=== PATIENT | male | born 1940 | race Caucasian/White ===

== ENCOUNTER 2017-08-10 13:15 | Inpatient (IN) | payer OTHER ==
[~2017-08-10] VITALS: Ht 177.8 cm; Wt 100.0 kg
[~2017-08-10 13:15] MED LIST: ASPI81TA28 PO; ATOR-54 PO; CZR50 PO; GLC/500 PO; MAGN400T6 PO; METO50TA16 PO; MULT-506 PO; OMEGCAP2 PO; OMEP20CA9 PO
[2017-08-10] MEDS ORDERED: SODIUM CHLORIDE 0.9% 1000ML 2,000 ML IV STA (13:40)
[2017-08-10] MEDS ORDERED: CEFTRIAXONE SOD INJ 2,000 MG in DEXTROSE 5% 50ML 50 ML IV STA (13:52)
[2017-08-10] MEDS ORDERED: ACETAMINOPHEN 325 MG TAB PO STA (13:56)
--- NOTE | 2017-08-10 13:56 | EMERGENCY ROOM VISIT NOTE ---
ED Visit Note First contact with patient: 13:29 CHIEF COMPLAINT: Hematuria, urinary incontinence, fevers HISTORY OF PRESENTING ILLNESS: This is a 77-year-old male with past medical history significant for SD and CABG, hypertension, hyperlipidemia, type 2 diabetes, kidney stones and UTI, who presents to the emergency department with complaint of hematuria and fevers for the past 2 days. Patient states that he went to [place] emergency department on Tuesday when he started to have hematuria and issues with incontinence. He states he was diagnosed with a urinary tract infection and placed on ciprofloxacin to treat this. Since that time the patient has continued to feel unwell, and continues to note hematuria, urinary frequency, and urgency incontinence. His family has noted today that he appears pale and frequently becoming sweaty, and the patient states he has been shaking a lot and feeling generally weak and fatigued. He has also had associated nausea. The patient's states that he has had fluctuating fevers as high as 101.6 earlier today, he has not received any Tylenol or other antipyretics for the fevers. Patient complains of some mild pressure in his suprapubic region that is constant and rated as 5/10, he denies any other abdominal pain or back pain. He is followed by Dr. Mayer with urology for his previous UTIs and kidney stones. He denies any headaches, vision changes, neck pain or stiffness, chest pain, shortness of breath, cough, syncope, vomiting, diarrhea, bloody or black stool, or rash. REVIEW OF SYSTEMS: A complete 10 point review of systems was reviewed with the patient with pertinent positives and negatives as per history of present illness. All else were negative. PAST MEDICAL HISTORY: Reviewed in chart SOCIAL HISTORY: Lives at home with family. He denies tobacco use, alcohol or recreational drug use. ALLERGIES: Reviewed in chart. PHYSICAL EXAM: CONSTITUTIONAL: Pleasant and cooperative. No acute distress, nontoxic- appearing. Moderately dehydrated. HEENT: Normocephalic, atraumatic. Pupils equal, round and reactive to light, EOMI. TMs normal. Pharynx normal. Dry mucous membranes. NECK: Supple, full active range of motion without discomfort. No cervical adenopathy. RESPIRATORY: Diminished in bases, otherwise clear to auscultation bilaterally with no wheezing, crackles, rhonchi or stridor. Equal expansion bilaterally. CARDIOVASCULAR: Tachycardic. Regular rhythm with no murmurs, rubs or gallops. Normal peripheral perfusion. No pitting edema. GASTROINTESTINAL: Soft, mildly tender in suprapubic region, the abdomen is otherwise nontender, nondistended. No rebound tenderness or guarding. No palpable masses or HSM. Bowel sounds present in all quadrants. No CVA tenderness bilaterally. MUSCULOSKELETAL: Full range of motion of all joints without discomfort. INTEGUMENTARY: No rash or other significant dermatologic conditions noted. NEUROLOGIC: Alert and oriented X 4 with normal affect. Cranial nerves II-XII grossly intact. No focal neurologic deficits noted. Normal strength and sensation in all 4 extremities. Normal speech. Normal gait observed. ED COURSE AND MEDICAL DECISION MAKING: CC: Patient presenting with complaint of hematuria, urinary incontinence, and fevers DIFFERENTIAL DIAGNOSIS: Includes, but not limited to UTI, pyelonephritis, sepsis/bacteremia, dehydration, electrolyte abnormality, acute kidney injury, pneumonia, pulmonary edema, among others. INTERPRETATION OF LABS: Leukocytosis with left shift, mild anemia, mild hyponatremia/hypochloremia, no other significant electrolyte abnormalities, normal renal function, normal liver enzymes and lipase. Lactic acid within normal limits. UA consistent with UTI. Blood cultures pending. IMAGING: CHEST ONE VIEW PORTABLE CLINICAL HISTORY: 77 years-old Male presenting with Evaluate Fever/Sepsis. TECHNIQUE: AP view of the chest was obtained. COMPARISON: 12/03/2015. FINDINGS: Median sternotomy wires and mediastinal surgical clips again noted. Postsurgical changes of the ascending aorta. Atherosclerosis of the aortic arch. Cardiac silhouette mildly enlarged. No focal opacity. No large effusion or pneumothorax. Osseous structures normal. Upper abdomen normal. IMPRESSION: 1. Cardiomegaly without evidence of acute cardiopulmonary disease. 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 When compared to previous EKG from 12/03/2015, first-degree AV block has resolved, no other significant changes noted. MEDICATION RECONCILIATION: I attest that I have personally reviewed the patient 's current medication list. INITIAL VITAL SIGNS REVIEW: I reviewed the patient's initial vital signs and interpret them as follows: T: Febrile; BP: Hypertensive; HR: Tachycardic; RR : Within normal limits; Pulse Ox: Hypoxic on room air, patient placed on 2 L nasal cannula. Blood pressure screening: The patient was found to have an elevated blood pressure and was referred to the inpatient hospitalist team for further management. SUMMARY: Patient was evaluated at bedside, history and physical exam performed. Patient is alert and oriented, in no acute distress, resting calmly in stretcher. Patient does appear to be moderately dehydrated, is noted to be febrile and tachycardic on my exam. Patient also noted to be hypoxic to 88% on RA, placed on 2L NC with improvement. Patient states he wears BiPAP at night, no oxygen during the day. He does state "my oxygen is usually low when I don't feel well." He denies any chest pain, SOB, or cough. Patient does have mild suprapubic tenderness to exam, the abdomen is otherwise benign and no CVA tenderness. I reviewed patient records from [place] ED visit on 08/08/2017. Review of urine culture noting greater than 100,000 colonies of E. coli, resistant to fluoroquinolones, otherwise susceptible including susceptible to ceftriaxone. Orders were placed at bedside for labs, UA and urine culture, blood cultures 2 , lactic acid level, EKG and chest x-ray, Tylenol to treat fever, IV ceftriaxone to treat for possible sepsis secondary to UTI. 2L NSS IV fluid bolus for hydration/resuscitation based on adjusted ideal body weight of 73.1kg, per sepsis protocol, followed by maintenance IV fluid of 150mL /hr. Patient also being monitored closely for signs of fluid overload, given his cardiac history. His chest x-ray today does not show pulmonary edema. Patient discussed with Dr. Marroquin, who agrees with my assessment and plan. Labs and imaging reviewed as above, UA consistent with UTI. I spoke with Linda Herndon PA-C with hospitalist team, who agrees to evaluate the patient for admission. Patient reassessed multiple times throughout ED stay, he remains stable, tachycardia improving with IV fluids. Patient and family were updated on all results and plan for admission, they verbalized understanding and were agreeable to this plan. Patient stable at time of admission. Problem List Medical Problems: (1) CAD (coronary artery disease) Status: Chronic (2) DM type 2 (diabetes mellitus, type 2) Status: Chronic (3) HTN (hypertension) Status: Chronic (4) VANNESA treated with BiPAP Status: Chronic (5) Paroxysmal A-fib Status: Chronic (6) Renal stones Status: Chronic Current/Historical Medications Scheduled Aspirin (Aspirin Ec), 81 MG PO BID Atorvastatin (Lipitor), 20 MG PO HS Ciprofloxacin (Cipro), 1 TAB PO BID Losartan Potassium (Cozaar), 50 MG PO HS Magnesium Oxide (Mag-Ox), 400 MG PO QPM Metformin Hcl (Glucophage), 500 MG PO AMPM Metoprolol Tartrate (Lopressor) (Lopressor), 50 MG PO BID Multivitamin (Multivitamin), 1 TAB PO QAM [place]-3 Fatty Acids (Fish Oil), 1 TAB PO BID Omeprazole (Prilosec), 20 MG PO QAM Allergies Coded Allergies: NO KNOWN DRUG ALLERGIES (Verified Allergy, Unknown, NONE, 08/10/17) Lactose Intolerance (GI) (Verified Adverse Reaction, Mild, gi symptoms, 08/10/17) Vital Signs Date Time Temp Pulse Resp B/P (MAP) Pulse Ox O2 Delivery O2 Flow Rate FiO2 08/10/17 18:43 37.0 115 20 158/69 (98) 92 Nasal Cannula 2.0 08/10/17 17:30 109 24 141/85 93 Nasal Cannula 2.0 08/10/17 16:29 112 24 114/79 92 Nasal Cannula 2.0 08/10/17 16:06 95 Nasal Cannula 2.0 08/10/17 15:24 37.5 08/10/17 15:15 88 18 130/62 95 Nasal Cannula 2.0 08/10/17 14:16 88 Room Air 08/10/17 14:16 93 Nasal Cannula 2.0 08/10/17 13:58 100 08/10/17 13:45 38.0 08/10/17 13:19 37.3 98 20 139/75 90 Room Air Laboratory Results 08/10/17 14:15 Red Blood Count 4.32, Mean Corpuscular Volume 93.3, Mean Corpuscular Hemoglobin 31.7, Mean Corpuscular Hemoglobin Concent 34.0, Mean Platelet Volume 10.1, Neutrophils (%) (Auto) 80.7, Lymphocytes (%) (Auto) 9.3, Monocytes (%) (Auto) 9.3, Eosinophils (%) (Auto) 0.2, Basophils (%) (Auto) 0.2, Neutrophils # (Auto) 9.40, Lymphocytes # (Auto) 1.09, Monocytes # (Auto) 1.09, Eosinophils # (Auto) 0.02, Basophils # (Auto) 0.02 08/10/17 14:15 Test 08/10/17 14:10 08/10/17 14:15 Urine Color DK YELLOW Urine Appearance CLOUDY (CLEAR) Urine pH 5.5 (4.5-7.5) Urine Specific [place] 1.018 (1.000-1.030) Urine Protein 1+ (NEG) Urine Glucose (UA) NEG (NEG) Urine Ketones NEG (NEG) Urine Occult Blood 3+ (NEG) Urine Nitrite POS (NEG) Urine Bilirubin NEG (NEG) Urine Urobilinogen NEG (NEG) Urine Leukocyte Esterase LARGE (NEG) Urine WBC (Auto) >30 /hpf (0-5) Urine RBC (Auto) >30 /hpf (0-4) Urine Hyaline Casts (Auto) 1-5 /lpf (0-5) Urine Epithelial Cells (Auto) 5-10 /lpf (0-5) Urine Bacteria (Auto) 4+ (NEG) White Blood Count 11.66 K/uL (4.8-10.8) Red Blood Count 4.32 M/uL (4.7-6.1) Hemoglobin 13.7 g/dL (14.0-18.0) Hematocrit 40.3 % (42-52) Mean Corpuscular Volume 93.3 fL (80-100) Mean Corpuscular Hemoglobin 31.7 pg (25-34) Mean Corpuscular Hemoglobin Concent 34.0 g/dl (32-36) Platelet Count 176 K/uL (130-400) Mean Platelet Volume 10.1 fL (7.4-10.4) Neutrophils (%) (Auto) 80.7 % Lymphocytes (%) (Auto) 9.3 % Monocytes (%) (Auto) 9.3 % Eosinophils (%) (Auto) 0.2 % Basophils (%) (Auto) 0.2 % Neutrophils # (Auto) 9.40 K/uL (1.4-6.5) Lymphocytes # (Auto) 1.09 K/uL (1.2-3.4) Monocytes # (Auto) 1.09 K/uL (0.11-0.59) Eosinophils # (Auto) 0.02 K/uL (0-0.5) Basophils # (Auto) 0.02 K/uL (0-0.2) RDW Standard Deviation 43.3 fL (36.4-46.3) RDW Coefficient of Variation 12.7 % (11.5-14.5) Immature Granulocyte % (Auto) 0.3 % Immature Granulocyte # (Auto) 0.04 K/uL (0.00-0.02) Prothrombin Time 11.0 SECONDS (9.0-12.0) Prothromb Time International Ratio 1.0 (0.9-1.1) Anion Gap 8.0 mmol/L (3-11) Est Creatinine Clear Calc Drug Dose 90.1 ml/min Estimated GFR () 98.9 Estimated GFR (Non- 85.3 BUN/Creatinine Ratio 22.0 (10-20) Lactic Acid Level 1.7 mmol/L (0.4-2.0) Calcium Level 8.8 mg/dl (8.5-10.1) Total Bilirubin 0.8 mg/dl (0.2-1) Direct Bilirubin 0.2 mg/dl (0-0.2) Aspartate Amino Transf (AST/SGOT) 15 U/L (15-37) Alanine Aminotransferase (ALT/SGPT) 26 U/L (12-78) Alkaline Phosphatase 51 U/L (45-117) Total Protein 6.9 gm/dl (6.4-8.2) Albumin 3.1 gm/dl (3.4-5.0) Lipase 105 U/L (73-393) Procalcitonin 0.41 ng/ml (0-0.5) Medications Administered Medications (Trade) Dose Ordered Sig/Ac Route Start Time Stop Time Status Last Admin Dose Admin Sodium Chloride 2,000 ml @ 999 mls/hr Q2H1M STAT IV 08/10/17 13:40 08/10/17 15:40 DC 08/10/17 14:17 999 MLS/HR Ceftriaxone Sodium 2000 mg/ Dextrose 70 ml @ 100 mls/hr ONE STAT IV 08/10/17 13:52 08/10/17 14:33 DC 08/10/17 14:17 100 MLS/HR Acetaminophen (Tylenol Tab) 650 mg NOW STAT PO 08/10/17 13:56 08/10/17 13:57 DC 08/10/17 14:25 650 MG Sodium Chloride 1,000 ml @ 150 mls/hr Q6H40M STAT IV 08/10/17 15:38 08/10/17 22:17 08/10/17 18:30 150 MLS/HR Departure Information Referrals Shaka Lechuga (PCP) Patient Instructions Counts Include [facility] At [facility]
[2017-08-10] MEDS ORDERED: LOSA50TA6 PO (14:26)
[2017-08-10 14:55] LABS: BASO % 0.2 %; BASO ABS # 0.02 K/uL (0-0.2); EOS % 0.2 %; EOS ABS # 0.02 K/uL (0-0.5); HEMATOCRIT 40.3 % (42-52); HEMOGLOBIN 13.7 g/dL (14.0-18.0); IG# 0.04 K/uL (0.00-0.02); LYMPH % 9.3 %; LYMPH ABS # 1.09 K/uL (1.2-3.4); MEAN CELL VOLUME 93.3 fL (80-100); MEAN CORPUSCULAR HEMOGLOBIN 31.7 pg (25-34); MEAN PLATELET VOLUME 10.1 fL (7.4-10.4); MONO % 9.3 %; MONO ABS # 1.09 K/uL (0.11-0.59); NEUT % 80.7 %; PLATELET COUNT 176 K/uL (130-400); RED CELL DISTRIBUTION WIDTH CV 12.7 % (11.5-14.5); RED CELL DISTRIBUTION WIDTH SD 43.3 fL (36.4-46.3); WHITE BLOOD COUNT 11.66 K/uL (4.8-10.8)
[2017-08-10 14:56] LABS: ALBUMIN 3.1 gm/dl (3.4-5.0); CALCIUM 8.8 mg/dl (8.5-10.1); CREATININE 0.82 mg/dl (0.60-1.40); POTASSIUM 3.9 mmol/L (3.5-5.1)
[2017-08-10 14:59] LABS: TOTAL PROTEIN 6.9 gm/dl (6.4-8.2)
--- NOTE | 2017-08-10 15:01 | DIAGNOSTIC IMAGING REPORT ---
CHEST ONE VIEW PORTABLE CLINICAL HISTORY: 77 years-old Male presenting with Evaluate Fever/Sepsis. TECHNIQUE: AP view of the chest was obtained. COMPARISON: 12/03/2015. FINDINGS: Median sternotomy wires and mediastinal surgical clips again noted. Postsurgical changes of the ascending aorta. Atherosclerosis of the aortic arch. Cardiac silhouette mildly enlarged. No focal opacity. No large effusion or pneumothorax. Osseous structures normal. Upper abdomen normal. IMPRESSION: 1. Cardiomegaly without evidence of acute cardiopulmonary disease. Electronically signed by: Yovany George M.D. 08/10/2017 2:59 PM Dictated Date/Time: 08/10/2017 2:57 PM
[2017-08-10] MEDS ORDERED: SODIUM CHLORIDE 0.9% 1000ML 1,000 ML IV STA (15:38)
[2017-08-10] MEDS ORDERED: DEXTROSE 50% 50 ML SYR IV PRN (16:00)
[2017-08-10] MEDS ORDERED: GLUCOSE 10 TABS/TUBE PO PRN (16:00)
[2017-08-10] MEDS ORDERED: GLUCOSE 40% GEL 15 GM TUBE PO PRN (16:00)
[2017-08-10] MEDS ORDERED: ACETAMINOPHEN 325 MG TAB PO PRN (16:00)
[2017-08-10] MEDS: INSULIN ASPART 100 UNITS/ML 3 ML PEN SC SCH ×2 (16:00→21:23)
[2017-08-10] MEDS ORDERED: GLUCAGON FOR INJ 1 MG VIAL SQ PRN (16:00)
[2017-08-10] MEDS ORDERED: ONDANSETRON INJ 2 MG/ML 2 ML VIAL IV PRN (16:00)
[2017-08-10 16:06] VITALS: O2SAT 95; Ht 177.8 cm; Wt 100.0 kg
--- NOTE | 2017-08-10 16:07 | History and Physical ---
History & Physical Date & Time of Service: Aug 10, 2017 at 15:55 Chief Complaint: Bleeding In Urine, Nausea, Shaking, Fever Primary Care Physician: Shaka Lechuga History of Present Illness Source: patient, clinic records, hospital records Patient is a 77-year-old male with a PMH of kidney stones, CAD (s/p CABG), DM II , and other medical problems listed below who presents with worsening urinary symptoms 2 days. Patient was seen at [place] the ED 2 days ago for urinary urgency, gross hematuria and incontinence with associated fever, chills and nausea. Was diagnosed with a UTI and discharged on Cipro. Patient has continued to feel poorly over the past 2 days with continued urgency, episodes of incontinence and suprapubic pain. Has had a fever ranging from 99-101.6F as well as chills, nausea, decreased PO intake and diarrhea. states patient has been diaphoretic and generally weak as well. Denies any episodes of vomiting, flank pain or inability to urinate. No confusion. Resulting urine culture grew E coli with resistance to fluoroquinolones but otherwise pansensitive. CT abdomen/pelvis performed at [facility] shows presence of multiple bilateral renal stones but no hydronephrosis. Follows with Dr. Mayer with urology for his previous UTIs and kidney stones. In ED, patient had a temperature of 38, heart rate of 98 and a white count of 11.66. + UA with repeat urine culture pending. Past Medical/Surgical History Medical Problems: (1) CAD (coronary artery disease) Status: Chronic (2) DM type 2 (diabetes mellitus, type 2) Status: Chronic (3) HTN (hypertension) Status: Chronic (4) VANNESA treated with BiPAP Status: Chronic (5) Paroxysmal A-fib Status: Chronic (6) Renal stones Status: Chronic Family History Diabetes mellitus FH: heart disease Social History Smoking Status: Former Smoker Marital Status: Housing status: lives with significant other Occupational Status: retired Immunizations History of Influenza Vaccine: No History of Tetanus Vaccine?: Unknown History of Pneumococcal: Yes Pneumococcal Date: Feb 07, 2008 History of Hepatitis B Vaccine: Unknown Allergies Coded Allergies: NO KNOWN DRUG ALLERGIES (Verified Allergy, Unknown, NONE, 08/10/17) Lactose Intolerance (GI) (Verified Adverse Reaction, Mild, gi symptoms, 08/10/17) Home Medications Scheduled Aspirin (Aspirin Ec), 81 MG PO BID Atorvastatin (Lipitor), 20 MG PO HS Ciprofloxacin (Cipro), 1 TAB PO BID Losartan Potassium (Cozaar), 50 MG PO HS Magnesium Oxide (Mag-Ox), 400 MG PO QPM Metformin Hcl (Glucophage), 500 MG PO AMPM Metoprolol Tartrate (Lopressor) (Lopressor), 50 MG PO BID Multivitamin (Multivitamin), 1 TAB PO QAM [place]-3 Fatty Acids (Fish Oil), 1 TAB PO BID Omeprazole (Prilosec), 20 MG PO QAM Review of Systems Constitutional: + fever, + chills, + sweats, + weakness, + fatigue Eyes: No worsening of vision, No diplopia ENT: No nasal symptoms, No sore throat Respiratory: No cough, No sputum, No wheezing, No shortness of breath Cardiovascular: No chest pain, No edema, No palpitations Abdomen: + nausea, + diarrhea, No pain, No vomiting, No constipation Genitourinary - Male: + dysuria, + urinary urgency, + urinary incontinence, No hematuria, No urinary frequency, No urinary retention Neurologic: No numbness/tingling Psychiatric: No depression symptoms Integumentary: No rash, No itch, No new/changing skin lesions Physical Exam Vital Signs Date Time Temp Pulse Resp B/P (MAP) Pulse Ox O2 Delivery O2 Flow Rate FiO2 08/10/17 15:24 37.5 08/10/17 15:15 88 18 130/62 95 Nasal Cannula 2.0 08/10/17 14:16 88 Room Air 08/10/17 14:16 93 Nasal Cannula 2.0 08/10/17 13:58 100 08/10/17 13:45 38.0 08/10/17 13:19 37.3 98 20 139/75 90 Room Air General Appearance: + mild distress, + pertinent finding (Normal oxygen saturation on 2L NC) Head: normocephalic, atraumatic Eyes: normal inspection, PERRL, sclerae normal ENT: normal ENT inspection, hearing grossly normal, pharynx normal (Dry mucous membranes) Neck: supple, no JVD, trachea midline Respiratory/Chest: chest non-tender, no respiratory distress, no accessory muscle use, + decreased breath sounds Cardiovascular: no murmur, normal peripheral pulses, + tachycardia Abdomen/GI: normal bowel sounds, non tender, soft, no organomegaly Genitourinary - Male: + pertinent finding (Suprapubic tenderness) Back: normal inspection Extremities/Musculoskelatal: normal inspection, no calf tenderness, + pertinent finding (RLE 1+ pitting edema (chronic)) Neurologic/Psych: no motor/sensory deficits, alert, normal mood/affect, oriented x 3 Skin: normal color, warm/dry, no rash Diagnostics Laboratory Results Results Past 24 Hours Test 08/10/17 14:10 08/10/17 14:15 Range/Units Urine Color DK YELLOW Urine Appearance CLOUDY CLEAR Urine pH 5.5 4.5-7.5 Urine Specific [place] 1.018 1.000-1.030 Urine Protein 1+ NEG Urine Glucose (UA) NEG NEG Urine Ketones NEG NEG Urine Occult Blood 3+ NEG Urine Nitrite POS NEG Urine Bilirubin NEG NEG Urine Urobilinogen NEG NEG Urine Leukocyte Esterase LARGE NEG Urine WBC (Auto) >30 0-5 /hpf Urine RBC (Auto) >30 0-4 /hpf Urine Hyaline Casts (Auto) 1-5 0-5 /lpf Urine Epithelial Cells (Auto) 5-10 0-5 /lpf Urine Bacteria (Auto) 4+ NEG White Blood Count 11.66 4.8-10.8 K/uL Red Blood Count 4.32 4.7-6.1 M/uL Hemoglobin 13.7 14.0-18.0 g/dL Hematocrit 40.3 42-52 % Mean Corpuscular Volume 93.3 80-100 fL Mean Corpuscular Hemoglobin 31.7 25-34 pg Mean Corpuscular Hemoglobin Concent 34.0 32-36 g/dl Platelet Count 176 130-400 K/uL Mean Platelet Volume 10.1 7.4-10.4 fL Neutrophils (%) (Auto) 80.7 % Lymphocytes (%) (Auto) 9.3 % Monocytes (%) (Auto) 9.3 % Eosinophils (%) (Auto) 0.2 % Basophils (%) (Auto) 0.2 % Neutrophils # (Auto) 9.40 1.4-6.5 K/uL Lymphocytes # (Auto) 1.09 1.2-3.4 K/uL Monocytes # (Auto) 1.09 0.11-0.59 K/uL Eosinophils # (Auto) 0.02 0-0.5 K/uL Basophils # (Auto) 0.02 0-0.2 K/uL RDW Standard Deviation 43.3 36.4-46.3 fL RDW Coefficient of Variation 12.7 11.5-14.5 % Immature Granulocyte % (Auto) 0.3 % Immature Granulocyte # (Auto) 0.04 0.00-0.02 K/uL Sodium Level 133 136-145 mmol/L Potassium Level 3.9 3.5-5.1 mmol/L Chloride Level 97 98-107 mmol/L Carbon Dioxide Level 27 21-32 mmol/L Anion Gap 8.0 3-11 mmol/L Blood Urea Nitrogen 18 7-18 mg/dl Creatinine 0.82 0.60-1.40 mg/dl Est Creatinine Clear Calc Drug Dose 90.1 ml/min Estimated GFR () 98.9 Estimated GFR (Non- 85.3 BUN/Creatinine Ratio 22.0 10-20 Random Glucose 116 70-99 mg/dl Lactic Acid Level 1.7 0.4-2.0 mmol/L Calcium Level 8.8 8.5-10.1 mg/dl Total Bilirubin 0.8 0.2-1 mg/dl Direct Bilirubin 0.2 0-0.2 mg/dl Aspartate Amino Transf (AST/SGOT) 15 15-37 U/L Alanine Aminotransferase (ALT/SGPT) 26 12-78 U/L Alkaline Phosphatase 51 45-117 U/L Total Protein 6.9 6.4-8.2 gm/dl Albumin 3.1 3.4-5.0 gm/dl Lipase 105 73-393 U/L Microbiology Results 08/10/17 Blood Culture, Received Pending 08/10/17 Blood Culture, Received Pending 08/10/17 Urine Culture, Received Pending Diagnostic Radiology CXR: IMPRESSION: 1. Cardiomegaly without evidence of acute cardiopulmonary disease. Chest/thorax CTA: IMPRESSION: 1. No evidence for central pulmonary embolus. The respiratory motion artifact obscures the distal pulmonary arteries. 2. Cardiomegaly. 3. No focal lung consolidations to suggest pneumonia. 4. A 3 mm indeterminate pulmonary nodule within the left lung apex. EKG Sinus tachycardia at 104 bpm. Right bundle branch block. Left anterior fascicular block. Left ventricular hypertrophy with repolarization abnormality When compared with ECG of 03-DEC-2015 11:14, CA interval has decreased Confirmed Impression Assessment and Plan Patient is a 77-year-old male with a PMH of kidney stones, CAD (s/p CABG), DM II , and other medical problems listed below who presents with worsening urinary symptoms 2 days. Sepsis 2/2 complicated UTI: -Febrile to 38.6 at home (38 here), HR > 90 meet SIRs criteria -Known source of E coli UTI -Leukocytosis of 11.66 -Lactic acid wnl at 1.7 -Treat with rocephin (sensitive per [facility] culture) -Blood, urine cultures pending -Given 2 L NSS bolus in ED. Continue with maintenance fluids Acute hypoxic respiratory failure: -Hypoxic to 88% on room air, improved to mid-90s on 2L NC -Does not require home O2 during day -Uses bipap at night for VANNESA -Lungs clear on exam, no evidence of PNA on CXR -Chest/thorax CTA without evidence for central PE (motion artifact distorted distal pulm arteries) Kidney stones: -CT abdomen/pelvis performed at [facility] shows presence of multiple bilateral renal stones but no hydronephrosis -Recommend out-patient renal ultrasound for follow up -Follows with Dr. Mayer with [facility] [place] CAD: -S/p CABG in 1994 -Denies any intervention since then -Echo from 2013 with moderate hypokinesis in septal, inferior and posterior honeycutt Mildly reduced systolic function. EF of 50% -No chest pain or acute ischemic changes on EKG -Continue home dose aspirin, statin DM II: -Last a1c 6.5 in Jun 2017 -Hold home agents -SSI while in-patient -BSG AC HS HTN: -Normotensive -Cont home losartan, metoprolol VANNESA: -Bipap at night Paroxysmal A Fib: -NSR on EKG -Not on out-patient anticoagulation -Continue metoprolol DVT Ppx: SQ heparin Code status: FULL per discussion with patient PCP: Alexandrea Dispo: Admitted to telemetry. Plan to return home once medically stable. Patient seen in collaboration with Dr. Tabares. Please see addendum. Attending Note: Patient is a 77 yr male with PMH of CAD S/P CABG, VANNESA, DM II and other problems presents with history of worsening urinary urgency, hematuria, Incontinence associated with fever, chills and nausea since 2 days duration. Patient was discharged on Cipro for recently diagnosed UTI which was resistant to E.coli on sensitivities. Patient was also found to be hypoxic while in ED but he denies any SOB. CTA was negative for consolidation, PE. Physical Exam: Vitals signs as noted above General Appearance:Moderately built and nourished, no apparent distress Head: normocephalic, Atraumatic Eyes: normal inspection, EOMI, PERRL Neck: supple, Trachea midline Respiratory/Chest: Normal breath sounds, CTA Cardiovascular: S1, S2, No murmur, +Tachycardia Abdomen/GI:Soft, Suprapubic tender, Bowel sounds present Extremities/Musculoskelatal:normal inspection, 1+ b/l edema Neurologic/Psych:AAOX3, grossly no focal neurological deficits Skin:normal color,warm Assessment and Plan: Sepsis Complicated UTI: Normal lactate IV Fluids Started on Rocephin Hypoxia: CTA: No PE, consolidation H/O VANNESA Oxygen support May need 2 step prior to discharge Continue BiPAP QHS I personally reviewed the record. Patient is interviewed and examined at bedside. Patient's care is coordinated with Linda Herndon PA-C. Please refer to the documentation above for details of patient's presentation and for discussion of other issues. Resuscitation Status VTE Prophylaxis Will order VTE Prophylaxis: Yes
[2017-08-10] MEDS ORDERED: CIPR250T3 PO (16:35)
[2017-08-10] MEDS ORDERED: OPTIRAY 320 IV PRN (17:30)
--- NOTE | 2017-08-10 17:58 | DIAGNOSTIC IMAGING REPORT ---
CHEST CTA for PULMONARY ARTERIES CT DOSE: 549.94 mGy.cm HISTORY: Atypical chest pain. TECHNIQUE: Multiaxial CT images of the chest were performed following the intravenous administration of contrast to evaluate the pulmonary arteries. Maximal intensity projection images were also obtained. A dose lowering technique was utilized adhering to the principles of ALARA. COMPARISON STUDY: None. FINDINGS: The visualized unenhanced liver, spleen, and adrenal glands are unremarkable. No mediastinal or hilar lymphadenopathy. The heart is moderately enlarged. No pleural or pericardial effusions. Poststernotomy changes. No pneumothorax. The central airways are patent. Respiratory motion artifact results in suboptimal evaluation of the lungs. There is a 3 mm nodule within the left lung apex on image 245. No focal lung consolidations to suggest pneumonia. No evidence for aortic dissection. The majority of the segmental and subsegmental pulmonary arteries are nondiagnostic due to the respiratory motion. The main and lobar pulmonary arteries are patent. IMPRESSION: 1. No evidence for central pulmonary embolus. The respiratory motion artifact obscures the distal pulmonary arteries. 2. Cardiomegaly. 3. No focal lung consolidations to suggest pneumonia. 4. A 3 mm indeterminate pulmonary nodule within the left lung apex. Electronically signed by: Nick Perdomo M.D. 08/10/2017 5:57 PM Dictated Date/Time: 08/10/2017 5:47 PM
[2017-08-10 18:43] VITALS: BP 158/69; PULSE 115; TEMP 37; O2SAT 92
[2017-08-10] MEDS ORDERED: SODIUM CHLORIDE 0.9% 1000ML 1,000 ML IV SCH (19:15)
[2017-08-10 20:00] VITALS: O2SAT 92
[2017-08-10] MEDS: METOPROLOL TARTRATE 50 MG TAB PO SCH (20:49)
[2017-08-10] MEDS: ATORVASTATIN 20 MG TAB PO SCH (20:49)
[2017-08-10] MEDS: MAGNESIUM OXIDE 400 MG TAB PO SCH (20:50)
[2017-08-10] MEDS: LOSARTAN POTASSIUM 50 MG TAB PO SCH (20:51)
[2017-08-10] MEDS: ASPIRIN 81 MG ECTAB PO SCH (20:51)
[2017-08-10 20:58] VITALS: BP 133/71; PULSE 126; TEMP 37.2; O2SAT 91
[2017-08-10] MEDS: HEPARIN SOD 5000 UNIT/0.5 ML CARP SQ SCH (20:58)
[2017-08-10 22:05] VITALS: PULSE 102; O2SAT 96
[2017-08-10 23:50] VITALS: BP 101/59; PULSE 99; TEMP 37.1; O2SAT 95
[2017-08-11 03:44] VITALS: BP 110/56; PULSE 89; TEMP 37.3; O2SAT 94
[2017-08-11] MEDS: HEPARIN SOD 5000 UNIT/0.5 ML CARP SQ SCH ×3 (06:00→13:38)
[2017-08-11 06:53] LABS: HEMATOCRIT 40.1 % (42-52); HEMOGLOBIN 13.4 g/dL (14.0-18.0); MEAN CELL VOLUME 94.6 fL (80-100); MEAN CORPUSCULAR HEMOGLOBIN 31.6 pg (25-34); MEAN CORPUSCULAR HGB CONC 33.4 g/dl (32-36); PLATELET COUNT 157 K/uL (130-400); RED CELL DISTRIBUTION WIDTH CV 12.8 % (11.5-14.5); RED CELL DISTRIBUTION WIDTH SD 43.9 fL (36.4-46.3); WHITE BLOOD COUNT 7.12 K/uL (4.8-10.8)
[2017-08-11 07:03] LABS: PTT PATIENT 25.7 SECONDS (21.0-31.0)
[2017-08-11 07:26] LABS: CALCIUM 8.1 mg/dl (8.5-10.1); CREATININE 0.62 mg/dl (0.60-1.40); POTASSIUM 3.5 mmol/L (3.5-5.1)
[2017-08-11 07:38] VITALS: BP 118/68; PULSE 85; TEMP 36.8; O2SAT 95
[2017-08-11] MEDS: ASPIRIN 81 MG ECTAB PO SCH ×2 (08:00→21:29)
[2017-08-11] MEDS: PANTOprazole SOD 40 MG TAB PO SCH (08:00)
[2017-08-11] MEDS: MULTIVITAMIN TAB PO SCH (08:00)
[2017-08-11] MEDS: METOPROLOL TARTRATE 50 MG TAB PO SCH ×2 (08:00→21:29)
[2017-08-11] MEDS: CEFTRIAXONE SOD INJ 1 GM in DEXTROSE 5% ADD-VANTAGE 50ML 50 ML IV SCH (08:04)
[2017-08-11] MEDS: INSULIN ASPART 100 UNITS/ML 3 ML PEN SC SCH ×4 (08:07→20:44)
[2017-08-11 09:53] LABS: HEMOGLOBIN A1C 6.4 % (4.5-5.6)
[2017-08-11 12:03] VITALS: BP 156/69; PULSE 78; TEMP 37.4; O2SAT 95
[2017-08-11 16:23] VITALS: BP 147/70; PULSE 86; TEMP 36.4; O2SAT 94
[2017-08-11 17:35] VITALS: BP 133/56; PULSE 92; TEMP 36.6; O2SAT 92; O2SAT 93
--- NOTE | 2017-08-11 18:21 | Progress Note ---
Medicine Progress Note Date & Time of Visit: Aug 11, 2017 at 15:33. Subjective 77-year-old man with history of kidney stones presents with urinary symptoms 2 days. In the ER he was septic and found to have UTI. He was placed on broad- spectrum antibiotics with Rocephin with blood and urine cultures pending. He reports clinical improvement today stating he feels overall much better and was is without pain. He does report some dysuria that is persistent. He denies flank pain, fevers, or chills. He is tolerating regular food. He is ambulatory. He is mentating at baseline. Objective Last 8 Hrs Date Time Temp Pulse Resp B/P (MAP) Pulse Ox O2 Delivery O2 Flow Rate FiO2 08/11/17 12:03 37.4 78 20 156/69 (98) 95 Room Air 08/11/17 12:00 Nasal Cannula 2.0 08/11/17 08:00 Nasal Cannula 2.0 08/11/17 07:38 36.8 85 16 118/68 (85) 95 Nasal Cannula 1.0 Physical Exam: GEN: WNWD, in no acute distress, alert and appropriate HEENT: NC/AT, normal sclerae, mmm CARDIO: reg rate, S1/2 heard without m/g/r LUNGS: CTA bilaterally, no crackles, rales or wheezes, good diaphragmatic excursion ABD: soft, non-tender, non-distended, no rebound or guarding, no CVA tenderness EXTREMITY: RP and DP palpable 2+ bilat, no LE swelling or edema, extremities are warm and well-perfused NEURO: CN 2-12 grossly intact MUSC: 5/5 strength throughout, no gross focal deficits SKIN: warm and dry Laboratory Results: 08/11/17 06:37 08/11/17 06:37 Test 08/10/17 14:10 08/10/17 14:15 08/11/17 06:37 08/11/17 16:26 Urine Color DK YELLOW Urine Appearance CLOUDY (CLEAR) Urine pH 5.5 (4.5-7.5) Urine Specific [place] 1.018 (1.000-1.030) Urine Protein 1+ (NEG) Urine Glucose (UA) NEG (NEG) Urine Ketones NEG (NEG) Urine Occult Blood 3+ (NEG) Urine Nitrite POS (NEG) Urine Bilirubin NEG (NEG) Urine Urobilinogen NEG (NEG) Urine Leukocyte Esterase LARGE (NEG) Urine WBC (Auto) >30 /hpf (0-5) Urine RBC (Auto) >30 /hpf (0-4) Urine Hyaline Casts (Auto) 1-5 /lpf (0-5) Urine Epithelial Cells (Auto) 5-10 /lpf (0-5) Urine Bacteria (Auto) 4+ (NEG) Immature Granulocyte % (Auto) 0.3 % White Blood Count 11.66 K/uL (4.8-10.8) Red Blood Count 4.32 M/uL (4.7-6.1) 4.24 M/uL (4.7-6.1) Hemoglobin 13.7 g/dL (14.0-18.0) Hematocrit 40.3 % (42-52) Mean Corpuscular Volume 93.3 fL (80-100) 94.6 fL (80-100) Mean Corpuscular Hemoglobin 31.7 pg (25-34) 31.6 pg (25-34) Mean Corpuscular Hemoglobin Concent 34.0 g/dl (32-36) 33.4 g/dl (32-36) Platelet Count 176 K/uL (130-400) Mean Platelet Volume 10.1 fL (7.4-10.4) 10.0 fL (7.4-10.4) Neutrophils (%) (Auto) 80.7 % Lymphocytes (%) (Auto) 9.3 % Monocytes (%) (Auto) 9.3 % Eosinophils (%) (Auto) 0.2 % Basophils (%) (Auto) 0.2 % Neutrophils # (Auto) 9.40 K/uL (1.4-6.5) Lymphocytes # (Auto) 1.09 K/uL (1.2-3.4) Monocytes # (Auto) 1.09 K/uL (0.11-0.59) Eosinophils # (Auto) 0.02 K/uL (0-0.5) Basophils # (Auto) 0.02 K/uL (0-0.2) Immature Granulocyte # (Auto) 0.04 K/uL (0.00-0.02) Prothrombin Time 11.0 SECONDS (9.0-12.0) Prothromb Time International Ratio 1.0 (0.9-1.1) Lactic Acid Level 1.7 mmol/L (0.4-2.0) Total Bilirubin 0.8 mg/dl (0.2-1) Direct Bilirubin 0.2 mg/dl (0-0.2) Aspartate Amino Transf (AST/SGOT) 15 U/L (15-37) Alanine Aminotransferase (ALT/SGPT) 26 U/L (12-78) Alkaline Phosphatase 51 U/L (45-117) Total Protein 6.9 gm/dl (6.4-8.2) Albumin 3.1 gm/dl (3.4-5.0) Lipase 105 U/L (73-393) Procalcitonin 0.41 ng/ml (0-0.5) RDW Standard Deviation 43.9 fL (36.4-46.3) RDW Coefficient of Variation 12.8 % (11.5-14.5) Activated Partial Thromboplast Time 25.7 SECONDS (21.0-31.0) Partial Thromboplastin Ratio 1.0 Anion Gap 6.0 mmol/L (3-11) Est Creatinine Clear Calc Drug Dose 118.3 ml/min Estimated GFR () 110.9 Estimated GFR (Non- 95.7 BUN/Creatinine Ratio 22.9 (10-20) Estimated Average Glucose 137 mg/dl Hemoglobin A1c 6.4 % (4.5-5.6) Calcium Level 8.1 mg/dl (8.5-10.1) Bedside Glucose 119 mg/dl (70-99) Date/Time Source Procedure Growth Status 08/10/17 14:15 Blood Blood Culture Pending Received 08/10/17 14:10 Urine , Clean Catch Urine Culture - Preliminary Escherichia Coli Resulted Last 24 Hours Test 08/10/17 18:41 08/10/17 20:51 08/11/17 06:37 08/11/17 06:56 Bedside Glucose 107 mg/dl 200 mg/dl 101 mg/dl White Blood Count 7.12 K/uL Red Blood Count 4.24 M/uL Hemoglobin 13.4 g/dL Hematocrit 40.1 % Mean Corpuscular Volume 94.6 fL Mean Corpuscular Hemoglobin 31.6 pg Mean Corpuscular Hemoglobin Concent 33.4 g/dl RDW Standard Deviation 43.9 fL RDW Coefficient of Variation 12.8 % Platelet Count 157 K/uL Mean Platelet Volume 10.0 fL Activated Partial Thromboplast Time 25.7 SECONDS Partial Thromboplastin Ratio 1.0 Sodium Level 139 mmol/L Potassium Level 3.5 mmol/L Chloride Level 103 mmol/L Carbon Dioxide Level 30 mmol/L Anion Gap 6.0 mmol/L Blood Urea Nitrogen 14 mg/dl Creatinine 0.62 mg/dl Est Creatinine Clear Calc Drug Dose 118.3 ml/min Estimated GFR () 110.9 Estimated GFR (Non- 95.7 BUN/Creatinine Ratio 22.9 Random Glucose 110 mg/dl Estimated Average Glucose 137 mg/dl Hemoglobin A1c 6.4 % Calcium Level 8.1 mg/dl Test 08/11/17 11:40 Bedside Glucose 102 mg/dl Assessment & Plan 77-year-old man with history of kidney stones presents with urinary symptoms 2 days. In the ER he was septic and found to have UTI. He was placed on broad- spectrum antibiotics with Rocephin with blood and urine cultures pending. He reports clinical improvement today stating he feels overall much better and was is without pain. He does report some dysuria that is persistent. He denies flank pain, fevers, or chills. He is tolerating regular food. He is ambulatory. He is mentating at baseline. 1. Sepsis secondary to complicated UTI secondary to E. coli-uncertain etiology. Of note patient is not sexually active. Continue Rocephin pending urine and blood cultures. Patient is resuscitated. No need for IV fluids at this time. 2. Acute urinary retention-likely secondary to infection. Continue Hart until more antibiotics have been given. Trial of void prior to discharge3 3. Hypoxia-unknown certain etiology, however,this has resolved 4. Nephrolithiasis-CT abdomen/pelvis performed at [facility] reveals presence of multiple bilateral renal stones without hydronephrosis. Recommend outpatient renal ulcers for follow-up and patient follows with Dr. Tree Malik with not in any physician group urology 5. CAD status post CABG in 1994-stable, no chest pain. Telemetry reveals no events overnight. Transferring to [facility]. Continue medical management. 6. Diabetes type 2-A1c controlled, insulin sliding scale while inpatient. 7. Hypertension-continue home losartan and metoprolol, well controlled. 8. VANNESA-continue nightly CPAP 9. Paroxysmal atrial fibrillation-currently in sinus rhythm, not on anticoagulation, continue metoprolol for rate control DVT Ppx: SQ Lovenox Code status: Full code PCP: Alexandrea Dispo: Transfer to [facility]. Likely discharge to home in 1-2 days. Christin Luna DO [facility] hospitalist Current Inpatient Medications: Current Inpatient Medications Medications (Trade) Dose Ordered Sig/Ac Route Start Time Stop Time Status Last Admin Dose Admin Ceftriaxone Sodium 1 gm/ Dextrose 50 ml @ 100 mls/hr Q24H IV 08/11/17 09:00 08/21/17 08:59 08/11/17 08:04 100 MLS/HR Heparin Sodium (Porcine) (Heparin Sq 5000 Unit/0.5ml) 5,000 unit Q8 SQ 08/10/17 22:00 09/09/17 21:59 Acetaminophen (Tylenol Tab) 650 mg Q4H PRN PO 08/10/17 16:00 09/09/17 15:59 Ondansetron HCl (Zofran Inj) 4 mg Q6H PRN IV 08/10/17 16:00 09/09/17 15:59 Insulin Aspart (novoLOG ASPART) SLIDING SCALE If C... ACHS SC 08/10/17 16:00 09/09/17 15:59 08/11/17 11:46 3 UNITS Glucose (Glucose 40% Gel) 15-30 GRAMS 15 GRAMS... UD PRN PO 08/10/17 16:00 09/09/17 15:59 Glucose (Glucose Chew Tab) 4-8 Tablets 4 Tabl... UD PRN PO 08/10/17 16:00 09/09/17 15:59 Dextrose (Dextrose 50% 50ML Syringe) 25-50ML OF 50% DW IV FOR... UD PRN IV 08/10/17 16:00 09/09/17 15:59 Glucagon (Glucagon Inj) 1 mg UD PRN SQ 08/10/17 16:00 09/09/17 15:59 Aspirin (Ecotrin Tab) 81 mg BID PO 08/10/17 21:00 09/09/17 20:59 08/11/17 08:00 81 MG Atorvastatin Calcium (Lipitor Tab) 20 mg HS PO 08/10/17 21:00 09/09/17 20:59 08/10/17 20:49 20 MG Losartan Potassium (coZAAR TAB) 50 mg HS PO 08/10/17 21:00 09/09/17 20:59 08/10/17 20:51 50 MG Magnesium Oxide (Mag-Ox Tab) 400 mg QPM PO 08/10/17 21:00 09/09/17 20:59 08/10/17 20:50 400 MG Metoprolol Tartrate (Lopressor Tab) 50 mg BID PO 08/10/17 21:00 09/09/17 20:59 08/11/17 08:00 50 MG Multivitamins (Multivitamin Tab) 1 tab QAM PO 08/11/17 09:00 09/10/17 08:59 08/11/17 08:00 1 TAB Pantoprazole Sodium (Protonix Tab) 40 mg QAM PO 08/11/17 09:00 09/10/17 08:59 08/11/17 08:00 40 MG Ioversol (Optiray 320) 100 ml UD PRN IV 08/10/17 17:30 08/14/17 17:29 Phenazopyridine HCl (Pyridium Tab) 200 mg TID PO 08/11/17 21:00 08/13/17 20:59 UNV
[2017-08-11] MEDS: PHENAZOPYRIDINE HCL 200 MG TAB PO SCH (20:43)
[2017-08-11] MEDS: ATORVASTATIN 20 MG TAB PO SCH (21:28)
[2017-08-11] MEDS: LOSARTAN POTASSIUM 50 MG TAB PO SCH (21:29)
[2017-08-11] MEDS: MAGNESIUM OXIDE 400 MG TAB PO SCH (21:29)
[2017-08-11 23:27] VITALS: BP 148/71; PULSE 74; TEMP 36.8; O2SAT 95
[2017-08-12 07:50] VITALS: BP 160/76; PULSE 88; TEMP 36.4; O2SAT 92
[2017-08-12] MEDS: ENOXAPARIN 40 MG/0.4 ML SYR SQ SCH ×2 (08:00→08:33)
[2017-08-12] MEDS: PHENAZOPYRIDINE HCL 200 MG TAB PO SCH ×3 (08:30→20:17)
[2017-08-12] MEDS: ASPIRIN 81 MG ECTAB PO SCH ×2 (08:31→20:16)
[2017-08-12] MEDS: PANTOprazole SOD 40 MG TAB PO SCH (08:32)
[2017-08-12] MEDS: MULTIVITAMIN TAB PO SCH (08:32)
[2017-08-12] MEDS: METOPROLOL TARTRATE 50 MG TAB PO SCH ×2 (08:32→20:18)
[2017-08-12] MEDS: CEFTRIAXONE SOD INJ 1 GM in DEXTROSE 5% ADD-VANTAGE 50ML 50 ML IV SCH (08:35)
[2017-08-12] MEDS: INSULIN ASPART 100 UNITS/ML 3 ML PEN SC SCH ×4 (08:43→20:47)
--- NOTE | 2017-08-12 10:34 | Clinical Documentation Query ---
VAN Kay : CLINICAL DOCUMENTATION QUERY Patient is a 64 year old female admitted for evaluation and treatment of atrial flutter with RVR. BMI noted to be 47.8 kg/m*m. In order to capture this clinically relevant information, an associated clinical diagnosis must explicitly be documented by the provider. As appropriate, consider documentation as suggested below. Thank you. In your clinical opinion is this patient: ( ) Morbidly obese, BMI 47.8 kg/m*m ( ) Not Agree ( ) Other explanation of clinical findings (Please Explain) ( ) Unable to determine (Please Define) ( ) Need to Discuss The medical record reflects the following clinical findings, treatment, and risk factors. Clinical Indicators: As above Treatment: DAHA diet Risk Factors: Caloric intake > caloric expenditure Please clarify and document your clinical opinion in the progress notes and discharge summary. Terms such as "probable", "suspected", "likely", "questionable", "possible", or "still to be ruled out" are acceptable. IF IN AGREEMENT, YOU MUST DOCUMENT ABOVE DIAGNOSTIC STATEMENT IN DAILY PROGRESS NOTES AND DISCHARGE SUMMARY. This document is not part of the patient's record. Thank You, Olaf Obnado, RN [phone]
[2017-08-12 11:06] VITALS: O2SAT 92
[2017-08-12 15:42] VITALS: BP 124/66; PULSE 77; TEMP 36.5; O2SAT 90
[2017-08-12] MEDS: SULFAMETHOXAZOLE/TRIMETHOPRIM DS 800/160MG TAB PO SCH (20:17)
[2017-08-12] MEDS: ATORVASTATIN 20 MG TAB PO SCH (20:17)
[2017-08-12] MEDS: MAGNESIUM OXIDE 400 MG TAB PO SCH (20:18)
[2017-08-12] MEDS: LOSARTAN POTASSIUM 50 MG TAB PO SCH (20:18)
[2017-08-12 20:19] VITALS: BP 148/70; PULSE 81
--- NOTE | 2017-08-12 21:54 | Progress Note ---
Medicine Progress Note Date & Time of Visit: Aug 12, 2017 at 16:59. Subjective 77-year-old man with history of kidney stones presents with E. coli UTI and sepsis which was resuscitated in 24 hours. He reports feeling well, tolerating p.o., denies fevers or chills, denies pain. He still has Hart in place and reports some irritation and spasms with overflow. The Hart was adjusted however the irritation persists. Discussed trial of Hart removal with patient and his and he is in agreement. Objective Last 8 Hrs Date Time Temp Pulse Resp B/P (MAP) Pulse Ox O2 Delivery O2 Flow Rate FiO2 08/12/17 16:00 Room Air 08/12/17 15:42 36.5 77 18 124/66 (85) 90 Room Air 08/12/17 11:06 92 Room Air Physical Exam: GEN: WNWD, in no acute distress, alert and appropriate HEENT: NC/AT, normal sclerae, mmm CARDIO: reg rate, S1/2 heard without m/g/r LUNGS: CTA bilaterally, no crackles, rales or wheezes, good diaphragmatic excursion ABD: soft, non-tender, non-distended, no rebound or guarding, no CVA tenderness EXTREMITY: RP and DP palpable 2+ bilat, no LE swelling or edema, extremities are warm and well-perfused NEURO: CN 2-12 grossly intact MUSC: 5/5 strength throughout, no gross focal deficits SKIN: warm and dry Laboratory Results: 08/11/17 06:37 08/11/17 06:37 Test 08/10/17 14:10 08/10/17 14:15 08/11/17 06:37 08/12/17 20:36 Urine Color DK YELLOW Urine Appearance CLOUDY (CLEAR) Urine pH 5.5 (4.5-7.5) Urine Specific [place] 1.018 (1.000-1.030) Urine Protein 1+ (NEG) Urine Glucose (UA) NEG (NEG) Urine Ketones NEG (NEG) Urine Occult Blood 3+ (NEG) Urine Nitrite POS (NEG) Urine Bilirubin NEG (NEG) Urine Urobilinogen NEG (NEG) Urine Leukocyte Esterase LARGE (NEG) Urine WBC (Auto) >30 /hpf (0-5) Urine RBC (Auto) >30 /hpf (0-4) Urine Hyaline Casts (Auto) 1-5 /lpf (0-5) Urine Epithelial Cells (Auto) 5-10 /lpf (0-5) Urine Bacteria (Auto) 4+ (NEG) Immature Granulocyte % (Auto) 0.3 % White Blood Count 11.66 K/uL (4.8-10.8) Red Blood Count 4.32 M/uL (4.7-6.1) 4.24 M/uL (4.7-6.1) Hemoglobin 13.7 g/dL (14.0-18.0) Hematocrit 40.3 % (42-52) Mean Corpuscular Volume 93.3 fL (80-100) 94.6 fL (80-100) Mean Corpuscular Hemoglobin 31.7 pg (25-34) 31.6 pg (25-34) Mean Corpuscular Hemoglobin Concent 34.0 g/dl (32-36) 33.4 g/dl (32-36) Platelet Count 176 K/uL (130-400) Mean Platelet Volume 10.1 fL (7.4-10.4) 10.0 fL (7.4-10.4) Neutrophils (%) (Auto) 80.7 % Lymphocytes (%) (Auto) 9.3 % Monocytes (%) (Auto) 9.3 % Eosinophils (%) (Auto) 0.2 % Basophils (%) (Auto) 0.2 % Neutrophils # (Auto) 9.40 K/uL (1.4-6.5) Lymphocytes # (Auto) 1.09 K/uL (1.2-3.4) Monocytes # (Auto) 1.09 K/uL (0.11-0.59) Eosinophils # (Auto) 0.02 K/uL (0-0.5) Basophils # (Auto) 0.02 K/uL (0-0.2) Immature Granulocyte # (Auto) 0.04 K/uL (0.00-0.02) Prothrombin Time 11.0 SECONDS (9.0-12.0) Prothromb Time International Ratio 1.0 (0.9-1.1) Lactic Acid Level 1.7 mmol/L (0.4-2.0) Total Bilirubin 0.8 mg/dl (0.2-1) Direct Bilirubin 0.2 mg/dl (0-0.2) Aspartate Amino Transf (AST/SGOT) 15 U/L (15-37) Alanine Aminotransferase (ALT/SGPT) 26 U/L (12-78) Alkaline Phosphatase 51 U/L (45-117) Total Protein 6.9 gm/dl (6.4-8.2) Albumin 3.1 gm/dl (3.4-5.0) Lipase 105 U/L (73-393) Procalcitonin 0.41 ng/ml (0-0.5) RDW Standard Deviation 43.9 fL (36.4-46.3) RDW Coefficient of Variation 12.8 % (11.5-14.5) Activated Partial Thromboplast Time 25.7 SECONDS (21.0-31.0) Partial Thromboplastin Ratio 1.0 Anion Gap 6.0 mmol/L (3-11) Est Creatinine Clear Calc Drug Dose 118.3 ml/min Estimated GFR () 110.9 Estimated GFR (Non- 95.7 BUN/Creatinine Ratio 22.9 (10-20) Estimated Average Glucose 137 mg/dl Hemoglobin A1c 6.4 % (4.5-5.6) Calcium Level 8.1 mg/dl (8.5-10.1) Bedside Glucose 130 mg/dl (70-99) Date/Time Source Procedure Growth Status 08/10/17 14:15 Blood Blood Culture - Preliminary NO GROWTH TO DATE. Resulted 08/10/17 14:10 Urine , Clean Catch Urine Culture - Final Escherichia Coli Complete Last 24 Hours Test 08/11/17 20:14 08/12/17 07:42 08/12/17 11:26 08/12/17 16:37 Bedside Glucose 139 mg/dl 122 mg/dl 109 mg/dl 108 mg/dl Assessment & Plan 77-year-old man with history of kidney stones presents with E. coli UTI and sepsis which was resuscitated in 24 hours. He reports feeling well, tolerating p.o., denies fevers or chills, denies pain. He still has Hart in place and reports some irritation and spasms with overflow. The Hart was adjusted however the irritation persists. Discussed trial of Hart removal with patient and his and he is in agreement. 1. Sepsis secondary to complicated UTI secondary to E. coli- Of note patient is not sexually active. Rocephin switch to Bactrim. Trial of void overnight with possible discharge to home in a.m. 2. Acute urinary retention-likely secondary to infection. Trial of void as per #1. 3. Nephrolithiasis-CT abdomen/pelvis performed at [facility] reveals presence of multiple bilateral renal stones without hydronephrosis. 4. CAD status post CABG in 1994-stable, no chest pain. Continue medical management. 5. Diabetes type 2-A1c controlled, insulin sliding scale while inpatient. 6. Hypertension-continue home losartan and metoprolol, well controlled. 7. VANNESA-continue nightly CPAP (home nasal mask) 8. Paroxysmal atrial fibrillation-currently in sinus rhythm, not on anticoagulation, continue metoprolol for rate control DVT Ppx: SQ Lovenox Code status: Full code PCP: Alexandrea Dispo: Likely dc in am. Christin Luna DO [facility] hospitalist Current Inpatient Medications: Current Inpatient Medications Medications (Trade) Dose Ordered Sig/Ac Route Start Time Stop Time Status Last Admin Dose Admin Acetaminophen (Tylenol Tab) 650 mg Q4H PRN PO 08/10/17 16:00 09/09/17 15:59 Ondansetron HCl (Zofran Inj) 4 mg Q6H PRN IV 08/10/17 16:00 09/09/17 15:59 Insulin Aspart (novoLOG ASPART) SLIDING SCALE If C... ACHS SC 08/10/17 16:00 09/09/17 15:59 08/12/17 12:59 4 UNITS Glucose (Glucose 40% Gel) 15-30 GRAMS 15 GRAMS... UD PRN PO 08/10/17 16:00 09/09/17 15:59 Glucose (Glucose Chew Tab) 4-8 Tablets 4 Tabl... UD PRN PO 08/10/17 16:00 09/09/17 15:59 Dextrose (Dextrose 50% 50ML Syringe) 25-50ML OF 50% DW IV FOR... UD PRN IV 08/10/17 16:00 09/09/17 15:59 Glucagon (Glucagon Inj) 1 mg UD PRN SQ 08/10/17 16:00 09/09/17 15:59 Aspirin (Ecotrin Tab) 81 mg BID PO 08/10/17 21:00 09/09/17 20:59 08/12/17 08:31 81 MG Atorvastatin Calcium (Lipitor Tab) 20 mg HS PO 08/10/17 21:00 09/09/17 20:59 08/11/17 21:28 20 MG Losartan Potassium (coZAAR TAB) 50 mg HS PO 08/10/17 21:00 09/09/17 20:59 08/11/17 21:29 50 MG Magnesium Oxide (Mag-Ox Tab) 400 mg QPM PO 08/10/17 21:00 09/09/17 20:59 08/11/17 21:29 400 MG Metoprolol Tartrate (Lopressor Tab) 50 mg BID PO 08/10/17 21:00 09/09/17 20:59 08/12/17 08:32 50 MG Multivitamins (Multivitamin Tab) 1 tab QAM PO 08/11/17 09:00 09/10/17 08:59 08/12/17 08:32 1 TAB Pantoprazole Sodium (Protonix Tab) 40 mg QAM PO 08/11/17 09:00 09/10/17 08:59 08/12/17 08:32 40 MG Ioversol (Optiray 320) 100 ml UD PRN IV 08/10/17 17:30 08/14/17 17:29 Phenazopyridine HCl (Pyridium Tab) 200 mg TID PO 08/11/17 20:00 08/13/17 20:59 08/12/17 14:08 200 MG Enoxaparin Sodium (Lovenox Inj) 40 mg QAM SQ 08/12/17 08:00 09/11/17 07:59 Trimethoprim/ Sulfamethoxazole (Septra Ds 800/ 160MG Tab) 1 tab Q12 PO 08/12/17 21:00 08/22/17 20:59
[2017-08-13 00:01] VITALS: BP 116/66; PULSE 69; TEMP 36.8; O2SAT 95
[2017-08-13 07:22] VITALS: BP 142/76; PULSE 76; TEMP 36.4; O2SAT 93
[2017-08-13] MEDS: ENOXAPARIN 40 MG/0.4 ML SYR SQ SCH (08:00)
[2017-08-13] MEDS: PHENAZOPYRIDINE HCL 200 MG TAB PO SCH ×2 (08:02→12:28)
[2017-08-13] MEDS: METOPROLOL TARTRATE 50 MG TAB PO SCH (08:02)
[2017-08-13] MEDS: MULTIVITAMIN TAB PO SCH (08:03)
[2017-08-13] MEDS: ASPIRIN 81 MG ECTAB PO SCH (08:03)
[2017-08-13] MEDS: PANTOprazole SOD 40 MG TAB PO SCH (08:03)
[2017-08-13] MEDS: SULFAMETHOXAZOLE/TRIMETHOPRIM DS 800/160MG TAB PO SCH (08:03)
[2017-08-13] MEDS: INSULIN ASPART 100 UNITS/ML 3 ML PEN SC SCH ×2 (08:12→12:29)
[2017-08-13] MEDS ORDERED: SULF-302 PO (12:33)
--- NOTE | 2017-08-13 12:39 | Discharge Summary ---
Discharge Summary Date of Service Aug 13, 2017. Discharge Summary Admission Date: Aug 10, 2017 at 15:49 Discharge Date: Aug 13, 2017 Discharge Disposition: Home Principal Diagnosis: Sepsis secondary to E. coli UTI Acute urinary retention secondary to infection-resolved Chronic nephrolithiasis Diabetes mellitus type 2 Procedures: None. Vaccinations: None. Consultations: None. Pending Studies/Follow-Up: See instructions below. Medication Reconciliation New Medications: Sulfamethoxazole-Trimethoprim (Smz-Tmp Ds) 1 Tab Tab 1 TAB PO Q12 for 5 Days, #10 TAB Continued Medications: Aspirin (Aspirin Ec) 81 Mg Tab 81 MG PO BID Atorvastatin (Lipitor) 20 Mg Tab 20 MG PO HS, TAB Losartan Potassium (Cozaar) 50 Mg Tab 50 MG PO HS, TAB Magnesium Oxide (Mag-Ox) 400 Mg Tab 400 MG PO QPM, TAB Metformin Hcl (Glucophage) 500 Mg Tab 500 MG PO AMPM, TAB Metoprolol Tartrate (Lopressor) (Lopressor) 50 Mg Tab 50 MG PO BID Multivitamin (Multivitamin) Tab 1 TAB PO QAM, TAB Windber-3 Fatty Acids (Fish Oil) 1 Cap Cap 1 TAB PO BID Omeprazole (Prilosec) 20 Mg Cap 20 MG PO QAM Discontinued Medications: Ciprofloxacin (Cipro) 250 Mg Tab 1 TAB PO BID for 5 Days, #10 TAB On day 2 Admission Information HPI (per Admitting provider): Patient is a 77-year-old male with a PMH of kidney stones, CAD (s/p CABG), DM II , and other medical problems listed below who presents with worsening urinary symptoms 2 days. Patient was seen at [place] the ED 2 days ago for urinary urgency, gross hematuria and incontinence with associated fever, chills and nausea. Was diagnosed with a UTI and discharged on Cipro. Patient has continued to feel poorly over the past 2 days with continued urgency, episodes of incontinence and suprapubic pain. Has had a fever ranging from 99-101.6F as well as chills, nausea, decreased PO intake and diarrhea. states patient has been diaphoretic and generally weak as well. Denies any episodes of vomiting, flank pain or inability to urinate. No confusion. Resulting urine culture grew E coli with resistance to fluoroquinolones but otherwise pansensitive. CT abdomen/pelvis performed at [facility] shows presence of multiple bilateral renal stones but no hydronephrosis. Follows with Dr. Mayer with urology for his previous UTIs and kidney stones. In ED, patient had a temperature of 38, heart rate of 98 and a white count of 11.66. + UA with repeat urine culture pending. Physical Exam (per Admitting): General Appearance: + mild distress, + pertinent finding (Normal oxygen saturation on 2L NC) Head: normocephalic, atraumatic Eyes: normal inspection, PERRL, sclerae normal ENT: normal ENT inspection, hearing grossly normal, pharynx normal (Dry mucous membranes) Neck: supple, no JVD, trachea midline Respiratory/Chest: chest non-tender, no respiratory distress, no accessory muscle use, + decreased breath sounds Cardiovascular: no murmur, normal peripheral pulses, + tachycardia Abdomen/GI: normal bowel sounds, non tender, soft, no organomegaly Genitourinary - Male: + pertinent finding (Suprapubic tenderness) Back: normal inspection Extremities/Musculoskelatal: normal inspection, no calf tenderness, + pertinent finding (RLE 1+ pitting edema (chronic)) Neurologic/Psych: no motor/sensory deficits, alert, normal mood/affect, oriented x 3 Skin: normal color, warm/dry, no rash Hospital Course 77-year-old man with history of kidney stones presents with E. coli UTI and sepsis which was resuscitated in 24 hours. He reports feeling well, tolerating p.o., denies fevers or chills, denies pain. He still has Hart in place and reports some irritation and spasms with overflow. The Hart was adjusted however the irritation persists. Discussed trial of Hart removal with patient and his and he is in agreement. 1. Sepsis secondary to complicated UTI secondary to E. coli- Of note patient is not sexually active. Rocephin switch to Bactrim. Trial of void overnight with possible discharge to home in a.m. 2. Acute urinary retention-likely secondary to infection. Trial of void as per #1. 3. Nephrolithiasis-CT abdomen/pelvis performed at [facility] reveals presence of multiple bilateral renal stones without hydronephrosis. 4. CAD status post CABG in 1994-stable, no chest pain. Continue medical management. 5. Diabetes type 2-A1c controlled, insulin sliding scale while inpatient. 6. Hypertension-continue home losartan and metoprolol, well controlled. 7. VANNESA-continue nightly CPAP (home nasal mask) 8. Paroxysmal atrial fibrillation-currently in sinus rhythm, not on anticoagulation, continue metoprolol for rate control DVT Ppx: SQ Lovenox Code status: Full code PCP: Alexandrea Dispo: Likely dc in am. DO Glenis Suárez hospitalist Total time spent on discharge = 60 minutes This includes examination of the patient, discharge planning, medication reconciliation, and communication with other providers. Discharge Instructions [address] [address] Discharge Medical Patient Name: Abdirashid Huffman Unit Number: [id number] Date of : 1940 Patient Status: Admitted Inpatient Attending Doctor: Christin Luna DO DI: Medical v5 Discharge Instructions Date of Service Aug 13, 2017. Admission Reason for Admission: Sepsis, Uti Discharge Discharge Diagnosis / Problem: Sepsis 2/2 E coli UTI, acute urinary retention- resolved Discharge Goals Goal(s): Prevent Disease Progression Activity Recommendations Activity Limitations: per Instructions/Follow-up section . Instructions / Follow-Up Instructions / Follow-Up Please take all medications as instructed. It is recommended that you see your primary care doc within 1 week of discharge. Someone from our staff will contact you on Tuesday regarding setting up this appointment. A 3 mm pulmonary nodule was found in the left upper lung. Please follow-up with primary care doctor regarding the need for reimaging of this in the next few months. It was a pleasure taking care of you! Call if you have any questions or problems. You can reach a [facility] hospitalist on duty at [facility] 24 hours a day by calling [phone]. Take care of yourself. DO David Suárez Hospitalist Current Hospital Diet Patient's current hospital diet: AHA Diet (Heart Healthy), Diabetes Type 2 Diet Discharge Diet Recommended Diet: AHA Diet (Heart Healthy), Diabetes Type 2 Diet Procedures Procedures Performed: None Pending Studies Studies pending at discharge: yes List of pending studies: Preliminary blood cultures were negative at time of discharge with final reading still pending. Laboratory Results Hemoglobin A1c Test 08/11/17 06:37 Range/Units Estimated Average Glucose 137 mg/dl Hemoglobin A1c 6.4 H 4.5-5.6 % Medical Emergencies . Who to Call and When: Medical Emergencies: If at any time you feel your situation is an emergency, please call 911 immediately. . Non-Emergent Contact Non-Emergency issues call your: Primary Care Provider . . "Provider Documentation" section prepared by Christin Luan. . Additional Copies To Dc Ferrer MD; Shaka Lechuga
[2017-08-13 12:46] VITALS: BP 142/76; PULSE 76; TEMP 36.4; O2SAT 93
== END 2017-08-13 13:39 | disposition home or self-care (01) | DRG 871 ==
LOC: C.EDB 13:16 → C.2T 15:49 → ENRESERV 16:43 → C.4E 08-11 17:33
PROVIDERS: ADMIT Internal Medicine; ATTEND Hospitalist
DX: A41.9 Sepsis, unspecified organism (principal); J96.01 Acute respiratory failure with hypoxia; N39.0 Urinary tract infection, site not specified; R33.8 Other retention of urine; I48.0 Paroxysmal atrial fibrillation; I10 Essential (primary) hypertension; N20.0 Calculus of kidney; I25.10 Atherosclerotic heart disease of native coronary artery without angina pectoris; E11.9 Type 2 diabetes mellitus without complications; G47.33 Obstructive sleep apnea (adult) (pediatric); Z79.82 Long term (current) use of aspirin; Z79.84 Long term (current) use of oral hypoglycemic drugs; Z79.899 Other long term (current) drug therapy; Z91.011 Allergy to milk products; Z95.1 Presence of aortocoronary bypass graft; Z87.891 Personal history of nicotine dependence

== ENCOUNTER → 2017-12-13 | Day surgery (SDC) | payer OTHER ==
[2017-11-28 15:15] VITALS: Ht 177.8 cm; Wt 101.8 kg
[~2017-12-13] VITALS: Ht 177.8 cm; Wt 101.8 kg
[~2017-12-13] MED LIST changes: +ATROPINE SULFATE 0.1 MG/ML 5ML SYR IV PRN; +BUPIVACAINE 0.5 % 5 MG/1 ML PF 10ML VIAL ONE; +CEFAZOLIN 2000MG IV PUSH 15 ML IV SCH; -CZR50 PO; +EpHEDrine SULFATE INJ 50 MG/ML AMP IV PRN; +FENTANYL CITRATE INJ 50 MCG/1 ML 2 ML VIAL IV PRN; +FENTANYL CITRATE INJ 50 MCG/1 ML 2 ML VIAL ONE; +FLUMAZENIL 0.1 MG/1 ML 10 ML VIAL IV PRN; +HYDROmorphone INJ 0.5 MG/0.5 ML SYR IV PRN; +LABETALOL HCL IV 5 MG/ML 20ML IV PRN; +LACTATED RINGER'S 1000ML 1,000 ML IV SCH; +LIDOCAINE HCL 1% 20 ML VIAL ONE; +LIDOCAINE HCL 2% 2 ML VIAL (20MG/ML) ONE; +LOSA50TA6 PO; +MEPERIDINE HCL 25 MG/ML CARP IV PRN; +NALOXONE HCL 0.4 MG/1 ML VIAL/CARP IV PRN; +ONDANSETRON INJ 2 MG/ML 2 ML VIAL IV PRN; +OXYCODONE/ACETAMINOPHEN 5-325 TAB PO PRN; +PHENYLEPHRINE 100MCG/ML 5ML SYR IV PRN; +PROPOFOL IV EMULSION 10 MG/ML 20 ML VIAL ONE; +SODIUM CHLORIDE 0.9% 1000ML 1,000 ML IV SCH; +TRAM-10 PO
--- NOTE | 2017-12-13 08:18 | History & Physical Bridge - SC ---
H&P Re-Evaluation Bridge Note: I have examined the patient, reviewed the History & Physical and in the interval since the performance of the History & Physical I have noted the following changes of clinical significance: No changes noted
--- NOTE | 2017-12-13 09:55 | [facility] Post Operative Brief Note ---
Immediate Operative Summary Operative Date Dec 13, 2017. Pre-Operative Diagnosis RIGHT CARPAL TUNNEL SYNDROME Post-Operative Diagnosis SAME PREOP Procedure(s) Performed Right Carpal Tunnel Release Surgeon DR. Tere CERNA Photograph Retoucher Surgeon(s) JOSELUIS RIOS PA-C Estimated Blood Loss 0 ML Findings Consistent with Post-Op Diagnosis Specimens NONE Drains None Anesthesia Type MAC Complication(s) none Disposition Accompanied Pt To Recover: no Disposition:
[2017-12-13 10:00] VITALS: TEMP 36.4
--- NOTE | 2017-12-13 10:01 | Discharge Instructions-SurgCtr ---
Discharge Instructions Date of Service Dec 13, 2017. Visit Reason for Visit: Right Carpal Tunnel Syndrome Discharge Discharge Diagnosis / Problem: SAME ABOVE Discharge Goals Goal(s): Decrease discomfort, Improve function Activity Recommendations Activity Limitations: as noted below Lifting Limitations: gradually increase as tolerated Exercise/Sports Limitations: until after follow-up appointment Shower/Bathe: keep incision dry Anesthesia . Post Anesthesia Instructions: If you have had General Anesthesia or IV Sedation: * Do not drive today. * Resume driving when surgeon permits. * Do not make important decisions or sign legal documents today. * Call surgeon for: 1. Temperature elevations greater than 101 degrees F. 2. Uncontrollable pain. 3. Excessive bleeding. 4. Persistent nausea and vomiting. 5. Medication intolerance (nausea, vomiting or rash). * For nausea and vomiting use only clear liquids such as: tea, soda, bouillon until nausea subsides, then gradually increase diet as tolerated. * If you have any concerns or questions, call your surgeon's office. If physician is unavailable and it is an emergency, call 911 or go to the nearest emergency room. . Instructions / Follow-Up Instructions / Follow-Up MEDICATIONS: * Resume previous medications unless instructed otherwise by your surgeon. * Always take pain medication on a full stomach or with food to avoid upset stomach. * Do not drink alcohol or drive while taking narcotics. * Ibuprofen or Tylenol may be taken if narcotic not needed. SPECIAL CARE INSTRUCTIONS: __ None _X_ Keep extremity elevated and iced x 48 hours; apply ice 20-30 minutes 8-10 times/day. May remove at night. __ Sling __24 hrs/day __ Remove at night __ Shoulder Immobilizer __ 24 hrs/day __ Remove at night _X_ Dressing _X_ Maintain until seen in office, may shower with plastic over site __ Remove dressings in 24-48 hours and then may shower __ Cover incisions with band-aids after showering __ Do not remove steri-strips Call physician if chills or temperature rises above 102 degrees or pain unrelieved by prescribed pain medications at . . Diet Recommendations Home Diet: resume previous diet Procedures Procedures Performed: Right Carpal Tunnel Release Pending Studies Studies pending at discharge: no Medical Emergencies . Who to Call and When: Medical Emergencies: If at any time you feel your situation is an emergency, please call 911 immediately. . Non-Emergent Contact Non-Emergency issues call your: Primary Care Provider . . "Provider Documentation" section prepared by Olaf Garrido. .
--- NOTE | 2017-12-13 10:11 | OPERATIVE REPORT ---
DATE OF OPERATION: 12/13/2017 PREOPERATIVE DIAGNOSIS: Right carpal tunnel syndrome. POSTOPERATIVE DIAGNOSIS: Right carpal tunnel syndrome. PROCEDURE: Decompression median nerve release transverse carpal ligament, right wrist. SURGEON: Yovany Ferrera MD BOTTOM SAW OPERATOR: Olaf Garrido PA-C. ANESTHESIOLOGIST: Dr. Gustafson. ANESTHESIA: Local with IV sedation. DRAINS: None. COMPLICATIONS: None. CONDITION: The patient tolerated the procedure well and returned to recovery room in apparent satisfactory condition. INDICATIONS FOR SURGERY: Abdirashid is a 77-year-old male who has had increasing pain, numbness and tingling consistent with carpal tunnel syndrome of the right wrist. Went over treatment options and elected to go ahead and proceed with surgery. The procedure, expected outcome, side effects, and risks were all explained in detail. DESCRIPTION OF PROCEDURE: The patient was taken to the OR at which time he was placed supine on the operating table. The right hand was prepped and draped in the usual sterile fashion for this surgery. The anticipated incision site was infiltrated with 1% Xylocaine. A forearm tourniquet was placed on the arm and tourniquet was placed up to 250 mmHg. Incision was made vertically over the transverse carpal tunnel ligament. Dissection was done down until the palmar fascia was identified and divided with a 15-blade. The transverse carpal ligament was identified and also divided with the 15-blade and upbiting scissors. A small portion of the forearm fascia was divided also. Electrocautery was used to control any areas of bleeding. The nerve was freed up from any scar tissue and adequately decompressed. The wound then was copiously irrigated. It was closed then with interrupted 4-0 nylon sutures. Marcaine without Epinephrine was placed in the skin edges. It was closed in a layered fashion. We placed a sterile dressing of Xeroform, 4 x 4, volar splint, and an Robin bandage. DISPOSITION: The patient was returned back to the recovery room in apparent satisfactory condition. I attest to the content of the Intraoperative Record and any orders documented therein. Any exception s are noted below.
--- NOTE | 2017-12-13 10:12 | Anesthesia Progress Nt - [facility] ---
Anesthesia Post Op Note Date & Time Dec 13, 2017 at 10:11 Vital Signs Pain Intensity: 0 Vital Signs Past 12 Hours Date Time Temp Pulse Resp B/P (MAP) Pulse Ox O2 Delivery O2 Flow Rate FiO2 12/13/17 10:00 36.4 80 16 149/76 (100) 94 Room Air 12/13/17 08:10 36.9 71 18 164/79 (107) 96 Room Air Notes Mental Status: alert / awake / arousable, participated in evaluation Pt Amnestic to Procedure: Yes Nausea / Vomiting: adequately controlled Pain: adequately controlled Airway Patency, RR, SpO2: stable & adequate BP & HR: stable & adequate Hydration State: stable & adequate Anesthetic Complications: no major complications apparent
[2017-12-13 10:25] VITALS: BP 144/76; PULSE 71; O2SAT 94
== END | disposition home or self-care (01) ==
LOC: X.SURG 07:37
PROVIDERS: ATTEND Orthopaedic Surgery
DX: G56.01 Carpal tunnel syndrome, right upper limb (principal); Z95.1 Presence of aortocoronary bypass graft; I48.91 Unspecified atrial fibrillation; E11.9 Type 2 diabetes mellitus without complications; Z79.82 Long term (current) use of aspirin; Z79.899 Other long term (current) drug therapy; Z79.84 Long term (current) use of oral hypoglycemic drugs; G47.33 Obstructive sleep apnea (adult) (pediatric); Z87.891 Personal history of nicotine dependence; I25.2 Old myocardial infarction; I25.10 Atherosclerotic heart disease of native coronary artery without angina pectoris; I10 Essential (primary) hypertension; K21.9 Gastro-esophageal reflux disease without esophagitis; E66.9 Obesity, unspecified; Z68.32 Body mass index [BMI] 32.0-32.9, adult

== ENCOUNTER 2018-05-03 12:19 | Inpatient (IN) ==
--- NOTE | 2018-05-03 13:32 | CT Scan Report ---
CT head/brain wo con CLINICAL HISTORY: Stroke evaluation double vision COMPARISON STUDY: No previous studies for comparison. TECHNIQUE: Axial CT of the brain is performed from the vertex to the skull base. IV contrast was not administered for this examination. A dose lowering technique was utilized adhering to the principles of ALARA. CT DOSE: 614.27 mGy.cm FINDINGS: No intra or extra-axial mass lesions are visualized. There is no CT evidence of acute cortical infarc tion. There is no evidence of midline shift. There is no acute hemorrhage. No calvarial fractures ar e visualized. There are patchy white matter hypodensities likely on a small vessel basis. There is no evidence of pathologic ventricular dilatation. There is a left maxillary sinus retention cyst. IMPRESSION: No acute intracranial findings Electronically signed by: Raffi Mckeon M.D. 05/03/2018 1:30 PM
[2018-05-03 13:33] LABS: Basophils # (auto) 0.02 K/uL (0-0.2); Basophils % (auto) 0.3 %; Eosinophils # (auto) 0.15 K/uL (0-0.5); Eosinophils % (auto) 2.5 %; Hematocrit (blood only) 39.2 % (42-52); Immature Granulocytes # (auto) 0.01 K/uL (0.00-0.02); Immature Granulocytes % (auto) 0.2 %; Lymphocytes # (auto) 1.51 K/uL (1.2-3.4); Lymphocytes % (auto) 24.8 %; Mean Corpuscular Hgb Conc 33.2 g/dL (32-36); Mean Corpuscular Volume 94.5 fL (80-100); Mean Platelet Volume 9.7 fL (7.4-10.4); Monocytes # (auto) 0.58 K/uL (0.11-0.59); Monocytes % (auto) 9.5 %; Neutrophils # (auto) 3.81 K/uL (1.4-6.5); Neutrophils % (auto) 62.7 %; Platelet Count 258 K/uL (130-400); RDW Coefficient of Variation 14.3 % (11.5-14.5); RDW Standard Deviation 48.9 fL (36.4-46.3); Red Blood Count 4.15 M/uL (4.7-6.1); White Blood Count 6.08 K/uL (4.8-10.8)
[2018-05-03 13:42] LABS: INR 1.1 (0.9-1.1); Partial Thromboplastin Ratio 0.9; Partial Thromboplastin Time 24.4 Seconds (21.0-31.0)
[2018-05-03 13:50] LABS: Appearance Urine Clear (Clear); Bacteria Urine Automated Negative (Negative); Bilirubin Urine Negative (Negative); Cast Urine Automated 0 /lpf (0-5); Color Urine Yellow; Glucose Urine UA Negative (Negative); Ketones Urine Negative (Negative); Leukocyte Esterase Urine 1+ (Negative); Nitrite Urine Negative (Negative); Protein Urine Negative (Negative); Specific Gravity Urine 1.017 (1.000-1.030); Urobilinogen Urine Negative (Negative)
[2018-05-03 13:54] LABS: Alanine Aminotransferase 25 U/L (12-78); Albumin Level 3.4 gm/dl (3.4-5.0); Aspartate Aminotransferase 11 U/L (15-37); BUN Creatinine Ratio 22.7 (10-20); Bilirubin Direct 0.1 mg/dl (0-0.2); Blood Urea Nitrogen 15 mg/dl (7-18); Calcium 8.9 mg/dl (8.5-10.1); Carbon Dioxide 27 mmol/L (21-32); Chloride 100 mmol/L (98-107); Creatinine Clr Calc Pharmacy 103.1 ml/min; Est GFR (African American) 107.3; Est GFR (Non-African American) 92.6; Glucose 109 mg/dl (70-99); Magnesium 2.4 mg/dl (1.8-2.4); Potassium 4.3 mmol/L (3.5-5.1); Sodium 136 mmol/L (136-145)
[2018-05-03 13:59] LABS: Alkaline Phosphatase 72 U/L (45-117); Bilirubin,Total 0.3 mg/dl (0.1-1); Total Protein 6.8 gm/dl (6.4-8.2); Troponin I < 0.015 ng/ml (0-0.045)
--- NOTE | 2018-05-03 14:22 | XRay Report ---
XR chest 1V portable HISTORY: 78 years-old Male weak eval for pna acute weakness COMPARISON: Chest radiographs 04/11/2018 TECHNIQUE: Portable AP view of the chest FINDINGS: Cardiac silhouette is mildly enlarged, unchanged. Calcification of the thoracic aortic arch. Prior me angel luis sternotomy. Surgical clips project over the left lower chest. There is no pneumothorax, pleural effusion, focal airspace consolidation or overt pulmonary edema. Degenerative changes are noted about the shoulders and spine. IMPRESSION: No acute process. The above report was generated using voice recognition software. It may contain grammatical, syntax o r spelling errors. Electronically signed by: Ray Richards M.D. 05/03/2018 2:21 PM
[2018-05-03] MEDS ORDERED: IOVERSOL 100ml IV PRN (14:49)
--- NOTE | 2018-05-03 15:11 | CT Scan Report ---
CT angio neck with con, CT angio head w con CLINICAL HISTORY: 78 years-old Male with diplopia/dizzy eval for stenosis. Acute dizziness COMPARISON STUDY: None available TECHNIQUE: Following the IV administration of 94 of Optiray 320, CT angiogram of the head and neck wa s performed from the aortic arch to the skull apex. Images are reviewed in the axial, sagittal, and c oronal planes. 3-D MIPS images are created and assessed. IV contrast was administered without complic ation. All measurements were calculated based on NASCET criteria. A dose lowering technique was util ized adhering to the principles of ALARA. CT DOSE: 504.28 mGy.cm FINDINGS: Prior median sternotomy. Moderate to extensive mixed plaque formation of the thoracic aortic arch and proximal great vessels. Patency of the imaged bilateral subclavian arteries. The left common carotid artery is mildly tortuous and demonstrates moderate mixed plaque formation. M oderate to extensive mixed plaque formation of the left carotid bulb and proximal left ICA results in less than 50% luminal narrowing of the left ICA. There is tortuosity about the distal cervical segme nt left ICA with mild fusiform dilation measuring up to 8 mm transversely on image 284 series 2. Calc ified plaque formation about the cavernous, clinoid and supraclinoid portions of the left ICA without high-grade stenosis. Mild mixed plaque formation of the right common carotid artery which is widely patent. Moderate to ex tensive mostly calcified plaque formation about the right carotid bulb and proximal right ICA results in less than 50% luminal narrowing. Calcified plaque formation of the right cavernous, clinoid and s upraclinoid segments without high-grade stenosis. The bilateral middle and anterior cerebral arteries are patent. Diminutive morphology of the right A1 segment, likely developmental. Anterior communicating artery is within normal limits. Calcified plaque formation at the origin of the left vertebral artery causes less than 50% luminal na rrowing. The remainder of the right vertebral artery is unremarkable. Mild calcified plaque formation about the V4 segment. Calcified plaque formation at the origin of the left vertebral artery causes l ess than 50% luminal narrowing. The rest of the left vertebral artery is unremarkable. Calcified plaq ue formation about the V4 segment without high-grade stenosis. Calcified plaque of the basilar artery which is patent. Basilar arteries are patent and within normal limits. origin of the right pos terior cerebral artery. Cerebral venous sinuses appear patent. Emphysematous changes about the lung apices. 4 mm solid nodule of the apical segment right upper lobe , image 25 series 2. Soft tissues are unremarkable. No adenopathy. Degenerative changes of the spine. Mastoid air cells are generally clear. Polypoid mucosal thickening of the maxillary sinuses measures up to 2.0 cm on the left. Postoperative changes of the nasal septum and right nasal turbinates. IMPRESSION: 1. No dissection, high-grade stenosis or proximal branch occlusion. 2. Multifocal atherosclerotic plaque formation of the vertebral and carotid arteries as detailed abov e without high-grade stenosis. 3. Tortuosity with fusiform dilation of the distal cervical segment left ICA as above. 4. Emphysema. 5. Additional findings as above. The above report was generated using voice recognition software. It may contain grammatical, syntax o r spelling errors. Electronically signed by: Ray Richards M.D. 05/03/2018 3:09 PM
[2018-05-03] MEDS ORDERED: ASPIRIN 81 MG CHEW PO STA (16:20)
[2018-05-03] MEDS ORDERED: ASPIRIN 81 MG ECTAB PO STA (16:22)
[2018-05-03] MEDS ORDERED: ASPIRIN 81 MG ECTAB PO ONE (16:33)
--- NOTE | 2018-05-03 17:24 | Ultrasound Report ---
US venous doppler LE CLINICAL HISTORY: 78 years-old Male presenting with recent back surgery, rule out DVT. TECHNIQUE: Real-time grayscale and color and spectral Doppler ultrasound imaging of the veins of the bilateral lower extremities was performed. Compression and augmentation were also utilized. COMPARISON: None. FINDINGS: RIGHT: Common femoral vein: Patent. Greater saphenous vein (superficial): Patent. Deep femoral vein: Patent. Femoral vein: Patent. Popliteal vein: Patent. Calf veins: Limited visualization. LEFT: Common femoral vein: Patent. Greater saphenous vein (superficial): Patent. Deep femoral vein: Patent. Femoral vein: Patent. Popliteal vein: Patent. Calf veins: Limited visualization. Other: None. IMPRESSION: No evidence of deep venous thrombosis. Electronically signed by: Yovany George M.D. 05/03/2018 5:22 PM
[2018-05-03] MEDS ORDERED: GLUCOSE 10 TABS/TUBE PO PRN (18:22)
[2018-05-03] MEDS ORDERED: DEXTROSE 50% 50 ML SYRINGE IV PRN (18:22)
[2018-05-03] MEDS ORDERED: GLUCAGON FOR INJ 1 MG VIAL SQ PRN (18:22)
[2018-05-03] MEDS ORDERED: CARBOHYDRATES FOR HYPOGLYCEMIA PO PRN (18:22)
[2018-05-03] MEDS ORDERED: GLUCOSE 40% GEL 15 GM TUBE PO PRN (18:22)
[2018-05-03 18:54] LABS: Basophils # (auto) 0.03 K/uL (0-0.2); Basophils % (auto) 0.6 %; Eosinophils # (auto) 0.17 K/uL (0-0.5); Eosinophils % (auto) 3.2 %; Hematocrit (blood only) 40.4 % (42-52); Hemoglobin 13.2 g/dL (14.0-18.0); Lymphocytes # (auto) 1.49 K/uL (1.2-3.4); Lymphocytes % (auto) 28.3 %; Mean Corpuscular Hgb Conc 32.7 g/dL (32-36); Mean Corpuscular Volume 94.2 fL (80-100); Mean Platelet Volume 9.9 fL (7.4-10.4); Monocytes % (auto) 11.4 %; Neutrophils # (auto) 2.97 K/uL (1.4-6.5); Neutrophils % (auto) 56.5 %; Platelet Count 261 K/uL (130-400); RDW Coefficient of Variation 14.4 % (11.5-14.5); RDW Standard Deviation 49.3 fL (36.4-46.3); Red Blood Count 4.29 M/uL (4.7-6.1); White Blood Count 5.26 K/uL (4.8-10.8)
[2018-05-03 19:17] LABS: BUN Creatinine Ratio 20.9 (10-20); Calcium 9.2 mg/dl (8.5-10.1); Creatinine Clr Calc Pharmacy 109.7 ml/min; Est GFR (African American) 110.1; Potassium 4.2 mmol/L (3.5-5.1)
[2018-05-03] MEDS: INSULIN ASPART 100 UNITS/ML 3 ML PEN SC SCH ×2 (19:24→21:12)
--- NOTE | 2018-05-03 20:21 | History & Physical Report ---
Date of Service May 03, 2018 Assessment & Plan (1) Diplopia: -This is a patient who has intermittent headaches since back surgery and woke up on 05/03/18 around 4 AM with dipoplia. Patient reports that the dipoplia if with gazing to the left with both eyes opened and sees double vision. When he is gazing to the left with either the right eye closed or with the left eye closed there is no double vision. The visual abnormality does not occur when gazing with both eyes opened in other directions. -at home usualy takes aspirin 81 mg BID -recently off of statins -took aspirin 81 mg today, given 162 mg of aspirin in the ED -CT imaging of the Multifocal atherosclerotic plaque formation of the vertebral and carotid arteries without high-grade stenosis. Tortuosity with fusiform dilation of the distal cervical segment left ICA as above. -patient reported history of atrial fibrillation after back surgery but returned to sinus rhythm; currently sinus rhythm on telemetry -had recent echocardiogram in 04/10/18 but will repeat to see if any other changes -will request neurology consult evaluation History of back surgery -Operation Date: 04/05/18: L3-S1 Decompression and Fusion, interbody cage at L5- S1 because of neurogenic claudication -get PT/OT -no DVT on lower extremity ultrasound History of atrial fibrillation -echocardiogram in 04/10/18 without evidence for ASD and EF 50 to 55% -will repeat echocardiogram to see if any other changes which could be related to neurological/occular issue -current sinus rhythm, monitor on telemetry -continue home dose BID metoprolol for heart rate control Hypertension -continue home dose losartan Type 2 diabetes mellitus without fpc current insulin use -hold off metformin -sliding scale insulin based on fingerstick glucose DVT ppx: [facility] [phone]; [phone] Full Code History of Present Illness Primary Care Provider: Shaka Lechuga MD This is a patient who has intermittent headaches since back surgery and woke up on 05/03/18 around 4 AM with dipoplia. Patient reports that the dipoplia if with gazing to the left with both eyes opened and sees double vision. When he is gazing to the left with either the right eye closed or with the left eye closed there is no double vision. The visual abnormality does not occur when gazing with both eyes opened in other directions. Patient at bedside denies current headaches. denies vomitting. denies fevers. denies neck pain. No other focal deficits however since back surgery he does have problems with his ambulation with walker compared to previous baseline denies dysphagia denies problems with urination or with bowel movements denies shortness of breath or chest pain or palpitations reports family history of "heart problems" like in his father Allergies Allergy/AdvReac Type Severity Reaction Status Date / Time No Known Drug Allergies Allergy Unknown NONE Verified 05/03/18 14:13 lactose AdvReac Mild gi symptoms Verified 05/03/18 14:13 Home Medications Home Medications Medication Instructions Recorded Confirmed Type aspirin [Aspir-81] 81 mg PO BID 03/23/18 05/03/18 History losartan 50 mg PO DAILY 03/23/18 05/03/18 History magnesium oxide 400 mg PO QPM 03/23/18 05/03/18 History metformin 500 mg PO BIDM 03/23/18 05/03/18 History multivitamin 1 tab PO QAM 03/23/18 05/03/18 History omega 3,6,9 combination no.7 1,200 mg PO QAM 03/23/18 05/03/18 History omeprazole 20 mg PO QAM 03/23/18 05/03/18 History metoprolol tartrate [Lopressor] 25 mg PO BID 04/05/18 05/03/18 History albuterol sulfate [ProAir HFA] 2 puff INHALATION Q4 PRN 05/03/18 05/03/18 History Past Med/Surg History Social History marital status: Current Living Situation: Spouse Other Information That Helps Us Care for You: No Feels Safe at Home: Yes Safety Concerns: Feels Safe At This Time Smoking Status: Former smoker Second Hand Exposure: No Hx Alcohol Use: No Hx Substance Use: No Beliefs That Will Affect Care: None Preferred Language: Macedonian Communication Ability: Effective Media Developer Required: No Review of Systems All systems reviewed & are unremarkable except as noted in HPI & below Physical Exam 2 Vital Signs (Past 24 Hours): Last Vital Signs Temp 36.6 C 05/03/18 19:58 Pulse 90 05/03/18 19:58 Resp 20 05/03/18 19:58 BP 134/71 05/03/18 19:58 Pulse Ox 90 05/03/18 19:58 Constitutional: WD/WN, vitals as above Eyes: PERRL, conjunctivae normal, anicteric sclerae EOM intact bilaterally (dipoplia with lateral gaze to the left) ENMT: external ear and nose normal, oropharynx normal Neck: trachea midline, no thyromegaly Respiratory: normal respiratory effort, lungs clear to auscultation Cardiovascular: RRR, no murmur, no edema Gastrointestinal (Abdomen): normal bowel sounds, soft, nontender, no hepatosplenomegaly Musculoskeletal: Head/Neck/Chest: normocephalic and head atraumatic Neurologic: CN's II-XI intact bilaterally Psychiatric: A+Ox3, euthymic affect
[2018-05-03] MEDS ORDERED: Nursing to Pharmacy Communication ONE (21:09)
[2018-05-03] MEDS: METOPROLOL TARTRATE 50 MG TAB PO SCH (21:12)
--- NOTE | 2018-05-03 21:37 | Emergency Department Note ---
Entered by Ga Kumar acting as a scribe for History of Present Illness General Chief complaint: Headache Stated complaint: DOUBLE VISION - NAUSEA - HEADACHE - WEAK Source: patient and family History of Present Illness Provider complaint: headache Onset (ago): day(s) (a couple days ago) Location: head Pain Consistency: + other (worsening) Maximum Pain Intensity: 7 Quality: + other (headache) Associated symptoms: + denies other symptoms (denies any blackor tarry stools, abdominal pain, ), + chest pain (tightness), + nausea/vomiting (+nausea, - vomiting), + weakness (in both hands) and + other (double vision, dry mouth); no shortness of breath The patient is a 78 year old male who presents to the Emergency Room with complaints of a headache that started a few days ago. The patient also states that he has a dry mouth, double vision, weakness, and chest tightness. The patient states he had back surgery in January and he typically walks at least 10 minutes every hour, but today he was very weak. He noticed his dry mouth when he first woke up and is still experiencing it now. The patient states that the double images he is seeing are side by side that go away when one eye is closed. The patient states that he has also lost 30 pounds since the surgery. He states he he is forcing himself to eat, but he is very nauseous. The patient reports that he woke up around 0400 today and and noticed the double vision. The patient states that both of his hands now feel very weak since the surgery and he has developed a tremor in his right hand that he noticed while trying to eat. The patient also states that he has experienced on and off chest tightness for the past few days that is not exacerbated by anything. The patient states that he experiences chronic incontinence. The patient denies any current back pain, trouble with speech, fever. shortness of breath, black or tarry stools, abdominal pain, vomiting, or any new numbness in his body. Per the patients family, the patient had a leak in a sac in his spine that was sutured during his surgery. 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 The patient is scheduled for an appointment to get an MRI in October. Home Medications Home Medications Medication Instructions Recorded Confirmed Type aspirin [Aspir-81] 81 mg PO BID 03/23/18 05/03/18 History losartan 50 mg PO DAILY 03/23/18 05/03/18 History magnesium oxide 400 mg PO QPM 03/23/18 05/03/18 History metformin 500 mg PO BIDM 03/23/18 05/03/18 History multivitamin 1 tab PO QAM 03/23/18 05/03/18 History omega 3,6,9 combination no.7 1,200 mg PO QAM 03/23/18 05/03/18 History omeprazole 20 mg PO QAM 03/23/18 05/03/18 History metoprolol tartrate [Lopressor] 25 mg PO BID 04/05/18 05/03/18 History albuterol sulfate [ProAir HFA] 2 puff INHALATION Q4 PRN 05/03/18 05/03/18 History Allergies Allergy/AdvReac Type Severity Reaction Status Date / Time No Known Drug Allergies Allergy Unknown NONE Verified 05/03/18 14:13 lactose AdvReac Mild gi symptoms Verified 05/03/18 14:13 Past Med/Surg History Medical History Neurogenic claudication due to lumbar spinal stenosis (Chronic) CAD (coronary artery disease) (Chronic) Paroxysmal A-fib (Chronic) ON ASA/BETA ANUSHA Atrial septal hypertrophy ISOLATED BASAL SEPTAL HYPERTROPHY WITH MAXIMAL THICKNESS 1.7CM PER 2013 STRESS ECHO (REVIEWED BY CARDIO; FELT "STRESS TEST OKAY" AND FOR PATIENT TO CONTINUE CURRENT REGIMEN Bifascicular block CHRONIC DATING BACK TO AT LEAST 2014 EKG NOTED IN [facility] Diabetes mellitus, type 2 Diverticular disease GERD (gastroesophageal reflux disease) CONTROLLED Myocardial Infarction 1992= TREATED MEDICALLY Obesity Pulmonary hypertension "MILD" RVSP 40MMHG PER 2013 ECHO Skin cancer BCC Sleep apnea BIPAP Surgical History History of cardiac cath 1992= NO STENTS History of coronary artery bypass graft CABG X 7 (1994) History of craniotomy PITUITARY TUMOR EXCISION ([facility]) History of cystoscopy History of nephrolithotomy with removal of calculi OPEN Family History Other Diabetes Heart disease Social History marital status: Current Living Situation: Spouse Other Information That Helps Us Care for You: No Feels Safe at Home: Yes Safety Concerns: Feels Safe At This Time Smoking Status: Former smoker Second Hand Exposure: No Hx Alcohol Use: No Hx Substance Use: No Beliefs That Will Affect Care: None Preferred Language: Armenian Communication Ability: Effective Digital Color Press Operator Required: No Review of Systems See HPI for pertinent positives & negatives. and A total of 10 systems reviewed and were otherwise negative Physical Exam Vital Signs Vital Signs - 24 hr 05/03/18 12:35 05/03/18 13:30 05/03/18 14:00 Temperature 36.6 C Temperature Source Oral Sepsis Recent Fever Within 48 Hours No Sepsis Action Taken by Nursing No Action Required Pulse Rate 82 86 Pulse Rate [Left] 82 83 Pulse Rhythm [Left] Pulse Strength [Left] Respiratory Rate 20 18 21 Respiratory Effort / Characteristics Non-Labored Respiratory Depth Normal Respiratory Pattern Blood Pressure 147/67 H Blood Pressure [Right Arm] 120/67 130/70 Blood Pressure Mean 93 Blood Pressure Mean [Right Arm] 84 90 Blood Pressure Position [Right Arm] Pulse Oximetry 95 96 Oxygen Delivery Method Room Air Room Air Room Air Oxygen Flow Rate 05/03/18 14:10 05/03/18 15:00 05/03/18 15:01 Temperature Temperature Source Sepsis Recent Fever Within 48 Hours Sepsis Action Taken by Nursing Pulse Rate 91 H 92 H Pulse Rate [Left] Pulse Rhythm [Left] Pulse Strength [Left] Respiratory Rate 16 19 Respiratory Effort / Characteristics Respiratory Depth Respiratory Pattern Blood Pressure 140/67 Blood Pressure [Right Arm] Blood Pressure Mean 91 Blood Pressure Mean [Right Arm] Blood Pressure Position [Right Arm] Pulse Oximetry 92 96 95 Oxygen Delivery Method Room Air Oxygen Flow Rate 0 05/03/18 15:02 05/03/18 15:30 05/03/18 16:00 Temperature Temperature Source Sepsis Recent Fever Within 48 Hours Sepsis Action Taken by Nursing Pulse Rate 89 87 90 Pulse Rate [Left] Pulse Rhythm [Left] Pulse Strength [Left] Respiratory Rate 36 H 31 H 19 Respiratory Effort / Characteristics Respiratory Depth Respiratory Pattern Blood Pressure 118/68 142/66 H 149/77 H Blood Pressure [Right Arm] Blood Pressure Mean 84 91 101 Blood Pressure Mean [Right Arm] Blood Pressure Position [Right Arm] Pulse Oximetry 96 94 96 Oxygen Delivery Method Oxygen Flow Rate 05/03/18 16:30 05/03/18 16:31 05/03/18 17:57 Temperature Temperature Source Sepsis Recent Fever Within 48 Hours Sepsis Action Taken by Nursing Pulse Rate 88 87 83 Pulse Rate [Left] Pulse Rhythm [Left] Pulse Strength [Left] Respiratory Rate 32 H 26 H 18 Respiratory Effort / Characteristics Respiratory Depth Respiratory Pattern Blood Pressure 135/65 140/78 Blood Pressure [Right Arm] Blood Pressure Mean 88 Blood Pressure Mean [Right Arm] Blood Pressure Position [Right Arm] Pulse Oximetry 91 91 98 Oxygen Delivery Method Oxygen Flow Rate 05/03/18 18:23 05/03/18 19:58 Temperature 37 C 36.6 C Temperature Source Oral Oral Sepsis Recent Fever Within 48 Hours Sepsis Action Taken by Nursing Pulse Rate Pulse Rate [Left] 103 H 90 Pulse Rhythm [Left] Regular Pulse Strength [Left] Normal Respiratory Rate 20 20 Respiratory Effort / Characteristics Non-Labored Respiratory Depth Normal Respiratory Pattern Regular Blood Pressure Blood Pressure [Right Arm] 163/78 H 134/71 Blood Pressure Mean Blood Pressure Mean [Right Arm] 106 92 Blood Pressure Position [Right Arm] Sitting Pulse Oximetry 91 90 Oxygen Delivery Method Room Air Oxygen Flow Rate Constitutional: Vital signs reviewed. Eyes: Pupils are equal round reactive to light. Conjunctiva are noninjected. ENT: Pharynx is clear without erythema or exudate. Mucous membranes are moist. Neck supple without meningeal signs. Respiratory: Clear to auscultation bilaterally. Breath sounds are equal bilaterally. Cardiovascular: Regular rate and rhythm. No rubs or gallops. GI: Soft, nondistended and nontender. Bowel sounds are present. Musculoskeletal: No peripheral edema. No lower extremity tenderness. Integumentary: No cyanosis. Neurological: The patient is awake and alert. Cranial nerves II-XII are intact. Motor is 5 out of 5 all extremities. Sensation is intact to light touch all extremities. Normal speech. No pronator drift. No limb ataxia. Psychiatric: Normal affect. Course 1258: Past medical records reviewed. The patient was evaluated in room C7, and a complete history and physical examination were performed. 1311: I reviewed the patient's case with [facility]. They agree with the workup and that there is no indication for IV tPA. 1415: I reevaluated the patient and he now states that he developed double vision again that occurs when looking at far objects and no matter what direction he looks. On exam, he has no evidence of Palsy. 1515: I checked in on the patient and discussed his test results. The patient also stated that his double vision was now gone. 1528: I reviewed the patient's case with Eula Ca PA-C. She and her attending will evaluate the patient for further management. Administered Medications Enoxaparin Sodium (Lovenox) 40 mg SQ Q24H SMITH Stop: 06/02/18 21:59 Last Admin: 05/03/18 21:15 Dose: 40 mg Insulin Aspart (Novolog Flexpen) 0 units SC ACHS SMITH Stop: 06/02/18 19:14 Last Admin: 05/03/18 21:12 Dose: Not Given Admin: 05/03/18 19:24 Dose: Not Given Metoprolol Tartrate (Lopressor) 50 mg PO BID SMITH Stop: 06/02/18 20:59 Last Admin: 05/03/18 21:12 Dose: 50 mg Discontinued Medications Aspirin (Aspirin) 324 mg PO NOW STA Stop: 05/03/18 16:21 Last Admin: 05/03/18 19:35 Dose: Not Given Aspirin (Ecotrin) Confirm Administered Dose 81 mg PO .STK-MED ONE Stop: 05/03/18 16:34 Last Admin: 05/03/18 19:24 Dose: Not Given Ioversol (Optiray 320 100ml) 94 ml IV ONCE PRN PRN Reason: Interaction Checking Stop: 05/07/18 14:48 Last Admin: 05/03/18 14:50 Dose: 94 ml Losartan Potassium (Cozaar) 50 mg PO DAILY [facility] Stop: 06/03/18 08:59 Last Admin: 05/03/18 21:12 Dose: 50 mg Medical Decision Making Differential Diagnosis Nerve palsy, CVA, TIA, Intracranial mass, ICH. Medical Records Attestation: I reviewed the patient's medical records. Home Medications Current Medication List: was personally reviewed by me Laboratory Data Attestation: I reviewed the patient's lab results. Result diagrams: 05/03/18 18:43 05/03/18 18:43 Lab Results 05/03/18 05/03/18 05/03/18 Range/Units 13:21 13:21 13:21 WBC 6.08 (4.8-10.8) K/uL RBC 4.15 L (4.7-6.1) M/uL Hgb 13.0 L (14.0-18.0) g/dL Hct 39.2 L (42-52) % MCV 94.5 (80-100) fL MCH 31.3 (25-34) pg MCHC 33.2 (32-36) g/dL RDW Std Deviation 48.9 H (36.4-46.3) fL RDW Coeff of Julieth 14.3 (11.5-14.5) % Plt Count 258 (130-400) K/uL MPV 9.7 (7.4-10.4) fL Immature Gran % (Auto) 0.2 % Neut % (Auto) 62.7 % Lymph % (Auto) 24.8 % [place] % (Auto) 9.5 % Eos % (Auto) 2.5 % Baso % (Auto) 0.3 % Immature Gran # (Auto) 0.01 (0.00-0.02) K/uL Neut # (Auto) 3.81 (1.4-6.5) K/uL Lymph # (Auto) 1.51 (1.2-3.4) K/uL [place] # (Auto) 0.58 (0.11-0.59) K/uL Eos # (Auto) 0.15 (0-0.5) K/uL Baso # (Auto) 0.02 (0-0.2) K/uL PT 11.0 (9.0-12.0) Seconds POC INR (0.9-1.1) INR 1.1 (0.9-1.1) APTT 24.4 (21.0-31.0) Seconds PTT Ratio 0.9 Sodium 136 (136-145) mmol/L Potassium 4.3 (3.5-5.1) mmol/L Chloride 100 (98-107) mmol/L Carbon Dioxide 27 (21-32) mmol/L Anion Gap 9.0 (3-11) BUN 15 (7-18) mg/dl Creatinine 0.66 (0.6-1.4) mg/dl Est Cr Clr Drug Dosing 103.1 ml/min Est GFR ( Amer) 107.3 Est GFR (Non-Af Amer) 92.6 BUN/Creatinine Ratio 22.7 H (10-20) Glucose 109 H (70-99) mg/dl POC Glucose (70-99) Calcium 8.9 (8.5-10.1) mg/dl Magnesium 2.4 (1.8-2.4) mg/dl Total Bilirubin 0.3 (0.1-1) mg/dl Direct Bilirubin 0.1 (0-0.2) mg/dl AST 11 L (15-37) U/L ALT 25 (12-78) U/L Alkaline Phosphatase 72 (45-117) U/L Troponin I < 0.015 (0-0.045) ng/ml Total Protein 6.8 (6.4-8.2) gm/dl Albumin 3.4 (3.4-5.0) gm/dl Urine Color Urine Appearance (Clear) Urine pH (4.5-7.5) Ur Specific [place] (1.000-1.030) Urine Protein (Negative) Urine Glucose (UA) (Negative) Urine Ketones (Negative) Urine Blood (Negative) Urine Nitrite (Negative) Urine Bilirubin (Negative) Urine Urobilinogen (Negative) Ur Leukocyte Esterase (Negative) Urine WBC (Auto) (0-5) /hpf Urine RBC (Auto) (0-4) /hpf U Hyaline Cast (Auto) (0-5) /lpf U Epithel Cells (Auto) (0-5) /lpf Urine Bacteria (Auto) (Negative) Blood Type Antibody Screen 05/03/18 05/03/18 05/03/18 Range/Units 13:21 13:26 13:26 WBC (4.8-10.8) K/uL RBC (4.7-6.1) M/uL Hgb (14.0-18.0) g/dL Hct (42-52) % MCV (80-100) fL MCH (25-34) pg MCHC (32-36) g/dL RDW Std Deviation (36.4-46.3) fL RDW Coeff of Julieth (11.5-14.5) % Plt Count (130-400) K/uL MPV (7.4-10.4) fL Immature Gran % (Auto) % Neut % (Auto) % Lymph % (Auto) % [place] % (Auto) % Eos % (Auto) % Baso % (Auto) % Immature Gran # (Auto) (0.00-0.02) K/uL Neut # (Auto) (1.4-6.5) K/uL Lymph # (Auto) (1.2-3.4) K/uL [place] # (Auto) (0.11-0.59) K/uL Eos # (Auto) (0-0.5) K/uL Baso # (Auto) (0-0.2) K/uL PT (9.0-12.0) Seconds POC INR 1.0 (0.9-1.1) INR (0.9-1.1) APTT (21.0-31.0) Seconds PTT Ratio Sodium (136-145) mmol/L Potassium (3.5-5.1) mmol/L Chloride (98-107) mmol/L Carbon Dioxide (21-32) mmol/L Anion Gap (3-11) BUN (7-18) mg/dl Creatinine (0.6-1.4) mg/dl Est Cr Clr Drug Dosing ml/min Est GFR ( Amer) Est GFR (Non-Af Amer) BUN/Creatinine Ratio (10-20) Glucose (70-99) mg/dl POC Glucose 128 H (70-99) Calcium (8.5-10.1) mg/dl Magnesium (1.8-2.4) mg/dl Total Bilirubin (0.1-1) mg/dl Direct Bilirubin (0-0.2) mg/dl AST (15-37) U/L ALT (12-78) U/L Alkaline Phosphatase (45-117) U/L Troponin I (0-0.045) ng/ml Total Protein (6.4-8.2) gm/dl Albumin (3.4-5.0) gm/dl Urine Color Urine Appearance (Clear) Urine pH (4.5-7.5) Ur Specific [place] (1.000-1.030) Urine Protein (Negative) Urine Glucose (UA) (Negative) Urine Ketones (Negative) Urine Blood (Negative) Urine Nitrite (Negative) Urine Bilirubin (Negative) Urine Urobilinogen (Negative) Ur Leukocyte Esterase (Negative) Urine WBC (Auto) (0-5) /hpf Urine RBC (Auto) (0-4) /hpf U Hyaline Cast (Auto) (0-5) /lpf U Epithel Cells (Auto) (0-5) /lpf Urine Bacteria (Auto) (Negative) Blood Type A Positive Antibody Screen NEGATIVE 05/03/18 05/03/18 05/03/18 Range/Units 13:30 18:43 18:43 WBC 5.26 (4.8-10.8) K/uL RBC 4.29 L (4.7-6.1) M/uL Hgb 13.2 L (14.0-18.0) g/dL Hct 40.4 L (42-52) % MCV 94.2 (80-100) fL MCH 30.8 (25-34) pg MCHC 32.7 (32-36) g/dL RDW Std Deviation 49.3 H (36.4-46.3) fL RDW Coeff of Julieth 14.4 (11.5-14.5) % Plt Count 261 (130-400) K/uL MPV 9.9 (7.4-10.4) fL Immature Gran % (Auto) 0.0 % Neut % (Auto) 56.5 % Lymph % (Auto) 28.3 % [place] % (Auto) 11.4 % Eos % (Auto) 3.2 % Baso % (Auto) 0.6 % Immature Gran # (Auto) 0.00 (0.00-0.02) K/uL Neut # (Auto) 2.97 (1.4-6.5) K/uL Lymph # (Auto) 1.49 (1.2-3.4) K/uL [place] # (Auto) 0.60 H (0.11-0.59) K/uL Eos # (Auto) 0.17 (0-0.5) K/uL Baso # (Auto) 0.03 (0-0.2) K/uL PT (9.0-12.0) Seconds POC INR (0.9-1.1) INR (0.9-1.1) APTT (21.0-31.0) Seconds PTT Ratio Sodium 135 L (136-145) mmol/L Potassium 4.2 (3.5-5.1) mmol/L Chloride 99 (98-107) mmol/L Carbon Dioxide 26 (21-32) mmol/L Anion Gap 10.0 (3-11) BUN 13 (7-18) mg/dl Creatinine 0.62 (0.6-1.4) mg/dl Est Cr Clr Drug Dosing 109.7 ml/min Est GFR ( Amer) 110.1 Est GFR (Non-Af Amer) 95.0 BUN/Creatinine Ratio 20.9 H (10-20) Glucose 108 H (70-99) mg/dl POC Glucose (70-99) Calcium 9.2 (8.5-10.1) mg/dl Magnesium (1.8-2.4) mg/dl Total Bilirubin (0.1-1) mg/dl Direct Bilirubin (0-0.2) mg/dl AST (15-37) U/L ALT (12-78) U/L Alkaline Phosphatase (45-117) U/L Troponin I (0-0.045) ng/ml Total Protein (6.4-8.2) gm/dl Albumin (3.4-5.0) gm/dl Urine Color Yellow Urine Appearance Clear (Clear) Urine pH 7.0 (4.5-7.5) Ur Specific [place] 1.017 (1.000-1.030) Urine Protein Negative (Negative) Urine Glucose (UA) Negative (Negative) Urine Ketones Negative (Negative) Urine Blood Negative (Negative) Urine Nitrite Negative (Negative) Urine Bilirubin Negative (Negative) Urine Urobilinogen Negative (Negative) Ur Leukocyte Esterase 1+ H (Negative) Urine WBC (Auto) 1-5 (0-5) /hpf Urine RBC (Auto) 0-4 (0-4) /hpf U Hyaline Cast (Auto) 0 (0-5) /lpf U Epithel Cells (Auto) 10-20 H (0-5) /lpf Urine Bacteria (Auto) Negative (Negative) Blood Type Antibody Screen 05/03/18 05/03/18 Range/Units 19:15 20:56 WBC (4.8-10.8) K/uL RBC (4.7-6.1) M/uL Hgb (14.0-18.0) g/dL Hct (42-52) % MCV (80-100) fL MCH (25-34) pg MCHC (32-36) g/dL RDW Std Deviation (36.4-46.3) fL RDW Coeff of Julieth (11.5-14.5) % Plt Count (130-400) K/uL MPV (7.4-10.4) fL Immature Gran % (Auto) % Neut % (Auto) % Lymph % (Auto) % [place] % (Auto) % Eos % (Auto) % Baso % (Auto) % Immature Gran # (Auto) (0.00-0.02) K/uL Neut # (Auto) (1.4-6.5) K/uL Lymph # (Auto) (1.2-3.4) K/uL [place] # (Auto) (0.11-0.59) K/uL Eos # (Auto) (0-0.5) K/uL Baso # (Auto) (0-0.2) K/uL PT (9.0-12.0) Seconds POC INR (0.9-1.1) INR (0.9-1.1) APTT (21.0-31.0) Seconds PTT Ratio Sodium (136-145) mmol/L Potassium (3.5-5.1) mmol/L Chloride (98-107) mmol/L Carbon Dioxide (21-32) mmol/L Anion Gap (3-11) BUN (7-18) mg/dl Creatinine (0.6-1.4) mg/dl Est Cr Clr Drug Dosing ml/min Est GFR ( Amer) Est GFR (Non-Af Amer) BUN/Creatinine Ratio (10-20) Glucose (70-99) mg/dl POC Glucose 99 93 (70-99) Calcium (8.5-10.1) mg/dl Magnesium (1.8-2.4) mg/dl Total Bilirubin (0.1-1) mg/dl Direct Bilirubin (0-0.2) mg/dl AST (15-37) U/L ALT (12-78) U/L Alkaline Phosphatase (45-117) U/L Troponin I (0-0.045) ng/ml Total Protein (6.4-8.2) gm/dl Albumin (3.4-5.0) gm/dl Urine Color Urine Appearance (Clear) Urine pH (4.5-7.5) Ur Specific [place] (1.000-1.030) Urine Protein (Negative) Urine Glucose (UA) (Negative) Urine Ketones (Negative) Urine Blood (Negative) Urine Nitrite (Negative) Urine Bilirubin (Negative) Urine Urobilinogen (Negative) Ur Leukocyte Esterase (Negative) Urine WBC (Auto) (0-5) /hpf Urine RBC (Auto) (0-4) /hpf U Hyaline Cast (Auto) (0-5) /lpf U Epithel Cells (Auto) (0-5) /lpf Urine Bacteria (Auto) (Negative) Blood Type Antibody Screen Imaging Data Radiologist's Impression: Radiology results as stated below per my review and the radiologist's interpretation: CT head/brain wo con CLINICAL HISTORY: Stroke evaluation double vision COMPARISON STUDY: No previous studies for comparison. TECHNIQUE: Axial CT of the brain is performed from the vertex to the skull base. IV contrast was not administered for this examination. A dose lowering technique was utilized adhering to the principles of ALARA. CT DOSE: 614.27 mGy.cm FINDINGS: No intra or extra-axial mass lesions are visualized. There is no CT evidence of acute cortical infarction. There is no evidence of midline shift. There is no acute hemorrhage. No calvarial fractures are visualized. There are patchy white matter hypodensities likely on a small vessel basis. There is no evidence of pathologic ventricular dilatation. There is a left maxillary sinus retention cyst. IMPRESSION: No acute intracranial findings Electronically signed by: Raffi Mckeon M.D. 05/03/2018 1:30 PM XR chest 1V portable HISTORY: 78 years-old Male weak eval for pna acute weakness COMPARISON: Chest radiographs 04/11/2018 TECHNIQUE: Portable AP view of the chest FINDINGS: Cardiac silhouette is mildly enlarged, unchanged. Calcification of the thoracic aortic arch. Prior median sternotomy. Surgical clips project over the left lower chest. There is no pneumothorax, pleural effusion, focal airspace consolidation or overt pulmonary edema. Degenerative changes are noted about the shoulders and spine. IMPRESSION: No acute process. The above report was generated using voice recognition software. It may contain grammatical, syntax or spelling errors. Electronically signed by: Ray Richards M.D. 05/03/2018 2:21 PM ECG Data Attestation: I personally reviewed and interpreted this ECG as follows: Indication: other (headache) Rate (beats per minute): 83 Rhythm: sinus rhythm Findings: + other (Bifascicular block, PVCs) and + 1st degree AV block Comparison ECG Date: from (April 13, 2018) Change: no significant change Blood Pressure Blood Pressure Findings: Elevated blood pressure Blood Pressure Disposition: Referred to patients primary care provider MDM Narrative I did perform a limited focused review of portions of the patient's old chart on the electronic medical record. The patient had a lumbar decompression and fusion on April 05, 2018. I did evaluate the patient as noted above. The patient is presenting with intermittent diplopia with some dizziness. After my initial assessment I did call a stroke alert. I did speak to the [place] neurologist who agreed with my plan for assessment in the ED and hospitalization for further care. He agreed that the patient is not a TPA candidate. IV access was established. The patient was placed on a continuous rn traveling. I did order and personally review the patient's 12-lead EKG and chest x-ray as described above. Twelve- lead EKG shows a bifascicular block and a first-degree AV block without any significant change from his previous EKG from April 13. He is not currently having any chest discomfort. His chest x-ray is unremarkable. I did order and review the patient's blood work as noted in the electronic medical record. Troponin is negative. He has mild anemia. I did order a CT of the head and CT angios the head and neck. I did review the images myself as well as the radiology report as described above. He has no evidence of infarct or mass. He does have some plaques in the arteries on CT Angio but no significant stenosis. I did discuss the test results with the patient. I did reassess him several times. He states that he will intermittently get diplopia but then it will go away. I did recommend hospitalization for further treatment and MRI. I did discuss case with hospitalist and mattress spring encaser. Impression & Plan Binocular vision disorder with diplopia, Chest pain, precordial Discharge Plan Visit Data *Final* Discharge Date/Time: 05/03/18 17:57 Chief Complaint: Headache Stated Complaint: DOUBLE VISION - NAUSEA - HEADACHE - WEAK ED Provider: Jonathan Hebert Discharge Problem: Binocular vision disorder with diplopia, Chest pain, precordial Patient Disposition: Admitted As Inpatient Discharge Instructions Interventions: ED Discharge Assessment Last Done: 05/03/18 17:57 Queries: Stroke Queries Contraindication Not Initiating IV-Tpa: Treatment not indicated Symptom Onset Unknown: Yes The scribe's documentation has been prepared under my direction and personally reviewed by me in its entirety. I confirm that the note above accurately reflects all work, treatment, procedures, and medical decision making performed by me.
[2018-05-03] MEDS ORDERED: ENOXAPARIN INJ 40 MG/0.4 ML SYR SQ SCH (22:00)
[2018-05-04 07:01] LABS: Basophils # (auto) 0.04 K/uL (0-0.2); Basophils % (auto) 0.7 %; Eosinophils % (auto) 3.6 %; Hematocrit (blood only) 40.2 % (42-52); Hemoglobin 13.1 g/dL (14.0-18.0); Immature Granulocytes # (auto) 0.01 K/uL (0.00-0.02); Immature Granulocytes % (auto) 0.2 %; Lymphocytes # (auto) 1.61 K/uL (1.2-3.4); Mean Corpuscular Hgb Conc 32.6 g/dL (32-36); Mean Corpuscular Volume 94.4 fL (80-100); Mean Platelet Volume 9.8 fL (7.4-10.4); Monocytes % (auto) 10.8 %; Neutrophils % (auto) 55.7 %; Platelet Count 232 K/uL (130-400); RDW Coefficient of Variation 14.3 % (11.5-14.5); RDW Standard Deviation 48.8 fL (36.4-46.3); Red Blood Count 4.26 M/uL (4.7-6.1); White Blood Count 5.56 K/uL (4.8-10.8)
[2018-05-04 07:30] LABS: BUN Creatinine Ratio 25.1 (10-20); Calcium 8.8 mg/dl (8.5-10.1); Creatinine Clr Calc Pharmacy 110.3 ml/min; Est GFR (Non-African American) 98.4; Potassium 3.8 mmol/L (3.5-5.1)
[2018-05-04] MEDS: INSULIN ASPART 100 UNITS/ML 3 ML PEN SC SCH ×4 (08:38→20:48)
[2018-05-04] MEDS: ASPIRIN 81 MG ECTAB PO SCH ×2 (08:39→20:39)
[2018-05-04] MEDS: PANTOprazole 40 MG TAB PO SCH (08:40)
[2018-05-04] MEDS: METOPROLOL TARTRATE 50 MG TAB PO SCH ×2 (08:40→20:40)
[2018-05-04] MEDS ORDERED: LOSARTAN POTASSIUM 50 MG TAB PO SCH (09:00)
[2018-05-04] MEDS ORDERED: LORazepam 2 MG/4 ML VIAL IV STA (11:57)
--- NOTE | 2018-05-04 13:11 | Neurology Consultation ---
Date of Consultation May 04, 2018 Assessment & Plan (1) Diplopia: 1. MRI with and without brain and sellar- r/o stroke and pituitary issues 2. CSF leak- blood patch may help or may need LD to take pressure off if still leaking- unfortunately this is a CSF leak will likely end up with surgery. 3. ophthalmology for any evidence of lens, corneal issues - as out patient 4. DM - for the most part well controlled at home with oral meds 5. TTE pending read 6. continue to monitor for a fib, may need ZIO as outpatient will advise when images are completed 7. medical management per primary team. 8. sed rate and CRP for weakness 9. 30 pound weight loss concerning primary service for any further workup Supervising Physician Co-Signing Physician Notes I have seen and discussed above patient with Dr Leandro Dan. Patient was seen and examined. Agree with Jillian Alegria PA-C as noted above. Patient with progressive headaches with acute onset binoccular horizontal diplopia yesterday. He does report similar headaches prior to surgery. Had recent lumbar spine surgery complicated with CSF leak. He does have multiple stroke risk factors including Afib not on Anticoagulation, DM, and significant atherosclerotic disease. He is on ASA. Phenoptype of headache NOT strongly suggestive of classic orthostatic headache. On examine his EOMI however, he does appear to have a subtle left CN palsy. Diplopia with far left gaze relieved with closing one eye. Face is symmetric. No nystagmus. Eye closure is strong. Strength testing in the upper extremities is 5/5 bilateral. He does have bilateral intention tremor. No ataxia with finger to nose. Speech is clear. Comprehension intact. The diagnosis on this patient is NOT yet certain, and will require further evaluation. Differential diagnosis certainly includes Stroke Vs idiopathic intracranial hypotension Vs aseptic meningitis Vs Vs peripheral / microvascualr CN palsy. I would recommend obtaining MRI brain with and without contrast. Pending results of MRI would recommend consider Lumbar puncture with opening pressure and CSF studies (crypto, cell count, protein, glucose, gram stain / culture). History of Present Illness Reason for Consultation: diplopia Requesting Physician: Bruce Holcomb MD Attending Physician: Bruce Holcomb MD History of Present Illness Abdirashid is a 78 year old male with PMH AF with RVE, DM2, HTN, renal stones, CAD , recent back surgery with csf leak, remote history of pituitary macroadenoma resection in [place]. He has had intermittent headaches since back surgery and woke up on 05/03/18 around 4 AM with dipoplia. He states the headaches are somewhat better with lying down. He has dipoplia with gazing to the left with both eyes opened and sees double vision. When he is gazing to the left with either the right eye closed or with the left eye closed there is no double vision. The visual abnormality does not occur when gazing with both eyes opened in other directions. He has also had a 30 pound weight loss since the surgery. He is trying to force himself to eat meals. He states his back feels pretty good. denies CP, SOB, abdominal pain, one sided weakness, numbness tingling, N, V. only med change was metoprolol was changed to Cardizem during hospitalization for back surgery due to recurrent a fib but as outpatient his PCP/cards changed this back to Cardizem. Allergies Allergy/AdvReac Type Severity Reaction Status Date / Time No Known Drug Allergies Allergy Unknown NONE Verified 05/03/18 14:13 lactose AdvReac Mild gi symptoms Verified 05/03/18 14:13 Home Medications Home Medications Medication Instructions Recorded Confirmed Type aspirin [Aspir-81] 81 mg PO BID 03/23/18 05/03/18 History losartan 50 mg PO DAILY 03/23/18 05/03/18 History magnesium oxide 400 mg PO QPM 03/23/18 05/03/18 History metformin 500 mg PO BIDM 03/23/18 05/03/18 History multivitamin 1 tab PO QAM 03/23/18 05/03/18 History omega 3,6,9 combination no.7 1,200 mg PO QAM 03/23/18 05/03/18 History omeprazole 20 mg PO QAM 03/23/18 05/03/18 History metoprolol tartrate [Lopressor] 25 mg PO BID 04/05/18 05/03/18 History albuterol sulfate [ProAir HFA] 2 puff INHALATION Q4 PRN 05/03/18 05/03/18 History Patient History Medical History Neurogenic claudication due to lumbar spinal stenosis (Chronic) CAD (coronary artery disease) (Chronic) Paroxysmal A-fib (Chronic) ON ASA/BETA ANUSHA Atrial septal hypertrophy ISOLATED BASAL SEPTAL HYPERTROPHY WITH MAXIMAL THICKNESS 1.7CM PER 2013 STRESS ECHO (REVIEWED BY CARDIO; FELT "STRESS TEST OKAY" AND FOR PATIENT TO CONTINUE CURRENT REGIMEN Bifascicular block CHRONIC DATING BACK TO AT LEAST 2014 EKG NOTED IN [facility] Diabetes mellitus, type 2 Diverticular disease GERD (gastroesophageal reflux disease) CONTROLLED Myocardial Infarction 1992= TREATED MEDICALLY Obesity Pulmonary hypertension "MILD" RVSP 40MMHG PER 2012 ECHO Skin cancer BCC Sleep apnea BIPAP Surgical History History of cardiac cath 1992= NO STENTS History of coronary artery bypass graft CABG X 7 (1994) History of craniotomy PITUITARY TUMOR EXCISION ([facility]) History of cystoscopy History of nephrolithotomy with removal of calculi OPEN Family History Other Diabetes Heart disease Social History marital status: Current Living Situation: Spouse Other Information That Helps Us Care for You: No Feels Safe at Home: Yes Safety Concerns: Feels Safe At This Time Smoking Status: Former smoker Second Hand Exposure: No Hx Alcohol Use: No Hx Substance Use: No Beliefs That Will Affect Care: None Communication Ability: Effective Physical Exam 2 Vital Signs (Past 24 Hours): Last Vital Signs Temp 36.4 C L 05/04/18 12:03 Pulse 75 05/04/18 12:03 Resp 18 05/04/18 12:03 BP 143/72 H 05/04/18 12:03 Pulse Ox 92 05/04/18 12:03 Physical Exam: Constitutional: appearance nourished, healthy and normal Ears, Nose, Mouth and Throat: mucous membranes moist, no injection and skin normal, eyes normal Cardiovascular: normal S-1 and S-2 and regular rate and rhythm Respiratory: course breath sounds Musculoskeletal: right LE peripheral edema, left +pulses no edema Skin: no stigmata of neurocutaneous disease noted and normal and intact Eyes: extraocular muscles does no gaze fully to left, left pupil equal, round and reactive to light (PERRL), right non reactive NEUROLOGIC EXAMINATION: Mental status: Alert and interactive Oriented to full date and location Oriented to person Speech fluent with no evidence of aphasia Cranial Nerves smile eye brow raise equal Reflexes: Deep tendon reflexes were symmetrical and graded 2/5. Sensory: decreased sensation to cool touch right LE from mid wilson down Coordination: finger to nose no bi pass, fine reaching tremor right > left Gait/Stance: Posture normal. sitting up in bed Motor: Negative for pronator drift of out stretched arms with eyes closed. Strength: bicep tricpes hand staff developer 5/5 bilaterally, hip flex patellar flex ext 5/5 Results & Data Laboratory Results Abnormal Labs 05/03/18 05/03/18 05/03/18 13:21 13:21 13:26 RBC 4.15 L Hgb 13.0 L Hct 39.2 L RDW Std Deviation 48.9 H [place] # (Auto) Sodium Creatinine BUN/Creatinine Ratio 22.7 H Glucose 109 H POC Glucose 128 H AST 11 L Ur Leukocyte Esterase U Epithel Cells (Auto) 05/03/18 05/03/18 05/03/18 13:30 18:43 18:43 RBC 4.29 L Hgb 13.2 L Hct 40.4 L RDW Std Deviation 49.3 H [place] # (Auto) 0.60 H Sodium 135 L Creatinine BUN/Creatinine Ratio 20.9 H Glucose 108 H POC Glucose AST Ur Leukocyte Esterase 1+ H U Epithel Cells (Auto) 10-20 H 05/04/18 05/04/18 05/04/18 06:47 06:47 11:40 RBC 4.26 L Hgb 13.1 L Hct 40.2 L RDW Std Deviation 48.8 H [place] # (Auto) 0.60 H Sodium Creatinine 0.57 L BUN/Creatinine Ratio 25.1 H Glucose POC Glucose 106 H AST Ur Leukocyte Esterase U Epithel Cells (Auto) Diagnostic Findings CT head- No acute intra cranial findings CTA head,neck- No dissection, high-grade stenosis or proximal branch occlusion. Multifocal atherosclerotic plaque ormation of the vertebral and carotid arteries as detailed above without high-grade stenosis. Tortuosity with fusiform dilation of the distal cervical segment left ICA as above. Emphysema. carotid doppler- No evidence of deep venous thrombosis.
--- NOTE | 2018-05-04 13:26 | Orthopedic Consultation ---
Date of Consultation May 04, 2018 Assessment & Plan (1) Neurogenic claudication due to lumbar spinal stenosis: At this time I would like to obtain MRI lumbar spine to rule out persistent CSF leak. He did undergo a multilevel complex lumbar decompression and fusion had an incidental durotomy. Postoperatively he had recovered without incident however his intermittent headache and presentation make me concerned for possible persistent CSF leak. Will make further conditions after scans obtained. I will make him n.p.o. after midnight in the event that we pursue surgery. Present on Admission?: Yes History of Present Illness Reason for Consultation: Status post multilevel lumbar decompression and fusion. Attending Physician: Bruce Holcomb MD History of Present Illness This is a 78-year-old male well-known to me that status post multilevel lumbar decompression fusion. He is been struggling with intermittent headaches since discharge home postoperatively. Most recently he has had an episode of double vision and has been undergoing a significant workup to rule out stroke. Upon questioning he does note intermittent headaches usually towards the end of the day. It does not appear to be posturally related. He notes consistent nausea and has had a significant weight loss over the past 4 weeks. He denies any leg pain denies any numbness and tingling in the lower extremities. Denies any significant back pain denies any fevers or chills. He does use a walker at all times to ambulate. Allergies Allergy/AdvReac Type Severity Reaction Status Date / Time No Known Drug Allergies Allergy Unknown NONE Verified 05/03/18 14:13 lactose AdvReac Mild gi symptoms Verified 05/03/18 14:13 Home Medications Home Medications Medication Instructions Recorded Confirmed Type aspirin [Aspir-81] 81 mg PO BID 03/23/18 05/03/18 History losartan 50 mg PO DAILY 03/23/18 05/03/18 History magnesium oxide 400 mg PO QPM 03/23/18 05/03/18 History metformin 500 mg PO BIDM 03/23/18 05/03/18 History multivitamin 1 tab PO QAM 03/23/18 05/03/18 History omega 3,6,9 combination no.7 1,200 mg PO QAM 03/23/18 05/03/18 History omeprazole 20 mg PO QAM 03/23/18 05/03/18 History metoprolol tartrate [Lopressor] 25 mg PO BID 04/05/18 05/03/18 History albuterol sulfate [ProAir HFA] 2 puff INHALATION Q4 PRN 05/03/18 05/03/18 History Patient History Medical History Neurogenic claudication due to lumbar spinal stenosis (Chronic) CAD (coronary artery disease) (Chronic) Paroxysmal A-fib (Chronic) ON ASA/BETA ANUSHA Atrial septal hypertrophy ISOLATED BASAL SEPTAL HYPERTROPHY WITH MAXIMAL THICKNESS 1.7CM PER 2013 STRESS ECHO (REVIEWED BY CARDIO; FELT "STRESS TEST OKAY" AND FOR PATIENT TO CONTINUE CURRENT REGIMEN Bifascicular block CHRONIC DATING BACK TO AT LEAST 2014 EKG NOTED IN [facility] Diabetes mellitus, type 2 Diverticular disease GERD (gastroesophageal reflux disease) CONTROLLED Myocardial Infarction 1992= TREATED MEDICALLY Obesity Pulmonary hypertension "MILD" RVSP 40MMHG PER 2012 ECHO Skin cancer BCC Sleep apnea BIPAP Surgical History History of cardiac cath 1992= NO STENTS History of coronary artery bypass graft CABG X 7 (1994) History of craniotomy PITUITARY TUMOR EXCISION ([facility]) History of cystoscopy History of nephrolithotomy with removal of calculi OPEN Family History Other Diabetes Heart disease Social History marital status: Current Living Situation: Spouse Other Information That Helps Us Care for You: No Feels Safe at Home: Yes Safety Concerns: Feels Safe At This Time Smoking Status: Former smoker Second Hand Exposure: No Hx Alcohol Use: No Hx Substance Use: No Beliefs That Will Affect Care: None Communication Ability: Effective Physical Exam 2 Vital Signs (Past 24 Hours): Last Vital Signs Temp 36.4 C L 05/04/18 12:03 Pulse 75 05/04/18 12:03 Resp 18 05/04/18 12:03 BP 143/72 H 05/04/18 12:03 Pulse Ox 92 05/04/18 12:03 Physical Exam: On physical exam incision is healing well. There is no erythema no drainage no swelling. He has excellent strength detailed testing bilateral extremities no tension signs. Sensory symmetric and intact. He is sitting upright in the bed and appears very comfortable throughout our conversation.
--- NOTE | 2018-05-04 19:01 | Hospitalist Progress Note ---
Date of Service May 04, 2018 Assessment & Plan (1) Diplopia: -This is a patient who has intermittent headaches since back surgery and woke up on 05/03/18 around 4 AM with dipoplia. Patient reports that the dipoplia if with gazing to the left with both eyes opened and sees double vision. When he is gazing to the left with either the right eye closed or with the left eye closed there is no double vision. The visual abnormality does not occur when gazing with both eyes opened in other directions. -at home usually takes aspirin 81 mg BID -recently off of statins -took aspirin 81 mg today, given 162 mg of aspirin in the ED; continuing aspirin 81 mg BID for now -CT imaging of the Multifocal atherosclerotic plaque formation of the vertebral and carotid arteries without high-grade stenosis. Tortuosity with fusiform dilation of the distal cervical segment left ICA as above. -patient reported history of atrial fibrillation after back surgery but returned to sinus rhythm; currently sinus rhythm on telemetry -had recent echocardiogram in 04/10/18; repeat echocardiogram without interarterial shunt on 05/04/18 -neurology consult ordered MRI with and without brain and sellar; pending test History of back surgery -Operation Date: 04/05/18: L3-S1 Decompression and Fusion, interbody cage at L5- S1 because of neurogenic claudication -orthopedics consult ordered MRI lumbar spine to rule out persistent CSF leak; pending test -no DVT on lower extremity ultrasound -PT/OT History of atrial fibrillation -echocardiogram in 04/10/18 without evidence for ASD and EF 50 to 55% -repeat echocardiogram without interarterial shunt on 05/04/18 -current sinus rhythm, monitor on telemetry -continue home dose BID metoprolol for heart rate control Hypertension -continue home dose losartan Type 2 diabetes mellitus without oysterman current insulin use -hold off metformin -sliding scale insulin based on fingerstick glucose DVT ppx: Loevnox 40 mg given today, give SCDs for now while awaiting MRI results Family [phone]; [phone] Full Code Subjective In the morning patient denied any further problems with vision. then when re- assessed he said again he is seeing double vision when gazing to the left with both eyes opened Reports mild headache No acute distress Patient denies chest pain or shortness of breath. denies palpitations. on telemetry monitoring the heart rate is in sinus rhythm Physical Exam 2 Vital Signs (Past 24 Hours): Last Vital Signs Temp 36.6 C 05/04/18 15:13 Pulse 87 05/04/18 15:13 Resp 18 05/04/18 15:13 BP 143/69 H 05/04/18 15:13 Pulse Ox 93 05/04/18 15:13 Constitutional: WD/WN, vitals as above Eyes: PERRL, conjunctivae normal, anicteric sclerae EOM intact bilaterally (dipoplia with lateral gaze to the left) ENMT: external ear and nose normal, oropharynx normal Neck: trachea midline, no thyromegaly Respiratory: normal respiratory effort, lungs clear to auscultation Cardiovascular: RRR, no murmur, no edema Gastrointestinal (Abdomen): normal bowel sounds, soft, nontender, no hepatosplenomegaly Musculoskeletal: Head/Neck/Chest: normocephalic and head atraumatic Neurologic: CN's II-XI intact bilaterally Psychiatric: A+Ox3, euthymic affect
[2018-05-04] MEDS ORDERED: LORazepam 2 MG/4 ML VIAL ONE (20:38)
[2018-05-04] MEDS: LOSARTAN POTASSIUM 50 MG TAB PO SCH (20:39)
--- NOTE | 2018-05-04 21:57 | Magnetic Resonance Report ---
LUMBAR SPINE MRI HISTORY: Low back pain. postop TECHNIQUE: Multiplanar multisequence MRI of the lumbar spine was performed without the use of contras t. COMPARISON: None. FINDINGS: For the purpose of the report the L5-S1 disc space will be located on axial image 27 of 31. Alignment and curvature intact. No fractures within the lumbar spine. Vertebral body hemangiomas at L 1 and L2. Mild disc space narrowing at L1-L2 and L2-L3. Posterior decompression and fusion with pedic le screws and rods from L3 through S1. The conus terminates at the L1 level. Edema both within and ortiz rrounding the erector spinae muscles at the lumbar spine. There is subcutaneous edema at the site of incision. Multiple T2 hyperintense, T1 hypointense lesions within the kidneys. Dominant lesion within the right kidney is partially visualized and measures 2.2 cm. These favor cysts. There is a disc spa cer at L5-S1. Large fluid collection surrounding the pedicle screw heads and rods from the L3-S1 leve l. This measures 9.4 x 8.4 x 3.8 cm. This results in mass effect along the posterior thecal sac. L1-L2: No significant central canal or neural foraminal narrowing. L2-L3: Broad-based posterior disc bulge with mild ligamentum and facet hypertrophy resulting in mild- to-moderate central canal and mild bilateral neural foraminal narrowing. L3-L4: Mass effect along the posterior thecal sac from the laminectomy fluid collection resulting in moderate central canal narrowing. There is mild bilateral neural foraminal narrowing. L4-L5: Broad-based posterior disc bulge asymmetric to the right. In conjunction with the mass effect along the posterior thecal sac from the laminectomy fluid collection, left greater than right, this r esults in moderate to severe central canal narrowing. The central canal measures between 4 and 5 mm i n diameter. There is also mild bilateral neural foraminal narrowing. L5-S1: Mild mass effect along the posterior thecal sac and along the left side of the thecal sac due to the laminectomy fluid collection. This results in mild central canal narrowing at the L5 level. Th ere is severe left-sided neural foraminal narrowing due to the extension of the fluid collection rebeca g the left side of the thecal sac best seen on image 24. Moderate right-sided neural foraminal narrow ing. IMPRESSION: 1. Large fluid collection at the laminectomy site from the L3-S1 levels which surrounds the pedicle s crew heads and rods. This measures 9.4 x 8.4 x 3.8 cm. This results in mass effect along the posterio r thecal sac with central canal narrowing as described above. This is most severe at the L4-L5 level. 2. The laminectomy fluid collection also extends along the left side of the thecal sac at the L5 leve l and results in severe left-sided neural foraminal narrowing at L5-S1. 3. The laminectomy fluid collection nonspecific but favors a postoperative seroma. A pseudomeningocel e or less likely an abscess could also have a similar appearance. 4. Mild to moderate central canal narrowing at L2-L3 due to the disc bulge and ligamentum and facet h ypertrophy. Electronically signed by: Nick Perdomo M.D. 05/04/2018 9:54 PM
--- NOTE | 2018-05-04 22:40 | Magnetic Resonance Report ---
Brain and pituitary MRI WITHOUT CONTRAST HISTORY: Dizziness. Double vision. evaluation of sella along with brain r/o stroke TECHNIQUE: Multiplanar multisequence MRI of the brain and pituitary fossa was performed without the u se of contrast. The patient was unable to complete the contrast portion of the scan. COMPARISON STUDY: Head CT 05/03/2018. FINDINGS: There is no mass, acute hematoma, midline shift, or acute infarct. The mastoid air cells ar e clear. The ventricles and sulci demonstrate mild age-related involutional changes. Scattered foci o f T2 hyperintensity seen within the periventricular and subcortical white matter are nonspecific but suggestive of mild microvascular ischemic changes. The major vascular flow voids at the skull base ar e well-maintained. Trace left parafalcine subdural fluid collection. 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 This measures a maximal thickness of 2 mm. There is a 2.6 cm retention cyst wi thin the left maxillary sinus. The pituitary gland is suboptimally evaluated due to motion artifact a nd a partially empty sella. However, no definite pituitary lesions identified. The pituitary stalk is midline and normal in caliber. There is an old lacunar infarct seen within the right caudate head. IMPRESSION: 1. No acute intracranial abnormality. 2. Trace left parafalcine subdural fluid collection. This likely represents a chronic subdural hemato ma. No acute hemorrhage identified. 3. The pituitary gland is suboptimally evaluated due to motion artifact and a partially empty sella. However, no definite pituitary lesions identified. Electronically signed by: Nick Perdomo M.D. 05/04/2018 10:38 PM
[2018-05-05] MEDS ORDERED: Nursing to Pharmacy Communication ONE (00:38)
[2018-05-05] MEDS: INSULIN ASPART 100 UNITS/ML 3 ML PEN SC SCH ×3 (06:05→19:16)
[2018-05-05] MEDS: METOPROLOL TARTRATE 50 MG TAB PO SCH ×2 (08:35→21:50)
[2018-05-05] MEDS: PANTOprazole 40 MG TAB PO SCH (08:35)
[2018-05-05] MEDS ORDERED: fentaNYL citrate 100 MCG/2 ML VIAL ONE ×5 (10:23→13:19)
[2018-05-05] MEDS ORDERED: LABETALOL HCL IV 5 MG/ML 20ML IV PRN (10:53)
[2018-05-05] MEDS ORDERED: ePHEDrine sulfate 50 MG/ML AMP IV PRN (10:53)
[2018-05-05] MEDS ORDERED: PHENYLEPHRINE 100MCG/ML 5ML SYR IV PRN (10:53)
[2018-05-05] MEDS ORDERED: MEPERIDINE HCL 25 MG/ML CARP IV PRN (10:53)
[2018-05-05] MEDS ORDERED: fentaNYL citrate 100 MCG/2 ML VIAL IV PRN (10:53)
[2018-05-05] MEDS ORDERED: HYDROmorphone INJ 1 MG/ML SYRINGE IV PRN (10:53)
[2018-05-05] MEDS ORDERED: ONDANSETRON INJ 2 MG/ML 2 ML VIAL IV PRN (10:53)
[2018-05-05] MEDS ORDERED: ATROPINE SULFATE 0.1 MG/ML 5ML SYR IV PRN (10:53)
--- NOTE | 2018-05-05 11:05 | Anesthesiology Consultation ---
Date of Service May 05, 2018 Assessment & Plan (1) Encounter for pre-operative examination: Chart Review Chart Review: Acceptable Risk for Surgery and Patient NOT seen in Pre Admission Testing Consults Requested none ASA ASA3 Proposed Anesthesia Anesthesia Type: General Risk / Benefits Reviewed With: PT / POA / Parent / Guardian, Accepts Plan and Informed Consent Obtained NPO Date Last Intake of Fluids: 05/04/18 Time Last Intake of Fluids: 22:30 Date Last Intake of Solids: 05/04/18 Time Last Intake of Solids: 18:00 History Surgery Operation Date: 05/05/18 10:55 Proposed Procedures p Incision and Drainage Lumbar Spine - Ankur Douglas DO Height/Weight Height: 5 ft 10 in Weight: 85.3 kg Allergies Allergy/AdvReac Type Severity Reaction Status Date / Time No Known Drug Allergies Allergy Unknown NONE Verified 05/03/18 14:13 lactose AdvReac Mild gi symptoms Verified 05/03/18 14:13 Medications Home Medications Medication Instructions Recorded Confirmed Last Taken aspirin [Aspir-81] 81 mg PO BID 03/23/18 05/03/18 Unknown losartan 50 mg PO DAILY 03/23/18 05/03/18 04/04/18 21:30 magnesium oxide 400 mg PO QPM 03/23/18 05/03/18 04/04/18 19:00 metformin 500 mg PO BIDM 03/23/18 05/03/18 04/04/18 19:00 multivitamin 1 tab PO QAM 03/23/18 05/03/18 04/04/18 08:00 omega 3,6,9 combination no.7 1,200 mg PO QAM 03/23/18 05/03/18 Unknown omeprazole 20 mg PO QAM 03/23/18 05/03/18 04/04/18 06:00 metoprolol tartrate [Lopressor] 25 mg PO BID 04/05/18 05/03/18 Unknown albuterol sulfate [ProAir HFA] 2 puff INHALATION Q4 PRN 05/03/18 05/03/18 Unknown Active Medications Generic Name Dose Route Start Last Admin Trade Name Freq PRN Reason Stop Dose Admin Aspirin 81 mg 05/04/18 09:00 05/04/18 20:39 Ecotrin PO 06/03/18 08:59 81 mg BID SMITH Administration Insulin Aspart 0 units 05/05/18 06:00 05/05/18 06:05 Novolog Flexpen SC 06/04/18 05:59 Not Given Q6 SMITH Losartan Potassium 50 mg 05/04/18 21:00 05/04/18 20:39 Cozaar PO 06/03/18 20:59 50 mg HS SMITH Administration Metoprolol Tartrate 50 mg 05/03/18 21:00 05/05/18 08:35 Lopressor PO 06/02/18 20:59 Not Given BID SMITH Pantoprazole Sodium 40 mg 05/04/18 09:00 05/05/18 08:35 Protonix PO 06/03/18 08:59 Not Given QAM SMITH Beta Macario Beta Macario Taken Within 24 Hours: Yes Past Medical History Medical History Neurogenic claudication due to lumbar spinal stenosis (Chronic) CAD (coronary artery disease) (Chronic) Paroxysmal A-fib (Chronic) ON ASA/BETA MACARIO Atrial septal hypertrophy ISOLATED BASAL SEPTAL HYPERTROPHY WITH MAXIMAL THICKNESS 1.7CM PER 2013 STRESS ECHO (REVIEWED BY CARDIO; FELT "STRESS TEST OKAY" AND FOR PATIENT TO CONTINUE CURRENT REGIMEN Bifascicular block CHRONIC DATING BACK TO AT LEAST 2014 EKG NOTED IN [facility] Diabetes mellitus, type 2 Diverticular disease GERD (gastroesophageal reflux disease) CONTROLLED Myocardial Infarction 1992= TREATED MEDICALLY Obesity Pulmonary hypertension "MILD" RVSP 40MMHG PER 2013 ECHO Skin cancer BCC Sleep apnea BIPAP Past Family History Family History Other Diabetes Heart disease Past Surgical History Surgical History History of cardiac cath 1992= NO STENTS History of coronary artery bypass graft CABG X 7 (1994) History of craniotomy PITUITARY TUMOR EXCISION ([facility]) History of cystoscopy History of nephrolithotomy with removal of calculi OPEN Past Anesthesia History No Hx of Anesthesia Complications and No Family Hx of Anesthesia Complications History of PONV No Motion Sickness Screening History of Motion Sickness: No Social History Smoking Status: Former smoker Hx Alcohol Use: No Hx Substance Use: No Exercise / Class Metabolic Activity III < 4 Walking/Shop/Light housework Review of Systems no chest pain or sob Physical Exam Vital Signs Last Vital Signs Temp 36.8 C 05/05/18 10:23 Pulse 100 H 05/05/18 10:23 Resp 18 05/05/18 10:23 BP 133/83 05/05/18 10:23 Pulse Ox 95 05/05/18 10:23 ENMT Mouth: + dentures and + poor dentition Thyromental Distance: > or= 3.5 Finger Breadths Mallampati Class: II Neck normal visual inspection Respiratory normal respiratory effort Cardiovascular Rate/Rhythm: regular rate and regular rhythm Heart Sounds: + murmur muffled heart sounds Musculoskeletal Spine: no pain with cervical ROM Neurologic moves all extremities Psychiatric Orientation: alert and oriented x 3 Testing Electrocardiogram Date: 05/03/18 Findings: + NSR @ (83), + LBBB (L ant fasicle block), + RBBB and + T wave inversion PVCs Chest X-Ray Date: 05/03/18 Findings: + NAD Echocardiogram Date: 04/10/18 EF: 50 RWMA: + hypokinetic (basal) Other Findings: + diastolic dysfunction (Grade 2) Valvular Disease: + AI (mild) Laboratory Results 05/04/18 06:47 05/04/18 06:47 Blood Type A Positive 05/03/18 13:21 Antibody Screen NEGATIVE 05/03/18 13:21 PT 11.0 Seconds (9.0-12.0) 05/03/18 13:21 INR 1.1 (0.9-1.1) 05/03/18 13:21 APTT 24.4 Seconds (21.0-31.0) 05/03/18 13:21 Urine Color Yellow 05/03/18 13:30 Urine Appearance Clear (Clear) 05/03/18 13:30 Urine pH 7.0 (4.5-7.5) 05/03/18 13:30 Ur Specific Clark 1.017 (1.000-1.030) 05/03/18 13:30 Urine Protein Negative (Negative) 05/03/18 13:30 Urine Glucose (UA) Negative (Negative) 05/03/18 13:30 Urine Ketones Negative (Negative) 05/03/18 13:30 Urine Nitrite Negative (Negative) 05/03/18 13:30 Ur Leukocyte Esterase 1+ (Negative) H 05/03/18 13:30 Urine WBC (Auto) 1-5 /hpf (0-5) 05/03/18 13:30 Urine RBC (Auto) 0-4 /hpf (0-4) 05/03/18 13:30 U Hyaline Cast (Auto) 0 /lpf (0-5) 05/03/18 13:30 U Epithel Cells (Auto) 10-20 /lpf (0-5) H 05/03/18 13:30 Urine Bacteria (Auto) Negative (Negative) 05/03/18 13:30 05/05/18 05/05/18 10:24 06:04 POC Glucose 117 H 103 H
--- NOTE | 2018-05-05 11:27 | History & Physical Bridge Note ---
Date of Service May 05, 2018 History & Physical Bridge Note I have examined the patient, reviewed the History & Physical and in the interval since the performance of the History & Physical I have noted the following changes of clinical significance: We elected to proceed with surgery for I&D lumbar spine
[2018-05-05] MEDS ORDERED: HYDROmorphone INJ 2 MG/ML SYR/VIAL ONE (11:29)
[2018-05-05] MEDS ORDERED: BACITRACIN INJ 50,000 UNIT VIAL ONE (11:39)
[2018-05-05] MEDS ORDERED: BUPIVACAINE/EPINEPHRINE 0.5% MPF 1:200,000 30 ML VIAL ONE (11:40)
[2018-05-05] MEDS ORDERED: CEFAZOLIN 2,000 MG/15 ML IV PUSH IV ONE (12:02)
[2018-05-05] MEDS ORDERED: MIDAZOLAM HCL 1 MG/ML 2ML VIAL ONE (12:04)
[2018-05-05] MEDS ORDERED: PHENYLEPHRINE 100MCG/ML 5ML SYR ONE (12:14)
[2018-05-05] MEDS ORDERED: ONDANSETRON INJ 2 MG/ML 2 ML VIAL ONE (12:42)
[2018-05-05] MEDS ORDERED: PROPOFOL IV EMULSION 10 MG/ML 20 ML VIAL IV ONE (12:42)
[2018-05-05] MEDS ORDERED: ROCURONIUM BROMIDE 10 MG/ML 5 ML VIAL ONE (12:42)
[2018-05-05] MEDS ORDERED: KETOROLAC 30 MG/ML VIAL ONE (12:42)
[2018-05-05] MEDS ORDERED: LIDOCAINE HCL 2% 2 ML VIAL/AMP(20MG/ML) INFIL ONE (12:42)
[2018-05-05] MEDS ORDERED: DEXAMETHASONE SOD INJ 4 MG/ML VIAL ONE (12:42)
[2018-05-05] MEDS ORDERED: GLYCOPYRROLATE 0.2 MG/ML VIAL ONE (12:42)
[2018-05-05] MEDS ORDERED: NEOSTIGMINE METHYLSULFATE 1 MG/ML 10ML VIAL ONE (12:42)
[2018-05-05] MEDS ORDERED: CEFAZOLIN 2000MG 2,000 MG/15 ML SYR IV SCH (13:10)
--- NOTE | 2018-05-05 13:14 | Operative Report ---
Post Operative Report Date of Surgery May 05, 2018 Pre & Post Diagnosis Operation Date: 05/05/18 10:55 Epidural fluid collection Procedure Operation Date: 05/05/18 10:55 I&D lumbar spine with repair of durotomy Surgeon Ankur Douglas DO Proof Press Operator Terell Donnelly Estimated Blood Loss 250 Findings Consistent with Post-Op Diagnosis Specimens Cultures obtained Description of Procedure Patient was met with preoperatively case discussed all questions addressed. After informed consent obtained patient was taken to the operative suite underwent intubation and placed in a prone position the Jorge table top Jas frame. All bony prominences well-padded eyes inspected to ensure no external pressure placed upon. This point the lumbar spine is prepped and draped in a normal sterile fashion. Sharp dissection with the assistance of Bovie cautery was performed down to and exposing the fascia layer of the operative site. Then released the fascia and a large fluid collection was identified. Cultures were obtained. All fluid was evacuated. Explore the dura and found a small durotomy on the left axillary region of the L5 root. Due to the nature of the durotomy was unable to repair this with a suture. Subsequently DuraGen was placed over the durotomy site. The enterotomy appeared to be sealed at this time. Antibiotic solution was then placed throughout the incision. 15 round LISETTE drain inserted. I did re-compress the pedicle screws across the 5 1 level. Incision was then closed with 1 Vicryl fascia 2-0 Vicryl subcutaneous and 4 Monocryl for Fransen closure Steri-Strip sterile dressings placed. Patient will continue to PACU stable condition. Please note Terell Donnelly was present on the entire procedure involved the patient positioning complex portions of the surgery and fashion closure. I attest to the content of the Intraoperative Record and any orders documented therein. Any exceptions are noted below.
[2018-05-05] MEDS ORDERED: METOPROLOL TARTRATE 1 MG/ML VIAL IV ONE (13:30)
--- NOTE | 2018-05-05 13:48 | Fluoroscopy Report ---
FL lumbar spine 2-3V CLINICAL HISTORY: Incision and drainage, LOOSE SCREW COMPARISON STUDY: Lumbar spine MRI 05/04/2018. FLUOROSCOPY TIME: 2 seconds. FINDINGS: 2 fluoroscopic spot images of the lumbar spine demonstrate posterior decompression and fusi on from L3 through S1 with pedicle screws and rods. There is a disc spacer at L5-S1. There is a screw head overlying the L5-S1 disc space on the AP view. This is not identified on the lateral view. IMPRESSION: Fluoroscopy provided for incision and drainage of the lumbar spine fluid collection. Electronically signed by: Nick Perdomo M.D. 05/05/2018 1:47 PM
--- NOTE | 2018-05-05 14:19 | Anesthesiology Progress Note ---
Date of Service May 05, 2018 Anesthesia Post Procedure Vital Signs Vital Signs: Temp Pulse Pulse Pulse Resp BP Pulse Ox 05/05/18 13:44 36.6 C 94 H 14 155/67 H 100 05/05/18 10:23 36.8 C 100 H 18 133/83 95 05/05/18 07:16 91 H 05/05/18 07:13 36.9 C 94 H 20 149/73 H 90 05/05/18 04:00 36.6 C 84 18 147/63 H 91 05/04/18 23:32 102 H 05/04/18 22:00 36.6 C 88 18 127/69 92 05/04/18 19:00 36.8 C 86 18 150/74 H 93 05/04/18 15:13 36.6 C 87 18 143/69 H 93 05/04/18 14:29 95 Pain Intensity Head: Pain Intensity: 2 Back: Pain Intensity: 0 Notes Mental Status: alert / awake / arousable Patient Amnestic to Procedure: Yes Nausea / Vomiting: adequately controlled Pain: adequately controlled Airway Patency, RR, SpO2: stable & adequate BP & HR: stable & adequate Hydration State: stable & adequate Anesthetic Complications: no major complications apparent and Pt Satisfied with anesthetic care
[2018-05-05] MEDS ORDERED: FAMOTIDINE 20 MG TAB PO PRN (14:49)
[2018-05-05] MEDS ORDERED: PROMETHAZINE HCL 12.5 MG in SODIUM CHLORIDE 0.9% 50 ML IV PRN (14:49)
[2018-05-05] MEDS ORDERED: LORazepam 0.5 MG/1 ML VIAL IV PRN (14:49)
[2018-05-05] MEDS ORDERED: METOCLOPRAMIDE HCL INJ 5 MG/ML 2 ML VIAL IV PRN (14:49)
[2018-05-05] MEDS ORDERED: DO NOT ADMINISTER PNEUMOCOCCAL VACCINE PRN (14:49)
[2018-05-05] MEDS ORDERED: ACETAMINOPHEN 1,000 MG/100 ML VIAL IV PRN (14:49)
[2018-05-05] MEDS ORDERED: ALUMINUM/MAGNESIUM SUSP 30 ML UDC PO PRN (14:49)
[2018-05-05] MEDS ORDERED: ONDANSETRON 4 MG TAB PO PRN (14:49)
[2018-05-05] MEDS ORDERED: BISACODYL 10 MG SUPP PR PRN (14:49)
[2018-05-05] MEDS ORDERED: MAGNESIUM HYDROXIDE SUSP 30 ML UDC PO PRN (14:49)
[2018-05-05] MEDS ORDERED: DO NOT ADMINISTER FLU VACCINE PRN (14:49)
[2018-05-05] MEDS ORDERED: SOD PHOSPHATE/SOD BIPHOSPHATE ENEMA 132 ML BTL PR PRN (14:49)
[2018-05-05] MEDS: OXYCODONE HCL IR 5 MG TAB (IMMEDIATE RELEASE) PO PRN (15:49)
[2018-05-05] MEDS: SODIUM CHLORIDE 0.9% 1000ML 1,000 ML IV SCH ×2 (17:38→23:28)
[2018-05-05] MEDS: HYDROmorphone INJ 0.5 MG/0.5 ML SYR IV PRN ×2 (17:41→21:45)
--- NOTE | 2018-05-05 18:39 | Hospitalist Progress Note ---
Date of Service May 05, 2018 Assessment & Plan (1) Diplopia: -This is a patient who has intermittent headaches since back surgery and woke up on 05/03/18 around 4 AM with dipoplia. Patient reports that the dipoplia if with gazing to the left with both eyes opened and sees double vision. When he is gazing to the left with either the right eye closed or with the left eye closed there is no double vision. The visual abnormality does not occur when gazing with both eyes opened in other directions. -at home usually takes aspirin 81 mg BID -recently off of statins at home -took aspirin 81 mg today, given 162 mg of aspirin in the ED; continuing aspirin 81 mg BID for now -CT imaging of the Multifocal atherosclerotic plaque formation of the vertebral and carotid arteries without high-grade stenosis. Tortuosity with fusiform dilation of the distal cervical segment left ICA as above. -patient reported history of atrial fibrillation after back surgery but returned to sinus rhythm; currently sinus rhythm on telemetry -had recent echocardiogram in 04/10/18; repeat echocardiogram without interarterial shunt on 05/04/18 -neurology consult had MRI of head done and no obvious ischmic findings -appreciate further neurology recommendations History of back surgery -Operation Date: 04/05/18: L3-S1 Decompression and Fusion, interbody cage at L5- S1 because of neurogenic claudication -MRI of the back on this admission found epidural fluid collection and on ; orthopedics performed Incission and Drainage of lumbar spine with repair of durotomy -pain control as needed, bowel regimen History of atrial fibrillation -echocardiogram in 04/10/18 without evidence for ASD and EF 50 to 55% -repeat echocardiogram without interarterial shunt on 05/04/18 -no arrhythmia was found on telemetry -continue home dose BID metoprolol for heart rate control Hypertension -continue home dose losartan Type 2 diabetes mellitus without custodial current insulin use -hold off metformin -sliding scale insulin based on fingerstick glucose DVT ppx: give SCDs Family [phone]; [phone] Full Code Subjective Patient seen after incission and drainage. He is on medical rose. As per patient he is instructed to lay flat on his back post-procedure. Patient has LISETTE drain leading to incission site. Patient reports some anterior right lower quadrant pain which may be from positioning during orthopedic procedure Patient denies chest pain or shortness of breath or lightheadedness or headache Continue to see double vision when both eyes staring to the left Physical Exam 2 Vital Signs (Past 24 Hours): Last Vital Signs Temp 36.8 C 05/05/18 18:10 Pulse 104 H 05/05/18 18:10 Resp 20 05/05/18 18:10 BP 124/64 05/05/18 18:10 Pulse Ox 90 05/05/18 18:10 Constitutional: WD/WN, vitals as above Eyes: PERRL, conjunctivae normal, anicteric sclerae EOM intact bilaterally (dipoplia with lateral gaze to the left) ENMT: external ear and nose normal, oropharynx normal Neck: trachea midline, no thyromegaly Respiratory: normal respiratory effort, lungs clear to auscultation Cardiovascular: RRR, no murmur, no edema Gastrointestinal (Abdomen): normal bowel sounds, soft, nontender, no hepatosplenomegaly Musculoskeletal: Head/Neck/Chest: normocephalic and head atraumatic Neurologic: CN's II-XI intact bilaterally Psychiatric: A+Ox3, euthymic affect
[2018-05-05] MEDS: CEFAZOLIN 2000MG 2,000 MG/15 ML SYR IV SCH (21:39)
[2018-05-05] MEDS: LOSARTAN POTASSIUM 50 MG TAB PO SCH (21:48)
[2018-05-05] MEDS: ASPIRIN 81 MG ECTAB PO SCH (21:50)
[2018-05-05] MEDS: DOCUSATE SODIUM/SENNA 50/8.6MG TAB PO SCH (21:51)
--- NOTE | 2018-05-06 01:02 | Progress Note ---
DATE: 05/05/2018 HISTORY OF PRESENT ILLNESS: I am seeing the patient in followup of a new diplopia with images side by side on left gaze. He had a noncontrast MRI of the brain, which I have reviewed from last evening. There is an empty sella. 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 Although the sella is not particularly imaged with fine cuts I believe that I see no masses in the sella and that the cavernous sinuses looked unremarkable. There is no evidence of an acute ischemia. There may be a tiny chronic subdural. As the study was done noncontrast, I cannot comment as to whether there would be meningeal enhancement which might be a clue as to whether or not there was intracranial hypotension. His MRI of the lumbar spine was reviewed as well. Today, he underwent a debridement of the epidural fluid collection and repair of a durotomy. I reviewed the history in detail with his , which indicates a history of escalated headaches prior to lumbar surgery about a month ago, headaches have persisted since the surgery, but not daily and they are not clinically postural i.e., worse with standing and better with lying down. In fact, they sound like they may be worse with bending over. They are not persistent, he has not been febrile, accompanying his double vision which was essentially painless, there were no other new neurologic symptoms. PHYSICAL EXAMINATION: GENERAL: He is postop, but reasonably alert. NEUROLOGIC: His pupils are myotic, presumably related to narcotics. His ann were full, motility was grossly normal at near. No fatigability of eye closure. No nasality of speech. No facial anesthesia. Normal cerebellar function. 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 No evidence of brainstem stroke,. This patient has had a complicated recent medical history with a soft tissue lumbar region. seroma. It is unclear to me whether it was thought that he had a dural tear and leak. His headaches are not typical for intracranial hypotension and his course has not been really consistent necessarily with intracranial hypertension. PLAN: I will discuss with the patient tomorrow whether or not he feels he can tolerate a dedicated study to the pituitary and the course of the sixth nerve on the left. This certainly could be a vasculopathic sixth, although often they are painful. I doubt they represent increased intracranial pressure clinically. There is no evidence of parenchymal stroke which would cause the aforementioned findings. Plan, continued monitoring. We will check some additional labs including an acetylcholine receptor antibody titer, Ophthalmology consultation may be reasonable. We will follow with you and recommend checking orthostasis and potentially pituitary function labs to make sure the patient is not panhypopituitary. MTDD
[2018-05-06] MEDS: CEFAZOLIN 2000MG 2,000 MG/15 ML SYR IV SCH (04:09)
[2018-05-06] MEDS: POLYETHYLENE (MIRALAX) 17 GM PACK PO SCH ×3 (05:32→16:55)
[2018-05-06] MEDS ORDERED: Nursing to Pharmacy Communication ONE (05:34)
[2018-05-06] MEDS: SODIUM CHLORIDE 0.9% 1000ML 1,000 ML IV SCH (06:34)
[2018-05-06] MEDS: METOPROLOL TARTRATE 50 MG TAB PO SCH ×2 (07:18→20:52)
[2018-05-06] MEDS: ASPIRIN 81 MG ECTAB PO SCH ×2 (07:19→20:52)
[2018-05-06] MEDS: PANTOprazole 40 MG TAB PO SCH (07:19)
[2018-05-06 07:45] LABS: Basophils # (auto) 0.02 K/uL (0-0.2); Basophils % (auto) 0.2 %; Eosinophils # (auto) 0.15 K/uL (0-0.5); Eosinophils % (auto) 1.8 %; Hematocrit (blood only) 34.3 % (42-52); Hemoglobin 11.1 g/dL (14.0-18.0); Immature Granulocytes # (auto) 0.01 K/uL (0.00-0.02); Immature Granulocytes % (auto) 0.1 %; Lymphocytes # (auto) 1.74 K/uL (1.2-3.4); Mean Corpuscular Hgb Conc 32.4 g/dL (32-36); Mean Corpuscular Volume 94.2 fL (80-100); Mean Platelet Volume 9.5 fL (7.4-10.4); Monocytes # (auto) 0.82 K/uL (0.11-0.59); Monocytes % (auto) 9.9 %; Neutrophils # (auto) 5.56 K/uL (1.4-6.5); Platelet Count 196 K/uL (130-400); RDW Coefficient of Variation 13.9 % (11.5-14.5); RDW Standard Deviation 47.9 fL (36.4-46.3); Red Blood Count 3.64 M/uL (4.7-6.1)
[2018-05-06 08:16] LABS: BUN Creatinine Ratio 19.9 (10-20); Calcium 8.5 mg/dl (8.5-10.1); Creatinine Clr Calc Pharmacy 98.2 ml/min; Est GFR (African American) 108.7; Est GFR (Non-African American) 93.8; Potassium 3.9 mmol/L (3.5-5.1)
[2018-05-06] MEDS: INSULIN ASPART 100 UNITS/ML 3 ML PEN SC SCH ×4 (09:13→20:52)
--- NOTE | 2018-05-06 10:23 | Orthopedic Progress Note ---
Date of Service May 06, 2018 Assessment & Plan (1) Neurogenic claudication due to lumbar spinal stenosis: At this time we will maintain head of bed flat but may elevate up to 20 degrees. We will maintain the Hart catheter today. We will plan to discontinue his drain changes dressing this afternoon. We will assess his progress tomorrow and consider possible transfers from bed to chair. Present on Admission?: Yes Subjective Patient states that his headaches are resolved. He describes improvement of his nausea. Still struggling with double vision. He has no significant back pain leg pain absent. Physical Exam 2 Vital Signs (Past 24 Hours): Last Vital Signs Temp 36.9 C 05/06/18 07:13 Pulse 84 05/06/18 07:13 Resp 16 05/06/18 07:13 BP 123/62 05/06/18 07:13 Pulse Ox 97 05/06/18 07:13 Physical Exam: On exam is good strength testing appears comfortable.
--- NOTE | 2018-05-06 11:49 | Progress Note ---
DATE: 05/06/2018 I am seeing the patient in the setting of new diplopia on left gaze without obvious extraocular muscle palsy. He had an evacuation of perilumbar fluid accumulation and repair of dural leak. The patient indicates his headache is better. There is mild stiffness of his neck. He believes the double vision is worse and indicates in all ann of gaze. No other new neurologic symptoms have been noted. Headache has resolved. PHYSICAL EXAMINATION: VITAL SIGNS: 123/62, pulse 84, respirations 16, temp 36.9, 97%. He is awake and alert. His speech and language are normal. There is normal extraocular motility. He has diplopia on left lateral gaze only; other ann of gaze are normal. No fatigability of eye closure. No nasality of speech. IMPRESSION: This patient has had a complicated course of a lumbar surgery complicated by a dural cerebrospinal fluid leak, which has been repaired. He has had waxing and waning headaches, which have not been typical necessarily for intracranial hypotension. He has the onset of diplopia, which has been relatively painless without any evidence of brainstem infarction. The patient has multiple risks for vasculopathic sixth nerve palsy. No clinical evidence of a meningeal process, increased or decreased cerebrospinal fluid pressures. PLAN: Check acetylcholine receptor antibody titer. Monitor the patient closely. He is clinically stable. On Tuesday when he is more mobile and allowed to be more upright, repeat MRI of the brain, attention to pituitary as the images were degraded by motion and limited. Grossly I did not see anything in the sella with attention to the cavernous sinus. This study should be done with and without contrast. I did explain to the patient that many of the likely etiologies of his double vision would likely improve over time. He seemed reassured about that. Will follow with you. MIKI
[2018-05-06] MEDS: OXYCODONE HCL IR 5 MG TAB (IMMEDIATE RELEASE) PO PRN ×3 (11:55→22:50)
[2018-05-06] MEDS: ACETAMINOPHEN 500 MG TAB PO PRN (15:41)
--- NOTE | 2018-05-06 16:44 | Hospitalist Progress Note ---
Date of Service May 06, 2018 Assessment & Plan (1) Diplopia: -This is a patient who has intermittent headaches since back surgery and woke up on 05/03/18 around 4 AM with dipoplia. Patient reports that the dipoplia if with gazing to the left with both eyes opened and sees double vision. When he is gazing to the left with either the right eye closed or with the left eye closed there is no double vision. The visual abnormality does not occur when gazing with both eyes opened in other directions. -at home usually takes aspirin 81 mg BID -recently off of statins at home -took aspirin 81 mg today, given 162 mg of aspirin in the ED; continuing aspirin 81 mg BID for now -CT imaging of the Multifocal atherosclerotic plaque formation of the vertebral and carotid arteries without high-grade stenosis. Tortuosity with fusiform dilation of the distal cervical segment left ICA as above. -patient reported history of atrial fibrillation after back surgery but returned to sinus rhythm; currently sinus rhythm on telemetry -had recent echocardiogram in 04/10/18; repeat echocardiogram without interarterial shunt on 05/04/18 -neurology consult had MRI of head done without contrast and no obvious ischemic findings -neurology recommendations: Check acetylcholine receptor antibody titer. On Tuesday05/08/18 when he is more mobile and allowed to be more upright, repeat MRI of the brain with and without contrast, attention to pituitary as the images were degraded by motion and limited and with attention to the cavernous sinus. History of back surgery and subsequent epidural fluid collection was found -Operation Date: 04/05/18: L3-S1 Decompression and Fusion, interbody cage at L5- S1 because of neurogenic claudication -MRI of the back on this admission found epidural fluid collection and on ; orthopedics performed Incission and Drainage of lumbar spine with repair of durotomy - orthopedics asking patient to remain laying on bed flat on back but may elevate up to 20 degrees. -pain control as needed, bowel regimen History of atrial fibrillation -echocardiogram in 04/10/18 without evidence for ASD and EF 50 to 55% -repeat echocardiogram without interarterial shunt on 05/04/18 -no arrhythmia was found on telemetry -continue home dose BID metoprolol for heart rate control Hypertension -continue home dose losartan Type 2 diabetes mellitus without long term care pharmacist current insulin use -hold off metformin -sliding scale insulin based on fingerstick glucose DVT ppx: give SCDs Family [phone]; [phone] Full Code Subjective Patient remains laying flat on bed as per instructions from orthopedics. Denies acute pain to back or to abdomen. Denies lightheadedness. Denies acute headache. No chest pain or shortness of breath. Continue to see double vision when both eyes staring to the left Physical Exam 2 Vital Signs (Past 24 Hours): Last Vital Signs Temp 37.1 C 05/06/18 15:15 Pulse 79 05/06/18 15:15 Resp 20 05/06/18 15:15 BP 127/62 05/06/18 15:15 Pulse Ox 91 05/06/18 15:15 Constitutional: WD/WN, vitals as above Eyes: PERRL, conjunctivae normal, anicteric sclerae EOM intact bilaterally (dipoplia with lateral gaze to the left) ENMT: external ear and nose normal, oropharynx normal Neck: trachea midline, no thyromegaly Respiratory: normal respiratory effort, lungs clear to auscultation Cardiovascular: RRR, no murmur, no edema Gastrointestinal (Abdomen): normal bowel sounds, soft, nontender, no hepatosplenomegaly Musculoskeletal: Head/Neck/Chest: normocephalic and head atraumatic Neurologic: CN's II-XI intact bilaterally Psychiatric: A+Ox3, euthymic affect
[2018-05-06] MEDS: DOCUSATE SODIUM/SENNA 50/8.6MG TAB PO SCH (20:52)
[2018-05-06] MEDS: LOSARTAN POTASSIUM 50 MG TAB PO SCH (20:52)
[2018-05-07] MEDS: POLYETHYLENE (MIRALAX) 17 GM PACK PO SCH ×5 (00:06→23:26)
[2018-05-07] MEDS: OXYCODONE HCL IR 5 MG TAB (IMMEDIATE RELEASE) PO PRN ×2 (08:30→22:39)
[2018-05-07] MEDS: METOPROLOL TARTRATE 50 MG TAB PO SCH ×2 (08:31→21:08)
[2018-05-07] MEDS: PANTOprazole 40 MG TAB PO SCH (08:31)
[2018-05-07] MEDS: ASPIRIN 81 MG ECTAB PO SCH ×2 (08:31→21:08)
[2018-05-07] MEDS: INSULIN ASPART 100 UNITS/ML 3 ML PEN SC SCH ×4 (08:36→20:59)
--- NOTE | 2018-05-07 10:45 | Orthopedic Progress Note ---
Date of Service May 07, 2018 Assessment & Plan (1) Neurogenic claudication due to lumbar spinal stenosis: At this time will initiate bed to chair only today. He has bathroom privileges. We will assess his progress and most likely initiate formalized physical therapy Tuesday. Present on Admission?: Yes Subjective Patient's back pain is controlled. Has no leg pain. Denies headaches at this time. Physical Exam 2 Vital Signs (Past 24 Hours): Last Vital Signs Temp 36.9 C 05/07/18 07:40 Pulse 93 H 05/07/18 07:40 Resp 16 05/07/18 07:40 BP 121/66 05/07/18 07:40 Pulse Ox 95 05/07/18 07:40 Physical Exam: Patient is able to sit up in bed without discomfort. He has good strength testing lower extremities.
--- NOTE | 2018-05-07 12:01 | Progress Note ---
DATE: 05/07/2018 SUBJECTIVE: I am seeing the patient in followup of new diplopia on left lateral gaze, suggestive of a left sixth nerve palsy. The patient indicates that his double vision has improved and is not continuous. He has not had any new neurologic symptoms. He had a nonpostural headache yesterday, which was relieved by Tylenol. He indicated to me later in the evening he took OxyContin for back pain, but the headache had already resolved. OBJECTIVE: On exam, he is awake and alert, spontaneous speech, language is nondysphasic and he is in no distress. His neck is supple. Pupils are equal, round and reactive to light. There is normal motility, normal facial sensation, corneal response, masseter strength, facial symmetry. [id number] is unremarkable. IMPRESSION: Query left sixth nerve palsy. Radiographically, imaging of the brain is unremarkable with a noncontrast study; therefore, difficult to know if anything supportive of intracranial hypotension. 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 I would like to get a better image of the pituitary and cavernous sinus as the sixth nerve courses through the cavernous sinus and that study to be done with and without contrast. We will see how he is feeling tomorrow and if he is tolerating the upright position. At present, he indicates to me that he thinks his back pain would limit his ability to cooperate. The differential of the sixth nerve palsy is broad and could include vasculopathic, intracranial hypotension. There is no evidence of a small vessel brainstem stroke. There is no clinical evidence of a meningeal process. I have taken the liberty to order an acetylcholine receptor antibody titer, although believes that myasthenia gravis is not likely to be present. We will follow with you.
[2018-05-07] MEDS: ACETAMINOPHEN 500 MG TAB PO PRN ×2 (13:17→21:08)
--- NOTE | 2018-05-07 13:40 | Hospitalist Progress Note ---
Date of Service May 07, 2018 Assessment & Plan (1) Diplopia: -This is a patient who has intermittent headaches since back surgery and woke up on 05/03/18 around 4 AM with dipoplia. Patient reports that the dipoplia if with gazing to the left with both eyes opened and sees double vision. When he is gazing to the left with either the right eye closed or with the left eye closed there is no double vision. The visual abnormality does not occur when gazing with both eyes opened in other directions. -at home usually takes aspirin 81 mg BID -recently off of statins at home -took aspirin 81 mg today, given 162 mg of aspirin in the ED; continuing aspirin 81 mg BID for now -CT imaging of the Multifocal atherosclerotic plaque formation of the vertebral and carotid arteries without high-grade stenosis. Tortuosity with fusiform dilation of the distal cervical segment left ICA as above. -patient reported history of atrial fibrillation after back surgery but returned to sinus rhythm; currently sinus rhythm on telemetry -had recent echocardiogram in 04/10/18; repeat echocardiogram without interarterial shunt on 05/04/18 -neurology consult had MRI of head done without contrast and no obvious ischemic findings -acetylcholine receptor antibody titers pending results. -currently back on bed rest after the 05/05/18 incission and drainage of epidural fluid collection -On Tuesday05/08/18 if he is more mobile and if he can be more upright without symptoms, then can consider repeat MRI of the brain with and without contrast, attention to pituitary as the images were degraded by motion and limited and with attention to the cavernous sinus and the sixth cranial nerve; however patient has reported concerns to neurology and hospitalist that he may not be able to tolerate another MRI imaging due to back discomforts History of back surgery and subsequent epidural fluid collection was found -Operation Date: 04/05/18: L3-S1 Decompression and Fusion, interbody cage at L5- S1 because of neurogenic claudication -MRI of the back on this admission found epidural fluid collection and on ; orthopedics performed Incission and Drainage of lumbar spine with repair of durotomy - bed rest, patient to remain laying on bed flat on back but may elevate up to 20 degrees. -pain control as needed, bowel regimen History of atrial fibrillation -echocardiogram in 04/10/18 without evidence for ASD and EF 50 to 55% -repeat echocardiogram without interarterial shunt on 05/04/18 -no arrhythmia was found [place] patient was on telemetry -continue home dose BID metoprolol for heart rate control Hypertension -continue home dose losartan Type 2 diabetes mellitus without fci current insulin use -hold off metformin -sliding scale insulin based on fingerstick glucose DVT ppx: give SCDs Family [phone]; [phone] Full Code Subjective Patient was allowed earlier today to sit upright by orthopedic service Dr. Douglas. However when seen and examined by hospitalist, patient in chair and finished a meal and reported that since he was allowed to sit up he has been feeling more pressure of the right eye and also with some right neck discomfort. He also reported that he would not be comfortable at this time to do any Brain MRI because he would not be able to tolerate going back to the MRI machine soon. Neurological exam is normal Extraoccular movements intact. Patient does not report more blurry vision with gaze than before. Nurse have notified orthopedics service and advising continued bed rest. Hospitalist have discussed patient's symptoms with neurology Dr. Marin and she also recommends bedrest for now and conservative management at this time Denies acute pain to back or to abdomen while he was upright. Denies lightheadedness. No chest pain or shortness of breath. Physical Exam 2 Vital Signs (Past 24 Hours): Last Vital Signs Temp 36.9 C 05/07/18 07:40 Pulse 93 H 05/07/18 07:40 Resp 16 05/07/18 07:40 BP 121/66 05/07/18 07:40 Pulse Ox 95 05/07/18 07:40 Constitutional: WD/WN, vitals as above Eyes: PERRL, conjunctivae normal, anicteric sclerae EOM intact bilaterally (dipoplia with lateral gaze to the left) ENMT: external ear and nose normal, oropharynx normal Neck: trachea midline, no thyromegaly Respiratory: normal respiratory effort, lungs clear to auscultation Cardiovascular: RRR, no murmur, no edema Gastrointestinal (Abdomen): normal bowel sounds, soft, nontender, no hepatosplenomegaly Musculoskeletal: Head/Neck/Chest: normocephalic and head atraumatic Neurologic: CN's II-XI intact bilaterally Psychiatric: A+Ox3, euthymic affect
[2018-05-07] MEDS: DOCUSATE SODIUM/SENNA 50/8.6MG TAB PO SCH (21:08)
[2018-05-07] MEDS: LOSARTAN POTASSIUM 50 MG TAB PO SCH (21:08)
[2018-05-07] MEDS: LORazepam 0.5 MG TAB PO PRN (22:40)
[2018-05-08] MEDS: POLYETHYLENE (MIRALAX) 17 GM PACK PO SCH ×3 (05:47→17:10)
[2018-05-08] MEDS: OXYCODONE HCL IR 5 MG TAB (IMMEDIATE RELEASE) PO PRN ×2 (06:58→15:18)
[2018-05-08] MEDS: HYDROmorphone INJ 0.5 MG/0.5 ML SYR IV PRN ×2 (07:42→20:48)
[2018-05-08] MEDS: ASPIRIN 81 MG ECTAB PO SCH ×2 (07:44→20:49)
[2018-05-08] MEDS: METOPROLOL TARTRATE 50 MG TAB PO SCH ×2 (07:45→20:49)
[2018-05-08] MEDS: PANTOprazole 40 MG TAB PO SCH (07:45)
[2018-05-08] MEDS: INSULIN ASPART 100 UNITS/ML 3 ML PEN SC SCH ×4 (08:45→20:52)
--- NOTE | 2018-05-08 09:42 | Anesthesiology Progress Note ---
Date of Service May 08, 2018 Anesthesia Post Procedure Vital Signs Vital Signs: Temp Pulse Pulse Pulse Resp BP Pulse Ox 05/08/18 09:10 85 24 96 05/08/18 07:46 36.8 C 106 H 106 H 18 130/67 93 05/07/18 23:13 36.9 C 78 14 151/83 H 95 05/07/18 16:00 36.8 C 89 16 112/55 L 94 Pain Intensity Head: Pain Intensity: 5 Back: Pain Intensity: 10 Notes Mental Status: alert / awake / arousable and participated in evaluation Patient Amnestic to Procedure: Yes Nausea / Vomiting: adequately controlled Pain: adequately controlled Airway Patency, RR, SpO2: stable & adequate BP & HR: stable & adequate Hydration State: stable & adequate Anesthetic Complications: no major complications apparent and Pt Satisfied with anesthetic care
--- NOTE | 2018-05-08 10:03 | Orthopedic Progress Note ---
Date of Service May 08, 2018 Assessment & Plan (1) Neurogenic claudication due to lumbar spinal stenosis: This time we will maintained bedrest today had a bed to tolerance. He may use the bedside commode. Pending his progress he may introduce physical therapy in the next day or so. Present on Admission?: Yes Subjective Patient states that his headaches have resolved. He is back pain was somewhat comfortable this morning but now improved. He has no leg pain. He has no double vision at our discussion at this time. No nausea vomiting. Physical Exam 2 Vital Signs (Past 24 Hours): Last Vital Signs Temp 36.8 C 05/08/18 07:46 Pulse 85 05/08/18 09:10 Resp 24 05/08/18 09:10 BP 130/67 05/08/18 07:46 Pulse Ox 96 05/08/18 09:10 Physical Exam: On exam I had him sit up to 45 degrees in the bed. We had a lengthy conversation with him in this position. He had no headaches. He is quite comfortable. Neurologically intact to testing.
--- NOTE | 2018-05-08 14:53 | Neurology Progress Note ---
Date of Service May 08, 2018 Assessment & Plan (1) Diplopia: 1. MRI with and without brain and sellar- r/o stroke and pituitary issues 2. durotomy - 05/08/2018 surgical intervention 3. ophthalmology for any evidence of lens, corneal issues - as out patient 4. DM - for the most part well controlled at home with oral meds 5. TTE no ASD 6. Acetyl cnc supervisor - pending 7. medical management per primary team. 8. 30 pound weight loss concerning primary service for any further workup follow up with neurology in 4-6 weeks after discharge from rehab Jillian Alegria PAC schedule Pt seen. LAWRENCE yesterday, none today. No further diplopia. Still with post-op back pain. Imp diplopia improved, query from intracranial hypotension? monitor, if persistent MRI brain attn pituitary/cavernous sinus as outpt. HAI Dai MD Supervising Physician Co-Signing Physician Notes I have seen and discussed above patient with Dr Jillian Dai, neurology Subjective Abdirashid is a 78 year old male with PMH AF with RVE, DM2, HTN, renal stones, CAD , recent back surgery with csf leak, remote history of pituitary macroadenoma resection in [place]. He has had intermittent headaches since back surgery and woke up on 05/03/18 around 4 AM with dipoplia. He states the headaches are somewhat better with lying down. He has dipoplia with gazing to the left with both eyes opened and sees double vision. When he is gazing to the left with either the right eye closed or with the left eye closed there is no double vision. The visual abnormality does not occur when gazing with both eyes opened in other directions. He has also had a 30 pound weight loss since the surgery. He is trying to force himself to eat meals. He states his back feels pretty good. denies CP, SOB, abdominal pain, one sided weakness, numbness tingling, N, V. only med change was metoprolol was changed to Cardizem during hospitalization for back surgery due to recurrent a fib but as outpatient his PCP/cards changed this back to Cardizem. He states he is in a great deal of pain especially in his hip. He states he currently has no complaint of diplopia or headache. He has been sitting up most of the day. He has been sleeping lot due to the pain medications he is receiving. denies CP, SOB, abdominal pain, vision changes, N, V. Physical Exam 2 Vital Signs (Past 24 Hours): Last Vital Signs Temp 36.8 C 05/08/18 07:46 Pulse 85 05/08/18 09:10 Resp 24 05/08/18 09:10 BP 130/67 05/08/18 07:46 Pulse Ox 96 05/08/18 09:10 Gen: alert NAD lungs CTA CV RRR pupil equal reactive, gross visual ann intact UE 5/5 bilaterally biceps triceps LE not assess due to pain.
--- NOTE | 2018-05-08 18:55 | Hospitalist Progress Note ---
Date of Service May 08, 2018 Assessment & Plan (1) Vertigo: Intermittent vertigo that comes and goes with no precipitating factors. Patient underwent drainage of a postop seroma likely consistent with CSF collection 3 days ago. This has not made the issue worse or better. Continue with physical restriction and gradually increase activity as tolerated per orthopedic recommendations. Appreciate neurology recommendations. Of note patient does have BPPV in the past. Orthostatics cannot be obtained secondary to patient's inability to stand without symptoms. (2) Hip pain, acute: Uncertain cause, patient reports this began just yesterday. No history of chronic osteoarthritis or chronic pain in this area. Patient denies any trauma. He does report Dilaudid IV helped him for the remainder of the day. Will monitor this tomorrow clinically. (3) H/O Spinal surgery: Recent lumbar spinal surgery last month with complication of durotomy postop course was complicated by CHF and A. fib with RVR. He returns with double vision with lateral gaze. Stroke workup has been negative. Neurology is following. MRI of the lumbar spine revealed postop seroma collection that was rather large. This has been drained 3 days ago with questionable improvement in patient's symptoms. Will continue plan as above. (4) DM type 2 (diabetes mellitus, type 2): Controlled, continue NovoLog per sliding scale with carb coverage. Holding metformin. (5) HTN (hypertension): Mostly controlled. Continue Cozaar 50 mg p.o. nightly. Continue good pain control. (6) CAD (coronary artery disease): History of CABG in the past. Currently asymptomatic. Continue medical management with Lopressor, aspirin, Cozaar. (7) DVT prophylaxis: Aspirin twice daily per orthopedic recommendations Full code Disposition-continue restricted activity with slow progression over the next few days. Christin Luna DO [facility] hospitalist Subjective 78-year-old man who underwent lumbar surgery approximately 1 month ago presents for worsening diplopia on lateral gaze. He was found to have epidural fluid collection which was drained 3 days ago. He still reports some vertigo type symptoms that do not appear to be aggravated by changes in position. He denies any headache at this time. He denies any nausea and is tolerating p.o. Patient is a poor historian. Reports a history of BPPV in the past. Physical Exam 2 Vital Signs (Past 24 Hours): Last Vital Signs Temp 37 C 05/08/18 15:09 Pulse 100 H 05/08/18 15:09 Resp 18 05/08/18 15:09 BP 151/73 H 05/08/18 15:09 Pulse Ox 90 05/08/18 15:09 CONSTITUTIONAL: WNWD, vitals as above, generally well-appearing EYES: EOMI bilaterally, PERRL, normal conjuctivae, no scleral icterus ENT: MMM RESPIRATORY: clear to auscultation bilaterally, no crackles, rales or wheezes, normal respiratory effort CARDIOVASCULAR: regular rate and rhythm, S1 and 2 heard without murmurs, gallops or rubs, no JVD, no peripheral edema GASTROINTESTINAL: normal bowel sounds, soft, nontender, nondistended MUSCULOSKELETAL: strength 5/5 throughout, head is normocephalic and atraumatic SKIN: warm and dry NEUROLOGIC: patellar DTR 2+ bilat. PERRL, EOMI, no facial palsy, no dysarthria. CN 2-12 grossly intact, no sensory deficit, normal cognition, normal speech PSYCHIATRIC: alert cooperative and oriented to person, place and time. Euthymic mood, makes good eye contact, language grossly intact, recent and remote memory grossly intact. Results & Data Laboratory Results Short CBC 05/03/18 05/03/18 05/03/18 Range/Units 13:21 13:21 13:21 RBC 4.15 L (4.7-6.1) M/uL MCV 94.5 (80-100) fL MCH 31.3 (25-34) pg MCHC 33.2 (32-36) g/dL RDW Std Deviation 48.9 H (36.4-46.3) fL RDW Coeff of Julieth 14.3 (11.5-14.5) % MPV 9.7 (7.4-10.4) fL Immature Gran % (Auto) 0.2 % Neut % (Auto) 62.7 % Lymph % (Auto) 24.8 % [place] % (Auto) 9.5 % Eos % (Auto) 2.5 % Baso % (Auto) 0.3 % Immature Gran # (Auto) 0.01 (0.00-0.02) K/uL Neut # (Auto) 3.81 (1.4-6.5) K/uL Lymph # (Auto) 1.51 (1.2-3.4) K/uL [place] # (Auto) 0.58 (0.11-0.59) K/uL Eos # (Auto) 0.15 (0-0.5) K/uL Baso # (Auto) 0.02 (0-0.2) K/uL ESR (0-14) mm/hr PT 11.0 (9.0-12.0) Seconds POC INR (0.9-1.1) INR 1.1 (0.9-1.1) APTT 24.4 (21.0-31.0) Seconds PTT Ratio 0.9 Sodium 136 (136-145) mmol/L Potassium 4.3 (3.5-5.1) mmol/L Chloride 100 (98-107) mmol/L Carbon Dioxide 27 (21-32) mmol/L Anion Gap 9.0 (3-11) BUN 15 (7-18) mg/dl Creatinine 0.66 (0.6-1.4) mg/dl Est Cr Clr Drug Dosing 103.1 ml/min Est GFR ( Amer) 107.3 Est GFR (Non-Af Amer) 92.6 BUN/Creatinine Ratio 22.7 H (10-20) Glucose 109 H (70-99) mg/dl POC Glucose (70-99) Calcium 8.9 (8.5-10.1) mg/dl Magnesium 2.4 (1.8-2.4) mg/dl Total Bilirubin 0.3 (0.1-1) mg/dl Direct Bilirubin 0.1 (0-0.2) mg/dl AST 11 L (15-37) U/L ALT 25 (12-78) U/L Alkaline Phosphatase 72 (45-117) U/L Troponin I < 0.015 (0-0.045) ng/ml C-Reactive Protein (0-0.29) mg/dl Total Protein 6.8 (6.4-8.2) gm/dl Albumin 3.4 (3.4-5.0) gm/dl Triglycerides (0-150) mg/dl Cholesterol (0-200) mg/dl LDL Cholesterol, Calc mg/dl VLDL Cholesterol, Calc mg/dl HDL Cholesterol mg/dl Cholesterol/HDL Ratio TSH (0.300-4.500) uIu/ml Cortisol AM Sample (4.3-22.4) mcg/dl Urine Color Urine Appearance (Clear) Urine pH (4.5-7.5) Ur Specific [place] (1.000-1.030) Urine Protein (Negative) Urine Glucose (UA) (Negative) Urine Ketones (Negative) Urine Blood (Negative) Urine Nitrite (Negative) Urine Bilirubin (Negative) Urine Urobilinogen (Negative) Ur Leukocyte Esterase (Negative) Urine WBC (Auto) (0-5) /hpf Urine RBC (Auto) (0-4) /hpf U Hyaline Cast (Auto) (0-5) /lpf U Epithel Cells (Auto) (0-5) /lpf Urine Bacteria (Auto) (Negative) Blood Type Antibody Screen 05/03/18 05/03/18 05/03/18 Range/Units 13:21 13:26 13:26 RBC (4.7-6.1) M/uL MCV (80-100) fL MCH (25-34) pg MCHC (32-36) g/dL RDW Std Deviation (36.4-46.3) fL RDW Coeff of Julieth (11.5-14.5) % MPV (7.4-10.4) fL Immature Gran % (Auto) % Neut % (Auto) % Lymph % (Auto) % [place] % (Auto) % Eos % (Auto) % Baso % (Auto) % Immature Gran # (Auto) (0.00-0.02) K/uL Neut # (Auto) (1.4-6.5) K/uL Lymph # (Auto) (1.2-3.4) K/uL [place] # (Auto) (0.11-0.59) K/uL Eos # (Auto) (0-0.5) K/uL Baso # (Auto) (0-0.2) K/uL ESR (0-14) mm/hr PT (9.0-12.0) Seconds POC INR 1.0 (0.9-1.1) INR (0.9-1.1) APTT (21.0-31.0) Seconds PTT Ratio Sodium (136-145) mmol/L Potassium (3.5-5.1) mmol/L Chloride (98-107) mmol/L Carbon Dioxide (21-32) mmol/L Anion Gap (3-11) BUN (7-18) mg/dl Creatinine (0.6-1.4) mg/dl Est Cr Clr Drug Dosing ml/min Est GFR ( Amer) Est GFR (Non-Af Amer) BUN/Creatinine Ratio (10-20) Glucose (70-99) mg/dl POC Glucose 128 H (70-99) Calcium (8.5-10.1) mg/dl Magnesium (1.8-2.4) mg/dl Total Bilirubin (0.1-1) mg/dl Direct Bilirubin (0-0.2) mg/dl AST (15-37) U/L ALT (12-78) U/L Alkaline Phosphatase (45-117) U/L Troponin I (0-0.045) ng/ml C-Reactive Protein (0-0.29) mg/dl Total Protein (6.4-8.2) gm/dl Albumin (3.4-5.0) gm/dl Triglycerides (0-150) mg/dl Cholesterol (0-200) mg/dl LDL Cholesterol, Calc mg/dl VLDL Cholesterol, Calc mg/dl HDL Cholesterol mg/dl Cholesterol/HDL Ratio TSH (0.300-4.500) uIu/ml Cortisol AM Sample (4.3-22.4) mcg/dl Urine Color Urine Appearance (Clear) Urine pH (4.5-7.5) Ur Specific [place] (1.000-1.030) Urine Protein (Negative) Urine Glucose (UA) (Negative) Urine Ketones (Negative) Urine Blood (Negative) Urine Nitrite (Negative) Urine Bilirubin (Negative) Urine Urobilinogen (Negative) Ur Leukocyte Esterase (Negative) Urine WBC (Auto) (0-5) /hpf Urine RBC (Auto) (0-4) /hpf U Hyaline Cast (Auto) (0-5) /lpf U Epithel Cells (Auto) (0-5) /lpf Urine Bacteria (Auto) (Negative) Blood Type A Positive Antibody Screen NEGATIVE 05/03/18 05/03/18 05/03/18 Range/Units 13:30 18:43 18:43 RBC 4.29 L (4.7-6.1) M/uL MCV 94.2 (80-100) fL MCH 30.8 (25-34) pg MCHC 32.7 (32-36) g/dL RDW Std Deviation 49.3 H (36.4-46.3) fL RDW Coeff of Julieth 14.4 (11.5-14.5) % MPV 9.9 (7.4-10.4) fL Immature Gran % (Auto) 0.0 % Neut % (Auto) 56.5 % Lymph % (Auto) 28.3 % [place] % (Auto) 11.4 % Eos % (Auto) 3.2 % Baso % (Auto) 0.6 % Immature Gran # (Auto) 0.00 (0.00-0.02) K/uL Neut # (Auto) 2.97 (1.4-6.5) K/uL Lymph # (Auto) 1.49 (1.2-3.4) K/uL [place] # (Auto) 0.60 H (0.11-0.59) K/uL Eos # (Auto) 0.17 (0-0.5) K/uL Baso # (Auto) 0.03 (0-0.2) K/uL ESR (0-14) mm/hr PT (9.0-12.0) Seconds POC INR (0.9-1.1) INR (0.9-1.1) APTT (21.0-31.0) Seconds PTT Ratio Sodium 135 L (136-145) mmol/L Potassium 4.2 (3.5-5.1) mmol/L Chloride 99 (98-107) mmol/L Carbon Dioxide 26 (21-32) mmol/L Anion Gap 10.0 (3-11) BUN 13 (7-18) mg/dl Creatinine 0.62 (0.6-1.4) mg/dl Est Cr Clr Drug Dosing 109.7 ml/min Est GFR ( Amer) 110.1 Est GFR (Non-Af Amer) 95.0 BUN/Creatinine Ratio 20.9 H (10-20) Glucose 108 H (70-99) mg/dl POC Glucose (70-99) Calcium 9.2 (8.5-10.1) mg/dl Magnesium (1.8-2.4) mg/dl Total Bilirubin (0.1-1) mg/dl Direct Bilirubin (0-0.2) mg/dl AST (15-37) U/L ALT (12-78) U/L Alkaline Phosphatase (45-117) U/L Troponin I (0-0.045) ng/ml C-Reactive Protein (0-0.29) mg/dl Total Protein (6.4-8.2) gm/dl Albumin (3.4-5.0) gm/dl Triglycerides (0-150) mg/dl Cholesterol (0-200) mg/dl LDL Cholesterol, Calc mg/dl VLDL Cholesterol, Calc mg/dl HDL Cholesterol mg/dl Cholesterol/HDL Ratio TSH (0.300-4.500) uIu/ml Cortisol AM Sample (4.3-22.4) mcg/dl Urine Color Yellow Urine Appearance Clear (Clear) Urine pH 7.0 (4.5-7.5) Ur Specific [place] 1.017 (1.000-1.030) Urine Protein Negative (Negative) Urine Glucose (UA) Negative (Negative) Urine Ketones Negative (Negative) Urine Blood Negative (Negative) Urine Nitrite Negative (Negative) Urine Bilirubin Negative (Negative) Urine Urobilinogen Negative (Negative) Ur Leukocyte Esterase 1+ H (Negative) Urine WBC (Auto) 1-5 (0-5) /hpf Urine RBC (Auto) 0-4 (0-4) /hpf U Hyaline Cast (Auto) 0 (0-5) /lpf U Epithel Cells (Auto) 10-20 H (0-5) /lpf Urine Bacteria (Auto) Negative (Negative) Blood Type Antibody Screen 05/03/18 05/03/18 05/04/18 Range/Units 19:15 20:56 06:47 RBC 4.26 L (4.7-6.1) M/uL MCV 94.4 (80-100) fL MCH 30.8 (25-34) pg MCHC 32.6 (32-36) g/dL RDW Std Deviation 48.8 H (36.4-46.3) fL RDW Coeff of Julieth 14.3 (11.5-14.5) % MPV 9.8 (7.4-10.4) fL Immature Gran % (Auto) 0.2 % Neut % (Auto) 55.7 % Lymph % (Auto) 29.0 % [place] % (Auto) 10.8 % Eos % (Auto) 3.6 % Baso % (Auto) 0.7 % Immature Gran # (Auto) 0.01 (0.00-0.02) K/uL Neut # (Auto) 3.10 (1.4-6.5) K/uL Lymph # (Auto) 1.61 (1.2-3.4) K/uL [place] # (Auto) 0.60 H (0.11-0.59) K/uL Eos # (Auto) 0.20 (0-0.5) K/uL Baso # (Auto) 0.04 (0-0.2) K/uL ESR (0-14) mm/hr PT (9.0-12.0) Seconds POC INR (0.9-1.1) INR (0.9-1.1) APTT (21.0-31.0) Seconds PTT Ratio Sodium (136-145) mmol/L Potassium (3.5-5.1) mmol/L Chloride (98-107) mmol/L Carbon Dioxide (21-32) mmol/L Anion Gap (3-11) BUN (7-18) mg/dl Creatinine (0.6-1.4) mg/dl Est Cr Clr Drug Dosing ml/min Est GFR ( Amer) Est GFR (Non-Af Amer) BUN/Creatinine Ratio (10-20) Glucose (70-99) mg/dl POC Glucose 99 93 (70-99) Calcium (8.5-10.1) mg/dl Magnesium (1.8-2.4) mg/dl Total Bilirubin (0.1-1) mg/dl Direct Bilirubin (0-0.2) mg/dl AST (15-37) U/L ALT (12-78) U/L Alkaline Phosphatase (45-117) U/L Troponin I (0-0.045) ng/ml C-Reactive Protein (0-0.29) mg/dl Total Protein (6.4-8.2) gm/dl Albumin (3.4-5.0) gm/dl Triglycerides (0-150) mg/dl Cholesterol (0-200) mg/dl LDL Cholesterol, Calc mg/dl VLDL Cholesterol, Calc mg/dl HDL Cholesterol mg/dl Cholesterol/HDL Ratio TSH (0.300-4.500) uIu/ml Cortisol AM Sample (4.3-22.4) mcg/dl Urine Color Urine Appearance (Clear) Urine pH (4.5-7.5) Ur Specific [place] (1.000-1.030) Urine Protein (Negative) Urine Glucose (UA) (Negative) Urine Ketones (Negative) Urine Blood (Negative) Urine Nitrite (Negative) Urine Bilirubin (Negative) Urine Urobilinogen (Negative) Ur Leukocyte Esterase (Negative) Urine WBC (Auto) (0-5) /hpf Urine RBC (Auto) (0-4) /hpf U Hyaline Cast (Auto) (0-5) /lpf U Epithel Cells (Auto) (0-5) /lpf Urine Bacteria (Auto) (Negative) Blood Type Antibody Screen 05/04/18 05/04/18 05/04/18 Range/Units 06:47 07:39 11:40 RBC (4.7-6.1) M/uL MCV (80-100) fL MCH (25-34) pg MCHC (32-36) g/dL RDW Std Deviation (36.4-46.3) fL RDW Coeff of Julieth (11.5-14.5) % MPV (7.4-10.4) fL Immature Gran % (Auto) % Neut % (Auto) % Lymph % (Auto) % [place] % (Auto) % Eos % (Auto) % Baso % (Auto) % Immature Gran # (Auto) (0.00-0.02) K/uL Neut # (Auto) (1.4-6.5) K/uL Lymph # (Auto) (1.2-3.4) K/uL [place] # (Auto) (0.11-0.59) K/uL Eos # (Auto) (0-0.5) K/uL Baso # (Auto) (0-0.2) K/uL ESR (0-14) mm/hr PT (9.0-12.0) Seconds POC INR (0.9-1.1) INR (0.9-1.1) APTT (21.0-31.0) Seconds PTT Ratio Sodium 136 (136-145) mmol/L Potassium 3.8 (3.5-5.1) mmol/L Chloride 101 (98-107) mmol/L Carbon Dioxide 27 (21-32) mmol/L Anion Gap 8.0 (3-11) BUN 14 (7-18) mg/dl Creatinine 0.57 L (0.6-1.4) mg/dl Est Cr Clr Drug Dosing 110.3 ml/min Est GFR ( Amer) 114.0 Est GFR (Non-Af Amer) 98.4 BUN/Creatinine Ratio 25.1 H (10-20) Glucose 96 (70-99) mg/dl POC Glucose 93 106 H (70-99) Calcium 8.8 (8.5-10.1) mg/dl Magnesium (1.8-2.4) mg/dl Total Bilirubin (0.1-1) mg/dl Direct Bilirubin (0-0.2) mg/dl AST (15-37) U/L ALT (12-78) U/L Alkaline Phosphatase (45-117) U/L Troponin I (0-0.045) ng/ml C-Reactive Protein (0-0.29) mg/dl Total Protein (6.4-8.2) gm/dl Albumin (3.4-5.0) gm/dl Triglycerides 128 (0-150) mg/dl Cholesterol 130 (0-200) mg/dl LDL Cholesterol, Calc 71 mg/dl VLDL Cholesterol, Calc 26 mg/dl HDL Cholesterol 33 mg/dl Cholesterol/HDL Ratio 4 TSH (0.300-4.500) uIu/ml Cortisol AM Sample (4.3-22.4) mcg/dl Urine Color Urine Appearance (Clear) Urine pH (4.5-7.5) Ur Specific [place] (1.000-1.030) Urine Protein (Negative) Urine Glucose (UA) (Negative) Urine Ketones (Negative) Urine Blood (Negative) Urine Nitrite (Negative) Urine Bilirubin (Negative) Urine Urobilinogen (Negative) Ur Leukocyte Esterase (Negative) Urine WBC (Auto) (0-5) /hpf Urine RBC (Auto) (0-4) /hpf U Hyaline Cast (Auto) (0-5) /lpf U Epithel Cells (Auto) (0-5) /lpf Urine Bacteria (Auto) (Negative) Blood Type Antibody Screen 05/04/18 05/04/18 05/05/18 Range/Units 16:47 20:48 06:04 RBC (4.7-6.1) M/uL MCV (80-100) fL MCH (25-34) pg MCHC (32-36) g/dL RDW Std Deviation (36.4-46.3) fL RDW Coeff of Julieth (11.5-14.5) % MPV (7.4-10.4) fL Immature Gran % (Auto) % Neut % (Auto) % Lymph % (Auto) % [place] % (Auto) % Eos % (Auto) % Baso % (Auto) % Immature Gran # (Auto) (0.00-0.02) K/uL Neut # (Auto) (1.4-6.5) K/uL Lymph # (Auto) (1.2-3.4) K/uL [place] # (Auto) (0.11-0.59) K/uL Eos # (Auto) (0-0.5) K/uL Baso # (Auto) (0-0.2) K/uL ESR (0-14) mm/hr PT (9.0-12.0) Seconds POC INR (0.9-1.1) INR (0.9-1.1) APTT (21.0-31.0) Seconds PTT Ratio Sodium (136-145) mmol/L Potassium (3.5-5.1) mmol/L Chloride (98-107) mmol/L Carbon Dioxide (21-32) mmol/L Anion Gap (3-11) BUN (7-18) mg/dl Creatinine (0.6-1.4) mg/dl Est Cr Clr Drug Dosing ml/min Est GFR ( Amer) Est GFR (Non-Af Amer) BUN/Creatinine Ratio (10-20) Glucose (70-99) mg/dl POC Glucose 109 H 117 H 103 H (70-99) Calcium (8.5-10.1) mg/dl Magnesium (1.8-2.4) mg/dl Total Bilirubin (0.1-1) mg/dl Direct Bilirubin (0-0.2) mg/dl AST (15-37) U/L ALT (12-78) U/L Alkaline Phosphatase (45-117) U/L Troponin I (0-0.045) ng/ml C-Reactive Protein (0-0.29) mg/dl Total Protein (6.4-8.2) gm/dl Albumin (3.4-5.0) gm/dl Triglycerides (0-150) mg/dl Cholesterol (0-200) mg/dl LDL Cholesterol, Calc mg/dl VLDL Cholesterol, Calc mg/dl HDL Cholesterol mg/dl Cholesterol/HDL Ratio TSH (0.300-4.500) uIu/ml Cortisol AM Sample (4.3-22.4) mcg/dl Urine Color Urine Appearance (Clear) Urine pH (4.5-7.5) Ur Specific [place] (1.000-1.030) Urine Protein (Negative) Urine Glucose (UA) (Negative) Urine Ketones (Negative) Urine Blood (Negative) Urine Nitrite (Negative) Urine Bilirubin (Negative) Urine Urobilinogen (Negative) Ur Leukocyte Esterase (Negative) Urine WBC (Auto) (0-5) /hpf Urine RBC (Auto) (0-4) /hpf U Hyaline Cast (Auto) (0-5) /lpf U Epithel Cells (Auto) (0-5) /lpf Urine Bacteria (Auto) (Negative) Blood Type Antibody Screen 05/05/18 05/05/18 05/05/18 Range/Units 06:21 06:21 10:24 RBC (4.7-6.1) M/uL MCV (80-100) fL MCH (25-34) pg MCHC (32-36) g/dL RDW Std Deviation (36.4-46.3) fL RDW Coeff of Julieth (11.5-14.5) % MPV (7.4-10.4) fL Immature Gran % (Auto) % Neut % (Auto) % Lymph % (Auto) % [place] % (Auto) % Eos % (Auto) % Baso % (Auto) % Immature Gran # (Auto) (0.00-0.02) K/uL Neut # (Auto) (1.4-6.5) K/uL Lymph # (Auto) (1.2-3.4) K/uL [place] # (Auto) (0.11-0.59) K/uL Eos # (Auto) (0-0.5) K/uL Baso # (Auto) (0-0.2) K/uL ESR 3 (0-14) mm/hr PT (9.0-12.0) Seconds POC INR (0.9-1.1) INR (0.9-1.1) APTT (21.0-31.0) Seconds PTT Ratio Sodium (136-145) mmol/L Potassium (3.5-5.1) mmol/L Chloride (98-107) mmol/L Carbon Dioxide (21-32) mmol/L Anion Gap (3-11) BUN (7-18) mg/dl Creatinine (0.6-1.4) mg/dl Est Cr Clr Drug Dosing ml/min Est GFR ( Amer) Est GFR (Non-Af Amer) BUN/Creatinine Ratio (10-20) Glucose (70-99) mg/dl POC Glucose 117 H (70-99) Calcium (8.5-10.1) mg/dl Magnesium (1.8-2.4) mg/dl Total Bilirubin (0.1-1) mg/dl Direct Bilirubin (0-0.2) mg/dl AST (15-37) U/L ALT (12-78) U/L Alkaline Phosphatase (45-117) U/L Troponin I (0-0.045) ng/ml C-Reactive Protein < 0.29 (0-0.29) mg/dl Total Protein (6.4-8.2) gm/dl Albumin (3.4-5.0) gm/dl Triglycerides (0-150) mg/dl Cholesterol (0-200) mg/dl LDL Cholesterol, Calc mg/dl VLDL Cholesterol, Calc mg/dl HDL Cholesterol mg/dl Cholesterol/HDL Ratio TSH (0.300-4.500) uIu/ml Cortisol AM Sample (4.3-22.4) mcg/dl Urine Color Urine Appearance (Clear) Urine pH (4.5-7.5) Ur Specific [place] (1.000-1.030) Urine Protein (Negative) Urine Glucose (UA) (Negative) Urine Ketones (Negative) Urine Blood (Negative) Urine Nitrite (Negative) Urine Bilirubin (Negative) Urine Urobilinogen (Negative) Ur Leukocyte Esterase (Negative) Urine WBC (Auto) (0-5) /hpf Urine RBC (Auto) (0-4) /hpf U Hyaline Cast (Auto) (0-5) /lpf U Epithel Cells (Auto) (0-5) /lpf Urine Bacteria (Auto) (Negative) Blood Type Antibody Screen 05/05/18 05/05/18 05/05/18 Range/Units 14:09 18:08 18:27 RBC (4.7-6.1) M/uL MCV (80-100) fL MCH (25-34) pg MCHC (32-36) g/dL RDW Std Deviation (36.4-46.3) fL RDW Coeff of Julieth (11.5-14.5) % MPV (7.4-10.4) fL Immature Gran % (Auto) % Neut % (Auto) % Lymph % (Auto) % [place] % (Auto) % Eos % (Auto) % Baso % (Auto) % Immature Gran # (Auto) (0.00-0.02) K/uL Neut # (Auto) (1.4-6.5) K/uL Lymph # (Auto) (1.2-3.4) K/uL [place] # (Auto) (0.11-0.59) K/uL Eos # (Auto) (0-0.5) K/uL Baso # (Auto) (0-0.2) K/uL ESR (0-14) mm/hr PT (9.0-12.0) Seconds POC INR (0.9-1.1) INR (0.9-1.1) APTT (21.0-31.0) Seconds PTT Ratio Sodium (136-145) mmol/L Potassium (3.5-5.1) mmol/L Chloride (98-107) mmol/L Carbon Dioxide (21-32) mmol/L Anion Gap (3-11) BUN (7-18) mg/dl Creatinine (0.6-1.4) mg/dl Est Cr Clr Drug Dosing ml/min Est GFR ( Amer) Est GFR (Non-Af Amer) BUN/Creatinine Ratio (10-20) Glucose (70-99) mg/dl POC Glucose 120 H 135 H (70-99) Calcium (8.5-10.1) mg/dl Magnesium (1.8-2.4) mg/dl Total Bilirubin (0.1-1) mg/dl Direct Bilirubin (0-0.2) mg/dl AST (15-37) U/L ALT (12-78) U/L Alkaline Phosphatase (45-117) U/L Troponin I (0-0.045) ng/ml C-Reactive Protein (0-0.29) mg/dl Total Protein (6.4-8.2) gm/dl Albumin (3.4-5.0) gm/dl Triglycerides (0-150) mg/dl Cholesterol (0-200) mg/dl LDL Cholesterol, Calc mg/dl VLDL Cholesterol, Calc mg/dl HDL Cholesterol mg/dl Cholesterol/HDL Ratio TSH 0.620 (0.300-4.500) uIu/ml Cortisol AM Sample (4.3-22.4) mcg/dl Urine Color Urine Appearance (Clear) Urine pH (4.5-7.5) Ur Specific [place] (1.000-1.030) Urine Protein (Negative) Urine Glucose (UA) (Negative) Urine Ketones (Negative) Urine Blood (Negative) Urine Nitrite (Negative) Urine Bilirubin (Negative) Urine Urobilinogen (Negative) Ur Leukocyte Esterase (Negative) Urine WBC (Auto) (0-5) /hpf Urine RBC (Auto) (0-4) /hpf U Hyaline Cast (Auto) (0-5) /lpf U Epithel Cells (Auto) (0-5) /lpf Urine Bacteria (Auto) (Negative) Blood Type Antibody Screen 05/05/18 05/06/18 05/06/18 Range/Units 20:39 07:25 07:25 RBC 3.64 L (4.7-6.1) M/uL MCV 94.2 (80-100) fL MCH 30.5 (25-34) pg MCHC 32.4 (32-36) g/dL RDW Std Deviation 47.9 H (36.4-46.3) fL RDW Coeff of Julieth 13.9 (11.5-14.5) % MPV 9.5 (7.4-10.4) fL Immature Gran % (Auto) 0.1 % Neut % (Auto) 67.0 % Lymph % (Auto) 21.0 % [place] % (Auto) 9.9 % Eos % (Auto) 1.8 % Baso % (Auto) 0.2 % Immature Gran # (Auto) 0.01 (0.00-0.02) K/uL Neut # (Auto) 5.56 (1.4-6.5) K/uL Lymph # (Auto) 1.74 (1.2-3.4) K/uL [place] # (Auto) 0.82 H (0.11-0.59) K/uL Eos # (Auto) 0.15 (0-0.5) K/uL Baso # (Auto) 0.02 (0-0.2) K/uL ESR (0-14) mm/hr PT (9.0-12.0) Seconds POC INR (0.9-1.1) INR (0.9-1.1) APTT (21.0-31.0) Seconds PTT Ratio Sodium (136-145) mmol/L Potassium (3.5-5.1) mmol/L Chloride (98-107) mmol/L Carbon Dioxide (21-32) mmol/L Anion Gap (3-11) BUN (7-18) mg/dl Creatinine (0.6-1.4) mg/dl Est Cr Clr Drug Dosing ml/min Est GFR ( Amer) Est GFR (Non-Af Amer) BUN/Creatinine Ratio (10-20) Glucose (70-99) mg/dl POC Glucose 115 H (70-99) Calcium (8.5-10.1) mg/dl Magnesium (1.8-2.4) mg/dl Total Bilirubin (0.1-1) mg/dl Direct Bilirubin (0-0.2) mg/dl AST (15-37) U/L ALT (12-78) U/L Alkaline Phosphatase (45-117) U/L Troponin I (0-0.045) ng/ml C-Reactive Protein (0-0.29) mg/dl Total Protein (6.4-8.2) gm/dl Albumin (3.4-5.0) gm/dl Triglycerides (0-150) mg/dl Cholesterol (0-200) mg/dl LDL Cholesterol, Calc mg/dl VLDL Cholesterol, Calc mg/dl HDL Cholesterol mg/dl Cholesterol/HDL Ratio TSH (0.300-4.500) uIu/ml Cortisol AM Sample 19.18 (4.3-22.4) mcg/dl Urine Color Urine Appearance (Clear) Urine pH (4.5-7.5) Ur Specific [place] (1.000-1.030) Urine Protein (Negative) Urine Glucose (UA) (Negative) Urine Ketones (Negative) Urine Blood (Negative) Urine Nitrite (Negative) Urine Bilirubin (Negative) Urine Urobilinogen (Negative) Ur Leukocyte Esterase (Negative) Urine WBC (Auto) (0-5) /hpf Urine RBC (Auto) (0-4) /hpf U Hyaline Cast (Auto) (0-5) /lpf U Epithel Cells (Auto) (0-5) /lpf Urine Bacteria (Auto) (Negative) Blood Type Antibody Screen 05/06/18 05/06/18 05/06/18 Range/Units 07:25 08:03 11:53 RBC (4.7-6.1) M/uL MCV (80-100) fL MCH (25-34) pg MCHC (32-36) g/dL RDW Std Deviation (36.4-46.3) fL RDW Coeff of Julieth (11.5-14.5) % MPV (7.4-10.4) fL Immature Gran % (Auto) % Neut % (Auto) % Lymph % (Auto) % [place] % (Auto) % Eos % (Auto) % Baso % (Auto) % Immature Gran # (Auto) (0.00-0.02) K/uL Neut # (Auto) (1.4-6.5) K/uL Lymph # (Auto) (1.2-3.4) K/uL [place] # (Auto) (0.11-0.59) K/uL Eos # (Auto) (0-0.5) K/uL Baso # (Auto) (0-0.2) K/uL ESR (0-14) mm/hr PT (9.0-12.0) Seconds POC INR (0.9-1.1) INR (0.9-1.1) APTT (21.0-31.0) Seconds PTT Ratio Sodium 136 (136-145) mmol/L Potassium 3.9 (3.5-5.1) mmol/L Chloride 101 (98-107) mmol/L Carbon Dioxide 27 (21-32) mmol/L Anion Gap 8.0 (3-11) BUN 13 (7-18) mg/dl Creatinine 0.64 (0.6-1.4) mg/dl Est Cr Clr Drug Dosing 98.2 ml/min Est GFR ( Amer) 108.7 Est GFR (Non-Af Amer) 93.8 BUN/Creatinine Ratio 19.9 (10-20) Glucose 84 (70-99) mg/dl POC Glucose 80 126 H (70-99) Calcium 8.5 (8.5-10.1) mg/dl Magnesium (1.8-2.4) mg/dl Total Bilirubin (0.1-1) mg/dl Direct Bilirubin (0-0.2) mg/dl AST (15-37) U/L ALT (12-78) U/L Alkaline Phosphatase (45-117) U/L Troponin I (0-0.045) ng/ml C-Reactive Protein (0-0.29) mg/dl Total Protein (6.4-8.2) gm/dl Albumin (3.4-5.0) gm/dl Triglycerides (0-150) mg/dl Cholesterol (0-200) mg/dl LDL Cholesterol, Calc mg/dl VLDL Cholesterol, Calc mg/dl HDL Cholesterol mg/dl Cholesterol/HDL Ratio TSH (0.300-4.500) uIu/ml Cortisol AM Sample (4.3-22.4) mcg/dl Urine Color Urine Appearance (Clear) Urine pH (4.5-7.5) Ur Specific [place] (1.000-1.030) Urine Protein (Negative) Urine Glucose (UA) (Negative) Urine Ketones (Negative) Urine Blood (Negative) Urine Nitrite (Negative) Urine Bilirubin (Negative) Urine Urobilinogen (Negative) Ur Leukocyte Esterase (Negative) Urine WBC (Auto) (0-5) /hpf Urine RBC (Auto) (0-4) /hpf U Hyaline Cast (Auto) (0-5) /lpf U Epithel Cells (Auto) (0-5) /lpf Urine Bacteria (Auto) (Negative) Blood Type Antibody Screen 05/06/18 05/06/18 05/07/18 Range/Units 17:01 20:49 08:06 RBC (4.7-6.1) M/uL MCV (80-100) fL MCH (25-34) pg MCHC (32-36) g/dL RDW Std Deviation (36.4-46.3) fL RDW Coeff of Julieth (11.5-14.5) % MPV (7.4-10.4) fL Immature Gran % (Auto) % Neut % (Auto) % Lymph % (Auto) % [place] % (Auto) % Eos % (Auto) % Baso % (Auto) % Immature Gran # (Auto) (0.00-0.02) K/uL Neut # (Auto) (1.4-6.5) K/uL Lymph # (Auto) (1.2-3.4) K/uL [place] # (Auto) (0.11-0.59) K/uL Eos # (Auto) (0-0.5) K/uL Baso # (Auto) (0-0.2) K/uL ESR (0-14) mm/hr PT (9.0-12.0) Seconds POC INR (0.9-1.1) INR (0.9-1.1) APTT (21.0-31.0) Seconds PTT Ratio Sodium (136-145) mmol/L Potassium (3.5-5.1) mmol/L Chloride (98-107) mmol/L Carbon Dioxide (21-32) mmol/L Anion Gap (3-11) BUN (7-18) mg/dl Creatinine (0.6-1.4) mg/dl Est Cr Clr Drug Dosing ml/min Est GFR ( Amer) Est GFR (Non-Af Amer) BUN/Creatinine Ratio (10-20) Glucose (70-99) mg/dl POC Glucose 103 H 140 H 100 H (70-99) Calcium (8.5-10.1) mg/dl Magnesium (1.8-2.4) mg/dl Total Bilirubin (0.1-1) mg/dl Direct Bilirubin (0-0.2) mg/dl AST (15-37) U/L ALT (12-78) U/L Alkaline Phosphatase (45-117) U/L Troponin I (0-0.045) ng/ml C-Reactive Protein (0-0.29) mg/dl Total Protein (6.4-8.2) gm/dl Albumin (3.4-5.0) gm/dl Triglycerides (0-150) mg/dl Cholesterol (0-200) mg/dl LDL Cholesterol, Calc mg/dl VLDL Cholesterol, Calc mg/dl HDL Cholesterol mg/dl Cholesterol/HDL Ratio TSH (0.300-4.500) uIu/ml Cortisol AM Sample (4.3-22.4) mcg/dl Urine Color Urine Appearance (Clear) Urine pH (4.5-7.5) Ur Specific [place] (1.000-1.030) Urine Protein (Negative) Urine Glucose (UA) (Negative) Urine Ketones (Negative) Urine Blood (Negative) Urine Nitrite (Negative) Urine Bilirubin (Negative) Urine Urobilinogen (Negative) Ur Leukocyte Esterase (Negative) Urine WBC (Auto) (0-5) /hpf Urine RBC (Auto) (0-4) /hpf U Hyaline Cast (Auto) (0-5) /lpf U Epithel Cells (Auto) (0-5) /lpf Urine Bacteria (Auto) (Negative) Blood Type Antibody Screen 05/07/18 05/07/18 05/07/18 Range/Units 12:09 17:05 20:36 RBC (4.7-6.1) M/uL MCV (80-100) fL MCH (25-34) pg MCHC (32-36) g/dL RDW Std Deviation (36.4-46.3) fL RDW Coeff of Julieth (11.5-14.5) % MPV (7.4-10.4) fL Immature Gran % (Auto) % Neut % (Auto) % Lymph % (Auto) % [place] % (Auto) % Eos % (Auto) % Baso % (Auto) % Immature Gran # (Auto) (0.00-0.02) K/uL Neut # (Auto) (1.4-6.5) K/uL Lymph # (Auto) (1.2-3.4) K/uL [place] # (Auto) (0.11-0.59) K/uL Eos # (Auto) (0-0.5) K/uL Baso # (Auto) (0-0.2) K/uL ESR (0-14) mm/hr PT (9.0-12.0) Seconds POC INR (0.9-1.1) INR (0.9-1.1) APTT (21.0-31.0) Seconds PTT Ratio Sodium (136-145) mmol/L Potassium (3.5-5.1) mmol/L Chloride (98-107) mmol/L Carbon Dioxide (21-32) mmol/L Anion Gap (3-11) BUN (7-18) mg/dl Creatinine (0.6-1.4) mg/dl Est Cr Clr Drug Dosing ml/min Est GFR ( Amer) Est GFR (Non-Af Amer) BUN/Creatinine Ratio (10-20) Glucose (70-99) mg/dl POC Glucose 138 H 110 H 147 H (70-99) Calcium (8.5-10.1) mg/dl Magnesium (1.8-2.4) mg/dl Total Bilirubin (0.1-1) mg/dl Direct Bilirubin (0-0.2) mg/dl AST (15-37) U/L ALT (12-78) U/L Alkaline Phosphatase (45-117) U/L Troponin I (0-0.045) ng/ml C-Reactive Protein (0-0.29) mg/dl Total Protein (6.4-8.2) gm/dl Albumin (3.4-5.0) gm/dl Triglycerides (0-150) mg/dl Cholesterol (0-200) mg/dl LDL Cholesterol, Calc mg/dl VLDL Cholesterol, Calc mg/dl HDL Cholesterol mg/dl Cholesterol/HDL Ratio TSH (0.300-4.500) uIu/ml Cortisol AM Sample (4.3-22.4) mcg/dl Urine Color Urine Appearance (Clear) Urine pH (4.5-7.5) Ur Specific [place] (1.000-1.030) Urine Protein (Negative) Urine Glucose (UA) (Negative) Urine Ketones (Negative) Urine Blood (Negative) Urine Nitrite (Negative) Urine Bilirubin (Negative) Urine Urobilinogen (Negative) Ur Leukocyte Esterase (Negative) Urine WBC (Auto) (0-5) /hpf Urine RBC (Auto) (0-4) /hpf U Hyaline Cast (Auto) (0-5) /lpf U Epithel Cells (Auto) (0-5) /lpf Urine Bacteria (Auto) (Negative) Blood Type Antibody Screen 05/08/18 05/08/18 05/08/18 Range/Units 08:02 12:04 17:07 RBC (4.7-6.1) M/uL MCV (80-100) fL MCH (25-34) pg MCHC (32-36) g/dL RDW Std Deviation (36.4-46.3) fL RDW Coeff of Julieth (11.5-14.5) % MPV (7.4-10.4) fL Immature Gran % (Auto) % Neut % (Auto) % Lymph % (Auto) % [place] % (Auto) % Eos % (Auto) % Baso % (Auto) % Immature Gran # (Auto) (0.00-0.02) K/uL Neut # (Auto) (1.4-6.5) K/uL Lymph # (Auto) (1.2-3.4) K/uL [place] # (Auto) (0.11-0.59) K/uL Eos # (Auto) (0-0.5) K/uL Baso # (Auto) (0-0.2) K/uL ESR (0-14) mm/hr PT (9.0-12.0) Seconds POC INR (0.9-1.1) INR (0.9-1.1) APTT (21.0-31.0) Seconds PTT Ratio Sodium (136-145) mmol/L Potassium (3.5-5.1) mmol/L Chloride (98-107) mmol/L Carbon Dioxide (21-32) mmol/L Anion Gap (3-11) BUN (7-18) mg/dl Creatinine (0.6-1.4) mg/dl Est Cr Clr Drug Dosing ml/min Est GFR ( Amer) Est GFR (Non-Af Amer) BUN/Creatinine Ratio (10-20) Glucose (70-99) mg/dl POC Glucose 139 H 138 H 122 H (70-99) Calcium (8.5-10.1) mg/dl Magnesium (1.8-2.4) mg/dl Total Bilirubin (0.1-1) mg/dl Direct Bilirubin (0-0.2) mg/dl AST (15-37) U/L ALT (12-78) U/L Alkaline Phosphatase (45-117) U/L Troponin I (0-0.045) ng/ml C-Reactive Protein (0-0.29) mg/dl Total Protein (6.4-8.2) gm/dl Albumin (3.4-5.0) gm/dl Triglycerides (0-150) mg/dl Cholesterol (0-200) mg/dl LDL Cholesterol, Calc mg/dl VLDL Cholesterol, Calc mg/dl HDL Cholesterol mg/dl Cholesterol/HDL Ratio TSH (0.300-4.500) uIu/ml Cortisol AM Sample (4.3-22.4) mcg/dl Urine Color Urine Appearance (Clear) Urine pH (4.5-7.5) Ur Specific [place] (1.000-1.030) Urine Protein (Negative) Urine Glucose (UA) (Negative) Urine Ketones (Negative) Urine Blood (Negative) Urine Nitrite (Negative) Urine Bilirubin (Negative) Urine Urobilinogen (Negative) Ur Leukocyte Esterase (Negative) Urine WBC (Auto) (0-5) /hpf Urine RBC (Auto) (0-4) /hpf U Hyaline Cast (Auto) (0-5) /lpf U Epithel Cells (Auto) (0-5) /lpf Urine Bacteria (Auto) (Negative) Blood Type Antibody Screen Medications Administered Current Inpatient Medications Acetaminophen (Tylenol) 1,000 mg PO Q8H PRN PRN Reason: MILD Pain Rating 1,2,3 Stop: 06/04/18 14:48 Last Admin: 05/07/18 21:08 Dose: 1,000 mg Al Hydrox/Mg Hydrox/Simethicone (Maalox) 30 ml PO Q6H PRN PRN Reason: Dyspepsia Stop: 06/04/18 14:48 Aspirin (Ecotrin) 81 mg PO BID [facility] Stop: 06/03/18 08:59 Last Admin: 05/08/18 07:44 Dose: 81 mg Bisacodyl (Dulcolax) 10 mg SC DAILY PRN PRN Reason: Constipation Stop: 06/04/18 14:48 Dextrose (Dextrose 50%) 25 - 50 ml IV UD PRN; Protocol PRN Reason: Hypoglycemia Protocol Stop: 06/02/18 18:21 Diphenhydramine HCl (Benadryl) 25 mg PO Q6H PRN PRN Reason: Allergic Rhinitis/Insomnia Stop: 06/04/18 14:48 Famotidine (Pepcid) 20 mg PO Q12H PRN PRN Reason: Dyspepsia Stop: 06/04/18 14:48 Glucagon (Glucagen) 1 mg SQ UD PRN; Protocol PRN Reason: Hypoglycemia Protocol Stop: 06/02/18 18:21 Glucose (Glucose 40%) 15 - 30 gm PO UD PRN; Protocol PRN Reason: Hypoglycemia Protocol Stop: 06/02/18 18:21 Glucose (Dex4 Glucose) 4 - 8 tabs PO UD PRN; Protocol PRN Reason: Hypoglycemia Protocol Stop: 06/02/18 18:21 Hydromorphone HCl (Dilaudid) 0.5 - 1 mg IV Q3H PRN PRN Reason: Pain Stop: 05/19/18 14:48 Last Admin: 05/08/18 07:42 Dose: 0.5 mg Hydroxyzine HCl (Vistaril) 25 mg PO Q8H PRN PRN Reason: Anxiety Stop: 06/04/18 14:48 Acetaminophen (Ofirmev) 1,000 mg in 100 mls @ 400 mls/hr IV Q8 PRN PRN Reason: MILD Pain Rating 1,2,3 Stop: 06/04/18 14:48 Lorazepam (Ativan) 0.5 mg in 1 mls @ 0.5 mls/min IV Q8H PRN PRN Reason: Sedation/Anxiety Stop: 06/04/18 14:48 Promethazine HCl 12.5 mg/ (Sodium Chloride) 50.5 mls @ 204 mls/hr IV Q6H PRN PRN Reason: Nausea &/or Vomiting Stop: 06/04/18 14:48 Insulin Aspart (Novolog Flexpen) 0 units SC ACHS [facility] Stop: 06/05/18 07:29 Last Admin: 05/08/18 17:09 Dose: Not Given Lorazepam (Ativan) 0.5 mg PO Q8H PRN PRN Reason: Sedation/Anxiety Stop: 06/04/18 14:48 Last Admin: 05/07/18 22:40 Dose: 0.5 mg Losartan Potassium (Cozaar) 50 mg PO HS [facility] Stop: 06/03/18 20:59 Last Admin: 05/07/18 21:08 Dose: 50 mg Magnesium Hydroxide (Milk Of Magnesia) 30 ml PO DAILY PRN PRN Reason: Constipation Stop: 06/04/18 14:48 Metoclopramide HCl (Reglan) 10 mg IV Q6H PRN PRN Reason: Nausea &/or Vomiting Stop: 06/04/18 14:48 Metoprolol Tartrate (Lopressor) 50 mg PO BID [facility] Stop: 06/02/18 20:59 Last Admin: 05/08/18 07:45 Dose: 50 mg Miscellaneous (Carbohydrates For Hypoglycemia) 15 - 30 gm PO UD PRN PRN Reason: Hypoglycemia Treatment Stop: 06/02/18 18:21 Miscellaneous (Pneumococcal Vacc, Do Not Administer) 1 ea N/A PRN PRN PRN Reason: Notification Stop: 06/04/18 14:48 Miscellaneous (Flu Vaccine, Do Not Administer) 1 ea N/A PRN PRN PRN Reason: Notification Stop: 06/04/18 14:48 Ondansetron HCl (Zofran) 4 mg IV Q6H PRN PRN Reason: Nausea &/or Vomiting Stop: 06/04/18 14:48 Ondansetron HCl (Zofran) 4 mg PO Q6H PRN PRN Reason: Nausea Stop: 06/04/18 14:48 Oxycodone HCl (Roxicodone Immediate Rel) 5 - 10 mg PO Q4H PRN PRN Reason: Moderate-Severe Pain Stop: 05/19/18 14:48 Last Admin: 05/08/18 15:18 Dose: 10 mg Pantoprazole Sodium (Protonix) 40 mg PO QAM [facility] Stop: 06/03/18 08:59 Last Admin: 05/08/18 07:45 Dose: 40 mg Polyethylene Glycol (Miralax Powder Packet) 17 gm PO Q6 [facility] Stop: 06/05/18 05:59 Last Admin: 05/08/18 17:10 Dose: 17 gm Senna/Docusate Sodium (Senokot S) 2 tab PO HS [facility] Stop: 06/04/18 20:59 Last Admin: 05/07/18 21:08 Dose: 2 tab Sodium Biphosphate/Sodium Phosphate (Fleet Enema) 132 ml SC ONE PRN PRN Reason: Constipation Stop: 06/04/18 14:48 Tramadol HCl (Ultram) 50 - 100 mg PO Q4H PRN PRN Reason: Moderate-Severe pain Stop: 06/04/18 14:48
[2018-05-08] MEDS: LOSARTAN POTASSIUM 50 MG TAB PO SCH (20:49)
[2018-05-08] MEDS: DOCUSATE SODIUM/SENNA 50/8.6MG TAB PO SCH (20:50)
[2018-05-09] MEDS: POLYETHYLENE (MIRALAX) 17 GM PACK PO SCH ×4 (00:31→17:59)
[2018-05-09] MEDS: HYDROmorphone INJ 0.5 MG/0.5 ML SYR IV PRN ×3 (03:19→23:29)
[2018-05-09] MEDS: INSULIN ASPART 100 UNITS/ML 3 ML PEN SC SCH ×4 (09:23→21:25)
[2018-05-09] MEDS: ASPIRIN 81 MG ECTAB PO SCH ×2 (09:24→21:25)
[2018-05-09] MEDS: METOPROLOL TARTRATE 50 MG TAB PO SCH ×2 (09:24→21:26)
[2018-05-09] MEDS: PANTOprazole 40 MG TAB PO SCH (09:24)
--- NOTE | 2018-05-09 11:55 | Orthopedic Progress Note ---
Date of Service May 09, 2018 Assessment & Plan (1) Neurogenic claudication due to lumbar spinal stenosis: At this time we will maintain bedrest with head of bed up as tolerated. He certainly may use the bedside commode. I will assess his progress tomorrow. Pending how he progresses we may continue with therapy. Present on Admission?: Yes Subjective Patient's back pain is controlled. He denies headaches nausea vomiting or photophobia. He did have a bowel movement this morning tolerated this without difficulty. Tolerate sitting up in bed without difficulty. Physical Exam 2 Vital Signs (Past 24 Hours): Last Vital Signs Temp 37.2 C 05/09/18 07:26 Pulse 127 H 05/09/18 07:26 Resp 21 05/09/18 07:26 BP 111/67 05/09/18 07:26 Pulse Ox 93 05/08/18 23:00 Physical Exam: Patient is good strength testing appears quite comfortable.
[2018-05-09] MEDS: ACETAMINOPHEN 500 MG TAB PO SCH ×2 (13:12→21:26)
--- NOTE | 2018-05-09 13:36 | Progress Note ---
DATE: 05/09/2018 SUBJECTIVE: Mr. Huffman is seen in followup of double vision of uncertain etiology, possibly related to intracranial hypotension. The patient is status post a repair of durotomy. He has not had any postural headaches. He has not had any recurrent diplopia. PHYSICAL EXAMINATION: GENERAL: He is awake and alert. NEUROLOGIC: Speech and language is normal. There is some minor facial asymmetry, which I think is probably baseline with the left nasolabial fold being mildly flatter than the right, but eye closure is symmetric. The palpebral fissures are symmetric and facial sensation is normal. IMPRESSION: Diplopia of uncertain etiology, possibly related to intracranial hypotension related to CSF leak. Continue to monitor. If it is persistent, I would like the patient to have an MRI of the brain with and without contrast as mentioned the pituitary and cavernous sinus as an outpatient as he has had a resection of the pituitary, what I assume macroadenoma.
--- NOTE | 2018-05-09 16:14 | Hospitalist Progress Note ---
Date of Service May 09, 2018 Assessment & Plan (1) Vertigo: No episodes of vertigo today. He has been in bed per Ortho restrictions, but is feeling well. Some back pain in the surgical site last night, improved with Dilaudid. He reports an improvement in his hip pain, also, but then later stated he still had some on the left side. The hip pain is just from this admission, and the patient states he thinks it is from his positioning and bed rest. (2) Hip pain, acute: Improved but in presence of this and back pain, will schedule Tylenol to stay ahead of the pain. (3) H/O Spinal surgery: Recent lumbar spinal surgery last month with complication of durotomy postop course was complicated by CHF and A. fib with RVR. He returns with double vision with lateral gaze. Stroke workup has been negative. Neurology is following. MRI of the lumbar spine revealed postop seroma collection that was rather large. This has been drained 3 days ago and durotomy repaired. Cont activity restrictions per Ortho-pt already improved. (4) DM type 2 (diabetes mellitus, type 2): Controlled, continue NovoLog per sliding scale with carb coverage. Holding metformin. (5) HTN (hypertension): At goal. Continue Cozaar 50 mg p.o. nightly. Continue good pain control. (6) CAD (coronary artery disease): History of CABG in the past. Currently asymptomatic. Continue medical management with Lopressor, aspirin, Cozaar. (7) DVT prophylaxis: Aspirin twice daily per orthopedic recommendations Full code Disposition-continue restricted activity with slow progression over the next few days. Christin Luna DO [facility] hospitalist Subjective 78-year-old man who underwent lumbar surgery approximately 1 month ago presents for worsening diplopia on lateral gaze. He was found to have epidural fluid collection which was drained 3 days ago. He reports no episodes of vertigo today. He denies any headache at this time. He denies any nausea and is tolerating p.o. Physical Exam 2 Vital Signs (Past 24 Hours): Last Vital Signs Temp 36.8 C 05/09/18 16:06 Pulse 98 H 05/09/18 16:06 Resp 19 05/09/18 16:06 BP 114/56 L 05/09/18 16:06 Pulse Ox 100 05/09/18 16:06 CONSTITUTIONAL: WNWD, vitals as above, generally well-appearing EYES: pupils are equal and round bilaterally, normal conjuctivae, no scleral icterus ENT: MMM RESPIRATORY: clear to auscultation bilaterally, no crackles, rales or wheezes, normal respiratory effort CARDIOVASCULAR: regular rate and rhythm, S1 and 2 heard without murmurs, gallops or rubs, no JVD, no peripheral edema GASTROINTESTINAL: normal bowel sounds, soft, nontender, nondistended MUSCULOSKELETAL: strength 5/5 throughout, head is normocephalic and atraumatic SKIN: warm and dry NEUROLOGIC: No facial palsy, no dysarthria. CN 2-12 grossly intact, no sensory deficit, normal cognition, normal speech PSYCHIATRIC: alert cooperative and oriented to person, place and time. Euthymic mood Results & Data Medications Administered Current Inpatient Medications Acetaminophen (Tylenol) 1,000 mg PO Q8 SMITH Stop: 06/08/18 13:59 Last Admin: 05/09/18 21:26 Dose: 1,000 mg Al Hydrox/Mg Hydrox/Simethicone (Maalox) 30 ml PO Q6H PRN PRN Reason: Dyspepsia Stop: 06/04/18 14:48 Aspirin (Ecotrin) 81 mg PO BID SMITH Stop: 06/03/18 08:59 Last Admin: 05/09/18 21:25 Dose: 81 mg Bisacodyl (Dulcolax) 10 mg DE DAILY PRN PRN Reason: Constipation Stop: 06/04/18 14:48 Dextrose (Dextrose 50%) 25 - 50 ml IV UD PRN; Protocol PRN Reason: Hypoglycemia Protocol Stop: 06/02/18 18:21 Diphenhydramine HCl (Benadryl) 25 mg PO Q6H PRN PRN Reason: Allergic Rhinitis/Insomnia Stop: 06/04/18 14:48 Famotidine (Pepcid) 20 mg PO Q12H PRN PRN Reason: Dyspepsia Stop: 06/04/18 14:48 Glucagon (Glucagen) 1 mg SQ UD PRN; Protocol PRN Reason: Hypoglycemia Protocol Stop: 06/02/18 18:21 Glucose (Glucose 40%) 15 - 30 gm PO UD PRN; Protocol PRN Reason: Hypoglycemia Protocol Stop: 06/02/18 18:21 Glucose (Dex4 Glucose) 4 - 8 tabs PO UD PRN; Protocol PRN Reason: Hypoglycemia Protocol Stop: 06/02/18 18:21 Hydromorphone HCl (Dilaudid) 0.5 - 1 mg IV Q3H PRN PRN Reason: Pain Stop: 05/19/18 14:48 Last Admin: 05/09/18 09:41 Dose: 0.5 mg Hydroxyzine HCl (Vistaril) 25 mg PO Q8H PRN PRN Reason: Anxiety Stop: 06/04/18 14:48 Lorazepam (Ativan) 0.5 mg in 1 mls @ 0.5 mls/min IV Q8H PRN PRN Reason: Sedation/Anxiety Stop: 06/04/18 14:48 Promethazine HCl 12.5 mg/ (Sodium Chloride) 50.5 mls @ 204 mls/hr IV Q6H PRN PRN Reason: Nausea &/or Vomiting Stop: 06/04/18 14:48 Insulin Aspart (Novolog Flexpen) 0 units SC ACHS [facility] Stop: 06/05/18 07:29 Last Admin: 05/09/18 21:25 Dose: Not Given Lorazepam (Ativan) 0.5 mg PO Q8H PRN PRN Reason: Sedation/Anxiety Stop: 06/04/18 14:48 Last Admin: 05/07/18 22:40 Dose: 0.5 mg Losartan Potassium (Cozaar) 50 mg PO HS [facility] Stop: 06/03/18 20:59 Last Admin: 05/09/18 21:25 Dose: 50 mg Magnesium Hydroxide (Milk Of Magnesia) 30 ml PO DAILY PRN PRN Reason: Constipation Stop: 06/04/18 14:48 Metoclopramide HCl (Reglan) 10 mg IV Q6H PRN PRN Reason: Nausea &/or Vomiting Stop: 06/04/18 14:48 Metoprolol Tartrate (Lopressor) 50 mg PO BID [facility] Stop: 06/02/18 20:59 Last Admin: 05/09/18 21:26 Dose: 50 mg Miscellaneous (Carbohydrates For Hypoglycemia) 15 - 30 gm PO UD PRN PRN Reason: Hypoglycemia Treatment Stop: 06/02/18 18:21 Miscellaneous (Pneumococcal Vacc, Do Not Administer) 1 ea N/A PRN PRN PRN Reason: Notification Stop: 06/04/18 14:48 Miscellaneous (Flu Vaccine, Do Not Administer) 1 ea N/A PRN PRN PRN Reason: Notification Stop: 06/04/18 14:48 Ondansetron HCl (Zofran) 4 mg IV Q6H PRN PRN Reason: Nausea &/or Vomiting Stop: 06/04/18 14:48 Ondansetron HCl (Zofran) 4 mg PO Q6H PRN PRN Reason: Nausea Stop: 06/04/18 14:48 Oxycodone HCl (Roxicodone Immediate Rel) 5 - 10 mg PO Q4H PRN PRN Reason: Moderate-Severe Pain Stop: 05/19/18 14:48 Last Admin: 05/09/18 16:30 Dose: 10 mg Pantoprazole Sodium (Protonix) 40 mg PO QAM [facility] Stop: 06/03/18 08:59 Last Admin: 05/09/18 09:24 Dose: 40 mg Polyethylene Glycol (Miralax Powder Packet) 17 gm PO Q6 [facility] Stop: 06/05/18 05:59 Last Admin: 05/09/18 17:59 Dose: 17 gm Senna/Docusate Sodium (Senokot S) 2 tab PO HS [facility] Stop: 06/04/18 20:59 Last Admin: 05/09/18 21:26 Dose: 2 tab Sodium Biphosphate/Sodium Phosphate (Fleet Enema) 132 ml DE ONE PRN PRN Reason: Constipation Stop: 06/04/18 14:48 Tramadol HCl (Ultram) 50 - 100 mg PO Q4H PRN PRN Reason: Moderate-Severe pain Stop: 06/04/18 14:48
[2018-05-09] MEDS: OXYCODONE HCL IR 5 MG TAB (IMMEDIATE RELEASE) PO PRN (16:30)
[2018-05-09] MEDS: LOSARTAN POTASSIUM 50 MG TAB PO SCH (21:25)
[2018-05-09] MEDS: DOCUSATE SODIUM/SENNA 50/8.6MG TAB PO SCH (21:26)
[2018-05-10] MEDS ORDERED: Nursing to Pharmacy Communication ONE (01:05)
[2018-05-10] MEDS: POLYETHYLENE (MIRALAX) 17 GM PACK PO SCH (01:06)
[2018-05-10] MEDS: ACETAMINOPHEN 500 MG TAB PO SCH ×3 (05:49→21:39)
[2018-05-10 06:08] LABS: Hematocrit (blood only) 34.8 % (42-52); Hemoglobin 11.3 g/dL (14.0-18.0); Mean Corpuscular Hgb Conc 32.5 g/dL (32-36); Mean Corpuscular Volume 94.1 fL (80-100); Mean Platelet Volume 9.8 fL (7.4-10.4); Platelet Count 192 K/uL (130-400); RDW Coefficient of Variation 13.7 % (11.5-14.5); RDW Standard Deviation 47.5 fL (36.4-46.3); White Blood Count 7.35 K/uL (4.8-10.8)
[2018-05-10] MEDS: TRAMADOL HCL 50 MG TABLET PO PRN ×2 (06:18→23:41)
[2018-05-10 06:44] LABS: Calcium 8.6 mg/dl (8.5-10.1); Creatinine Clr Calc Pharmacy 92.4 ml/min; Est GFR (Non-African American) 91.5; Potassium 4.1 mmol/L (3.5-5.1)
[2018-05-10] MEDS: HYDROmorphone INJ 0.5 MG/0.5 ML SYR IV PRN ×3 (07:51→20:40)
[2018-05-10] MEDS: INSULIN ASPART 100 UNITS/ML 3 ML PEN SC SCH ×4 (08:30→20:50)
[2018-05-10] MEDS: ASPIRIN 81 MG ECTAB PO SCH ×2 (08:57→20:47)
[2018-05-10] MEDS: PANTOprazole 40 MG TAB PO SCH (08:57)
[2018-05-10] MEDS: METOPROLOL TARTRATE 50 MG TAB PO SCH ×2 (08:57→20:47)
--- NOTE | 2018-05-10 12:58 | Orthopedic Progress Note ---
Date of Service May 10, 2018 Assessment & Plan (1) Neurogenic claudication due to lumbar spinal stenosis: At this time will initiate bed to chair as well as bathroom privileges. We will see how he progresses over the next day. We then initiate occupational therapy consult Tuesday. We will consult social service director to arrange rehab when he is ready for discharge. Present on Admission?: Yes Subjective Patient denies any photophobia any nausea and the. She is complaining mostly of back pain. He did have a bowel movement this morning tolerated this without difficulty. Physical Exam 2 Vital Signs (Past 24 Hours): Last Vital Signs Temp 36.5 C 05/10/18 11:34 Pulse 96 H 05/10/18 11:34 Resp 20 05/10/18 11:34 BP 135/69 05/10/18 11:34 Pulse Ox 95 05/10/18 11:34 Physical Exam: On exam is good strength testing is sitting up in bed appears comfortable.
[2018-05-10] MEDS: LORazepam 0.5 MG TAB PO PRN (14:29)
--- NOTE | 2018-05-10 14:54 | Neurology Progress Note ---
Date of Service May 10, 2018 Assessment & Plan (1) Diplopia: 1. will need follow up with neurology if diplopia persists 2. needs routine follow up with neurosurgery for pituitary lesion surveillance 3. PT/OT for discharge needs 4. will sign off but will be available for any questions concerns. Supervising Physician Co-Signing Physician Notes I have seen and discussed above patient with Dr Jillian Dai, neurology Subjective Abdirashid is a 78 year old male with PMH AF with RVE, DM2, HTN, renal stones, CAD , recent back surgery with csf leak, remote history of pituitary macroadenoma resection in [place]. He has had intermittent headaches since back surgery and woke up on 05/03/18 around 4 AM with dipoplia. He states the headaches are somewhat better with lying down. He has dipoplia with gazing to the left with both eyes opened and sees double vision. When he is gazing to the left with either the right eye closed or with the left eye closed there is no double vision. The visual abnormality does not occur when gazing with both eyes opened in other directions. He has also had a 30 pound weight loss since the surgery. He is trying to force himself to eat meals. He states his back feels pretty good. denies CP, SOB, abdominal pain, one sided weakness, numbness tingling, N, V. only med change was metoprolol was changed to Cardizem during hospitalization for back surgery due to recurrent a fib but as outpatient his PCP/cards changed this back to Cardizem. Physical Exam 2 Vital Signs (Past 24 Hours): Last Vital Signs Temp 36.5 C 05/10/18 11:34 Pulse 96 H 05/10/18 11:34 Resp 20 05/10/18 11:34 BP 135/69 05/10/18 11:34 Pulse Ox 95 05/10/18 11:34 no exam today
--- NOTE | 2018-05-10 15:05 | Hospitalist Progress Note ---
Date of Service May 10, 2018 Assessment & Plan (1) Vertigo: Intermittent vertigo, patient still reports double vision with left lateral gaze. He is less restricted from a mobility standpoint and has been up and out of bed to chair. Back pain has required some Dilaudid today but is controlled on that. New onset of upper extremity tremors since this morning that is new for him. Reglan ordered as needed but not given this admission. Will DC this now. Discussed this with neuro briefly, appreciate Rec. Uncertain etiology, however, patient does have a very mild resting tremor in the left hand at base. (2) Hip pain, acute: Improved with scheduled Tylenol (3) H/O Spinal surgery: Recent lumbar spinal surgery last month with complication of durotomy postop course was complicated by CHF and A. fib with RVR. He returns with double vision with lateral gaze and vertigo as above. Stroke workup has been negative. Neurology is following. MRI of the lumbar spine revealed postop seroma 8cm x 9cm. This has been drained last week and durotomy repaired with a patch. Continue activity progression per orthopedics. Patient appears to be improving, but if he is not or getting worse, repeat imaging may be necessary. We will continue to work with Orth O and neuro closely. (4) DM type 2 (diabetes mellitus, type 2): Controlled, continue NovoLog per sliding scale with carb coverage. Holding metformin. (5) HTN (hypertension): At goal. Continue Cozaar 50 mg p.o. nightly. Continue good pain control. (6) CAD (coronary artery disease): History of CABG in the past. Currently asymptomatic. Continue medical management with Lopressor, aspirin, Cozaar. (7) DVT prophylaxis: Aspirin twice daily per orthopedic recommendations Full code Disposition-continue restricted activity with slow progression over the next few days. Christin Luna DO [facility] Hospitalist Subjective New upper extremity tremors today Intermittent vertigo with persistent double vision with left lateral gaze. When the patient turns his head to the left and sees the image such as a clock with his right eye, however, the image goes back to 1 and the diplopia resolves. Tolerating p.o. overall generalized malaise. Back pain present but controlled with Dilaudid. Some increased activity today and he handled that relatively well. Intermittent headache that is mild. Physical Exam 2 Vital Signs (Past 24 Hours): Last Vital Signs Temp 36.5 C 05/10/18 11:34 Pulse 96 H 05/10/18 11:34 Resp 20 05/10/18 11:34 BP 135/69 05/10/18 11:34 Pulse Ox 95 05/10/18 11:34 CONSTITUTIONAL: WNWD, vitals as above, generally well-appearing, UE tremors bilaterally that are pronounced. EYES: EOMI, no nystagmus seen, pupils are equal and round bilaterally, normal conjuctivae, no scleral icterus ENT: MMM RESPIRATORY: clear to auscultation bilaterally, no crackles, rales or wheezes, normal respiratory effort CARDIOVASCULAR: regular rate and rhythm, S1 and 2 heard without murmurs, gallops or rubs, no JVD, no peripheral edema GASTROINTESTINAL: normal bowel sounds, soft, nontender, nondistended BACK: surgical incision site is closed and non-draining covered with a clean, dry dressing. MUSCULOSKELETAL: strength 5/5 throughout, head is normocephalic and atraumatic SKIN: warm and dry NEUROLOGIC: No facial palsy, no dysarthria. CN 2-12 grossly intact, no sensory deficit, normal cognition, normal speech PSYCHIATRIC: alert cooperative and oriented to person, place and time. Euthymic mood Results & Data Laboratory Results BMP 05/10/18 05:54 Sodium 131 L Potassium 4.1 Chloride 95 L Carbon Dioxide 31 BUN 12 Creatinine 0.68 Glucose 137 H Calcium 8.6 Medications Administered Current Inpatient Medications Acetaminophen (Tylenol) 1,000 mg PO Q8 [facility] Stop: 06/08/18 13:59 Last Admin: 05/10/18 21:39 Dose: 1,000 mg Al Hydrox/Mg Hydrox/Simethicone (Maalox) 30 ml PO Q6H PRN PRN Reason: Dyspepsia Stop: 06/04/18 14:48 Aspirin (Ecotrin) 81 mg PO BID [facility] Stop: 06/03/18 08:59 Last Admin: 05/10/18 20:47 Dose: 81 mg Bisacodyl (Dulcolax) 10 mg [place] DAILY PRN PRN Reason: Constipation Stop: 06/04/18 14:48 Dextrose (Dextrose 50%) 25 - 50 ml IV UD PRN; Protocol PRN Reason: Hypoglycemia Protocol Stop: 06/02/18 18:21 Diphenhydramine HCl (Benadryl) 25 mg PO Q6H PRN PRN Reason: Allergic Rhinitis/Insomnia Stop: 06/04/18 14:48 Famotidine (Pepcid) 20 mg PO Q12H PRN PRN Reason: Dyspepsia Stop: 06/04/18 14:48 Glucagon (Glucagen) 1 mg SQ UD PRN; Protocol PRN Reason: Hypoglycemia Protocol Stop: 06/02/18 18:21 Glucose (Glucose 40%) 15 - 30 gm PO UD PRN; Protocol PRN Reason: Hypoglycemia Protocol Stop: 06/02/18 18:21 Glucose (Dex4 Glucose) 4 - 8 tabs PO UD PRN; Protocol PRN Reason: Hypoglycemia Protocol Stop: 06/02/18 18:21 Hydromorphone HCl (Dilaudid) 0.5 - 1 mg IV Q3H PRN PRN Reason: Pain Stop: 05/19/18 14:48 Last Admin: 05/11/18 04:12 Dose: 0.5 mg Hydroxyzine HCl (Vistaril) 25 mg PO Q8H PRN PRN Reason: Anxiety Stop: 06/04/18 14:48 Lorazepam (Ativan) 0.5 mg in 1 mls @ 0.5 mls/min IV Q8H PRN PRN Reason: Sedation/Anxiety Stop: 06/04/18 14:48 Promethazine HCl 12.5 mg/ (Sodium Chloride) 50.5 mls @ 204 mls/hr IV Q6H PRN PRN Reason: Nausea &/or Vomiting Stop: 06/04/18 14:48 Insulin Aspart (Novolog Flexpen) 0 units SC ACHS [facility] Stop: 06/05/18 07:29 Last Admin: 05/10/18 20:50 Dose: 1 units Lorazepam (Ativan) 0.5 mg PO Q8H PRN PRN Reason: Sedation/Anxiety Stop: 06/04/18 14:48 Last Admin: 05/10/18 14:29 Dose: 0.5 mg Losartan Potassium (Cozaar) 50 mg PO HS [facility] Stop: 06/03/18 20:59 Last Admin: 05/10/18 20:47 Dose: 50 mg Magnesium Hydroxide (Milk Of Magnesia) 30 ml PO DAILY PRN PRN Reason: Constipation Stop: 06/04/18 14:48 Metoclopramide HCl (Reglan) 10 mg IV Q6H PRN PRN Reason: Nausea &/or Vomiting Stop: 06/04/18 14:48 Metoprolol Tartrate (Lopressor) 50 mg PO BID [facility] Stop: 06/02/18 20:59 Last Admin: 05/10/18 20:47 Dose: 50 mg Miscellaneous (Carbohydrates For Hypoglycemia) 15 - 30 gm PO UD PRN PRN Reason: Hypoglycemia Treatment Stop: 06/02/18 18:21 Miscellaneous (Pneumococcal Vacc, Do Not Administer) 1 ea N/A PRN PRN PRN Reason: Notification Stop: 06/04/18 14:48 Miscellaneous (Flu Vaccine, Do Not Administer) 1 ea N/A PRN PRN PRN Reason: Notification Stop: 06/04/18 14:48 Ondansetron HCl (Zofran) 4 mg IV Q6H PRN PRN Reason: Nausea &/or Vomiting Stop: 06/04/18 14:48 Ondansetron HCl (Zofran) 4 mg PO Q6H PRN PRN Reason: Nausea Stop: 06/04/18 14:48 Oxycodone HCl (Roxicodone Immediate Rel) 5 - 10 mg PO Q4H PRN PRN Reason: Moderate-Severe Pain Stop: 05/19/18 14:48 Last Admin: 05/09/18 16:30 Dose: 10 mg Pantoprazole Sodium (Protonix) 40 mg PO QAM [facility] Stop: 06/03/18 08:59 Last Admin: 05/10/18 08:57 Dose: 40 mg Senna/Docusate Sodium (Senokot S) 2 tab PO HS [facility] Stop: 06/04/18 20:59 Last Admin: 05/10/18 20:47 Dose: 2 tab Sodium Biphosphate/Sodium Phosphate (Fleet Enema) 132 ml [place] ONE PRN PRN Reason: Constipation Stop: 06/04/18 14:48 Tramadol HCl (Ultram) 50 - 100 mg PO Q4H PRN PRN Reason: Moderate-Severe pain Stop: 06/04/18 14:48 Last Admin: 05/10/18 23:41 Dose: 100 mg
[2018-05-10] MEDS: LOSARTAN POTASSIUM 50 MG TAB PO SCH (20:47)
[2018-05-10] MEDS: DOCUSATE SODIUM/SENNA 50/8.6MG TAB PO SCH (20:47)
[2018-05-11] MEDS: HYDROmorphone INJ 0.5 MG/0.5 ML SYR IV PRN ×3 (04:12→22:19)
[2018-05-11] MEDS: ACETAMINOPHEN 500 MG TAB PO SCH ×3 (06:28→21:00)
[2018-05-11] MEDS: TRAMADOL HCL 50 MG TABLET PO PRN (07:37)
--- NOTE | 2018-05-11 08:07 | Orthopedic Progress Note ---
Date of Service May 11, 2018 Assessment & Plan (1) Neurogenic claudication due to lumbar spinal stenosis: At this time will initiate bed to chair as well as bathroom privileges. We will see how he progresses over the next day. We then initiate occupational therapy consult Tuesday. We will consult social group worker to arrange rehab when he is ready for discharge. Subjective Patient denies any photophobia any nausea and the. She is complaining mostly of back pain. He did have a bowel movement this morning tolerated this without difficulty. Physical Exam 2 Vital Signs (Past 24 Hours): Last Vital Signs Temp 36.7 C 05/11/18 07:30 Pulse 110 H 05/11/18 07:30 Resp 18 05/11/18 07:30 BP 123/74 05/11/18 07:30 Pulse Ox 96 05/11/18 07:30
[2018-05-11] MEDS: ONDANSETRON INJ 2 MG/ML 2 ML VIAL IV PRN ×2 (08:57→16:51)
[2018-05-11] MEDS: INSULIN ASPART 100 UNITS/ML 3 ML PEN SC SCH ×4 (09:41→21:00)
[2018-05-11] MEDS: ASPIRIN 81 MG ECTAB PO SCH ×2 (10:05→19:30)
[2018-05-11] MEDS: PANTOprazole 40 MG TAB PO SCH (10:05)
[2018-05-11] MEDS: METOPROLOL TARTRATE 50 MG TAB PO SCH ×2 (10:05→19:30)
[2018-05-11] MEDS: SODIUM CHLORIDE 0.9% 500 ML IV SCH ×2 (15:15→19:57)
--- NOTE | 2018-05-11 16:15 | Hospitalist Progress Note ---
Date of Service May 11, 2018 Assessment & Plan (1) H/O Spinal surgery: Recent lumbar spinal surgery last month with complication of durotomy postop course was complicated by CHF and A. fib with RVR. He returns with double vision with lateral gaze and vertigo as above. Stroke workup has been negative. Neurology is following. MRI of the lumbar spine revealed postop seroma 8cm x 9cm. This has been drained last week and durotomy repaired with a patch. Continue activity progression per orthopedics. Patient is improved today but still appears fatigued, with persistent vertigo and tremors although these are improved. Some intermittent headache and intermittent somnolence, which may be a result of the Tylenol. Tremors have also improved today compared to yesterday, which are likely a result of pain/deconditioning/fatigue as opposed to a focal neurologic issue. I discussed the case with both Neuro and Ortho spine. Repeat imaging of the head and L-spine with contrasted MRI is reasonable, however, the patient cannot tolerate an MRI procedure at this time. Cont supportive care and will continue to try to provide realistic expectations to patient and family members regarding the expected prolonged and difficult nature of this recovery process. Dr. Donnelly to also discuss this with patient and tomorrow on noon rounds. (2) Vertigo: Vertigo still present when patient gazes to the left. With h/o pituitary macroadenoma, this will require an MRI with contrast with a sella view to re- evaluate this area. Possibly also precipitated from intracranial hypotension after acute CSF loss, expected to continue to improve after dura repair last week. (3) Hip pain, acute: Improved with scheduled Tylenol, possibly 2/2 poor positioning. (4) DM type 2 (diabetes mellitus, type 2): Controlled, continue NovoLog per sliding scale with carb coverage. Holding metformin. (5) HTN (hypertension): At goal. Continue Cozaar 50 mg p.o. nightly. Continue good pain control. (6) CAD (coronary artery disease): History of CABG in the past. Currently asymptomatic. Continue medical management with Lopressor, aspirin, Cozaar. (7) DVT prophylaxis: Aspirin twice daily per orthopedic recommendations Full code Disposition-continue restricted activity with slow progression over the next few days. Christin Luna DO [facility] Hospitalist Subjective Persistent vertigo with left lateral gaze. Out of bed to chair today. Some intermittent headache when he was out of bed which spontaneously resolved. Pain appears to be controlled with TRamadol/scheduled Tylenol and PRN dilaudid. Pain is in his back. Some bilateral upper extremity tremors which are less pronounced today. Nausea this morning with one episode of vomiting. Toelrating PO but with poor appetite. Weakness present. at bedside, discussed case with her and answered all questions. Physical Exam 2 Vital Signs (Past 24 Hours): Last Vital Signs Temp 36.7 C 05/11/18 12:00 Pulse 114 H 05/11/18 12:00 Resp 20 05/11/18 12:00 BP 123/63 05/11/18 12:00 Pulse Ox 96 05/11/18 12:00 CONSTITUTIONAL: WNWD, vitals as above, generally deconditioned, UE tremors bilaterally that are less pronounced today EYES: EOMI, no nystagmus seen, pupils are equal and round bilaterally, normal conjuctivae, no scleral icterus ENT: MMM RESPIRATORY: clear to auscultation bilaterally, no crackles, rales or wheezes, normal respiratory effort CARDIOVASCULAR: regular rate and rhythm, S1 and 2 heard without murmurs, gallops or rubs, no JVD, no peripheral edema GASTROINTESTINAL: normal bowel sounds, soft, nontender, nondistended BACK: surgical incision site is closed and non-draining covered with a clean, dry dressing. MUSCULOSKELETAL: strength 5/5 throughout, head is normocephalic and atraumatic SKIN: warm and dry NEUROLOGIC: No facial palsy, no dysarthria. CN 2-12 grossly intact, no sensory deficit, normal cognition, normal speech PSYCHIATRIC: alert cooperative and oriented to person, place and time. Euthymic mood Results & Data Medications Administered Current Inpatient Medications Acetaminophen (Tylenol) 1,000 mg PO Q8 [facility] Stop: 06/08/18 13:59 Last Admin: 05/11/18 21:00 Dose: 1,000 mg Al Hydrox/Mg Hydrox/Simethicone (Maalox) 30 ml PO Q6H PRN PRN Reason: Dyspepsia Stop: 06/04/18 14:48 Aspirin (Ecotrin) 81 mg PO BID [facility] Stop: 06/03/18 08:59 Last Admin: 05/11/18 19:30 Dose: 81 mg Bisacodyl (Dulcolax) 10 mg [place] DAILY PRN PRN Reason: Constipation Stop: 06/04/18 14:48 Dextrose (Dextrose 50%) 25 - 50 ml IV UD PRN; Protocol PRN Reason: Hypoglycemia Protocol Stop: 06/02/18 18:21 Diphenhydramine HCl (Benadryl) 25 mg PO Q6H PRN PRN Reason: Allergic Rhinitis/Insomnia Stop: 06/04/18 14:48 Famotidine (Pepcid) 20 mg PO Q12H PRN PRN Reason: Dyspepsia Stop: 06/04/18 14:48 Glucagon (Glucagen) 1 mg SQ UD PRN; Protocol PRN Reason: Hypoglycemia Protocol Stop: 06/02/18 18:21 Glucose (Glucose 40%) 15 - 30 gm PO UD PRN; Protocol PRN Reason: Hypoglycemia Protocol Stop: 06/02/18 18:21 Glucose (Dex4 Glucose) 4 - 8 tabs PO UD PRN; Protocol PRN Reason: Hypoglycemia Protocol Stop: 06/02/18 18:21 Hydromorphone HCl (Dilaudid) 0.5 - 1 mg IV Q3H PRN PRN Reason: Pain Stop: 05/19/18 14:48 Last Admin: 05/11/18 22:19 Dose: 1 mg Hydroxyzine HCl (Vistaril) 25 mg PO Q8H PRN PRN Reason: Anxiety Stop: 06/04/18 14:48 Lorazepam (Ativan) 0.5 mg in 1 mls @ 0.5 mls/min IV Q8H PRN PRN Reason: Sedation/Anxiety Stop: 06/04/18 14:48 Sodium Chloride (Nss 1000ml) 1,000 mls @ 125 mls/hr IV .Q8H [facility] Stop: 06/10/18 19:29 Last Admin: 05/12/18 03:24 Dose: 125 mls/hr Insulin Aspart (Novolog Flexpen) 0 units SC ACHS [facility] Stop: 06/05/18 07:29 Last Admin: 05/11/18 21:00 Dose: Not Given Lorazepam (Ativan) 0.5 mg PO Q8H PRN PRN Reason: Sedation/Anxiety Stop: 06/04/18 14:48 Last Admin: 05/10/18 14:29 Dose: 0.5 mg Losartan Potassium (Cozaar) 50 mg PO HS [facility] Stop: 06/03/18 20:59 Last Admin: 05/11/18 19:30 Dose: 50 mg Magnesium Hydroxide (Milk Of Magnesia) 30 ml PO DAILY PRN PRN Reason: Constipation Stop: 06/04/18 14:48 Metoprolol Tartrate (Lopressor) 50 mg PO BID [facility] Stop: 06/02/18 20:59 Last Admin: 05/11/18 19:30 Dose: 50 mg Miscellaneous (Carbohydrates For Hypoglycemia) 15 - 30 gm PO UD PRN PRN Reason: Hypoglycemia Treatment Stop: 06/02/18 18:21 Miscellaneous (Pneumococcal Vacc, Do Not Administer) 1 ea N/A PRN PRN PRN Reason: Notification Stop: 06/04/18 14:48 Miscellaneous (Flu Vaccine, Do Not Administer) 1 ea N/A PRN PRN PRN Reason: Notification Stop: 06/04/18 14:48 Ondansetron HCl (Zofran) 4 mg IV Q6H PRN PRN Reason: Nausea &/or Vomiting Stop: 06/04/18 14:48 Last Admin: 05/11/18 16:51 Dose: 4 mg Ondansetron HCl (Zofran) 4 mg PO Q6H PRN PRN Reason: Nausea Stop: 06/04/18 14:48 Oxycodone HCl (Roxicodone Immediate Rel) 5 - 10 mg PO Q4H PRN PRN Reason: Moderate-Severe Pain Stop: 05/19/18 14:48 Last Admin: 05/09/18 16:30 Dose: 10 mg Pantoprazole Sodium (Protonix) 40 mg PO QAM [facility] Stop: 06/03/18 08:59 Last Admin: 05/11/18 10:05 Dose: 40 mg Promethazine HCl (Phenergan) 25 mg PO Q6H PRN PRN Reason: Nausea And Vomiting Stop: 06/10/18 13:13 Senna/Docusate Sodium (Senokot S) 2 tab PO HS [facility] Stop: 06/04/18 20:59 Last Admin: 05/11/18 19:30 Dose: 2 tab Tramadol HCl (Ultram) 50 - 100 mg PO Q4H PRN PRN Reason: Moderate-Severe pain Stop: 06/04/18 14:48 Last Admin: 05/11/18 07:37 Dose: 100 mg
[2018-05-11] MEDS: SODIUM CHLORIDE 0.9% 1000ML 1,000 ML IV SCH (19:27)
[2018-05-11] MEDS: DOCUSATE SODIUM/SENNA 50/8.6MG TAB PO SCH (19:30)
[2018-05-11] MEDS: LOSARTAN POTASSIUM 50 MG TAB PO SCH (19:30)
[2018-05-12] MEDS: SODIUM CHLORIDE 0.9% 1000ML 1,000 ML IV SCH ×2 (03:24→11:41)
[2018-05-12] MEDS: ACETAMINOPHEN 500 MG TAB PO SCH ×3 (05:58→21:52)
[2018-05-12 06:04] LABS: Albumin Level 2.5 gm/dl (3.4-5.0); Bilirubin Direct 0.2 mg/dl (0-0.2); Bilirubin,Total 0.6 mg/dl (0.2-1); Phosphorus 3.5 mg/dl (2.5-4.9); Total Protein 5.7 gm/dl (6.4-8.2)
[2018-05-12] MEDS: ONDANSETRON INJ 2 MG/ML 2 ML VIAL IV PRN ×2 (07:16→16:08)
[2018-05-12] MEDS: OXYCODONE HCL IR 5 MG TAB (IMMEDIATE RELEASE) PO PRN (07:17)
[2018-05-12] MEDS: ASPIRIN 81 MG ECTAB PO SCH ×2 (07:18→20:43)
[2018-05-12] MEDS: PANTOprazole 40 MG TAB PO SCH (07:18)
[2018-05-12] MEDS: METOPROLOL TARTRATE 50 MG TAB PO SCH ×2 (07:18→20:42)
[2018-05-12] MEDS: INSULIN ASPART 100 UNITS/ML 3 ML PEN SC SCH ×4 (08:52→20:47)
[2018-05-12] MEDS: TRAMADOL HCL 50 MG TABLET PO PRN (11:44)
--- NOTE | 2018-05-12 12:46 | Orthopedic Progress Note ---
Date of Service May 12, 2018 Assessment & Plan (1) H/O Spinal surgery: At this time will order an occupational therapy and social work consult. We will change his activity level so he can only be in the chair for an hour to 2 hours maximum and then back flat in bed. He may be up with bathroom privileges however. He is likely to be on these restrictions over the weekend and will look for placement at some point next week if medically stable. He may need his diet changed to clears if his hiccups persist as he may have the start of an ileus. I discussed his clinical situation with the patient and his explaining the length of time that he is likely to take to recover overall being months and not days. We will see him tomorrow. Subjective Patient was seen today in room 215. His is in the room with him. He is sitting upright in the chair but is complaining of hiccups. He states he has had 2 bowel movements so far today but has a lot of back pain. He is not having any pain going down his legs but does have weakness. He denies any shortness of breath or chest pain. Physical Exam 2 Vital Signs (Past 24 Hours): Last Vital Signs Temp 37.0 C 05/12/18 10:50 Pulse 92 H 05/12/18 10:50 Resp 20 05/12/18 10:50 BP 131/66 05/12/18 10:50 Pulse Ox 93 05/12/18 10:50 Physical Exam: On exam he is sitting upright in his chair he is actively hiccuping during our interview. His abdomen appears to be mildly distended but is nontender. His dressing is clean dry and intact. He has good sensation in both of his legs he can move his legs to gravity but gait was not observed. His calves are supple nontender. He is alert and oriented.
--- NOTE | 2018-05-12 16:37 | Hospitalist Progress Note ---
Date of Service May 12, 2018 Assessment & Plan (1) Nausea: Persistent nausea nd hiccups are present--concern for poss developing ileus. Reduce narcotic intake to as little as possible. Scheduled Zofran over the next two days. Reduced diet to clear liquids and if worsens, may need strect biwek rest, (2) H/O Spinal surgery: Recent lumbar spinal surgery last month with complication of durotomy postop course was complicated by CHF and A. fib with RVR. He returns with double vision with lateral gaze and vertigo as above--these have improved today. Stroke workup has been negative. Neurology is following. MRI of the lumbar spine revealed postop seroma 8cm x 9cm. This has been drained last week and durotomy repaired with a patch. Continue activity progression per orthopedics who has restricted him to bed less 1 hour daily when he can be up and to side chair. Patient is improved today but still appears fatigued, with resolution of tremors. Some intermittent headache and intermittent somnolence, which may be a result of the Tylenol. Dr Donnelly from Ortho spine discussed the recovery time expected with the patient and his today. (3) Vertigo: Vertigo still present when patient gazes to the left. With h/o pituitary macroadenoma, this will require an MRI with contrast with a sella view to re- evaluate this area. Possibly also precipitated from intracranial hypotension after acute CSF loss?, expected to continue to improve after dura repair last week. Pt states he is better. (4) Hip pain, acute: Resolved with scheduled Tylenol, possibly 2/2 poor positioning. (5) DM type 2 (diabetes mellitus, type 2): Controlled, continue NovoLog per sliding scale with carb coverage. Holding metformin. (6) HTN (hypertension): At goal. Continue Cozaar 50 mg p.o. nightly. Continue good pain control. (7) CAD (coronary artery disease): History of CABG in the past. Currently asymptomatic. Continue medical management with Lopressor, aspirin, Cozaar. (8) DVT prophylaxis: Aspirin twice daily per orthopedic recommendations Full code Disposition-continue restricted activity with slow progression over the next few days. Christin Luna DO [facility] Hospitalist Subjective +persistent nausea +tremors resolved +cannot tolerate solids +no abdominal pain +intermittent headache +loose stool after scheduled Miralax +anxiety Family present at the bedside-, son, daughter--plan was discussed and all questions answered. Physical Exam 2 Vital Signs (Past 24 Hours): Last Vital Signs Temp 37.3 C 05/12/18 15:00 Pulse 103 H 05/12/18 15:00 Resp 20 05/12/18 15:00 BP 127/68 05/12/18 15:00 Pulse Ox 93 05/12/18 10:50 CONSTITUTIONAL: WNWD, vitals as above, generally deconditioned, tremors are gone EYES: pupils are equal and round bilaterally, normal conjuctivae, no scleral icterus ENT: MMM RESPIRATORY: clear to auscultation bilaterally, no crackles, rales or wheezes, normal respiratory effort CARDIOVASCULAR: regular rate and rhythm, S1 and 2 heard without murmurs, gallops or rubs, no JVD, no peripheral edema GASTROINTESTINAL: normal bowel sounds, soft, nontender, nondistended BACK: surgical incision site is closed and non-draining covered with a clean, dry dressing. MUSCULOSKELETAL: strength 5/5 throughout, head is normocephalic and atraumatic SKIN: warm and dry NEUROLOGIC: No facial palsy, no dysarthria. CN 2-12 grossly intact, no sensory deficit, normal cognition, normal speech PSYCHIATRIC: alert cooperative and oriented to person, place and time. Euthymic mood Results & Data Laboratory Results Liver Function 05/12/18 Range/Units 05:13 Total Bilirubin 0.6 (0.2-1) mg/dl Direct Bilirubin 0.2 (0-0.2) mg/dl AST 17 (15-37) U/L ALT 24 (12-78) U/L Alkaline Phosphatase 67 (45-117) U/L Albumin 2.5 L (3.4-5.0) gm/dl Medications Administered Current Inpatient Medications Acetaminophen (Tylenol) 1,000 mg PO Q8 [facility] Stop: 06/08/18 13:59 Last Admin: 05/12/18 21:52 Dose: 1,000 mg Al Hydrox/Mg Hydrox/Simethicone (Maalox) 30 ml PO Q6H PRN PRN Reason: Dyspepsia Stop: 06/04/18 14:48 Aspirin (Ecotrin) 81 mg PO BID [facility] Stop: 06/03/18 08:59 Last Admin: 05/12/18 20:43 Dose: 81 mg Bisacodyl (Dulcolax) 10 mg OK DAILY PRN PRN Reason: Constipation Stop: 06/04/18 14:48 Dextrose (Dextrose 50%) 25 - 50 ml IV UD PRN; Protocol PRN Reason: Hypoglycemia Protocol Stop: 06/02/18 18:21 Diphenhydramine HCl (Benadryl) 25 mg PO Q6H PRN PRN Reason: Allergic Rhinitis/Insomnia Stop: 06/04/18 14:48 Famotidine (Pepcid) 20 mg PO Q12H PRN PRN Reason: Dyspepsia Stop: 06/04/18 14:48 Glucagon (Glucagen) 1 mg SQ UD PRN; Protocol PRN Reason: Hypoglycemia Protocol Stop: 06/02/18 18:21 Glucose (Glucose 40%) 15 - 30 gm PO UD PRN; Protocol PRN Reason: Hypoglycemia Protocol Stop: 06/02/18 18:21 Glucose (Dex4 Glucose) 4 - 8 tabs PO UD PRN; Protocol PRN Reason: Hypoglycemia Protocol Stop: 06/02/18 18:21 Hydromorphone HCl (Dilaudid) 0.5 - 1 mg IV Q3H PRN PRN Reason: Pain Stop: 05/19/18 14:48 Last Admin: 05/11/18 22:19 Dose: 1 mg Hydroxyzine HCl (Vistaril) 25 mg PO Q8H PRN PRN Reason: Anxiety Stop: 06/04/18 14:48 Insulin Aspart (Novolog Flexpen) 0 units SC [facility] Stop: 06/05/18 07:29 Last Admin: 05/12/18 20:47 Dose: Not Given Lorazepam (Ativan) 0.5 mg PO Q8H PRN PRN Reason: Sedation/Anxiety Stop: 06/04/18 14:48 Last Admin: 05/12/18 20:46 Dose: 0.5 mg Lorazepam (Ativan) 0.5 mg PO Q12H PRN PRN Reason: anxiety/agitation Stop: 06/11/18 17:44 Losartan Potassium (Cozaar) 50 mg PO HS [facility] Stop: 06/03/18 20:59 Last Admin: 05/12/18 20:42 Dose: 50 mg Magnesium Hydroxide (Milk Of Magnesia) 30 ml PO DAILY PRN PRN Reason: Constipation Stop: 06/04/18 14:48 Metoprolol Tartrate (Lopressor) 50 mg PO BID [facility] Stop: 06/02/18 20:59 Last Admin: 05/12/18 20:42 Dose: 50 mg Miscellaneous (Carbohydrates For Hypoglycemia) 15 - 30 gm PO UD PRN PRN Reason: Hypoglycemia Treatment Stop: 06/02/18 18:21 Miscellaneous (Pneumococcal Vacc, Do Not Administer) 1 ea N/A PRN PRN PRN Reason: Notification Stop: 06/04/18 14:48 Miscellaneous (Flu Vaccine, Do Not Administer) 1 ea N/A PRN PRN PRN Reason: Notification Stop: 06/04/18 14:48 Ondansetron HCl (Zofran) 4 mg IV Q6H PRN PRN Reason: Nausea &/or Vomiting Stop: 06/04/18 14:48 Last Admin: 05/12/18 16:08 Dose: 4 mg Ondansetron HCl (Zofran) 4 mg PO Q6H PRN PRN Reason: Nausea Stop: 06/04/18 14:48 Ondansetron HCl (Zofran) 4 mg IV Q8 [facility] Stop: 05/14/18 14:01 Last Admin: 05/12/18 18:23 Dose: 4 mg Oxycodone HCl (Roxicodone Immediate Rel) 5 - 10 mg PO Q4H PRN PRN Reason: Moderate-Severe Pain Stop: 05/19/18 14:48 Last Admin: 05/12/18 07:17 Dose: 10 mg Pantoprazole Sodium (Protonix) 40 mg PO QAM [facility] Stop: 06/03/18 08:59 Last Admin: 05/12/18 07:18 Dose: 40 mg Promethazine HCl (Phenergan) 25 mg PO Q6H PRN PRN Reason: Nausea And Vomiting Stop: 06/10/18 13:13 Tramadol HCl (Ultram) 50 - 100 mg PO Q4H PRN PRN Reason: Moderate-Severe pain Stop: 06/04/18 14:48 Last Admin: 05/12/18 11:44 Dose: 100 mg
[2018-05-12] MEDS ORDERED: LORazepam 0.5 MG TAB PO PRN (17:38)
[2018-05-12] MEDS: ONDANSETRON INJ 2 MG/ML 2 ML VIAL IV SCH (18:23)
[2018-05-12] MEDS: LOSARTAN POTASSIUM 50 MG TAB PO SCH (20:42)
[2018-05-12] MEDS: LORazepam 0.5 MG TAB PO PRN (20:46)
[2018-05-13] MEDS ORDERED: OXYCODONE/ACETAMINOPHEN 5mg/325mg TAB PO STA (04:38)
[2018-05-13] MEDS ORDERED: METOPROLOL TARTRATE 50 MG TAB PO SCH (04:45)
[2018-05-13] MEDS: ONDANSETRON INJ 2 MG/ML 2 ML VIAL IV SCH ×2 (04:56→13:44)
[2018-05-13 05:06] LABS: Basophils # (auto) 0.02 K/uL (0-0.2); Basophils % (auto) 0.2 %; Eosinophils # (auto) 0.12 K/uL (0-0.5); Eosinophils % (auto) 1.3 %; Hematocrit (blood only) 35.8 % (42-52); Hemoglobin 11.7 g/dL (14.0-18.0); Immature Granulocytes # (auto) 0.03 K/uL (0.00-0.02); Immature Granulocytes % (auto) 0.3 %; Lymphocytes # (auto) 1.91 K/uL (1.2-3.4); Lymphocytes % (auto) 20.7 %; Mean Corpuscular Hgb Conc 32.7 g/dL (32-36); Mean Corpuscular Volume 92.3 fL (80-100); Mean Platelet Volume 9.9 fL (7.4-10.4); Monocytes # (auto) 0.98 K/uL (0.11-0.59); Monocytes % (auto) 10.6 %; Neutrophils # (auto) 6.18 K/uL (1.4-6.5); Neutrophils % (auto) 66.9 %; Platelet Count 248 K/uL (130-400); RDW Coefficient of Variation 13.6 % (11.5-14.5); RDW Standard Deviation 45.6 fL (36.4-46.3); Red Blood Count 3.88 M/uL (4.7-6.1); White Blood Count 9.24 K/uL (4.8-10.8)
[2018-05-13] MEDS ORDERED: OXYCODONE/ACETAMINOPHEN 5mg/325mg TAB ONE (05:17)
[2018-05-13] MEDS: ACETAMINOPHEN 500 MG TAB PO SCH ×3 (05:27→21:05)
[2018-05-13 05:32] LABS: BUN Creatinine Ratio 32.4 (10-20); Calcium 8.6 mg/dl (8.5-10.1); Creatinine Clr Calc Pharmacy 108.4 ml/min; Est GFR (African American) 113.2; Est GFR (Non-African American) 97.7; Potassium 4.2 mmol/L (3.5-5.1)
[2018-05-13] MEDS ORDERED: SODIUM CHLORIDE 0.9% 1000ML 1,000 ML IV STA (06:14)
[2018-05-13] MEDS: PANTOprazole 40 MG TAB PO SCH (08:03)
[2018-05-13] MEDS: ASPIRIN 81 MG ECTAB PO SCH ×2 (08:03→21:06)
[2018-05-13] MEDS: TRAMADOL HCL 50 MG TABLET PO PRN ×2 (08:09→16:39)
[2018-05-13] MEDS: INSULIN ASPART 100 UNITS/ML 3 ML PEN SC SCH ×4 (08:17→20:33)
--- NOTE | 2018-05-13 10:14 | Orthopedic Progress Note ---
Date of Service May 13, 2018 Assessment & Plan (1) Neurogenic claudication due to lumbar spinal stenosis: At this time his main complaint is that of nausea. He does have some distention in the abdomen. It is possible he may need to be made n.p.o. and possible NG tube placement. We will continue to utilize IV Tylenol for pain control and minimize narcotics. We will continue with limitations in terms of how long he can be sitting in a chair at a time. We will continue to follow. Subjective Patient was seen bedside in room 215 this morning. He appears to be uncomfortable. He still is hiccuping and states that he feels nauseous. They have reduced his diet to clears. He is not having any pain radiating down his legs. He states he still gets headaches. He denies any other numbness, tingling, paresthesias. Physical Exam 2 Vital Signs (Past 24 Hours): Last Vital Signs Temp 36.8 C 05/13/18 07:40 Pulse 114 H 05/13/18 07:40 Resp 20 05/13/18 07:40 BP 111/66 05/13/18 07:40 Pulse Ox 97 05/13/18 07:40 Physical Exam: On exam he is alert and oriented. Answers questions appropriately. His calves are supple nontender. His abdomen is distended but no rebound tenderness. His sensation is intact to light touch. Gait was not observed.
--- NOTE | 2018-05-13 14:30 | Hospitalist Progress Note ---
Date of Service May 13, 2018 Assessment & Plan (1) Paroxysmal A-fib: Recent history of postoperative atrial fibrillation 1 month ago. At that time he was placed on IV of diltiazem drip with transition to p.o. on discharge. Anticoagulation was not continued as the patient spontaneously converted to sinus rhythm. He was reevaluated in the cardiology office with Dr. Tobias and Larissa who again observed normal sinus rhythm and discontinue the diltiazem thinking it may have be contributing to his nausea. He also discontinued the atorvastatin as he thought there may be an element of muscle weakness as a result. Overnight the patient flipped back into atrial fibrillation with a heart rate in the 120s on telemetry review. He was given some IV fluids and increased beta -maria t with 2 doses of parenteral Lopressor. His heart rate returned to the 90s and he spontaneously converted back into his normal sinus rhythm. Discussed the case with cardiology who will see him. It is not ideal for the patient to be on anticoagulation in the setting of recent back surgery. May need to consider if he flips back into atrial fibrillation, but we discussed this with cardiology and possibly orthospine surgeon prior to initiation. We will continue to monitor. Cardiology consulted. Increase p.o. metoprolol to 50 mg p.o. 3 times daily (2) Nausea: Persistent nausea nd hiccups are present--concern for poss developing ileus. Reduce narcotic intake to as little as possible. Scheduled Zofran not working so will return to as needed and use Phenergan as needed as well. Continue clear liquid diet. If patient starts vomiting make n.p.o., if persistent vomiting consider NG tube. (3) H/O Spinal surgery: Recent lumbar spinal surgery last month with complication of durotomy postop course was complicated by CHF and A. fib with RVR. He returns with double vision with lateral gaze and vertigo as above--these continue to slowly improve. Stroke workup has been negative. Initial MRI of the lumbar spine revealed postop seroma 8cm x 9cm. This was drained last week and durotomy repaired with a patch. Continue activity progression per orthopedics who has restricted him to bed less 1 hour daily when he can be up and to side chair. Patient is improved today but still appears fatigued, with resolution of tremors. Some intermittent headache and intermittent somnolence, which may be a result of the Tylenol. Some confusion this morning noted by family, Ativan was discontinued. Dr Donnelly from Ortho spine discussed the recovery time expected with the patient and his . (4) Vertigo: Vertigo still present when patient gazes to the left. With h/o pituitary macroadenoma, this will require an MRI with contrast with a sella view to re- evaluate this area. Possibly also precipitated from intracranial hypotension after acute CSF loss?, expected to continue to improve after dura repair last week. Pt states he is better. He cannot tolerate the MRI at this time secondary to pain. (5) DM type 2 (diabetes mellitus, type 2): Controlled, continue NovoLog per sliding scale with carb coverage. Holding metformin. (6) HTN (hypertension): At goal. Continue Cozaar 50 mg p.o. nightly. Continue good pain control. (7) CAD (coronary artery disease): History of CABG in the past. Currently asymptomatic. Continue medical management with Lopressor, aspirin, Cozaar. (8) DVT prophylaxis: Aspirin twice daily per orthopedic recommendations Full code Disposition-continue restricted activity with slow progression over the next few days. Christin Luna DO [facility] Hospitalist Subjective +persistent nausea and hiccups Decreased appetite +no abdominal pain Persistent back pain controlled with tramadol and Dilaudid. +intermittent headache Some loose stool today Anxiety improved Physical Exam 2 Vital Signs (Past 24 Hours): Last Vital Signs Temp 37.0 C 05/13/18 10:45 Pulse 113 H 05/13/18 10:45 Resp 20 05/13/18 10:45 BP 130/76 05/13/18 10:45 Pulse Ox 96 05/13/18 10:45 CONSTITUTIONAL: WNWD, vitals as above, generally deconditioned, tremors are gone EYES: pupils are equal and round bilaterally, normal conjuctivae, no scleral icterus ENT: MMM RESPIRATORY: clear to auscultation bilaterally, no crackles, rales or wheezes, normal respiratory effort CARDIOVASCULAR: regular rate and rhythm, S1 and 2 heard without murmurs, gallops or rubs, no JVD, no peripheral edema GASTROINTESTINAL: normal bowel sounds, soft, nontender, nondistended BACK: surgical incision site is closed and non-draining covered with a clean, dry dressing. MUSCULOSKELETAL: strength 5/5 throughout, head is normocephalic and atraumatic SKIN: warm and dry NEUROLOGIC: No facial palsy, no dysarthria. CN 2-12 grossly intact, no sensory deficit, normal cognition, normal speech PSYCHIATRIC: alert cooperative and oriented to person, place and time. Euthymic mood Results & Data Laboratory Results Short CBC 05/13/18 Range/Units 04:46 WBC 9.24 (4.8-10.8) K/uL Hgb 11.7 L (14.0-18.0) g/dL Hct 35.8 L (42-52) % Plt Count 248 (130-400) K/uL BMP 05/13/18 04:46 Sodium 129 L Potassium 4.2 Chloride 96 L Carbon Dioxide 27 BUN 19 H Creatinine 0.58 L Glucose 117 H Calcium 8.6 Medications Administered Current Inpatient Medications Acetaminophen (Tylenol) 1,000 mg PO Q8 [facility] Stop: 06/08/18 13:59 Last Admin: 05/13/18 13:47 Dose: 1,000 mg Al Hydrox/Mg Hydrox/Simethicone (Maalox) 30 ml PO Q6H PRN PRN Reason: Dyspepsia Stop: 06/04/18 14:48 Aspirin (Ecotrin) 81 mg PO BID [facility] Stop: 06/03/18 08:59 Last Admin: 05/13/18 08:03 Dose: 81 mg Bisacodyl (Dulcolax) 10 mg IN DAILY PRN PRN Reason: Constipation Stop: 06/04/18 14:48 Dextrose (Dextrose 50%) 25 - 50 ml IV UD PRN; Protocol PRN Reason: Hypoglycemia Protocol Stop: 06/02/18 18:21 Diphenhydramine HCl (Benadryl) 25 mg PO Q6H PRN PRN Reason: Allergic Rhinitis/Insomnia Stop: 06/04/18 14:48 Famotidine (Pepcid) 20 mg PO Q12H PRN PRN Reason: Dyspepsia Stop: 06/04/18 14:48 Glucagon (Glucagen) 1 mg SQ UD PRN; Protocol PRN Reason: Hypoglycemia Protocol Stop: 06/02/18 18:21 Glucose (Glucose 40%) 15 - 30 gm PO UD PRN; Protocol PRN Reason: Hypoglycemia Protocol Stop: 06/02/18 18:21 Glucose (Dex4 Glucose) 4 - 8 tabs PO UD PRN; Protocol PRN Reason: Hypoglycemia Protocol Stop: 06/02/18 18:21 Hydromorphone HCl (Dilaudid) 0.5 - 1 mg IV Q3H PRN PRN Reason: Pain Stop: 05/19/18 14:48 Last Admin: 05/11/18 22:19 Dose: 1 mg Hydroxyzine HCl (Vistaril) 25 mg PO Q8H PRN PRN Reason: Anxiety Stop: 06/04/18 14:48 Insulin Aspart (Novolog Flexpen) 0 units SC [facility] Stop: 06/05/18 07:29 Last Admin: 05/13/18 16:54 Dose: Not Given Losartan Potassium (Cozaar) 50 mg PO HS [facility] Stop: 06/03/18 20:59 Last Admin: 05/12/18 20:42 Dose: 50 mg Magnesium Hydroxide (Milk Of Magnesia) 30 ml PO DAILY PRN PRN Reason: Constipation Stop: 06/04/18 14:48 Metoprolol Tartrate (Lopressor) 50 mg PO TID [facility] Stop: 06/12/18 20:59 Miscellaneous (Carbohydrates For Hypoglycemia) 15 - 30 gm PO UD PRN PRN Reason: Hypoglycemia Treatment Stop: 06/02/18 18:21 Miscellaneous (Pneumococcal Vacc, Do Not Administer) 1 ea N/A PRN PRN PRN Reason: Notification Stop: 06/04/18 14:48 Miscellaneous (Flu Vaccine, Do Not Administer) 1 ea N/A PRN PRN PRN Reason: Notification Stop: 06/04/18 14:48 Ondansetron HCl (Zofran) 4 mg IV Q6H PRN PRN Reason: Nausea &/or Vomiting Stop: 06/04/18 14:48 Last Admin: 05/12/18 16:08 Dose: 4 mg Ondansetron HCl (Zofran) 4 mg PO Q6H PRN PRN Reason: Nausea Stop: 06/04/18 14:48 Oxycodone HCl (Roxicodone Immediate Rel) 5 - 10 mg PO Q4H PRN PRN Reason: Moderate-Severe Pain Stop: 05/19/18 14:48 Last Admin: 05/12/18 07:17 Dose: 10 mg Pantoprazole Sodium (Protonix) 40 mg PO QAM [facility] Stop: 06/03/18 08:59 Last Admin: 05/13/18 08:03 Dose: 40 mg Promethazine HCl (Phenergan) 25 mg PO Q6H PRN PRN Reason: Nausea And Vomiting Stop: 06/10/18 13:13 Last Admin: 05/13/18 16:39 Dose: 25 mg Tramadol HCl (Ultram) 50 - 100 mg PO Q4H PRN PRN Reason: Moderate-Severe pain Stop: 06/04/18 14:48 Last Admin: 05/13/18 16:39 Dose: 100 mg
[2018-05-13] MEDS ORDERED: METOPROLOL TARTRATE 1 MG/ML VIAL IV STA (16:21)
[2018-05-13] MEDS: PROMETHAZINE HCL 25 MG TAB PO PRN ×2 (16:39→21:06)
[2018-05-13] MEDS: LOSARTAN POTASSIUM 50 MG TAB PO SCH (21:07)
[2018-05-13] MEDS: METOPROLOL TARTRATE 50 MG TAB PO SCH (21:07)
[2018-05-14] MEDS: TRAMADOL HCL 50 MG TABLET PO PRN ×2 (03:44→07:46)
[2018-05-14] MEDS: ACETAMINOPHEN 500 MG TAB PO SCH ×3 (05:09→22:21)
[2018-05-14] MEDS: OXYCODONE HCL IR 5 MG TAB (IMMEDIATE RELEASE) PO PRN (05:09)
[2018-05-14 06:56] LABS: BUN Creatinine Ratio 36.8 (10-20); Calcium 8.1 mg/dl (8.5-10.1); Creatinine Clr Calc Pharmacy 117.3 ml/min; Est GFR (African American) 113.2; Est GFR (Non-African American) 97.7; Potassium 3.7 mmol/L (3.5-5.1)
[2018-05-14] MEDS: PANTOprazole 40 MG TAB PO SCH (07:46)
[2018-05-14] MEDS: ASPIRIN 81 MG ECTAB PO SCH ×2 (07:47→20:34)
[2018-05-14] MEDS: METOPROLOL TARTRATE 50 MG TAB PO SCH ×3 (07:47→20:35)
[2018-05-14] MEDS: INSULIN ASPART 100 UNITS/ML 3 ML PEN SC SCH ×4 (07:51→22:07)
--- NOTE | 2018-05-14 10:11 | Orthopedic Progress Note ---
Date of Service May 14, 2018 Assessment & Plan (1) Neurogenic claudication due to lumbar spinal stenosis: Patient still has complaints of lower back pain and headaches when he is up for too long. There is no evidence of spinal fluid subcutaneously or breaking through the incision. I like to try to get him up with physical therapy and see how he does with this. We need to social work consult for placement. In terms of atrial fibrillation if cardiology feels that he should be anticoagulated he is far enough out from the surgery to recently do such. We will continue to follow. Subjective Patient is seen in room 215 bedside. He is lying supine in bed and resting on arrival. He awoke easily and answers questions appropriately. Overnight he had an episode of atrial fibrillation which spontaneously converted. He continues to have hiccups which increases pain. He complains mainly of lower back pain but no pain radiating down his legs. Physical Exam 2 Vital Signs (Past 24 Hours): Last Vital Signs Temp 36.7 C 05/14/18 07:42 Pulse 113 H 05/14/18 08:00 Resp 20 05/14/18 07:42 BP 134/78 05/14/18 07:42 Pulse Ox 95 05/14/18 07:42 Physical Exam: On exam he is alert and oriented. He answers questions appropriately. His incision was examined no fluid wave was noted. No drainage was noted. The dressing itself is clean dry and intact before removal. There are no open segments in the skin. His abdomen is protuberant but nontender. Calves are supple and nontender. Strength and sensation are grossly intact.
[2018-05-14] MEDS ORDERED: DIGOXIN 0.25 MG TAB PO ONE (11:50)
--- NOTE | 2018-05-14 13:58 | Consultation Report ---
DATE OF CONSULTATION: 05/14/2018 INPATIENT CARDIOLOGY CONSULTATION CONSULTATION REQUESTED BY: Dr. Luna. REASON FOR CONSULTATION: Paroxysmal atrial fibrillation. HISTORY OF PRESENT ILLNESS: Mr. Huffman is a very pleasant 78-year-old gentleman who normally follows with Dr. Tobias of the [facility] cardiology group. He presented to [facility] on 05/03/2018 with complaints of diplopia and was found to have a continued persistent CSF leak. The patient then developed seroma which required drainage, had a long clinical course and then ultimately on the , an EKG was performed and he was found to be back in atrial fibrillation. Of note, the patient had similar episodes of atrial fibrillation at the initial surgery which was initially controlled on Cardizem without anticoagulation. After the atrial fibrillation was discovered, he was transferred to telemetry. His metoprolol was up titrated by Dr. Luna after discussion with me and he spontaneously converted back to normal sinus rhythm. Clinically, the patient states his only complaint continues to be that of back pain. He denies any cardiac complaints, specifically denied any chest pain, shortness of breath, palpitations, lightheadedness, dizziness, or syncope. PAST SURGICAL HISTORY: 1. Coronary artery bypass grafting surgery x7 in 1994 with a BARBOZA to the LAD, vein graft to the diagonal, sequential vein graft to OM1, OM2 and OM3, and sequential vein graft to the PDA and RV branch. 2. Recent spinal surgery. 3. Colonoscopy. 4. Brain surgery. 5. Pituitary adenoma excision. 6. Bicep tendon repair. 7. Rotator cuff surgery. 8. Renal calculi extraction. MEDICAL ILLNESSES: 1. Paroxysmal atrial fibrillation. 2. Coronary artery disease. 3. Spinal stenosis. 4. Hypertension. 5. Dyslipidemia. 6. Diabetes. FAMILY HISTORY: Noncontributory. SOCIAL HISTORY: The patient has a remote tobacco use history, quit in 1989. Denies any alcohol or recreational drug use. REVIEW OF SYSTEMS: As per HPI, all other systems reviewed and negative at this time. ALLERGIES: LACTOSE. MEDICATIONS: Currently: 1. Aspirin 81 mg daily. 2. Famotidine b.i.d. 3. Losartan 50 mg daily. 4. Metoprolol tartrate 50 mg t.i.d. PHYSICAL EXAMINATION: VITALS: Temperature 36.7, pulse 95, respiratory rate 12, blood pressure 150/79. GENERAL: Awake, alert, oriented x3, mild distress due to back pain. HEENT: Normocephalic, atraumatic. Pupils equal, round, react to light and accommodation. Extraocular muscles intact. Anicteric sclerae. Moist mucous membranes. NECK: No JVD, no bruit. CARDIOVASCULAR: Regular, but fast. Unable to appreciate any murmurs, rubs or gallops. PULMONARY: Clear to auscultation bilaterally. No rales, rhonchi, or wheezing. ABDOMEN: Bowel sounds x4, soft. No rebound, guarding, tenderness. No organomegaly. EXTREMITIES: No clubbing, cyanosis or edema. +2 pedal pulses bilaterally. SKIN: Warm and dry. TEST RESULTS: A 12-lead EKG performed today independently reviewed at this time shows sinus tachycardia at 105 beats per minute with occasional PACs. Review of telemetry monitoring shows the patient to be in sinus rhythm/sinus tachycardia with occasional PACs overnight. IMPRESSION: 1. Paroxysmal atrial fibrillation, currently in normal sinus rhythm. 2. CSF leak, status post seroma drainage. 3. Coronary artery disease, stable. 4. Diabetes. 5. Hypertension. RECOMMENDATIONS: It was my pleasure to see Mr. Huffman in consultation today. From a cardiac standpoint, I believe the most prudent course of action will be to try and maintain normal sinus rhythm and to that means we will continue his current dose of metoprolol and I will add digoxin for further rate control. I have no doubt his rates are also significantly affected by the pain that he is in, but orthopedics is following closely. Otherwise, we will hold off on anticoagulation at this time; however, it will likely be necessary should he go back in atrial fibrillation after this prolonged episode of sinus rhythm, I believe it will be safe to try and chemically cardiovert him with amiodarone, but again we will continue with beta maria t and digoxin for now.
--- NOTE | 2018-05-14 15:41 | Hospitalist Progress Note ---
Date of Service May 14, 2018 Assessment & Plan (1) Paroxysmal A-fib: Rates better controlled on increased metoprolol 50 TID and Cardiology added digoxin. He maintains is sinus rhythm at this time. Rate control at this point appears to be the best strategy. (2) Nausea: Persistent nausea and hiccups are present, scheduled zofran was ineffective. Cont clears and supportive care. (3) H/O Spinal surgery: Recent lumbar spinal surgery last month with complication of durotomy postop course was complicated by CHF and A. fib with RVR. He returns with double vision with lateral gaze and vertigo as above--these continue to slowly improve. Stroke workup has been negative. Initial MRI of the lumbar spine revealed postop seroma 8cm x 9cm. This was drained last week and durotomy repaired with a patch. Continue activity progression per orthopedics. Cont scheduled Tylenol for back pain. PRN Tramadol and Diilaudid (4) Vertigo: Vertigo still present when patient gazes to the left. With h/o pituitary macroadenoma, this will require an MRI with contrast with a sella view to re- evaluate this area. Possibly also precipitated from intracranial hypotension after acute CSF loss?, expected to continue to improve after dura repair last week. He cannot tolerate the MRI at this time. (5) DM type 2 (diabetes mellitus, type 2): Controlled, continue NovoLog per sliding scale with carb coverage. Holding metformin. (6) HTN (hypertension): At goal. Continue Cozaar 50 mg p.o. nightly. Continue good pain control. (7) CAD (coronary artery disease): History of CABG in the past. Currently asymptomatic. Continue medical management with Lopressor, aspirin, Cozaar. (8) DVT prophylaxis: Aspirin twice daily per orthopedic recommendations Full code Disposition-continue restricted activity with slow progression over the next few days per Orthopedics. Christin Luna DO [facility] Hospitalist Subjective +persistent nausea and hiccups Decreased appetite no abdominal pain Persistent back pain controlled with tramadol and Dilaudid. +intermittent headache no stool today Anxiety improved Physical Exam 2 Vital Signs (Past 24 Hours): Last Vital Signs Temp 36.8 C 05/14/18 15:07 Pulse 105 H 05/14/18 15:07 Resp 20 05/14/18 15:07 BP 150/81 H 05/14/18 15:07 Pulse Ox 95 05/14/18 15:07 CONSTITUTIONAL: WNWD, vitals as above, generally deconditioned, no tremors EYES: pupils are equal and round bilaterally, normal conjuctivae, no scleral icterus ENT: MMM RESPIRATORY: clear to auscultation bilaterally, no crackles, rales or wheezes, normal respiratory effort CARDIOVASCULAR: regular rate and rhythm, S1 and 2 heard without murmurs, gallops or rubs, no JVD, no peripheral edema GASTROINTESTINAL: normal bowel sounds, soft, nontender, nondistended BACK: surgical incision site is closed and non-draining covered with a clean, dry dressing. MUSCULOSKELETAL: strength 5/5 throughout, head is normocephalic and atraumatic SKIN: warm and dry NEUROLOGIC: No facial palsy, no dysarthria. CN 2-12 grossly intact, no sensory deficit, normal cognition, normal speech PSYCHIATRIC: alert cooperative and oriented to person, place and time. Fatigued but easily oriented. Results & Data Medications Administered Current Inpatient Medications Acetaminophen (Tylenol) 1,000 mg PO Q8 [facility] Stop: 06/08/18 13:59 Last Admin: 05/15/18 05:43 Dose: 1,000 mg Al Hydrox/Mg Hydrox/Simethicone (Maalox) 30 ml PO Q6H PRN PRN Reason: Dyspepsia Stop: 06/04/18 14:48 Aspirin (Ecotrin) 81 mg PO BID [facility] Stop: 06/03/18 08:59 Last Admin: 05/14/18 20:34 Dose: 81 mg Bisacodyl (Dulcolax) 10 mg [facility] DAILY PRN PRN Reason: Constipation Stop: 06/04/18 14:48 Dextrose (Dextrose 50%) 25 - 50 ml IV UD PRN; Protocol PRN Reason: Hypoglycemia Protocol Stop: 06/02/18 18:21 Diphenhydramine HCl (Benadryl) 25 mg PO Q6H PRN PRN Reason: Allergic Rhinitis/Insomnia Stop: 06/04/18 14:48 Famotidine (Pepcid) 20 mg PO Q12H PRN PRN Reason: Dyspepsia Stop: 06/04/18 14:48 Glucagon (Glucagen) 1 mg SQ UD PRN; Protocol PRN Reason: Hypoglycemia Protocol Stop: 06/02/18 18:21 Glucose (Glucose 40%) 15 - 30 gm PO UD PRN; Protocol PRN Reason: Hypoglycemia Protocol Stop: 06/02/18 18:21 Glucose (Dex4 Glucose) 4 - 8 tabs PO UD PRN; Protocol PRN Reason: Hypoglycemia Protocol Stop: 06/02/18 18:21 Hydromorphone HCl (Dilaudid) 0.5 - 1 mg IV Q3H PRN PRN Reason: Pain Stop: 05/19/18 14:48 Last Admin: 05/11/18 22:19 Dose: 1 mg Hydroxyzine HCl (Vistaril) 25 mg PO Q8H PRN PRN Reason: Anxiety Stop: 06/04/18 14:48 Insulin Aspart (Novolog Flexpen) 0 units SC [facility] Stop: 06/05/18 07:29 Last Admin: 05/14/18 22:07 Dose: Not Given Losartan Potassium (Cozaar) 50 mg PO HS [facility] Stop: 06/03/18 20:59 Last Admin: 05/14/18 20:35 Dose: 50 mg Magnesium Hydroxide (Milk Of Magnesia) 30 ml PO DAILY PRN PRN Reason: Constipation Stop: 06/04/18 14:48 Metoprolol Tartrate (Lopressor) 50 mg PO TID [facility] Stop: 06/12/18 20:59 Last Admin: 05/14/18 20:35 Dose: 50 mg Miscellaneous (Carbohydrates For Hypoglycemia) 15 - 30 gm PO UD PRN PRN Reason: Hypoglycemia Treatment Stop: 06/02/18 18:21 Miscellaneous (Pneumococcal Vacc, Do Not Administer) 1 ea N/A PRN PRN PRN Reason: Notification Stop: 06/04/18 14:48 Miscellaneous (Flu Vaccine, Do Not Administer) 1 ea N/A PRN PRN PRN Reason: Notification Stop: 06/04/18 14:48 Ondansetron HCl (Zofran) 4 mg IV Q6H PRN PRN Reason: Nausea &/or Vomiting Stop: 06/04/18 14:48 Last Admin: 05/14/18 20:36 Dose: 4 mg Ondansetron HCl (Zofran) 4 mg PO Q6H PRN PRN Reason: Nausea Stop: 06/04/18 14:48 Last Admin: 05/14/18 07:48 Dose: 4 mg Oxycodone HCl (Roxicodone Immediate Rel) 5 - 10 mg PO Q4H PRN PRN Reason: Moderate-Severe Pain Stop: 05/19/18 14:48 Last Admin: 05/14/18 05:09 Dose: 10 mg Pantoprazole Sodium (Protonix) 40 mg PO QAM [facility] Stop: 06/03/18 08:59 Last Admin: 05/14/18 07:46 Dose: 40 mg Promethazine HCl (Phenergan) 25 mg PO Q6H PRN PRN Reason: Nausea And Vomiting Stop: 06/10/18 13:13 Last Admin: 05/14/18 20:35 Dose: 25 mg Tramadol HCl (Ultram) 50 - 100 mg PO Q4H PRN PRN Reason: Moderate-Severe pain Stop: 06/04/18 14:48 Last Admin: 05/15/18 01:17 Dose: 50 mg
[2018-05-14] MEDS: PROMETHAZINE HCL 25 MG TAB PO PRN (20:35)
[2018-05-14] MEDS: LOSARTAN POTASSIUM 50 MG TAB PO SCH (20:35)
[2018-05-14] MEDS: ONDANSETRON INJ 2 MG/ML 2 ML VIAL IV PRN (20:36)
[2018-05-15] MEDS: TRAMADOL HCL 50 MG TABLET PO PRN ×4 (01:17→20:12)
[2018-05-15] MEDS: ACETAMINOPHEN 500 MG TAB PO SCH ×3 (05:43→21:46)
[2018-05-15 05:50] LABS: Hematocrit (blood only) 34.2 % (42-52); Mean Corpuscular Hgb Conc 32.2 g/dL (32-36); Mean Corpuscular Volume 92.7 fL (80-100); Mean Platelet Volume 9.7 fL (7.4-10.4); Platelet Count 286 K/uL (130-400); RDW Coefficient of Variation 13.9 % (11.5-14.5); RDW Standard Deviation 46.4 fL (36.4-46.3); Red Blood Count 3.69 M/uL (4.7-6.1); White Blood Count 8.37 K/uL (4.8-10.8)
[2018-05-15 06:25] LABS: Calcium 8.2 mg/dl (8.5-10.1); Creatinine Clr Calc Pharmacy 116.5 ml/min; Est GFR (African American) 112.4; Magnesium 1.9 mg/dl (1.8-2.4); Potassium 3.5 mmol/L (3.5-5.1)
[2018-05-15] MEDS ORDERED: POLYETHYLENE (MIRALAX) 17 GM PACK PO PRN (07:03)
[2018-05-15] MEDS: ONDANSETRON INJ 2 MG/ML 2 ML VIAL IV PRN ×3 (07:09→21:53)
[2018-05-15] MEDS: PROMETHAZINE HCL 25 MG TAB PO PRN ×2 (07:09→15:13)
[2018-05-15] MEDS: PANTOprazole 40 MG TAB PO SCH (07:10)
[2018-05-15] MEDS: ASPIRIN 81 MG ECTAB PO SCH ×2 (07:10→20:13)
[2018-05-15] MEDS: METOPROLOL TARTRATE 50 MG TAB PO SCH ×3 (07:10→20:13)
[2018-05-15] MEDS: INSULIN ASPART 100 UNITS/ML 3 ML PEN SC SCH ×4 (09:02→20:58)
--- NOTE | 2018-05-15 09:32 | Cardiology Progress Note ---
Date of Service May 15, 2018 Assessment & Plan (1) Atrial fibrillation with RVR: asymptomatic has remained in sinus with increased beta blockade addition of digoxin now has rates in 80's will start digoxin 0.125mg daily now cont metoprolol hold off on anticoagulation given that he is in sinus going forward: since patient has been in sinus rhythm >24 hours with no recent documented episodes of prolonged atrial fibrillation, should he go back into afib at this point would chemically cardiovert with amiodarone gtt Subjective Pt seen and examined, states that he's doing "ok" today. Back pain controlled at rest, painful with ambulation. Episode of chest discomfort associated with nausea this AM, resolved quickly. Denies sob, palpitations, lightheadedness or dizziness. tele reviewed: sinus rhythm in 80's. Review of Systems All systems reviewed & are unremarkable except as noted in HPI & below Physical Exam 2 Vital Signs (Past 24 Hours): Last Vital Signs Temp 36.6 C 05/15/18 07:41 Pulse 100 H 05/15/18 07:41 Resp 20 05/15/18 07:41 BP 150/75 H 05/15/18 07:41 Pulse Ox 93 05/15/18 07:41
[2018-05-15] MEDS ORDERED: SODIUM CHLORIDE 0.9% 1000ML 1,000 ML IV SCH (10:30)
--- NOTE | 2018-05-15 14:07 | Orthopedic Progress Note ---
Date of Service May 15, 2018 Assessment & Plan (1) Neurogenic claudication due to lumbar spinal stenosis: 05/05/18 revision dural repair by Dr. Douglas. With continued postoperative A. fib, diplopia, headaches, nausea, hiccups and overall weakness. He has been accepted to snf when both medical team and cardiology team deem he is stable. He appears to be stable from an orthopedic standpoint. Headaches appear non-positional. He is tolerating increasing the length of time he is up by short increments. Supervising Physician Co-Signing Physician Notes Dr. Ankur Douglas Subjective Patient has complaints of lower back pain. No radicular leg pain. Overall very weak. He reports he was able to sit up in a chair "2-1/2-3 hours this morning." Still has complaints of nausea and hiccups. He reports he had a bowel movement this morning. Still has an occasional headache but this seems to be non-positional. He has not been in prolonged A. fib in over 24 hours. Physical Exam 2 Vital Signs (Past 24 Hours): Last Vital Signs Temp 36.8 C 05/15/18 12:02 Pulse 99 H 05/15/18 12:02 Resp 20 05/15/18 12:02 BP 132/72 05/15/18 12:02 Pulse Ox 91 05/15/18 12:02 Physical Exam: Alert and oriented x3. He is able to roll over in bed on his own for me. Lumbar incision is healed. There is no fluid fluctuation. No drainage. Strength is intact bilateral lower extremities.
[2018-05-15] MEDS ORDERED: AMIODARONE IV BOLUS / DRIP IV STA (15:58)
[2018-05-15] MEDS ORDERED: DIGOXIN 0.125 MG TAB PO SCH (16:00)
[2018-05-15] MEDS ORDERED: AMIODARONE / D5W 360 MG/200 ML BAG IV SCH (16:00)
[2018-05-15] MEDS ORDERED: AMIODARONE / D5W 150 MG/100 ML BAG IV STA (16:01)
--- NOTE | 2018-05-15 17:58 | Hospitalist Progress Note ---
Date of Service May 15, 2018 Assessment & Plan (1) Paroxysmal A-fib: Was in sinus rhythm for > 24 hours, rates controlled with Metoporlol and dig added by Cardiology yesterday. Back into afib and started on amio. Rates better controlled. Cont per cardiology. (2) Nausea: Some abdominal discomfort with palpation is also present in the R abdomen. Cont clears and supportive care. KUB was obtained with nonobstructive bowel gas pattern. Pt thinks the afib is causing his nausea because they both occurred around the same time today. Hiccups ceased and patient is tolerating PO. If hiccups return may consider restarting Reglan. Cont with chemical cardioverison as above and re-evaluate him in am. (3) H/O Spinal surgery: Recent lumbar spinal surgery last month with complication of durotomy postop course was complicated by CHF and A. fib with RVR. He returns with double vision with lateral gaze and vertigo as above--these continue to slowly improve. Stroke workup has been negative. Initial MRI of the lumbar spine revealed postop seroma 8cm x 9cm. This was drained on 05/05 and durotomy repaired with a patch. Continue activity progression per orthopedics. Cont scheduled Tylenol for back pain. PRN Tramadol and Diilaudid (4) Vertigo: Vertigo improved significantly today per his report. With h/o pituitary macroadenoma, this will require an MRI with contrast with a sella view to re- evaluate this area. Possibly also precipitated from intracranial hypotension after acute CSF loss?, expected to continue to improve after dura repair last week. He cannot tolerate the MRI at this time. (5) DM type 2 (diabetes mellitus, type 2): Controlled, continue NovoLog per sliding scale with carb coverage. Holding metformin. (6) HTN (hypertension): At goal. Continue Cozaar 50 mg p.o. nightly. Continue good pain control. (7) CAD (coronary artery disease): History of CABG in the past. Currently asymptomatic. Continue medical management with Lopressor, aspirin, Cozaar. (8) DVT prophylaxis: Aspirin twice daily per orthopedic recommendations Full code Disposition-continue restricted activity with slow progression over the next few days per Orthopedics. DO [facility] Hospital[facility] Subjective +nausea -hiccups +tolerating clears -vertigo imrpoved -LAWRENCE +OOB to chair for two hours. Physical Exam 2 Vital Signs (Past 24 Hours): Last Vital Signs Temp 37.1 C 05/15/18 15:11 Pulse 112 H 05/15/18 15:18 Resp 20 05/15/18 15:11 BP 102/67 05/15/18 17:31 Pulse Ox 93 05/15/18 15:11 CONSTITUTIONAL: WNWD, vitals as above, generally deconditioned, no tremors EYES: pupils are equal and round bilaterally, normal conjuctivae, no scleral icterus ENT: MMM RESPIRATORY: clear to auscultation bilaterally, no crackles, rales or wheezes, normal respiratory effort CARDIOVASCULAR: irregular rate and rhythm, S1 and 2 heard without murmurs, gallops or rubs, no JVD, no peripheral edema GASTROINTESTINAL: normal bowel sounds, soft, minor TTP on R abdomen, nondistended BACK: surgical incision site is closed and non-draining covered with a clean, dry dressing. MUSCULOSKELETAL: strength 5/5 throughout, head is normocephalic and atraumatic SKIN: warm and dry NEUROLOGIC: No facial palsy, no dysarthria. CN 2-12 grossly intact, no sensory deficit, normal cognition, normal speech PSYCHIATRIC: alert cooperative and oriented to person, place and time. Results & Data Laboratory Results Short CBC 05/15/18 Range/Units 05:36 WBC 8.37 (4.8-10.8) K/uL Hgb 11.0 L (14.0-18.0) g/dL Hct 34.2 L (42-52) % Plt Count 286 (130-400) K/uL [facility] 05/15/18 05:36 Sodium 129 L Potassium 3.5 Chloride 94 L Carbon Dioxide 29 BUN 15 Creatinine 0.59 L Glucose 89 Calcium 8.2 L Diagnostic Findings KUB: IMPRESSION: 1. Nonobstructive bowel gas pattern. 2. Large parenchymal calcification of the inferior pole right kidney redemonstrated. 3. Pelvic basin calcifications suggest probable phleboliths. Medications Administered Current Inpatient Medications Acetaminophen (Tylenol) 1,000 mg PO Q8 [facility] Stop: 06/08/18 13:59 Last Admin: 05/15/18 21:46 Dose: 1,000 mg Al Hydrox/Mg Hydrox/Simethicone (Maalox) 30 ml PO Q6H PRN PRN Reason: Dyspepsia Stop: 06/04/18 14:48 Last Admin: 05/15/18 21:53 Dose: 30 ml Aspirin (Ecotrin) 81 mg PO BID [facility] Stop: 06/03/18 08:59 Last Admin: 05/15/18 20:13 Dose: 81 mg Bisacodyl (Dulcolax) 10 mg [facility] DAILY PRN PRN Reason: Constipation Stop: 06/04/18 14:48 Dextrose (Dextrose 50%) 25 - 50 ml IV UD PRN; Protocol PRN Reason: Hypoglycemia Protocol Stop: 06/02/18 18:21 Digoxin (Lanoxin) 0.125 mg PO DAILY@1600 [facility] Stop: 06/14/18 15:59 Last Admin: 05/15/18 15:18 Dose: 0.125 mg Diphenhydramine HCl (Benadryl) 25 mg PO Q6H PRN PRN Reason: Allergic Rhinitis/Insomnia Stop: 06/04/18 14:48 Last Admin: 05/15/18 21:53 Dose: 25 mg Famotidine (Pepcid) 20 mg PO Q12H PRN PRN Reason: Dyspepsia Stop: 06/04/18 14:48 Glucagon (Glucagen) 1 mg SQ UD PRN; Protocol PRN Reason: Hypoglycemia Protocol Stop: 06/02/18 18:21 Glucose (Glucose 40%) 15 - 30 gm PO UD PRN; Protocol PRN Reason: Hypoglycemia Protocol Stop: 06/02/18 18:21 Glucose (Dex4 Glucose) 4 - 8 tabs PO UD PRN; Protocol PRN Reason: Hypoglycemia Protocol Stop: 06/02/18 18:21 Hydromorphone HCl (Dilaudid) 0.5 - 1 mg IV Q3H PRN PRN Reason: Pain Stop: 05/19/18 14:48 Last Admin: 05/11/18 22:19 Dose: 1 mg Hydroxyzine HCl (Vistaril) 25 mg PO Q8H PRN PRN Reason: Anxiety Stop: 06/04/18 14:48 Amiodarone HCl/Dextrose (Nexterone / D5w) 360 mg in 200 mls @ 16.667 mls/hr IV .Q12H [facility] Stop: 06/14/18 21:59 Last Infusion: 05/15/18 23:03 Dose: 0.5 mg/min, 16.7 mls/hr Insulin Aspart (Novolog Flexpen) 0 units SC [facility] Stop: 06/05/18 07:29 Last Admin: 05/15/18 20:58 Dose: 1 units Losartan Potassium (Cozaar) 50 mg PO HS [facility] Stop: 06/03/18 20:59 Last Admin: 05/15/18 20:13 Dose: 50 mg Magnesium Hydroxide (Milk Of Magnesia) 30 ml PO DAILY PRN PRN Reason: Constipation Stop: 06/04/18 14:48 Metoprolol Tartrate (Lopressor) 50 mg PO TID [facility] Stop: 06/12/18 20:59 Last Admin: 05/15/18 20:13 Dose: 50 mg Miscellaneous (Carbohydrates For Hypoglycemia) 15 - 30 gm PO UD PRN PRN Reason: Hypoglycemia Treatment Stop: 06/02/18 18:21 Miscellaneous (Pneumococcal Vacc, Do Not Administer) 1 ea N/A PRN PRN PRN Reason: Notification Stop: 06/04/18 14:48 Miscellaneous (Flu Vaccine, Do Not Administer) 1 ea N/A PRN PRN PRN Reason: Notification Stop: 06/04/18 14:48 Ondansetron HCl (Zofran) 4 mg IV Q6H PRN PRN Reason: Nausea &/or Vomiting Stop: 06/04/18 14:48 Last Admin: 05/15/18 21:53 Dose: 4 mg Ondansetron HCl (Zofran) 4 mg PO Q6H PRN PRN Reason: Nausea Stop: 06/04/18 14:48 Last Admin: 05/14/18 07:48 Dose: 4 mg Oxycodone HCl (Roxicodone Immediate Rel) 5 - 10 mg PO Q4H PRN PRN Reason: Moderate-Severe Pain Stop: 05/19/18 14:48 Last Admin: 05/14/18 05:09 Dose: 10 mg Pantoprazole Sodium (Protonix) 40 mg PO QAM [facility] Stop: 06/03/18 08:59 Last Admin: 05/15/18 07:10 Dose: 40 mg Polyethylene Glycol (Miralax Powder Packet) 17 gm PO DAILY PRN PRN Reason: Constipation Stop: 06/14/18 07:02 Last Admin: 05/15/18 15:15 Dose: 17 gm Promethazine HCl (Phenergan) 25 mg PO Q6H PRN PRN Reason: Nausea And Vomiting Stop: 06/10/18 13:13 Last Admin: 05/15/18 15:13 Dose: 25 mg Tramadol HCl (Ultram) 50 - 100 mg PO Q4H PRN PRN Reason: Moderate-Severe pain Stop: 06/04/18 14:48 Last Admin: 05/15/18 20:12 Dose: 100 mg
--- NOTE | 2018-05-15 19:10 | XRay Report ---
KUB HISTORY: Acute nausea with vomiting persistent nausea, occ vomiting, +hiccups COMPARISON: CT abdomen and pelvis 08/08/2017 FINDINGS: The bowel gas pattern is non-obstructive. There is no organomegaly. No renal calculi. No u reteral calculi. No pneumoperitoneum or pneumatosis. No fracture. Posterior stephani and screw fusion at L 3-S1. Renal shadows are partially obscured by bowel gas. 2.3 cm calcification about the inferior pole right kidney redemonstrated. Previous noted nephrolithiasis better seen on comparison CT. No uretera l calculi identified. Pelvic basin calcifications suggest phleboliths. Calcifications of the prostate are also noted. IMPRESSION: 1. Nonobstructive bowel gas pattern. 2. Large parenchymal calcification of the inferior pole right kidney redemonstrated. 3. Pelvic basin calcifications suggest probable phleboliths. Electronically signed by: Ray Richards M.D. 05/15/2018 7:08 PM
[2018-05-15] MEDS: LOSARTAN POTASSIUM 50 MG TAB PO SCH (20:13)
[2018-05-15] MEDS: AMIODARONE / D5W 360 MG/200 ML BAG IV SCH (21:47)
[2018-05-16] MEDS: ACETAMINOPHEN 500 MG TAB PO SCH ×2 (06:35→15:44)
[2018-05-16] MEDS: PROMETHAZINE HCL 25 MG TAB PO PRN (07:34)
[2018-05-16] MEDS: TRAMADOL HCL 50 MG TABLET PO PRN (07:34)
[2018-05-16] MEDS: INSULIN ASPART 100 UNITS/ML 3 ML PEN SC SCH ×4 (07:35→21:02)
--- NOTE | 2018-05-16 07:35 | Orthopedic Progress Note ---
Date of Service May 16, 2018 Assessment & Plan (1) Neurogenic claudication due to lumbar spinal stenosis: We will continue to move very slowly with his activity. Will continue same restrictions of 2-3 hours sitting in a chair. We will continue to follow along with cardiology and medicine service. Supervising Physician Co-Signing Physician Notes Dr. Ankur Douglas Subjective Patient is status post durotomy repair on 05/[address] Douglas. He overall is very weak. Physical therapy is working with him daily. He states his hiccups resolved for a short period of time yesterday but now they have returned this morning. This is associated with some nausea. He reports a bowel movement yesterday. KUB was negative for obstruction/ileus ordered/performed yesterday. He has complaints of back pain as well. He is tolerating sitting in a chair for a few hours but does report headache at this time. It is not severe. Cardiology is continuing to follow for his A. fib. This is currently being managed with medication control. Physical Exam 2 Vital Signs (Past 24 Hours): Last Vital Signs Temp 36.4 C L 05/16/18 02:47 Pulse 94 H 05/16/18 02:47 Resp 18 05/16/18 02:47 BP 122/61 05/16/18 02:47 Pulse Ox 95 05/16/18 02:47 Physical Exam: He is sitting in bed with head elevated. He is appears in no obvious distress. Has hiccups. Abdomen is soft. He is able to roll over in bed for me to examine his lumbar spine. Incision is healing nicely. No drainage. No fluid waves or shift. Very minimal edema. No erythema. Lower extremities are neurovascular intact bilaterally. Strength is intact bilaterally. Calves are soft nontender bilaterally. Negative logrolling bilaterally.
[2018-05-16 09:29] LABS: Hematocrit (blood only) 37.7 % (42-52); Hemoglobin 12.4 g/dL (14.0-18.0); Mean Corpuscular Hgb Conc 32.9 g/dL (32-36); Mean Corpuscular Volume 92.4 fL (80-100); Mean Platelet Volume 9.6 fL (7.4-10.4); Platelet Count 383 K/uL (130-400); RDW Coefficient of Variation 14.2 % (11.5-14.5); RDW Standard Deviation 47.3 fL (36.4-46.3); Red Blood Count 4.08 M/uL (4.7-6.1); White Blood Count 9.61 K/uL (4.8-10.8)
[2018-05-16] MEDS: METOPROLOL TARTRATE 50 MG TAB PO SCH ×2 (09:42→15:44)
[2018-05-16] MEDS: PANTOprazole 40 MG TAB PO SCH (09:42)
[2018-05-16] MEDS: ASPIRIN 81 MG ECTAB PO SCH (09:42)
[2018-05-16 09:47] LABS: BUN Creatinine Ratio 15.9 (10-20); Creatinine Clr Calc Pharmacy 72.1 ml/min; Est GFR (African American) 88.5; Est GFR (Non-African American) 76.4; Potassium 3.2 mmol/L (3.5-5.1)
[2018-05-16] MEDS: AMIODARONE / D5W 360 MG/200 ML BAG IV SCH ×2 (09:55→20:31)
[2018-05-16] MEDS ORDERED: Heparin IV Standard *NO* Bolus ONE (11:28)
[2018-05-16 11:59] LABS: INR 1.3 (0.9-1.1); Partial Thromboplastin Time 25.8 Seconds (21.0-31.0); Prothrombin Time 13.1 Seconds (9.0-12.0)
[2018-05-16] MEDS: HEPARIN STANDARD DEXTROSE 25,000 UNITS/500 ML IV SCH (12:22)
[2018-05-16] MEDS: ONDANSETRON INJ 2 MG/ML 2 ML VIAL IV PRN (15:45)
[2018-05-16] MEDS: HYDROmorphone INJ 0.5 MG/0.5 ML SYR IV PRN (15:45)
--- NOTE | 2018-05-16 16:56 | Cardiology Progress Note ---
Date of Service May 16, 2018 Assessment & Plan (1) Atrial fibrillation with RVR: asymptomatic has remained in atrial flutter now, rates improved with amiodarone gtt but still in flutter heparin has been started after discussion with ortho my hope was that the patient would convert with amio bolus unload, unfortunately , so far unsuccessful we could consider cardioversion in the AM, however, given worsening abdominal issues will hold off given that he is now anticoagulated, rate controlled and asymptomatic cont metoprolol dig has been d/c'ed Subjective Pt seen and examined, very uncomfortable this afternoon. Hiccups are occurring more often and patient has significant discomfort and waves of nausea with each episode. Continues to deny cardiac complaint, specifically, denies cp, sob, palpitations, lightheadedness or dizziness. Tele reviewed: atrial flutter in . Review of Systems All systems reviewed & are unremarkable except as noted in HPI & below Physical Exam 2 Vital Signs (Past 24 Hours): Last Vital Signs Temp 36.6 C 05/16/18 15:04 Pulse 96 H 05/16/18 15:58 Resp 20 05/16/18 15:04 BP 124/69 05/16/18 15:04 Pulse Ox 93 05/16/18 15:04 Physical Exam: General: Awake, alert and oriented x 3. No acute distress. HEENT: Normocephalic, atraumatic. Pupils equal, round and reactive to light and accommodation. Extraocular muscles are intact. Anicteric sclera. Moist mucous membranes. Neck: No JVD. No bruit. Cardiovascular: Regular. Positive S-4. Normal S-1 and S-2. No S-3. No murmurs or rubs. Pulmonary: Clear to auscultation B/L. No rales, rhonchi or wheezing Abdomen: Bowel sounds x 4, soft. No rebound, guarding or tenderness. No organomegaly. Extremities: No clubbing, cyanosis or edema. +2 pedal pulses bilaterally. Skin: Warm and dry.
--- NOTE | 2018-05-16 17:02 | Hospitalist Progress Note ---
Date of Service May 16, 2018 Assessment & Plan (1) Postoperative ileus: Ileus persistent nausea, hiccups and intermittent abdominal pain and distention likely consistent with postoperative ileus. CT scan of the abdomen pelvis was performed this evening with evidence of this. Dr. Dima Hoffman he was consulted and recommended NG tube and Hart for decompression of the stomach and bladder, respectively. Continue antiemetics as needed. Continue pain medication as needed. N.p.o. for bowel rest. (2) Paroxysmal A-fib: In setting of ileus, continue amnio IV. We will switch Lopressor p.o. to 5 mg IV every 6. Continue heparin infusion. Cardiology is aware and is following patient. No elective cardioversion until patient is more stable. (3) H/O Spinal surgery: Recent lumbar spinal surgery last month with complication of durotomy postop course was complicated by CHF and A. fib with RVR. He returns with double vision with lateral gaze and vertigo as above--these continue to slowly improve. With a history of macroadenoma of the pituitary, a repeat MRI of the sella would be ideal when he is able to lay for the MRI test. Stroke workup has been negative. Initial MRI of the lumbar spine revealed postop seroma 8cm x 9cm. This was drained on 05/05 and durotomy repaired with a patch. Continue activity progression per orthopedics. Cont scheduled Tylenol for back pain. (4) DM type 2 (diabetes mellitus, type 2): Controlled, continue NovoLog per sliding scale with carb coverage. Holding metformin. (5) HTN (hypertension): Holding Cozaar as patient n.p.o. Monitor for need for IV antihypertensives. (6) CAD (coronary artery disease): History of CABG in the past. Currently asymptomatic. Continue medical management With Lopressor. Aspirin and Cozaar held while patient n.p.o. (7) DVT prophylaxis: Heparin drip Full code Disposition-continue restricted activity with slow progression over the next few days per Orthopedics. Christin Luna DO [facility] Hospitalist Subjective 70-year-old male with complicated postop course. Suspect persistent, possibly progressive ileus. He is still nauseous and has been for several days. He has persistent hiccups and cannot get comfortable. He remains in atrial fib/ flutter and is on amiodarone drip with heparin. He has intermittently vomited but not persistently today. He is appetite is significantly decreased now for several days. CT scan was performed of the abdomen revealing evidence of possible ileus. Case was discussed with general surgery. NG tube and Hart placement was recommended and ordered. This was discussed with the patient again at bedside who is in agreement with this. Physical Exam 2 Vital Signs (Past 24 Hours): Last Vital Signs Temp 36.6 C 05/16/18 15:04 Pulse 96 H 05/16/18 15:58 Resp 20 05/16/18 15:04 BP 124/69 05/16/18 15:04 Pulse Ox 93 05/16/18 15:04 CONSTITUTIONAL: WNWD, vitals as above, generally deconditioned, no tremors, + persistent hiccups EYES: pupils are equal and round bilaterally, normal conjuctivae, no scleral icterus ENT: MMM RESPIRATORY: clear to auscultation bilaterally, no crackles, rales or wheezes, normal respiratory effort CARDIOVASCULAR: irregular rate and rhythm, S1 and 2 heard without murmurs, gallops or rubs GASTROINTESTINAL: soft, mildly distended, TTP located in suprapubic area ( yesterday TTP was noted on R side) BACK: surgical incision site is closed and non-draining covered with a clean, dry dressing. MUSCULOSKELETAL: strength 5/5 throughout, head is normocephalic and atraumatic SKIN: warm and dry NEUROLOGIC: No facial palsy, no dysarthria. CN 2-12 grossly intact, no sensory deficit, normal cognition, normal speech PSYCHIATRIC: alert cooperative and oriented to person, place and time. Fatigued but easily oriented. Results & Data Laboratory Results Short CBC 05/03/18 05/03/18 05/03/18 Range/Units 13:21 13:21 13:21 WBC (4.8-10.8) K/uL RBC 4.15 L (4.7-6.1) M/uL Hgb (14.0-18.0) g/dL Hct (42-52) % MCV 94.5 (80-100) fL MCH 31.3 (25-34) pg MCHC 33.2 (32-36) g/dL RDW Std Deviation 48.9 H (36.4-46.3) fL RDW Coeff of Julieth 14.3 (11.5-14.5) % Plt Count (130-400) K/uL MPV 9.7 (7.4-10.4) fL Immature Gran % (Auto) 0.2 % Neut % (Auto) 62.7 % Lymph % (Auto) 24.8 % [place] % (Auto) 9.5 % Eos % (Auto) 2.5 % Baso % (Auto) 0.3 % Immature Gran # (Auto) 0.01 (0.00-0.02) K/uL Neut # (Auto) 3.81 (1.4-6.5) K/uL Lymph # (Auto) 1.51 (1.2-3.4) K/uL [place] # (Auto) 0.58 (0.11-0.59) K/uL Eos # (Auto) 0.15 (0-0.5) K/uL Baso # (Auto) 0.02 (0-0.2) K/uL ESR (0-14) mm/hr PT 11.0 (9.0-12.0) Seconds POC INR (0.9-1.1) INR 1.1 (0.9-1.1) APTT 24.4 (21.0-31.0) Seconds PTT Ratio 0.9 Sodium 136 (136-145) mmol/L Potassium 4.3 (3.5-5.1) mmol/L Chloride 100 (98-107) mmol/L Carbon Dioxide 27 (21-32) mmol/L Anion Gap 9.0 (3-11) BUN 15 (7-18) mg/dl Creatinine 0.66 (0.6-1.4) mg/dl Est Cr Clr Drug Dosing 103.1 ml/min Est GFR ( Amer) 107.3 Est GFR (Non-Af Amer) 92.6 BUN/Creatinine Ratio 22.7 H (10-20) Glucose 109 H (70-99) mg/dl POC Glucose (70-99) Osmolality (280-300) mOsm/kg Calcium 8.9 (8.5-10.1) mg/dl Phosphorus (2.5-4.9) mg/dl Magnesium 2.4 (1.8-2.4) mg/dl Total Bilirubin 0.3 (0.1-1) mg/dl Direct Bilirubin 0.1 (0-0.2) mg/dl AST 11 L (15-37) U/L ALT 25 (12-78) U/L Alkaline Phosphatase 72 (45-117) U/L Troponin I < 0.015 (0-0.045) ng/ml C-Reactive Protein (0-0.29) mg/dl Total Protein 6.8 (6.4-8.2) gm/dl Albumin 3.4 (3.4-5.0) gm/dl Triglycerides (0-150) mg/dl Cholesterol (0-200) mg/dl LDL Cholesterol, Calc mg/dl VLDL Cholesterol, Calc mg/dl HDL Cholesterol mg/dl Cholesterol/HDL Ratio TSH (0.300-4.500) uIu/ml Cortisol AM Sample (4.3-22.4) mcg/dl Urine Color Urine Appearance (Clear) Urine pH (4.5-7.5) Ur Specific [place] (1.000-1.030) Urine Protein (Negative) Urine Glucose (UA) (Negative) Urine Ketones (Negative) Urine Blood (Negative) Urine Nitrite (Negative) Urine Bilirubin (Negative) Urine Urobilinogen (Negative) Ur Leukocyte Esterase (Negative) Urine WBC (Auto) (0-5) /hpf Urine RBC (Auto) (0-4) /hpf U Hyaline Cast (Auto) (0-5) /lpf U Epithel Cells (Auto) (0-5) /lpf Urine Bacteria (Auto) (Negative) Acetylchol Rcpt Bind Ab nmol/L Blood Type Antibody Screen 05/03/18 05/03/18 05/03/18 Range/Units 13:21 13:26 13:26 WBC (4.8-10.8) K/uL RBC (4.7-6.1) M/uL Hgb (14.0-18.0) g/dL Hct (42-52) % MCV (80-100) fL MCH (25-34) pg MCHC (32-36) g/dL RDW Std Deviation (36.4-46.3) fL RDW Coeff of Julieth (11.5-14.5) % Plt Count (130-400) K/uL MPV (7.4-10.4) fL Immature Gran % (Auto) % Neut % (Auto) % Lymph % (Auto) % [place] % (Auto) % Eos % (Auto) % Baso % (Auto) % Immature Gran # (Auto) (0.00-0.02) K/uL Neut # (Auto) (1.4-6.5) K/uL Lymph # (Auto) (1.2-3.4) K/uL [place] # (Auto) (0.11-0.59) K/uL Eos # (Auto) (0-0.5) K/uL Baso # (Auto) (0-0.2) K/uL ESR (0-14) mm/hr PT (9.0-12.0) Seconds POC INR 1.0 (0.9-1.1) INR (0.9-1.1) APTT (21.0-31.0) Seconds PTT Ratio Sodium (136-145) mmol/L Potassium (3.5-5.1) mmol/L Chloride (98-107) mmol/L Carbon Dioxide (21-32) mmol/L Anion Gap (3-11) BUN (7-18) mg/dl Creatinine (0.6-1.4) mg/dl Est Cr Clr Drug Dosing ml/min Est GFR ( Amer) Est GFR (Non-Af Amer) BUN/Creatinine Ratio (10-20) Glucose (70-99) mg/dl POC Glucose 128 H (70-99) Osmolality (280-300) mOsm/kg Calcium (8.5-10.1) mg/dl Phosphorus (2.5-4.9) mg/dl Magnesium (1.8-2.4) mg/dl Total Bilirubin (0.1-1) mg/dl Direct Bilirubin (0-0.2) mg/dl AST (15-37) U/L ALT (12-78) U/L Alkaline Phosphatase (45-117) U/L Troponin I (0-0.045) ng/ml C-Reactive Protein (0-0.29) mg/dl Total Protein (6.4-8.2) gm/dl Albumin (3.4-5.0) gm/dl Triglycerides (0-150) mg/dl Cholesterol (0-200) mg/dl LDL Cholesterol, Calc mg/dl VLDL Cholesterol, Calc mg/dl HDL Cholesterol mg/dl Cholesterol/HDL Ratio TSH (0.300-4.500) uIu/ml Cortisol AM Sample (4.3-22.4) mcg/dl Urine Color Urine Appearance (Clear) Urine pH (4.5-7.5) Ur Specific [place] (1.000-1.030) Urine Protein (Negative) Urine Glucose (UA) (Negative) Urine Ketones (Negative) Urine Blood (Negative) Urine Nitrite (Negative) Urine Bilirubin (Negative) Urine Urobilinogen (Negative) Ur Leukocyte Esterase (Negative) Urine WBC (Auto) (0-5) /hpf Urine RBC (Auto) (0-4) /hpf U Hyaline Cast (Auto) (0-5) /lpf U Epithel Cells (Auto) (0-5) /lpf Urine Bacteria (Auto) (Negative) Acetylchol Rcpt Bind Ab nmol/L Blood Type A Positive Antibody Screen NEGATIVE 05/03/18 05/03/18 05/03/18 Range/Units 13:30 18:43 18:43 WBC (4.8-10.8) K/uL RBC 4.29 L (4.7-6.1) M/uL Hgb (14.0-18.0) g/dL Hct (42-52) % MCV 94.2 (80-100) fL MCH 30.8 (25-34) pg MCHC 32.7 (32-36) g/dL RDW Std Deviation 49.3 H (36.4-46.3) fL RDW Coeff of Julieth 14.4 (11.5-14.5) % Plt Count (130-400) K/uL MPV 9.9 (7.4-10.4) fL Immature Gran % (Auto) 0.0 % Neut % (Auto) 56.5 % Lymph % (Auto) 28.3 % [place] % (Auto) 11.4 % Eos % (Auto) 3.2 % Baso % (Auto) 0.6 % Immature Gran # (Auto) 0.00 (0.00-0.02) K/uL Neut # (Auto) 2.97 (1.4-6.5) K/uL Lymph # (Auto) 1.49 (1.2-3.4) K/uL [place] # (Auto) 0.60 H (0.11-0.59) K/uL Eos # (Auto) 0.17 (0-0.5) K/uL Baso # (Auto) 0.03 (0-0.2) K/uL ESR (0-14) mm/hr PT (9.0-12.0) Seconds POC INR (0.9-1.1) INR (0.9-1.1) APTT (21.0-31.0) Seconds PTT Ratio Sodium 135 L (136-145) mmol/L Potassium 4.2 (3.5-5.1) mmol/L Chloride 99 (98-107) mmol/L Carbon Dioxide 26 (21-32) mmol/L Anion Gap 10.0 (3-11) BUN 13 (7-18) mg/dl Creatinine 0.62 (0.6-1.4) mg/dl Est Cr Clr Drug Dosing 109.7 ml/min Est GFR ( Amer) 110.1 Est GFR (Non-Af Amer) 95.0 BUN/Creatinine Ratio 20.9 H (10-20) Glucose 108 H (70-99) mg/dl POC Glucose (70-99) Osmolality (280-300) mOsm/kg Calcium 9.2 (8.5-10.1) mg/dl Phosphorus (2.5-4.9) mg/dl Magnesium (1.8-2.4) mg/dl Total Bilirubin (0.1-1) mg/dl Direct Bilirubin (0-0.2) mg/dl AST (15-37) U/L ALT (12-78) U/L Alkaline Phosphatase (45-117) U/L Troponin I (0-0.045) ng/ml C-Reactive Protein (0-0.29) mg/dl Total Protein (6.4-8.2) gm/dl Albumin (3.4-5.0) gm/dl Triglycerides (0-150) mg/dl Cholesterol (0-200) mg/dl LDL Cholesterol, Calc mg/dl VLDL Cholesterol, Calc mg/dl HDL Cholesterol mg/dl Cholesterol/HDL Ratio TSH (0.300-4.500) uIu/ml Cortisol AM Sample (4.3-22.4) mcg/dl Urine Color Yellow Urine Appearance Clear (Clear) Urine pH 7.0 (4.5-7.5) Ur Specific [place] 1.017 (1.000-1.030) Urine Protein Negative (Negative) Urine Glucose (UA) Negative (Negative) Urine Ketones Negative (Negative) Urine Blood Negative (Negative) Urine Nitrite Negative (Negative) Urine Bilirubin Negative (Negative) Urine Urobilinogen Negative (Negative) Ur Leukocyte Esterase 1+ H (Negative) Urine WBC (Auto) 1-5 (0-5) /hpf Urine RBC (Auto) 0-4 (0-4) /hpf U Hyaline Cast (Auto) 0 (0-5) /lpf U Epithel Cells (Auto) 10-20 H (0-5) /lpf Urine Bacteria (Auto) Negative (Negative) Acetylchol Rcpt Bind Ab nmol/L Blood Type Antibody Screen 05/03/18 05/03/18 05/04/18 Range/Units 19:15 20:56 06:47 WBC (4.8-10.8) K/uL RBC 4.26 L (4.7-6.1) M/uL Hgb (14.0-18.0) g/dL Hct (42-52) % MCV 94.4 (80-100) fL MCH 30.8 (25-34) pg MCHC 32.6 (32-36) g/dL RDW Std Deviation 48.8 H (36.4-46.3) fL RDW Coeff of Julieth 14.3 (11.5-14.5) % Plt Count (130-400) K/uL MPV 9.8 (7.4-10.4) fL Immature Gran % (Auto) 0.2 % Neut % (Auto) 55.7 % Lymph % (Auto) 29.0 % [place] % (Auto) 10.8 % Eos % (Auto) 3.6 % Baso % (Auto) 0.7 % Immature Gran # (Auto) 0.01 (0.00-0.02) K/uL Neut # (Auto) 3.10 (1.4-6.5) K/uL Lymph # (Auto) 1.61 (1.2-3.4) K/uL [place] # (Auto) 0.60 H (0.11-0.59) K/uL Eos # (Auto) 0.20 (0-0.5) K/uL Baso # (Auto) 0.04 (0-0.2) K/uL ESR (0-14) mm/hr PT (9.0-12.0) Seconds POC INR (0.9-1.1) INR (0.9-1.1) APTT (21.0-31.0) Seconds PTT Ratio Sodium (136-145) mmol/L Potassium (3.5-5.1) mmol/L Chloride (98-107) mmol/L Carbon Dioxide (21-32) mmol/L Anion Gap (3-11) BUN (7-18) mg/dl Creatinine (0.6-1.4) mg/dl Est Cr Clr Drug Dosing ml/min Est GFR ( Amer) Est GFR (Non-Af Amer) BUN/Creatinine Ratio (10-20) Glucose (70-99) mg/dl POC Glucose 99 93 (70-99) Osmolality (280-300) mOsm/kg Calcium (8.5-10.1) mg/dl Phosphorus (2.5-4.9) mg/dl Magnesium (1.8-2.4) mg/dl Total Bilirubin (0.1-1) mg/dl Direct Bilirubin (0-0.2) mg/dl AST (15-37) U/L ALT (12-78) U/L Alkaline Phosphatase (45-117) U/L Troponin I (0-0.045) ng/ml C-Reactive Protein (0-0.29) mg/dl Total Protein (6.4-8.2) gm/dl Albumin (3.4-5.0) gm/dl Triglycerides (0-150) mg/dl Cholesterol (0-200) mg/dl LDL Cholesterol, Calc mg/dl VLDL Cholesterol, Calc mg/dl HDL Cholesterol mg/dl Cholesterol/HDL Ratio TSH (0.300-4.500) uIu/ml Cortisol AM Sample (4.3-22.4) mcg/dl Urine Color Urine Appearance (Clear) Urine pH (4.5-7.5) Ur Specific [place] (1.000-1.030) Urine Protein (Negative) Urine Glucose (UA) (Negative) Urine Ketones (Negative) Urine Blood (Negative) Urine Nitrite (Negative) Urine Bilirubin (Negative) Urine Urobilinogen (Negative) Ur Leukocyte Esterase (Negative) Urine WBC (Auto) (0-5) /hpf Urine RBC (Auto) (0-4) /hpf U Hyaline Cast (Auto) (0-5) /lpf U Epithel Cells (Auto) (0-5) /lpf Urine Bacteria (Auto) (Negative) Acetylchol Rcpt Bind Ab nmol/L Blood Type Antibody Screen 05/04/18 05/04/18 05/04/18 Range/Units 06:47 07:39 11:40 WBC (4.8-10.8) K/uL RBC (4.7-6.1) M/uL Hgb (14.0-18.0) g/dL Hct (42-52) % MCV (80-100) fL MCH (25-34) pg MCHC (32-36) g/dL RDW Std Deviation (36.4-46.3) fL RDW Coeff of Julieth (11.5-14.5) % Plt Count (130-400) K/uL MPV (7.4-10.4) fL Immature Gran % (Auto) % Neut % (Auto) % Lymph % (Auto) % [place] % (Auto) % Eos % (Auto) % Baso % (Auto) % Immature Gran # (Auto) (0.00-0.02) K/uL Neut # (Auto) (1.4-6.5) K/uL Lymph # (Auto) (1.2-3.4) K/uL [place] # (Auto) (0.11-0.59) K/uL Eos # (Auto) (0-0.5) K/uL Baso # (Auto) (0-0.2) K/uL ESR (0-14) mm/hr PT (9.0-12.0) Seconds POC INR (0.9-1.1) INR (0.9-1.1) APTT (21.0-31.0) Seconds PTT Ratio Sodium 136 (136-145) mmol/L Potassium 3.8 (3.5-5.1) mmol/L Chloride 101 (98-107) mmol/L Carbon Dioxide 27 (21-32) mmol/L Anion Gap 8.0 (3-11) BUN 14 (7-18) mg/dl Creatinine 0.57 L (0.6-1.4) mg/dl Est Cr Clr Drug Dosing 110.3 ml/min Est GFR ( Amer) 114.0 Est GFR (Non-Af Amer) 98.4 BUN/Creatinine Ratio 25.1 H (10-20) Glucose 96 (70-99) mg/dl POC Glucose 93 106 H (70-99) Osmolality (280-300) mOsm/kg Calcium 8.8 (8.5-10.1) mg/dl Phosphorus (2.5-4.9) mg/dl Magnesium (1.8-2.4) mg/dl Total Bilirubin (0.1-1) mg/dl Direct Bilirubin (0-0.2) mg/dl AST (15-37) U/L ALT (12-78) U/L Alkaline Phosphatase (45-117) U/L Troponin I (0-0.045) ng/ml C-Reactive Protein (0-0.29) mg/dl Total Protein (6.4-8.2) gm/dl Albumin (3.4-5.0) gm/dl Triglycerides 128 (0-150) mg/dl Cholesterol 130 (0-200) mg/dl LDL Cholesterol, Calc 71 mg/dl VLDL Cholesterol, Calc 26 mg/dl HDL Cholesterol 33 mg/dl Cholesterol/HDL Ratio 4 TSH (0.300-4.500) uIu/ml Cortisol AM Sample (4.3-22.4) mcg/dl Urine Color Urine Appearance (Clear) Urine pH (4.5-7.5) Ur Specific [place] (1.000-1.030) Urine Protein (Negative) Urine Glucose (UA) (Negative) Urine Ketones (Negative) Urine Blood (Negative) Urine Nitrite (Negative) Urine Bilirubin (Negative) Urine Urobilinogen (Negative) Ur Leukocyte Esterase (Negative) Urine WBC (Auto) (0-5) /hpf Urine RBC (Auto) (0-4) /hpf U Hyaline Cast (Auto) (0-5) /lpf U Epithel Cells (Auto) (0-5) /lpf Urine Bacteria (Auto) (Negative) Acetylchol Rcpt Bind Ab nmol/L Blood Type Antibody Screen 05/04/18 05/04/18 05/05/18 Range/Units 16:47 20:48 06:04 WBC (4.8-10.8) K/uL RBC (4.7-6.1) M/uL Hgb (14.0-18.0) g/dL Hct (42-52) % MCV (80-100) fL MCH (25-34) pg MCHC (32-36) g/dL RDW Std Deviation (36.4-46.3) fL RDW Coeff of Julieth (11.5-14.5) % Plt Count (130-400) K/uL MPV (7.4-10.4) fL Immature Gran % (Auto) % Neut % (Auto) % Lymph % (Auto) % [place] % (Auto) % Eos % (Auto) % Baso % (Auto) % Immature Gran # (Auto) (0.00-0.02) K/uL Neut # (Auto) (1.4-6.5) K/uL Lymph # (Auto) (1.2-3.4) K/uL [place] # (Auto) (0.11-0.59) K/uL Eos # (Auto) (0-0.5) K/uL Baso # (Auto) (0-0.2) K/uL ESR (0-14) mm/hr PT (9.0-12.0) Seconds POC INR (0.9-1.1) INR (0.9-1.1) APTT (21.0-31.0) Seconds PTT Ratio Sodium (136-145) mmol/L Potassium (3.5-5.1) mmol/L Chloride (98-107) mmol/L Carbon Dioxide (21-32) mmol/L Anion Gap (3-11) BUN (7-18) mg/dl Creatinine (0.6-1.4) mg/dl Est Cr Clr Drug Dosing ml/min Est GFR ( Amer) Est GFR (Non-Af Amer) BUN/Creatinine Ratio (10-20) Glucose (70-99) mg/dl POC Glucose 109 H 117 H 103 H (70-99) Osmolality (280-300) mOsm/kg Calcium (8.5-10.1) mg/dl Phosphorus (2.5-4.9) mg/dl Magnesium (1.8-2.4) mg/dl Total Bilirubin (0.1-1) mg/dl Direct Bilirubin (0-0.2) mg/dl AST (15-37) U/L ALT (12-78) U/L Alkaline Phosphatase (45-117) U/L Troponin I (0-0.045) ng/ml C-Reactive Protein (0-0.29) mg/dl Total Protein (6.4-8.2) gm/dl Albumin (3.4-5.0) gm/dl Triglycerides (0-150) mg/dl Cholesterol (0-200) mg/dl LDL Cholesterol, Calc mg/dl VLDL Cholesterol, Calc mg/dl HDL Cholesterol mg/dl Cholesterol/HDL Ratio TSH (0.300-4.500) uIu/ml Cortisol AM Sample (4.3-22.4) mcg/dl Urine Color Urine Appearance (Clear) Urine pH (4.5-7.5) Ur Specific [place] (1.000-1.030) Urine Protein (Negative) Urine Glucose (UA) (Negative) Urine Ketones (Negative) Urine Blood (Negative) Urine Nitrite (Negative) Urine Bilirubin (Negative) Urine Urobilinogen (Negative) Ur Leukocyte Esterase (Negative) Urine WBC (Auto) (0-5) /hpf Urine RBC (Auto) (0-4) /hpf U Hyaline Cast (Auto) (0-5) /lpf U Epithel Cells (Auto) (0-5) /lpf Urine Bacteria (Auto) (Negative) Acetylchol Rcpt Bind Ab nmol/L Blood Type Antibody Screen 05/05/18 05/05/18 05/05/18 Range/Units 06:21 06:21 10:24 WBC (4.8-10.8) K/uL RBC (4.7-6.1) M/uL Hgb (14.0-18.0) g/dL Hct (42-52) % MCV (80-100) fL MCH (25-34) pg MCHC (32-36) g/dL RDW Std Deviation (36.4-46.3) fL RDW Coeff of Julieth (11.5-14.5) % Plt Count (130-400) K/uL MPV (7.4-10.4) fL Immature Gran % (Auto) % Neut % (Auto) % Lymph % (Auto) % [place] % (Auto) % Eos % (Auto) % Baso % (Auto) % Immature Gran # (Auto) (0.00-0.02) K/uL Neut # (Auto) (1.4-6.5) K/uL Lymph # (Auto) (1.2-3.4) K/uL [place] # (Auto) (0.11-0.59) K/uL Eos # (Auto) (0-0.5) K/uL Baso # (Auto) (0-0.2) K/uL ESR 3 (0-14) mm/hr PT (9.0-12.0) Seconds POC INR (0.9-1.1) INR (0.9-1.1) APTT (21.0-31.0) Seconds PTT Ratio Sodium (136-145) mmol/L Potassium (3.5-5.1) mmol/L Chloride (98-107) mmol/L Carbon Dioxide (21-32) mmol/L Anion Gap (3-11) BUN (7-18) mg/dl Creatinine (0.6-1.4) mg/dl Est Cr Clr Drug Dosing ml/min Est GFR ( Amer) Est GFR (Non-Af Amer) BUN/Creatinine Ratio (10-20) Glucose (70-99) mg/dl POC Glucose 117 H (70-99) Osmolality (280-300) mOsm/kg Calcium (8.5-10.1) mg/dl Phosphorus (2.5-4.9) mg/dl Magnesium (1.8-2.4) mg/dl Total Bilirubin (0.1-1) mg/dl Direct Bilirubin (0-0.2) mg/dl AST (15-37) U/L ALT (12-78) U/L Alkaline Phosphatase (45-117) U/L Troponin I (0-0.045) ng/ml C-Reactive Protein < 0.29 (0-0.29) mg/dl Total Protein (6.4-8.2) gm/dl Albumin (3.4-5.0) gm/dl Triglycerides (0-150) mg/dl Cholesterol (0-200) mg/dl LDL Cholesterol, Calc mg/dl VLDL Cholesterol, Calc mg/dl HDL Cholesterol mg/dl Cholesterol/HDL Ratio TSH (0.300-4.500) uIu/ml Cortisol AM Sample (4.3-22.4) mcg/dl Urine Color Urine Appearance (Clear) Urine pH (4.5-7.5) Ur Specific [place] (1.000-1.030) Urine Protein (Negative) Urine Glucose (UA) (Negative) Urine Ketones (Negative) Urine Blood (Negative) Urine Nitrite (Negative) Urine Bilirubin (Negative) Urine Urobilinogen (Negative) Ur Leukocyte Esterase (Negative) Urine WBC (Auto) (0-5) /hpf Urine RBC (Auto) (0-4) /hpf U Hyaline Cast (Auto) (0-5) /lpf U Epithel Cells (Auto) (0-5) /lpf Urine Bacteria (Auto) (Negative) Acetylchol Rcpt Bind Ab nmol/L Blood Type Antibody Screen 05/05/18 05/05/18 05/05/18 Range/Units 14:09 18:08 18:27 WBC (4.8-10.8) K/uL RBC (4.7-6.1) M/uL Hgb (14.0-18.0) g/dL Hct (42-52) % MCV (80-100) fL MCH (25-34) pg MCHC (32-36) g/dL RDW Std Deviation (36.4-46.3) fL RDW Coeff of Julieth (11.5-14.5) % Plt Count (130-400) K/uL MPV (7.4-10.4) fL Immature Gran % (Auto) % Neut % (Auto) % Lymph % (Auto) % [place] % (Auto) % Eos % (Auto) % Baso % (Auto) % Immature Gran # (Auto) (0.00-0.02) K/uL Neut # (Auto) (1.4-6.5) K/uL Lymph # (Auto) (1.2-3.4) K/uL [place] # (Auto) (0.11-0.59) K/uL Eos # (Auto) (0-0.5) K/uL Baso # (Auto) (0-0.2) K/uL ESR (0-14) mm/hr PT (9.0-12.0) Seconds POC INR (0.9-1.1) INR (0.9-1.1) APTT (21.0-31.0) Seconds PTT Ratio Sodium (136-145) mmol/L Potassium (3.5-5.1) mmol/L Chloride (98-107) mmol/L Carbon Dioxide (21-32) mmol/L Anion Gap (3-11) BUN (7-18) mg/dl Creatinine (0.6-1.4) mg/dl Est Cr Clr Drug Dosing ml/min Est GFR ( Amer) Est GFR (Non-Af Amer) BUN/Creatinine Ratio (10-20) Glucose (70-99) mg/dl POC Glucose 120 H 135 H (70-99) Osmolality (280-300) mOsm/kg Calcium (8.5-10.1) mg/dl Phosphorus (2.5-4.9) mg/dl Magnesium (1.8-2.4) mg/dl Total Bilirubin (0.1-1) mg/dl Direct Bilirubin (0-0.2) mg/dl AST (15-37) U/L ALT (12-78) U/L Alkaline Phosphatase (45-117) U/L Troponin I (0-0.045) ng/ml C-Reactive Protein (0-0.29) mg/dl Total Protein (6.4-8.2) gm/dl Albumin (3.4-5.0) gm/dl Triglycerides (0-150) mg/dl Cholesterol (0-200) mg/dl LDL Cholesterol, Calc mg/dl VLDL Cholesterol, Calc mg/dl HDL Cholesterol mg/dl Cholesterol/HDL Ratio TSH 0.620 (0.300-4.500) uIu/ml Cortisol AM Sample (4.3-22.4) mcg/dl Urine Color Urine Appearance (Clear) Urine pH (4.5-7.5) Ur Specific [place] (1.000-1.030) Urine Protein (Negative) Urine Glucose (UA) (Negative) Urine Ketones (Negative) Urine Blood (Negative) Urine Nitrite (Negative) Urine Bilirubin (Negative) Urine Urobilinogen (Negative) Ur Leukocyte Esterase (Negative) Urine WBC (Auto) (0-5) /hpf Urine RBC (Auto) (0-4) /hpf U Hyaline Cast (Auto) (0-5) /lpf U Epithel Cells (Auto) (0-5) /lpf Urine Bacteria (Auto) (Negative) Acetylchol Rcpt Bind Ab nmol/L Blood Type Antibody Screen 05/05/18 05/05/18 05/06/18 Range/Units 18:27 20:39 07:25 WBC (4.8-10.8) K/uL RBC (4.7-6.1) M/uL Hgb (14.0-18.0) g/dL Hct (42-52) % MCV (80-100) fL MCH (25-34) pg MCHC (32-36) g/dL RDW Std Deviation (36.4-46.3) fL RDW Coeff of Julieth (11.5-14.5) % Plt Count (130-400) K/uL MPV (7.4-10.4) fL Immature Gran % (Auto) % Neut % (Auto) % Lymph % (Auto) % [place] % (Auto) % Eos % (Auto) % Baso % (Auto) % Immature Gran # (Auto) (0.00-0.02) K/uL Neut # (Auto) (1.4-6.5) K/uL Lymph # (Auto) (1.2-3.4) K/uL [place] # (Auto) (0.11-0.59) K/uL Eos # (Auto) (0-0.5) K/uL Baso # (Auto) (0-0.2) K/uL ESR (0-14) mm/hr PT (9.0-12.0) Seconds POC INR (0.9-1.1) INR (0.9-1.1) APTT (21.0-31.0) Seconds PTT Ratio Sodium (136-145) mmol/L Potassium (3.5-5.1) mmol/L Chloride (98-107) mmol/L Carbon Dioxide (21-32) mmol/L Anion Gap (3-11) BUN (7-18) mg/dl Creatinine (0.6-1.4) mg/dl Est Cr Clr Drug Dosing ml/min Est GFR ( Amer) Est GFR (Non-Af Amer) BUN/Creatinine Ratio (10-20) Glucose (70-99) mg/dl POC Glucose 115 H (70-99) Osmolality (280-300) mOsm/kg Calcium (8.5-10.1) mg/dl Phosphorus (2.5-4.9) mg/dl Magnesium (1.8-2.4) mg/dl Total Bilirubin (0.1-1) mg/dl Direct Bilirubin (0-0.2) mg/dl AST (15-37) U/L ALT (12-78) U/L Alkaline Phosphatase (45-117) U/L Troponin I (0-0.045) ng/ml C-Reactive Protein (0-0.29) mg/dl Total Protein (6.4-8.2) gm/dl Albumin (3.4-5.0) gm/dl Triglycerides (0-150) mg/dl Cholesterol (0-200) mg/dl LDL Cholesterol, Calc mg/dl VLDL Cholesterol, Calc mg/dl HDL Cholesterol mg/dl Cholesterol/HDL Ratio TSH (0.300-4.500) uIu/ml Cortisol AM Sample 19.18 (4.3-22.4) mcg/dl Urine Color Urine Appearance (Clear) Urine pH (4.5-7.5) Ur Specific [place] (1.000-1.030) Urine Protein (Negative) Urine Glucose (UA) (Negative) Urine Ketones (Negative) Urine Blood (Negative) Urine Nitrite (Negative) Urine Bilirubin (Negative) Urine Urobilinogen (Negative) Ur Leukocyte Esterase (Negative) Urine WBC (Auto) (0-5) /hpf Urine RBC (Auto) (0-4) /hpf U Hyaline Cast (Auto) (0-5) /lpf U Epithel Cells (Auto) (0-5) /lpf Urine Bacteria (Auto) (Negative) Acetylchol Rcpt Bind Ab <0.30 nmol/L Blood Type Antibody Screen 05/06/18 05/06/18 05/06/18 Range/Units 07:25 07:25 08:03 WBC (4.8-10.8) K/uL RBC 3.64 L (4.7-6.1) M/uL Hgb (14.0-18.0) g/dL Hct (42-52) % MCV 94.2 (80-100) fL MCH 30.5 (25-34) pg MCHC 32.4 (32-36) g/dL RDW Std Deviation 47.9 H (36.4-46.3) fL RDW Coeff of Julieth 13.9 (11.5-14.5) % Plt Count (130-400) K/uL MPV 9.5 (7.4-10.4) fL Immature Gran % (Auto) 0.1 % Neut % (Auto) 67.0 % Lymph % (Auto) 21.0 % [place] % (Auto) 9.9 % Eos % (Auto) 1.8 % Baso % (Auto) 0.2 % Immature Gran # (Auto) 0.01 (0.00-0.02) K/uL Neut # (Auto) 5.56 (1.4-6.5) K/uL Lymph # (Auto) 1.74 (1.2-3.4) K/uL [place] # (Auto) 0.82 H (0.11-0.59) K/uL Eos # (Auto) 0.15 (0-0.5) K/uL Baso # (Auto) 0.02 (0-0.2) K/uL ESR (0-14) mm/hr PT (9.0-12.0) Seconds POC INR (0.9-1.1) INR (0.9-1.1) APTT (21.0-31.0) Seconds PTT Ratio Sodium 136 (136-145) mmol/L Potassium 3.9 (3.5-5.1) mmol/L Chloride 101 (98-107) mmol/L Carbon Dioxide 27 (21-32) mmol/L Anion Gap 8.0 (3-11) BUN 13 (7-18) mg/dl Creatinine 0.64 (0.6-1.4) mg/dl Est Cr Clr Drug Dosing 98.2 ml/min Est GFR ( Amer) 108.7 Est GFR (Non-Af Amer) 93.8 BUN/Creatinine Ratio 19.9 (10-20) Glucose 84 (70-99) mg/dl POC Glucose 80 (70-99) Osmolality (280-300) mOsm/kg Calcium 8.5 (8.5-10.1) mg/dl Phosphorus (2.5-4.9) mg/dl Magnesium (1.8-2.4) mg/dl Total Bilirubin (0.1-1) mg/dl Direct Bilirubin (0-0.2) mg/dl AST (15-37) U/L ALT (12-78) U/L Alkaline Phosphatase (45-117) U/L Troponin I (0-0.045) ng/ml C-Reactive Protein (0-0.29) mg/dl Total Protein (6.4-8.2) gm/dl Albumin (3.4-5.0) gm/dl Triglycerides (0-150) mg/dl Cholesterol (0-200) mg/dl LDL Cholesterol, Calc mg/dl VLDL Cholesterol, Calc mg/dl HDL Cholesterol mg/dl Cholesterol/HDL Ratio TSH (0.300-4.500) uIu/ml Cortisol AM Sample (4.3-22.4) mcg/dl Urine Color Urine Appearance (Clear) Urine pH (4.5-7.5) Ur Specific [place] (1.000-1.030) Urine Protein (Negative) Urine Glucose (UA) (Negative) Urine Ketones (Negative) Urine Blood (Negative) Urine Nitrite (Negative) Urine Bilirubin (Negative) Urine Urobilinogen (Negative) Ur Leukocyte Esterase (Negative) Urine WBC (Auto) (0-5) /hpf Urine RBC (Auto) (0-4) /hpf U Hyaline Cast (Auto) (0-5) /lpf U Epithel Cells (Auto) (0-5) /lpf Urine Bacteria (Auto) (Negative) Acetylchol Rcpt Bind Ab nmol/L Blood Type Antibody Screen 05/06/18 05/06/18 05/06/18 Range/Units 11:53 17:01 20:49 WBC (4.8-10.8) K/uL RBC (4.7-6.1) M/uL Hgb (14.0-18.0) g/dL Hct (42-52) % MCV (80-100) fL MCH (25-34) pg MCHC (32-36) g/dL RDW Std Deviation (36.4-46.3) fL RDW Coeff of Julieth (11.5-14.5) % Plt Count (130-400) K/uL MPV (7.4-10.4) fL Immature Gran % (Auto) % Neut % (Auto) % Lymph % (Auto) % [place] % (Auto) % Eos % (Auto) % Baso % (Auto) % Immature Gran # (Auto) (0.00-0.02) K/uL Neut # (Auto) (1.4-6.5) K/uL Lymph # (Auto) (1.2-3.4) K/uL [place] # (Auto) (0.11-0.59) K/uL Eos # (Auto) (0-0.5) K/uL Baso # (Auto) (0-0.2) K/uL ESR (0-14) mm/hr PT (9.0-12.0) Seconds POC INR (0.9-1.1) INR (0.9-1.1) APTT (21.0-31.0) Seconds PTT Ratio Sodium (136-145) mmol/L Potassium (3.5-5.1) mmol/L Chloride (98-107) mmol/L Carbon Dioxide (21-32) mmol/L Anion Gap (3-11) BUN (7-18) mg/dl Creatinine (0.6-1.4) mg/dl Est Cr Clr Drug Dosing ml/min Est GFR ( Amer) Est GFR (Non-Af Amer) BUN/Creatinine Ratio (10-20) Glucose (70-99) mg/dl POC Glucose 126 H 103 H 140 H (70-99) Osmolality (280-300) mOsm/kg Calcium (8.5-10.1) mg/dl Phosphorus (2.5-4.9) mg/dl Magnesium (1.8-2.4) mg/dl Total Bilirubin (0.1-1) mg/dl Direct Bilirubin (0-0.2) mg/dl AST (15-37) U/L ALT (12-78) U/L Alkaline Phosphatase (45-117) U/L Troponin I (0-0.045) ng/ml C-Reactive Protein (0-0.29) mg/dl Total Protein (6.4-8.2) gm/dl Albumin (3.4-5.0) gm/dl Triglycerides (0-150) mg/dl Cholesterol (0-200) mg/dl LDL Cholesterol, Calc mg/dl VLDL Cholesterol, Calc mg/dl HDL Cholesterol mg/dl Cholesterol/HDL Ratio TSH (0.300-4.500) uIu/ml Cortisol AM Sample (4.3-22.4) mcg/dl Urine Color Urine Appearance (Clear) Urine pH (4.5-7.5) Ur Specific [place] (1.000-1.030) Urine Protein (Negative) Urine Glucose (UA) (Negative) Urine Ketones (Negative) Urine Blood (Negative) Urine Nitrite (Negative) Urine Bilirubin (Negative) Urine Urobilinogen (Negative) Ur Leukocyte Esterase (Negative) Urine WBC (Auto) (0-5) /hpf Urine RBC (Auto) (0-4) /hpf U Hyaline Cast (Auto) (0-5) /lpf U Epithel Cells (Auto) (0-5) /lpf Urine Bacteria (Auto) (Negative) Acetylchol Rcpt Bind Ab nmol/L Blood Type Antibody Screen 05/07/18 05/07/18 05/07/18 Range/Units 08:06 12:09 17:05 WBC (4.8-10.8) K/uL RBC (4.7-6.1) M/uL Hgb (14.0-18.0) g/dL Hct (42-52) % MCV (80-100) fL MCH (25-34) pg MCHC (32-36) g/dL RDW Std Deviation (36.4-46.3) fL RDW Coeff of Julieth (11.5-14.5) % Plt Count (130-400) K/uL MPV (7.4-10.4) fL Immature Gran % (Auto) % Neut % (Auto) % Lymph % (Auto) % [place] % (Auto) % Eos % (Auto) % Baso % (Auto) % Immature Gran # (Auto) (0.00-0.02) K/uL Neut # (Auto) (1.4-6.5) K/uL Lymph # (Auto) (1.2-3.4) K/uL [place] # (Auto) (0.11-0.59) K/uL Eos # (Auto) (0-0.5) K/uL Baso # (Auto) (0-0.2) K/uL ESR (0-14) mm/hr PT (9.0-12.0) Seconds POC INR (0.9-1.1) INR (0.9-1.1) APTT (21.0-31.0) Seconds PTT Ratio Sodium (136-145) mmol/L Potassium (3.5-5.1) mmol/L Chloride (98-107) mmol/L Carbon Dioxide (21-32) mmol/L Anion Gap (3-11) BUN (7-18) mg/dl Creatinine (0.6-1.4) mg/dl Est Cr Clr Drug Dosing ml/min Est GFR ( Amer) Est GFR (Non-Af Amer) BUN/Creatinine Ratio (10-20) Glucose (70-99) mg/dl POC Glucose 100 H 138 H 110 H (70-99) Osmolality (280-300) mOsm/kg Calcium (8.5-10.1) mg/dl Phosphorus (2.5-4.9) mg/dl Magnesium (1.8-2.4) mg/dl Total Bilirubin (0.1-1) mg/dl Direct Bilirubin (0-0.2) mg/dl AST (15-37) U/L ALT (12-78) U/L Alkaline Phosphatase (45-117) U/L Troponin I (0-0.045) ng/ml C-Reactive Protein (0-0.29) mg/dl Total Protein (6.4-8.2) gm/dl Albumin (3.4-5.0) gm/dl Triglycerides (0-150) mg/dl Cholesterol (0-200) mg/dl LDL Cholesterol, Calc mg/dl VLDL Cholesterol, Calc mg/dl HDL Cholesterol mg/dl Cholesterol/HDL Ratio TSH (0.300-4.500) uIu/ml Cortisol AM Sample (4.3-22.4) mcg/dl Urine Color Urine Appearance (Clear) Urine pH (4.5-7.5) Ur Specific [place] (1.000-1.030) Urine Protein (Negative) Urine Glucose (UA) (Negative) Urine Ketones (Negative) Urine Blood (Negative) Urine Nitrite (Negative) Urine Bilirubin (Negative) Urine Urobilinogen (Negative) Ur Leukocyte Esterase (Negative) Urine WBC (Auto) (0-5) /hpf Urine RBC (Auto) (0-4) /hpf U Hyaline Cast (Auto) (0-5) /lpf U Epithel Cells (Auto) (0-5) /lpf Urine Bacteria (Auto) (Negative) Acetylchol Rcpt Bind Ab nmol/L Blood Type Antibody Screen 05/07/18 05/08/18 05/08/18 Range/Units 20:36 08:02 12:04 WBC (4.8-10.8) K/uL RBC (4.7-6.1) M/uL Hgb (14.0-18.0) g/dL Hct (42-52) % MCV (80-100) fL MCH (25-34) pg MCHC (32-36) g/dL RDW Std Deviation (36.4-46.3) fL RDW Coeff of Julieth (11.5-14.5) % Plt Count (130-400) K/uL MPV (7.4-10.4) fL Immature Gran % (Auto) % Neut % (Auto) % Lymph % (Auto) % [place] % (Auto) % Eos % (Auto) % Baso % (Auto) % Immature Gran # (Auto) (0.00-0.02) K/uL Neut # (Auto) (1.4-6.5) K/uL Lymph # (Auto) (1.2-3.4) K/uL [place] # (Auto) (0.11-0.59) K/uL Eos # (Auto) (0-0.5) K/uL Baso # (Auto) (0-0.2) K/uL ESR (0-14) mm/hr PT (9.0-12.0) Seconds POC INR (0.9-1.1) INR (0.9-1.1) APTT (21.0-31.0) Seconds PTT Ratio Sodium (136-145) mmol/L Potassium (3.5-5.1) mmol/L Chloride (98-107) mmol/L Carbon Dioxide (21-32) mmol/L Anion Gap (3-11) BUN (7-18) mg/dl Creatinine (0.6-1.4) mg/dl Est Cr Clr Drug Dosing ml/min Est GFR ( Amer) Est GFR (Non-Af Amer) BUN/Creatinine Ratio (10-20) Glucose (70-99) mg/dl POC Glucose 147 H 139 H 138 H (70-99) Osmolality (280-300) mOsm/kg Calcium (8.5-10.1) mg/dl Phosphorus (2.5-4.9) mg/dl Magnesium (1.8-2.4) mg/dl Total Bilirubin (0.1-1) mg/dl Direct Bilirubin (0-0.2) mg/dl AST (15-37) U/L ALT (12-78) U/L Alkaline Phosphatase (45-117) U/L Troponin I (0-0.045) ng/ml C-Reactive Protein (0-0.29) mg/dl Total Protein (6.4-8.2) gm/dl Albumin (3.4-5.0) gm/dl Triglycerides (0-150) mg/dl Cholesterol (0-200) mg/dl LDL Cholesterol, Calc mg/dl VLDL Cholesterol, Calc mg/dl HDL Cholesterol mg/dl Cholesterol/HDL Ratio TSH (0.300-4.500) uIu/ml Cortisol AM Sample (4.3-22.4) mcg/dl Urine Color Urine Appearance (Clear) Urine pH (4.5-7.5) Ur Specific [place] (1.000-1.030) Urine Protein (Negative) Urine Glucose (UA) (Negative) Urine Ketones (Negative) Urine Blood (Negative) Urine Nitrite (Negative) Urine Bilirubin (Negative) Urine Urobilinogen (Negative) Ur Leukocyte Esterase (Negative) Urine WBC (Auto) (0-5) /hpf Urine RBC (Auto) (0-4) /hpf U Hyaline Cast (Auto) (0-5) /lpf U Epithel Cells (Auto) (0-5) /lpf Urine Bacteria (Auto) (Negative) Acetylchol Rcpt Bind Ab nmol/L Blood Type Antibody Screen 05/08/18 05/08/18 05/09/18 Range/Units 17:07 20:47 08:03 WBC (4.8-10.8) K/uL RBC (4.7-6.1) M/uL Hgb (14.0-18.0) g/dL Hct (42-52) % MCV (80-100) fL MCH (25-34) pg MCHC (32-36) g/dL RDW Std Deviation (36.4-46.3) fL RDW Coeff of Julieth (11.5-14.5) % Plt Count (130-400) K/uL MPV (7.4-10.4) fL Immature Gran % (Auto) % Neut % (Auto) % Lymph % (Auto) % [place] % (Auto) % Eos % (Auto) % Baso % (Auto) % Immature Gran # (Auto) (0.00-0.02) K/uL Neut # (Auto) (1.4-6.5) K/uL Lymph # (Auto) (1.2-3.4) K/uL [place] # (Auto) (0.11-0.59) K/uL Eos # (Auto) (0-0.5) K/uL Baso # (Auto) (0-0.2) K/uL ESR (0-14) mm/hr PT (9.0-12.0) Seconds POC INR (0.9-1.1) INR (0.9-1.1) APTT (21.0-31.0) Seconds PTT Ratio Sodium (136-145) mmol/L Potassium (3.5-5.1) mmol/L Chloride (98-107) mmol/L Carbon Dioxide (21-32) mmol/L Anion Gap (3-11) BUN (7-18) mg/dl Creatinine (0.6-1.4) mg/dl Est Cr Clr Drug Dosing ml/min Est GFR ( Amer) Est GFR (Non-Af Amer) BUN/Creatinine Ratio (10-20) Glucose (70-99) mg/dl POC Glucose 122 H 156 H 137 H (70-99) Osmolality (280-300) mOsm/kg Calcium (8.5-10.1) mg/dl Phosphorus (2.5-4.9) mg/dl Magnesium (1.8-2.4) mg/dl Total Bilirubin (0.1-1) mg/dl Direct Bilirubin (0-0.2) mg/dl AST (15-37) U/L ALT (12-78) U/L Alkaline Phosphatase (45-117) U/L Troponin I (0-0.045) ng/ml C-Reactive Protein (0-0.29) mg/dl Total Protein (6.4-8.2) gm/dl Albumin (3.4-5.0) gm/dl Triglycerides (0-150) mg/dl Cholesterol (0-200) mg/dl LDL Cholesterol, Calc mg/dl VLDL Cholesterol, Calc mg/dl HDL Cholesterol mg/dl Cholesterol/HDL Ratio TSH (0.300-4.500) uIu/ml Cortisol AM Sample (4.3-22.4) mcg/dl Urine Color Urine Appearance (Clear) Urine pH (4.5-7.5) Ur Specific [place] (1.000-1.030) Urine Protein (Negative) Urine Glucose (UA) (Negative) Urine Ketones (Negative) Urine Blood (Negative) Urine Nitrite (Negative) Urine Bilirubin (Negative) Urine Urobilinogen (Negative) Ur Leukocyte Esterase (Negative) Urine WBC (Auto) (0-5) /hpf Urine RBC (Auto) (0-4) /hpf U Hyaline Cast (Auto) (0-5) /lpf U Epithel Cells (Auto) (0-5) /lpf Urine Bacteria (Auto) (Negative) Acetylchol Rcpt Bind Ab nmol/L Blood Type Antibody Screen 05/09/18 05/09/18 05/09/18 Range/Units 12:15 17:24 20:25 WBC (4.8-10.8) K/uL RBC (4.7-6.1) M/uL Hgb (14.0-18.0) g/dL Hct (42-52) % MCV (80-100) fL MCH (25-34) pg MCHC (32-36) g/dL RDW Std Deviation (36.4-46.3) fL RDW Coeff of Julieth (11.5-14.5) % Plt Count (130-400) K/uL MPV (7.4-10.4) fL Immature Gran % (Auto) % Neut % (Auto) % Lymph % (Auto) % [place] % (Auto) % Eos % (Auto) % Baso % (Auto) % Immature Gran # (Auto) (0.00-0.02) K/uL Neut # (Auto) (1.4-6.5) K/uL Lymph # (Auto) (1.2-3.4) K/uL [place] # (Auto) (0.11-0.59) K/uL Eos # (Auto) (0-0.5) K/uL Baso # (Auto) (0-0.2) K/uL ESR (0-14) mm/hr PT (9.0-12.0) Seconds POC INR (0.9-1.1) INR (0.9-1.1) APTT (21.0-31.0) Seconds PTT Ratio Sodium (136-145) mmol/L Potassium (3.5-5.1) mmol/L Chloride (98-107) mmol/L Carbon Dioxide (21-32) mmol/L Anion Gap (3-11) BUN (7-18) mg/dl Creatinine (0.6-1.4) mg/dl Est Cr Clr Drug Dosing ml/min Est GFR ( Amer) Est GFR (Non-Af Amer) BUN/Creatinine Ratio (10-20) Glucose (70-99) mg/dl POC Glucose 136 H 132 H 141 H (70-99) Osmolality (280-300) mOsm/kg Calcium (8.5-10.1) mg/dl Phosphorus (2.5-4.9) mg/dl Magnesium (1.8-2.4) mg/dl Total Bilirubin (0.1-1) mg/dl Direct Bilirubin (0-0.2) mg/dl AST (15-37) U/L ALT (12-78) U/L Alkaline Phosphatase (45-117) U/L Troponin I (0-0.045) ng/ml C-Reactive Protein (0-0.29) mg/dl Total Protein (6.4-8.2) gm/dl Albumin (3.4-5.0) gm/dl Triglycerides (0-150) mg/dl Cholesterol (0-200) mg/dl LDL Cholesterol, Calc mg/dl VLDL Cholesterol, Calc mg/dl HDL Cholesterol mg/dl Cholesterol/HDL Ratio TSH (0.300-4.500) uIu/ml Cortisol AM Sample (4.3-22.4) mcg/dl Urine Color Urine Appearance (Clear) Urine pH (4.5-7.5) Ur Specific [place] (1.000-1.030) Urine Protein (Negative) Urine Glucose (UA) (Negative) Urine Ketones (Negative) Urine Blood (Negative) Urine Nitrite (Negative) Urine Bilirubin (Negative) Urine Urobilinogen (Negative) Ur Leukocyte Esterase (Negative) Urine WBC (Auto) (0-5) /hpf Urine RBC (Auto) (0-4) /hpf U Hyaline Cast (Auto) (0-5) /lpf U Epithel Cells (Auto) (0-5) /lpf Urine Bacteria (Auto) (Negative) Acetylchol Rcpt Bind Ab nmol/L Blood Type Antibody Screen 05/10/18 05/10/18 05/10/18 Range/Units 05:54 05:54 07:24 WBC (4.8-10.8) K/uL RBC 3.70 L (4.7-6.1) M/uL Hgb (14.0-18.0) g/dL Hct (42-52) % MCV 94.1 (80-100) fL MCH 30.5 (25-34) pg MCHC 32.5 (32-36) g/dL RDW Std Deviation 47.5 H (36.4-46.3) fL RDW Coeff of Juli[place] 13.7 (11.5-14.5) % Plt Count (130-400) K/uL MPV 9.8 (7.4-10.4) fL Immature Gran % (Auto) % Neut % (Auto) % Lymph % (Auto) % [place] % (Auto) % Eos % (Auto) % Baso % (Auto) % Immature Gran # (Auto) (0.00-0.02) K/uL Neut # (Auto) (1.4-6.5) K/uL Lymph # (Auto) (1.2-3.4) K/uL [place] # (Auto) (0.11-0.59) K/uL Eos # (Auto) (0-0.5) K/uL Baso # (Auto) (0-0.2) K/uL ESR (0-14) mm/hr PT (9.0-12.0) Seconds POC INR (0.9-1.1) INR (0.9-1.1) APTT (21.0-31.0) Seconds PTT Ratio Sodium 131 L (136-145) mmol/L Potassium 4.1 (3.5-5.1) mmol/L Chloride 95 L (98-107) mmol/L Carbon Dioxide 31 (21-32) mmol/L Anion Gap 5.0 (3-11) BUN 12 (7-18) mg/dl Creatinine 0.68 (0.6-1.4) mg/dl Est Cr Clr Drug Dosing 92.4 ml/min Est GFR ( Amer) 106.0 Est GFR (Non-Af Amer) 91.5 BUN/Creatinine Ratio 18.0 (10-20) Glucose 137 H (70-99) mg/dl POC Glucose 159 H (70-99) Osmolality (280-300) mOsm/kg Calcium 8.6 (8.5-10.1) mg/dl Phosphorus (2.5-4.9) mg/dl Magnesium (1.8-2.4) mg/dl Total Bilirubin (0.1-1) mg/dl Direct Bilirubin (0-0.2) mg/dl AST (15-37) U/L ALT (12-78) U/L Alkaline Phosphatase (45-117) U/L Troponin I (0-0.045) ng/ml C-Reactive Protein (0-0.29) mg/dl Total Protein (6.4-8.2) gm/dl Albumin (3.4-5.0) gm/dl Triglycerides (0-150) mg/dl Cholesterol (0-200) mg/dl LDL Cholesterol, Calc mg/dl VLDL Cholesterol, Calc mg/dl HDL Cholesterol mg/dl Cholesterol/HDL Ratio TSH (0.300-4.500) uIu/ml Cortisol AM Sample (4.3-22.4) mcg/dl Urine Color Urine Appearance (Clear) Urine pH (4.5-7.5) Ur Specific [place] (1.000-1.030) Urine Protein (Negative) Urine Glucose (UA) (Negative) Urine Ketones (Negative) Urine Blood (Negative) Urine Nitrite (Negative) Urine Bilirubin (Negative) Urine Urobilinogen (Negative) Ur Leukocyte Esterase (Negative) Urine WBC (Auto) (0-5) /hpf Urine RBC (Auto) (0-4) /hpf U Hyaline Cast (Auto) (0-5) /lpf U Epithel Cells (Auto) (0-5) /lpf Urine Bacteria (Auto) (Negative) Acetylchol Rcpt Bind Ab nmol/L Blood Type Antibody Screen 05/10/18 05/10/18 05/10/18 Range/Units 08:09 11:58 17:02 WBC (4.8-10.8) K/uL RBC (4.7-6.1) M/uL Hgb (14.0-18.0) g/dL Hct (42-52) % MCV (80-100) fL MCH (25-34) pg MCHC (32-36) g/dL RDW Std Deviation (36.4-46.3) fL RDW Coeff of Julieth (11.5-14.5) % Plt Count (130-400) K/uL MPV (7.4-10.4) fL Immature Gran % (Auto) % Neut % (Auto) % Lymph % (Auto) % [place] % (Auto) % Eos % (Auto) % Baso % (Auto) % Immature Gran # (Auto) (0.00-0.02) K/uL Neut # (Auto) (1.4-6.5) K/uL Lymph # (Auto) (1.2-3.4) K/uL [place] # (Auto) (0.11-0.59) K/uL Eos # (Auto) (0-0.5) K/uL Baso # (Auto) (0-0.2) K/uL ESR (0-14) mm/hr PT (9.0-12.0) Seconds POC INR (0.9-1.1) INR (0.9-1.1) APTT (21.0-31.0) Seconds PTT Ratio Sodium (136-145) mmol/L Potassium (3.5-5.1) mmol/L Chloride (98-107) mmol/L Carbon Dioxide (21-32) mmol/L Anion Gap (3-11) BUN (7-18) mg/dl Creatinine (0.6-1.4) mg/dl Est Cr Clr Drug Dosing ml/min Est GFR ( Amer) Est GFR (Non-Af Amer) BUN/Creatinine Ratio (10-20) Glucose (70-99) mg/dl POC Glucose 139 H 139 H 143 H (70-99) Osmolality (280-300) mOsm/kg Calcium (8.5-10.1) mg/dl Phosphorus (2.5-4.9) mg/dl Magnesium (1.8-2.4) mg/dl Total Bilirubin (0.1-1) mg/dl Direct Bilirubin (0-0.2) mg/dl AST (15-37) U/L ALT (12-78) U/L Alkaline Phosphatase (45-117) U/L Troponin I (0-0.045) ng/ml C-Reactive Protein (0-0.29) mg/dl Total Protein (6.4-8.2) gm/dl Albumin (3.4-5.0) gm/dl Triglycerides (0-150) mg/dl Cholesterol (0-200) mg/dl LDL Cholesterol, Calc mg/dl VLDL Cholesterol, Calc mg/dl HDL Cholesterol mg/dl Cholesterol/HDL Ratio TSH (0.300-4.500) uIu/ml Cortisol AM Sample (4.3-22.4) mcg/dl Urine Color Urine Appearance (Clear) Urine pH (4.5-7.5) Ur Specific [place] (1.000-1.030) Urine Protein (Negative) Urine Glucose (UA) (Negative) Urine Ketones (Negative) Urine Blood (Negative) Urine Nitrite (Negative) Urine Bilirubin (Negative) Urine Urobilinogen (Negative) Ur Leukocyte Esterase (Negative) Urine WBC (Auto) (0-5) /hpf Urine RBC (Auto) (0-4) /hpf U Hyaline Cast (Auto) (0-5) /lpf U Epithel Cells (Auto) (0-5) /lpf Urine Bacteria (Auto) (Negative) Acetylchol Rcpt Bind Ab nmol/L Blood Type Antibody Screen 05/10/18 05/11/18 05/11/18 Range/Units 20:37 08:14 11:59 WBC (4.8-10.8) K/uL RBC (4.7-6.1) M/uL Hgb (14.0-18.0) g/dL Hct (42-52) % MCV (80-100) fL MCH (25-34) pg MCHC (32-36) g/dL RDW Std Deviation (36.4-46.3) fL RDW Coeff of Julieth (11.5-14.5) % Plt Count (130-400) K/uL MPV (7.4-10.4) fL Immature Gran % (Auto) % Neut % (Auto) % Lymph % (Auto) % [place] % (Auto) % Eos % (Auto) % Baso % (Auto) % Immature Gran # (Auto) (0.00-0.02) K/uL Neut # (Auto) (1.4-6.5) K/uL Lymph # (Auto) (1.2-3.4) K/uL [place] # (Auto) (0.11-0.59) K/uL Eos # (Auto) (0-0.5) K/uL Baso # (Auto) (0-0.2) K/uL ESR (0-14) mm/hr PT (9.0-12.0) Seconds POC INR (0.9-1.1) INR (0.9-1.1) APTT (21.0-31.0) Seconds PTT Ratio Sodium (136-145) mmol/L Potassium (3.5-5.1) mmol/L Chloride (98-107) mmol/L Carbon Dioxide (21-32) mmol/L Anion Gap (3-11) BUN (7-18) mg/dl Creatinine (0.6-1.4) mg/dl Est Cr Clr Drug Dosing ml/min Est GFR ( Amer) Est GFR (Non-Af Amer) BUN/Creatinine Ratio (10-20) Glucose (70-99) mg/dl POC Glucose 143 H 133 H 164 H (70-99) Osmolality (280-300) mOsm/kg Calcium (8.5-10.1) mg/dl Phosphorus (2.5-4.9) mg/dl Magnesium (1.8-2.4) mg/dl Total Bilirubin (0.1-1) mg/dl Direct Bilirubin (0-0.2) mg/dl AST (15-37) U/L ALT (12-78) U/L Alkaline Phosphatase (45-117) U/L Troponin I (0-0.045) ng/ml C-Reactive Protein (0-0.29) mg/dl Total Protein (6.4-8.2) gm/dl Albumin (3.4-5.0) gm/dl Triglycerides (0-150) mg/dl Cholesterol (0-200) mg/dl LDL Cholesterol, Calc mg/dl VLDL Cholesterol, Calc mg/dl HDL Cholesterol mg/dl Cholesterol/HDL Ratio TSH (0.300-4.500) uIu/ml Cortisol AM Sample (4.3-22.4) mcg/dl Urine Color Urine Appearance (Clear) Urine pH (4.5-7.5) Ur Specific [place] (1.000-1.030) Urine Protein (Negative) Urine Glucose (UA) (Negative) Urine Ketones (Negative) Urine Blood (Negative) Urine Nitrite (Negative) Urine Bilirubin (Negative) Urine Urobilinogen (Negative) Ur Leukocyte Esterase (Negative) Urine WBC (Auto) (0-5) /hpf Urine RBC (Auto) (0-4) /hpf U Hyaline Cast (Auto) (0-5) /lpf U Epithel Cells (Auto) (0-5) /lpf Urine Bacteria (Auto) (Negative) Acetylchol Rcpt Bind Ab nmol/L Blood Type Antibody Screen 05/11/18 05/11/18 05/12/18 Range/Units 17:08 20:56 05:13 WBC (4.8-10.8) K/uL RBC (4.7-6.1) M/uL Hgb (14.0-18.0) g/dL Hct (42-52) % MCV (80-100) fL MCH (25-34) pg MCHC (32-36) g/dL RDW Std Deviation (36.4-46.3) fL RDW Coeff of Julieth (11.5-14.5) % Plt Count (130-400) K/uL MPV (7.4-10.4) fL Immature Gran % (Auto) % Neut % (Auto) % Lymph % (Auto) % [place] % (Auto) % Eos % (Auto) % Baso % (Auto) % Immature Gran # (Auto) (0.00-0.02) K/uL Neut # (Auto) (1.4-6.5) K/uL Lymph # (Auto) (1.2-3.4) K/uL [place] # (Auto) (0.11-0.59) K/uL Eos # (Auto) (0-0.5) K/uL Baso # (Auto) (0-0.2) K/uL ESR (0-14) mm/hr PT (9.0-12.0) Seconds POC INR (0.9-1.1) INR (0.9-1.1) APTT (21.0-31.0) Seconds PTT Ratio Sodium (136-145) mmol/L Potassium (3.5-5.1) mmol/L Chloride (98-107) mmol/L Carbon Dioxide (21-32) mmol/L Anion Gap (3-11) BUN (7-18) mg/dl Creatinine (0.6-1.4) mg/dl Est Cr Clr Drug Dosing ml/min Est GFR ( Amer) Est GFR (Non-Af Amer) BUN/Creatinine Ratio (10-20) Glucose (70-99) mg/dl POC Glucose 118 H 114 H (70-99) Osmolality (280-300) mOsm/kg Calcium (8.5-10.1) mg/dl Phosphorus 3.5 (2.5-4.9) mg/dl Magnesium (1.8-2.4) mg/dl Total Bilirubin 0.6 (0.1-1) mg/dl Direct Bilirubin 0.2 (0-0.2) mg/dl AST 17 (15-37) U/L ALT 24 (12-78) U/L Alkaline Phosphatase 67 (45-117) U/L Troponin I (0-0.045) ng/ml C-Reactive Protein (0-0.29) mg/dl Total Protein 5.7 L (6.4-8.2) gm/dl Albumin 2.5 L (3.4-5.0) gm/dl Triglycerides (0-150) mg/dl Cholesterol (0-200) mg/dl LDL Cholesterol, Calc mg/dl VLDL Cholesterol, Calc mg/dl HDL Cholesterol mg/dl Cholesterol/HDL Ratio TSH (0.300-4.500) uIu/ml Cortisol AM Sample (4.3-22.4) mcg/dl Urine Color Urine Appearance (Clear) Urine pH (4.5-7.5) Ur Specific [place] (1.000-1.030) Urine Protein (Negative) Urine Glucose (UA) (Negative) Urine Ketones (Negative) Urine Blood (Negative) Urine Nitrite (Negative) Urine Bilirubin (Negative) Urine Urobilinogen (Negative) Ur Leukocyte Esterase (Negative) Urine WBC (Auto) (0-5) /hpf Urine RBC (Auto) (0-4) /hpf U Hyaline Cast (Auto) (0-5) /lpf U Epithel Cells (Auto) (0-5) /lpf Urine Bacteria (Auto) (Negative) Acetylchol Rcpt Bind Ab nmol/L Blood Type Antibody Screen 05/12/18 05/12/18 05/12/18 Range/Units 07:39 11:19 16:17 WBC (4.8-10.8) K/uL RBC (4.7-6.1) M/uL Hgb (14.0-18.0) g/dL Hct (42-52) % MCV (80-100) fL MCH (25-34) pg MCHC (32-36) g/dL RDW Std Deviation (36.4-46.3) fL RDW Coeff of Julieth (11.5-14.5) % Plt Count (130-400) K/uL MPV (7.4-10.4) fL Immature Gran % (Auto) % Neut % (Auto) % Lymph % (Auto) % [place] % (Auto) % Eos % (Auto) % Baso % (Auto) % Immature Gran # (Auto) (0.00-0.02) K/uL Neut # (Auto) (1.4-6.5) K/uL Lymph # (Auto) (1.2-3.4) K/uL [place] # (Auto) (0.11-0.59) K/uL Eos # (Auto) (0-0.5) K/uL Baso # (Auto) (0-0.2) K/uL ESR (0-14) mm/hr PT (9.0-12.0) Seconds POC INR (0.9-1.1) INR (0.9-1.1) APTT (21.0-31.0) Seconds PTT Ratio Sodium (136-145) mmol/L Potassium (3.5-5.1) mmol/L Chloride (98-107) mmol/L Carbon Dioxide (21-32) mmol/L Anion Gap (3-11) BUN (7-18) mg/dl Creatinine (0.6-1.4) mg/dl Est Cr Clr Drug Dosing ml/min Est GFR ( Amer) Est GFR (Non-Af Amer) BUN/Creatinine Ratio (10-20) Glucose (70-99) mg/dl POC Glucose 108 H 123 H 125 H (70-99) Osmolality (280-300) mOsm/kg Calcium (8.5-10.1) mg/dl Phosphorus (2.5-4.9) mg/dl Magnesium (1.8-2.4) mg/dl Total Bilirubin (0.1-1) mg/dl Direct Bilirubin (0-0.2) mg/dl AST (15-37) U/L ALT (12-78) U/L Alkaline Phosphatase (45-117) U/L Troponin I (0-0.045) ng/ml C-Reactive Protein (0-0.29) mg/dl Total Protein (6.4-8.2) gm/dl Albumin (3.4-5.0) gm/dl Triglycerides (0-150) mg/dl Cholesterol (0-200) mg/dl LDL Cholesterol, Calc mg/dl VLDL Cholesterol, Calc mg/dl HDL Cholesterol mg/dl Cholesterol/HDL Ratio TSH (0.300-4.500) uIu/ml Cortisol AM Sample (4.3-22.4) mcg/dl Urine Color Urine Appearance (Clear) Urine pH (4.5-7.5) Ur Specific [place] (1.000-1.030) Urine Protein (Negative) Urine Glucose (UA) (Negative) Urine Ketones (Negative) Urine Blood (Negative) Urine Nitrite (Negative) Urine Bilirubin (Negative) Urine Urobilinogen (Negative) Ur Leukocyte Esterase (Negative) Urine WBC (Auto) (0-5) /hpf Urine RBC (Auto) (0-4) /hpf U Hyaline Cast (Auto) (0-5) /lpf U Epithel Cells (Auto) (0-5) /lpf Urine Bacteria (Auto) (Negative) Acetylchol Rcpt Bind Ab nmol/L Blood Type Antibody Screen 05/12/18 05/13/18 05/13/18 Range/Units 20:27 04:42 04:46 WBC (4.8-10.8) K/uL RBC 3.88 L (4.7-6.1) M/uL Hgb (14.0-18.0) g/dL Hct (42-52) % MCV 92.3 (80-100) fL MCH 30.2 (25-34) pg MCHC 32.7 (32-36) g/dL RDW Std Deviation 45.6 (36.4-46.3) fL RDW Coeff of Julieth 13.6 (11.5-14.5) % Plt Count (130-400) K/uL MPV 9.9 (7.4-10.4) fL Immature Gran % (Auto) 0.3 % Neut % (Auto) 66.9 % Lymph % (Auto) 20.7 % [place] % (Auto) 10.6 % Eos % (Auto) 1.3 % Baso % (Auto) 0.2 % Immature Gran # (Auto) 0.03 H (0.00-0.02) K/uL Neut # (Auto) 6.18 (1.4-6.5) K/uL Lymph # (Auto) 1.91 (1.2-3.4) K/uL [place] # (Auto) 0.98 H (0.11-0.59) K/uL Eos # (Auto) 0.12 (0-0.5) K/uL Baso # (Auto) 0.02 (0-0.2) K/uL ESR (0-14) mm/hr PT (9.0-12.0) Seconds POC INR (0.9-1.1) INR (0.9-1.1) APTT (21.0-31.0) Seconds PTT Ratio Sodium (136-145) mmol/L Potassium (3.5-5.1) mmol/L Chloride (98-107) mmol/L Carbon Dioxide (21-32) mmol/L Anion Gap (3-11) BUN (7-18) mg/dl Creatinine (0.6-1.4) mg/dl Est Cr Clr Drug Dosing ml/min Est GFR ( Amer) Est GFR (Non-Af Amer) BUN/Creatinine Ratio (10-20) Glucose (70-99) mg/dl POC Glucose 112 H 103 H (70-99) Osmolality (280-300) mOsm/kg Calcium (8.5-10.1) mg/dl Phosphorus (2.5-4.9) mg/dl Magnesium (1.8-2.4) mg/dl Total Bilirubin (0.1-1) mg/dl Direct Bilirubin (0-0.2) mg/dl AST (15-37) U/L ALT (12-78) U/L Alkaline Phosphatase (45-117) U/L Troponin I (0-0.045) ng/ml C-Reactive Protein (0-0.29) mg/dl Total Protein (6.4-8.2) gm/dl Albumin (3.4-5.0) gm/dl Triglycerides (0-150) mg/dl Cholesterol (0-200) mg/dl LDL Cholesterol, Calc mg/dl VLDL Cholesterol, Calc mg/dl HDL Cholesterol mg/dl Cholesterol/HDL Ratio TSH (0.300-4.500) uIu/ml Cortisol AM Sample (4.3-22.4) mcg/dl Urine Color Urine Appearance (Clear) Urine pH (4.5-7.5) Ur Specific [place] (1.000-1.030) Urine Protein (Negative) Urine Glucose (UA) (Negative) Urine Ketones (Negative) Urine Blood (Negative) Urine Nitrite (Negative) Urine Bilirubin (Negative) Urine Urobilinogen (Negative) Ur Leukocyte Esterase (Negative) Urine WBC (Auto) (0-5) /hpf Urine RBC (Auto) (0-4) /hpf U Hyaline Cast (Auto) (0-5) /lpf U Epithel Cells (Auto) (0-5) /lpf Urine Bacteria (Auto) (Negative) Acetylchol Rcpt Bind Ab nmol/L Blood Type Antibody Screen 05/13/18 05/13/18 05/13/18 Range/Units 04:46 07:38 11:33 WBC (4.8-10.8) K/uL RBC (4.7-6.1) M/uL Hgb (14.0-18.0) g/dL Hct (42-52) % MCV (80-100) fL MCH (25-34) pg MCHC (32-36) g/dL RDW Std Deviation (36.4-46.3) fL RDW Coeff of Julieth (11.5-14.5) % Plt Count (130-400) K/uL MPV (7.4-10.4) fL Immature Gran % (Auto) % Neut % (Auto) % Lymph % (Auto) % [place] % (Auto) % Eos % (Auto) % Baso % (Auto) % Immature Gran # (Auto) (0.00-0.02) K/uL Neut # (Auto) (1.4-6.5) K/uL Lymph # (Auto) (1.2-3.4) K/uL [place] # (Auto) (0.11-0.59) K/uL Eos # (Auto) (0-0.5) K/uL Baso # (Auto) (0-0.2) K/uL ESR (0-14) mm/hr PT (9.0-12.0) Seconds POC INR (0.9-1.1) INR (0.9-1.1) APTT (21.0-31.0) Seconds PTT Ratio Sodium 129 L (136-145) mmol/L Potassium 4.2 (3.5-5.1) mmol/L Chloride 96 L (98-107) mmol/L Carbon Dioxide 27 (21-32) mmol/L Anion Gap 6.0 (3-11) BUN 19 H (7-18) mg/dl Creatinine 0.58 L (0.6-1.4) mg/dl Est Cr Clr Drug Dosing 108.4 ml/min Est GFR ( Amer) 113.2 Est GFR (Non-Af Amer) 97.7 BUN/Creatinine Ratio 32.4 H (10-20) Glucose 117 H (70-99) mg/dl POC Glucose 136 H 130 H (70-99) Osmolality (280-300) mOsm/kg Calcium 8.6 (8.5-10.1) mg/dl Phosphorus (2.5-4.9) mg/dl Magnesium 2.0 (1.8-2.4) mg/dl Total Bilirubin (0.1-1) mg/dl Direct Bilirubin (0-0.2) mg/dl AST (15-37) U/L ALT (12-78) U/L Alkaline Phosphatase (45-117) U/L Troponin I (0-0.045) ng/ml C-Reactive Protein (0-0.29) mg/dl Total Protein (6.4-8.2) gm/dl Albumin (3.4-5.0) gm/dl Triglycerides (0-150) mg/dl Cholesterol (0-200) mg/dl LDL Cholesterol, Calc mg/dl VLDL Cholesterol, Calc mg/dl HDL Cholesterol mg/dl Cholesterol/HDL Ratio TSH (0.300-4.500) uIu/ml Cortisol AM Sample (4.3-22.4) mcg/dl Urine Color Urine Appearance (Clear) Urine pH (4.5-7.5) Ur Specific [place] (1.000-1.030) Urine Protein (Negative) Urine Glucose (UA) (Negative) Urine Ketones (Negative) Urine Blood (Negative) Urine Nitrite (Negative) Urine Bilirubin (Negative) Urine Urobilinogen (Negative) Ur Leukocyte Esterase (Negative) Urine WBC (Auto) (0-5) /hpf Urine RBC (Auto) (0-4) /hpf U Hyaline Cast (Auto) (0-5) /lpf U Epithel Cells (Auto) (0-5) /lpf Urine Bacteria (Auto) (Negative) Acetylchol Rcpt Bind Ab nmol/L Blood Type Antibody Screen 01/05/19 01/05/19 01/06/19 Range/Units 16:17 20:24 05:56 WBC (4.8-10.8) K/uL RBC (4.7-6.1) M/uL Hgb (14.0-18.0) g/dL Hct (42-52) % MCV (80-100) fL MCH (25-34) pg MCHC (32-36) g/dL RDW Std Deviation (36.4-46.3) fL RDW Coeff of Julieth (11.5-14.5) % Plt Count (130-400) K/uL MPV (7.4-10.4) fL Immature Gran % (Auto) % Neut % (Auto) % Lymph % (Auto) % [place] % (Auto) % Eos % (Auto) % Baso % (Auto) % Immature Gran # (Auto) (0.00-0.02) K/uL Neut # (Auto) (1.4-6.5) K/uL Lymph # (Auto) (1.2-3.4) K/uL [place] # (Auto) (0.11-0.59) K/uL Eos # (Auto) (0-0.5) K/uL Baso # (Auto) (0-0.2) K/uL ESR (0-14) mm/hr PT (9.0-12.0) Seconds POC INR (0.9-1.1) INR (0.9-1.1) APTT (21.0-31.0) Seconds PTT Ratio Sodium (136-145) mmol/L Potassium (3.5-5.1) mmol/L Chloride (98-107) mmol/L Carbon Dioxide (21-32) mmol/L Anion Gap (3-11) BUN (7-18) mg/dl Creatinine (0.6-1.4) mg/dl Est Cr Clr Drug Dosing ml/min Est GFR ( Amer) Est GFR (Non-Af Amer) BUN/Creatinine Ratio (10-20) Glucose (70-99) mg/dl POC Glucose 114 H 105 H (70-99) Osmolality 269 L (280-300) mOsm/kg Calcium (8.5-10.1) mg/dl Phosphorus (2.5-4.9) mg/dl Magnesium (1.8-2.4) mg/dl Total Bilirubin (0.1-1) mg/dl Direct Bilirubin (0-0.2) mg/dl AST (15-37) U/L ALT (12-78) U/L Alkaline Phosphatase (45-117) U/L Troponin I (0-0.045) ng/ml C-Reactive Protein (0-0.29) mg/dl Total Protein (6.4-8.2) gm/dl Albumin (3.4-5.0) gm/dl Triglycerides (0-150) mg/dl Cholesterol (0-200) mg/dl LDL Cholesterol, Calc mg/dl VLDL Cholesterol, Calc mg/dl HDL Cholesterol mg/dl Cholesterol/HDL Ratio TSH (0.300-4.500) uIu/ml Cortisol AM Sample (4.3-22.4) mcg/dl Urine Color Urine Appearance (Clear) Urine pH (4.5-7.5) Ur Specific [place] (1.000-1.030) Urine Protein (Negative) Urine Glucose (UA) (Negative) Urine Ketones (Negative) Urine Blood (Negative) Urine Nitrite (Negative) Urine Bilirubin (Negative) Urine Urobilinogen (Negative) Ur Leukocyte Esterase (Negative) Urine WBC (Auto) (0-5) /hpf Urine RBC (Auto) (0-4) /hpf U Hyaline Cast (Auto) (0-5) /lpf U Epithel Cells (Auto) (0-5) /lpf Urine Bacteria (Auto) (Negative) Acetylchol Rcpt Bind Ab nmol/L Blood Type Antibody Screen 05/14/18 05/14/18 05/14/18 Range/Units 05:56 07:41 11:11 WBC (4.8-10.8) K/uL RBC (4.7-6.1) M/uL Hgb (14.0-18.0) g/dL Hct (42-52) % MCV (80-100) fL MCH (25-34) pg MCHC (32-36) g/dL RDW Std Deviation (36.4-46.3) fL RDW Coeff of Julieth (11.5-14.5) % Plt Count (130-400) K/uL MPV (7.4-10.4) fL Immature Gran % (Auto) % Neut % (Auto) % Lymph % (Auto) % [place] % (Auto) % Eos % (Auto) % Baso % (Auto) % Immature Gran # (Auto) (0.00-0.02) K/uL Neut # (Auto) (1.4-6.5) K/uL Lymph # (Auto) (1.2-3.4) K/uL [place] # (Auto) (0.11-0.59) K/uL Eos # (Auto) (0-0.5) K/uL Baso # (Auto) (0-0.2) K/uL ESR (0-14) mm/hr PT (9.0-12.0) Seconds POC INR (0.9-1.1) INR (0.9-1.1) APTT (21.0-31.0) Seconds PTT Ratio Sodium 130 L (136-145) mmol/L Potassium 3.7 (3.5-5.1) mmol/L Chloride 95 L (98-107) mmol/L Carbon Dioxide 26 (21-32) mmol/L Anion Gap 9.0 (3-11) BUN 21 H (7-18) mg/dl Creatinine 0.58 L (0.6-1.4) mg/dl Est Cr Clr Drug Dosing 117.3 ml/min Est GFR ( Amer) 113.2 Est GFR (Non-Af Amer) 97.7 BUN/Creatinine Ratio 36.8 H (10-20) Glucose 106 H (70-99) mg/dl POC Glucose 113 H 108 H (70-99) Osmolality (280-300) mOsm/kg Calcium 8.1 L (8.5-10.1) mg/dl Phosphorus (2.5-4.9) mg/dl Magnesium (1.8-2.4) mg/dl Total Bilirubin (0.1-1) mg/dl Direct Bilirubin (0-0.2) mg/dl AST (15-37) U/L ALT (12-78) U/L Alkaline Phosphatase (45-117) U/L Troponin I (0-0.045) ng/ml C-Reactive Protein (0-0.29) mg/dl Total Protein (6.4-8.2) gm/dl Albumin (3.4-5.0) gm/dl Triglycerides (0-150) mg/dl Cholesterol (0-200) mg/dl LDL Cholesterol, Calc mg/dl VLDL Cholesterol, Calc mg/dl HDL Cholesterol mg/dl Cholesterol/HDL Ratio TSH (0.300-4.500) uIu/ml Cortisol AM Sample (4.3-22.4) mcg/dl Urine Color Urine Appearance (Clear) Urine pH (4.5-7.5) Ur Specific [place] (1.000-1.030) Urine Protein (Negative) Urine Glucose (UA) (Negative) Urine Ketones (Negative) Urine Blood (Negative) Urine Nitrite (Negative) Urine Bilirubin (Negative) Urine Urobilinogen (Negative) Ur Leukocyte Esterase (Negative) Urine WBC (Auto) (0-5) /hpf Urine RBC (Auto) (0-4) /hpf U Hyaline Cast (Auto) (0-5) /lpf U Epithel Cells (Auto) (0-5) /lpf Urine Bacteria (Auto) (Negative) Acetylchol Rcpt Bind Ab nmol/L Blood Type Antibody Screen 05/14/18 05/14/18 05/15/18 Range/Units 16:31 20:09 05:36 WBC (4.8-10.8) K/uL RBC 3.69 L (4.7-6.1) M/uL Hgb (14.0-18.0) g/dL Hct (42-52) % MCV 92.7 (80-100) fL MCH 29.8 (25-34) pg MCHC 32.2 (32-36) g/dL RDW Std Deviation 46.4 H (36.4-46.3) fL RDW Coeff of Julieth 13.9 (11.5-14.5) % Plt Count (130-400) K/uL MPV 9.7 (7.4-10.4) fL Immature Gran % (Auto) % Neut % (Auto) % Lymph % (Auto) % [place] % (Auto) % Eos % (Auto) % Baso % (Auto) % Immature Gran # (Auto) (0.00-0.02) K/uL Neut # (Auto) (1.4-6.5) K/uL Lymph # (Auto) (1.2-3.4) K/uL [place] # (Auto) (0.11-0.59) K/uL Eos # (Auto) (0-0.5) K/uL Baso # (Auto) (0-0.2) K/uL ESR (0-14) mm/hr PT (9.0-12.0) Seconds POC INR (0.9-1.1) INR (0.9-1.1) APTT (21.0-31.0) Seconds PTT Ratio Sodium (136-145) mmol/L Potassium (3.5-5.1) mmol/L Chloride (98-107) mmol/L Carbon Dioxide (21-32) mmol/L Anion Gap (3-11) BUN (7-18) mg/dl Creatinine (0.6-1.4) mg/dl Est Cr Clr Drug Dosing ml/min Est GFR ( Amer) Est GFR (Non-Af Amer) BUN/Creatinine Ratio (10-20) Glucose (70-99) mg/dl POC Glucose 125 H 106 H (70-99) Osmolality (280-300) mOsm/kg Calcium (8.5-10.1) mg/dl Phosphorus (2.5-4.9) mg/dl Magnesium (1.8-2.4) mg/dl Total Bilirubin (0.1-1) mg/dl Direct Bilirubin (0-0.2) mg/dl AST (15-37) U/L ALT (12-78) U/L Alkaline Phosphatase (45-117) U/L Troponin I (0-0.045) ng/ml C-Reactive Protein (0-0.29) mg/dl Total Protein (6.4-8.2) gm/dl Albumin (3.4-5.0) gm/dl Triglycerides (0-150) mg/dl Cholesterol (0-200) mg/dl LDL Cholesterol, Calc mg/dl VLDL Cholesterol, Calc mg/dl HDL Cholesterol mg/dl Cholesterol/HDL Ratio TSH (0.300-4.500) uIu/ml Cortisol AM Sample (4.3-22.4) mcg/dl Urine Color Urine Appearance (Clear) Urine pH (4.5-7.5) Ur Specific [place] (1.000-1.030) Urine Protein (Negative) Urine Glucose (UA) (Negative) Urine Ketones (Negative) Urine Blood (Negative) Urine Nitrite (Negative) Urine Bilirubin (Negative) Urine Urobilinogen (Negative) Ur Leukocyte Esterase (Negative) Urine WBC (Auto) (0-5) /hpf Urine RBC (Auto) (0-4) /hpf U Hyaline Cast (Auto) (0-5) /lpf U Epithel Cells (Auto) (0-5) /lpf Urine Bacteria (Auto) (Negative) Acetylchol Rcpt Bind Ab nmol/L Blood Type Antibody Screen 05/15/18 05/15/18 05/15/18 Range/Units 05:36 07:39 11:14 WBC (4.8-10.8) K/uL RBC (4.7-6.1) M/uL Hgb (14.0-18.0) g/dL Hct (42-52) % MCV (80-100) fL MCH (25-34) pg MCHC (32-36) g/dL RDW Std Deviation (36.4-46.3) fL RDW Coeff of Julieth (11.5-14.5) % Plt Count (130-400) K/uL MPV (7.4-10.4) fL Immature Gran % (Auto) % Neut % (Auto) % Lymph % (Auto) % [place] % (Auto) % Eos % (Auto) % Baso % (Auto) % Immature Gran # (Auto) (0.00-0.02) K/uL Neut # (Auto) (1.4-6.5) K/uL Lymph # (Auto) (1.2-3.4) K/uL [place] # (Auto) (0.11-0.59) K/uL Eos # (Auto) (0-0.5) K/uL Baso # (Auto) (0-0.2) K/uL ESR (0-14) mm/hr PT (9.0-12.0) Seconds POC INR (0.9-1.1) INR (0.9-1.1) APTT (21.0-31.0) Seconds PTT Ratio Sodium 129 L (136-145) mmol/L Potassium 3.5 (3.5-5.1) mmol/L Chloride 94 L (98-107) mmol/L Carbon Dioxide 29 (21-32) mmol/L Anion Gap 6.0 (3-11) BUN 15 (7-18) mg/dl Creatinine 0.59 L (0.6-1.4) mg/dl Est Cr Clr Drug Dosing 116.5 ml/min Est GFR ( Amer) 112.4 Est GFR (Non-Af Amer) 97.0 BUN/Creatinine Ratio 26.0 H (10-20) Glucose 89 (70-99) mg/dl POC Glucose 121 H 104 H (70-99) Osmolality (280-300) mOsm/kg Calcium 8.2 L (8.5-10.1) mg/dl Phosphorus 3.0 (2.5-4.9) mg/dl Magnesium 1.9 (1.8-2.4) mg/dl Total Bilirubin (0.1-1) mg/dl Direct Bilirubin (0-0.2) mg/dl AST (15-37) U/L ALT (12-78) U/L Alkaline Phosphatase (45-117) U/L Troponin I (0-0.045) ng/ml C-Reactive Protein (0-0.29) mg/dl Total Protein (6.4-8.2) gm/dl Albumin (3.4-5.0) gm/dl Triglycerides (0-150) mg/dl Cholesterol (0-200) mg/dl LDL Cholesterol, Calc mg/dl VLDL Cholesterol, Calc mg/dl HDL Cholesterol mg/dl Cholesterol/HDL Ratio TSH (0.300-4.500) uIu/ml Cortisol AM Sample (4.3-22.4) mcg/dl Urine Color Urine Appearance (Clear) Urine pH (4.5-7.5) Ur Specific [place] (1.000-1.030) Urine Protein (Negative) Urine Glucose (UA) (Negative) Urine Ketones (Negative) Urine Blood (Negative) Urine Nitrite (Negative) Urine Bilirubin (Negative) Urine Urobilinogen (Negative) Ur Leukocyte Esterase (Negative) Urine WBC (Auto) (0-5) /hpf Urine RBC (Auto) (0-4) /hpf U Hyaline Cast (Auto) (0-5) /lpf U Epithel Cells (Auto) (0-5) /lpf Urine Bacteria (Auto) (Negative) Acetylchol Rcpt Bind Ab nmol/L Blood Type Antibody Screen 05/15/18 05/15/18 05/16/18 Range/Units 16:08 20:27 07:10 WBC (4.8-10.8) K/uL RBC (4.7-6.1) M/uL Hgb (14.0-18.0) g/dL Hct (42-52) % MCV (80-100) fL MCH (25-34) pg MCHC (32-36) g/dL RDW Std Deviation (36.4-46.3) fL RDW Coeff of Julieth (11.5-14.5) % Plt Count (130-400) K/uL MPV (7.4-10.4) fL Immature Gran % (Auto) % Neut % (Auto) % Lymph % (Auto) % [place] % (Auto) % Eos % (Auto) % Baso % (Auto) % Immature Gran # (Auto) (0.00-0.02) K/uL Neut # (Auto) (1.4-6.5) K/uL Lymph # (Auto) (1.2-3.4) K/uL [place] # (Auto) (0.11-0.59) K/uL Eos # (Auto) (0-0.5) K/uL Baso # (Auto) (0-0.2) K/uL ESR (0-14) mm/hr PT (9.0-12.0) Seconds POC INR (0.9-1.1) INR (0.9-1.1) APTT (21.0-31.0) Seconds PTT Ratio Sodium (136-145) mmol/L Potassium (3.5-5.1) mmol/L Chloride (98-107) mmol/L Carbon Dioxide (21-32) mmol/L Anion Gap (3-11) BUN (7-18) mg/dl Creatinine (0.6-1.4) mg/dl Est Cr Clr Drug Dosing ml/min Est GFR ( Amer) Est GFR (Non-Af Amer) BUN/Creatinine Ratio (10-20) Glucose (70-99) mg/dl POC Glucose 110 H 143 H 114 H (70-99) Osmolality (280-300) mOsm/kg Calcium (8.5-10.1) mg/dl Phosphorus (2.5-4.9) mg/dl Magnesium (1.8-2.4) mg/dl Total Bilirubin (0.1-1) mg/dl Direct Bilirubin (0-0.2) mg/dl AST (15-37) U/L ALT (12-78) U/L Alkaline Phosphatase (45-117) U/L Troponin I (0-0.045) ng/ml C-Reactive Protein (0-0.29) mg/dl Total Protein (6.4-8.2) gm/dl Albumin (3.4-5.0) gm/dl Triglycerides (0-150) mg/dl Cholesterol (0-200) mg/dl LDL Cholesterol, Calc mg/dl VLDL Cholesterol, Calc mg/dl HDL Cholesterol mg/dl Cholesterol/HDL Ratio TSH (0.300-4.500) uIu/ml Cortisol AM Sample (4.3-22.4) mcg/dl Urine Color Urine Appearance (Clear) Urine pH (4.5-7.5) Ur Specific [place] (1.000-1.030) Urine Protein (Negative) Urine Glucose (UA) (Negative) Urine Ketones (Negative) Urine Blood (Negative) Urine Nitrite (Negative) Urine Bilirubin (Negative) Urine Urobilinogen (Negative) Ur Leukocyte Esterase (Negative) Urine WBC (Auto) (0-5) /hpf Urine RBC (Auto) (0-4) /hpf U Hyaline Cast (Auto) (0-5) /lpf U Epithel Cells (Auto) (0-5) /lpf Urine Bacteria (Auto) (Negative) Acetylchol Rcpt Bind Ab nmol/L Blood Type Antibody Screen 05/16/18 05/16/18 05/16/18 Range/Units 09:19 09:19 09:19 WBC 9.61 (4.8-10.8) K/uL RBC 4.08 L (4.7-6.1) M/uL Hgb 12.4 L (14.0-18.0) g/dL Hct 37.7 L (42-52) % MCV 92.4 (80-100) fL MCH 30.4 (25-34) pg MCHC 32.9 (32-36) g/dL RDW Std Deviation 47.3 H (36.4-46.3) fL RDW Coeff of Julieth 14.2 (11.5-14.5) % Plt Count 383 (130-400) K/uL MPV 9.6 (7.4-10.4) fL Immature Gran % (Auto) % Neut % (Auto) % Lymph % (Auto) % [place] % (Auto) % Eos % (Auto) % Baso % (Auto) % Immature Gran # (Auto) (0.00-0.02) K/uL Neut # (Auto) (1.4-6.5) K/uL Lymph # (Auto) (1.2-3.4) K/uL [place] # (Auto) (0.11-0.59) K/uL Eos # (Auto) (0-0.5) K/uL Baso # (Auto) (0-0.2) K/uL ESR (0-14) mm/hr PT (9.0-12.0) Seconds POC INR (0.9-1.1) INR (0.9-1.1) APTT (21.0-31.0) Seconds PTT Ratio Sodium 128 L (136-145) mmol/L Potassium 3.2 L (3.5-5.1) mmol/L Chloride 92 L (98-107) mmol/L Carbon Dioxide 25 (21-32) mmol/L Anion Gap 11.0 (3-11) BUN 15 (7-18) mg/dl Creatinine 0.95 D (0.6-1.4) mg/dl Est Cr Clr Drug Dosing 72.1 ml/min Est GFR ( Amer) 88.5 Est GFR (Non-Af Amer) 76.4 BUN/Creatinine Ratio 15.9 (10-20) Glucose 221 H (70-99) mg/dl POC Glucose (70-99) Osmolality 274 L (280-300) mOsm/kg Calcium 8.0 L (8.5-10.1) mg/dl Phosphorus (2.5-4.9) mg/dl Magnesium (1.8-2.4) mg/dl Total Bilirubin (0.1-1) mg/dl Direct Bilirubin (0-0.2) mg/dl AST (15-37) U/L ALT (12-78) U/L Alkaline Phosphatase (45-117) U/L Troponin I (0-0.045) ng/ml C-Reactive Protein (0-0.29) mg/dl Total Protein (6.4-8.2) gm/dl Albumin (3.4-5.0) gm/dl Triglycerides (0-150) mg/dl Cholesterol (0-200) mg/dl LDL Cholesterol, Calc mg/dl VLDL Cholesterol, Calc mg/dl HDL Cholesterol mg/dl Cholesterol/HDL Ratio TSH (0.300-4.500) uIu/ml Cortisol AM Sample (4.3-22.4) mcg/dl Urine Color Urine Appearance (Clear) Urine pH (4.5-7.5) Ur Specific [place] (1.000-1.030) Urine Protein (Negative) Urine Glucose (UA) (Negative) Urine Ketones (Negative) Urine Blood (Negative) Urine Nitrite (Negative) Urine Bilirubin (Negative) Urine Urobilinogen (Negative) Ur Leukocyte Esterase (Negative) Urine WBC (Auto) (0-5) /hpf Urine RBC (Auto) (0-4) /hpf U Hyaline Cast (Auto) (0-5) /lpf U Epithel Cells (Auto) (0-5) /lpf Urine Bacteria (Auto) (Negative) Acetylchol Rcpt Bind Ab nmol/L Blood Type Antibody Screen 05/16/18 05/16/18 Range/Units 11:31 11:40 WBC (4.8-10.8) K/uL RBC (4.7-6.1) M/uL Hgb (14.0-18.0) g/dL Hct (42-52) % MCV (80-100) fL MCH (25-34) pg MCHC (32-36) g/dL RDW Std Deviation (36.4-46.3) fL RDW Coeff of Julieth (11.5-14.5) % Plt Count (130-400) K/uL MPV (7.4-10.4) fL Immature Gran % (Auto) % Neut % (Auto) % Lymph % (Auto) % [place] % (Auto) % Eos % (Auto) % Baso % (Auto) % Immature Gran # (Auto) (0.00-0.02) K/uL Neut # (Auto) (1.4-6.5) K/uL Lymph # (Auto) (1.2-3.4) K/uL [place] # (Auto) (0.11-0.59) K/uL Eos # (Auto) (0-0.5) K/uL Baso # (Auto) (0-0.2) K/uL ESR (0-14) mm/hr PT 13.1 H (9.0-12.0) Seconds POC INR (0.9-1.1) INR 1.3 H (0.9-1.1) APTT 25.8 (21.0-31.0) Seconds PTT Ratio 1.0 Sodium (136-145) mmol/L Potassium (3.5-5.1) mmol/L Chloride (98-107) mmol/L Carbon Dioxide (21-32) mmol/L Anion Gap (3-11) BUN (7-18) mg/dl Creatinine (0.6-1.4) mg/dl Est Cr Clr Drug Dosing ml/min Est GFR ( Amer) Est GFR (Non-Af Amer) BUN/Creatinine Ratio (10-20) Glucose (70-99) mg/dl POC Glucose 155 H (70-99) Osmolality (280-300) mOsm/kg Calcium (8.5-10.1) mg/dl Phosphorus (2.5-4.9) mg/dl Magnesium (1.8-2.4) mg/dl Total Bilirubin (0.1-1) mg/dl Direct Bilirubin (0-0.2) mg/dl AST (15-37) U/L ALT (12-78) U/L Alkaline Phosphatase (45-117) U/L Troponin I (0-0.045) ng/ml C-Reactive Protein (0-0.29) mg/dl Total Protein (6.4-8.2) gm/dl Albumin (3.4-5.0) gm/dl Triglycerides (0-150) mg/dl Cholesterol (0-200) mg/dl LDL Cholesterol, Calc mg/dl VLDL Cholesterol, Calc mg/dl HDL Cholesterol mg/dl Cholesterol/HDL Ratio TSH (0.300-4.500) uIu/ml Cortisol AM Sample (4.3-22.4) mcg/dl Urine Color Urine Appearance (Clear) Urine pH (4.5-7.5) Ur Specific [place] (1.000-1.030) Urine Protein (Negative) Urine Glucose (UA) (Negative) Urine Ketones (Negative) Urine Blood (Negative) Urine Nitrite (Negative) Urine Bilirubin (Negative) Urine Urobilinogen (Negative) Ur Leukocyte Esterase (Negative) Urine WBC (Auto) (0-5) /hpf Urine RBC (Auto) (0-4) /hpf U Hyaline Cast (Auto) (0-5) /lpf U Epithel Cells (Auto) (0-5) /lpf Urine Bacteria (Auto) (Negative) Acetylchol Rcpt Bind Ab nmol/L Blood Type Antibody Screen [facility] 05/16/18 09:19 Sodium 128 L Potassium 3.2 L Chloride 92 L Carbon Dioxide 25 BUN 15 Creatinine 0.95 D Glucose 221 H Calcium 8.[address] abd/pel: IMPRESSION: 1. No small bowel obstruction. Multiple fluid-filled loops of small bowel with associated air-fluid levels may be physiologic or reflect a mild enteritis considering clinical presentation of acute nausea. 2. Mild nonspecific rectal wall thickening . 3. Colonic diverticulosis without acute diverticulitis. 4. Prostamegaly with urinary bladder distention. Focus of air within the nondependent urinary bladder lumen may reflect sequela of instrumentation or gas forming organism. Correlate with urinalysis. 5. Bilateral nephrolithiasis. 6. Small left and trace right pleural effusions. 7. Additional findings as above. Medications Administered Current Inpatient Medications Acetaminophen (Ofirmev) 1,000 mg IV Q8H [facility] Stop: 06/15/18 19:29 Bisacodyl (Dulcolax) 10 mg GA DAILY PRN PRN Reason: Constipation Stop: 06/04/18 14:48 Dextrose (Dextrose 50%) 25 - 50 ml IV UD PRN; Protocol PRN Reason: Hypoglycemia Protocol Stop: 06/02/18 18:21 Diphenhydramine HCl (Benadryl) 25 mg PO Q6H PRN PRN Reason: Allergic Rhinitis/Insomnia Stop: 06/04/18 14:48 Last Admin: 05/15/18 21:53 Dose: 25 mg Glucagon (Glucagen) 1 mg SQ UD PRN; Protocol PRN Reason: Hypoglycemia Protocol Stop: 06/02/18 18:21 Glucose (Glucose 40%) 15 - 30 gm PO UD PRN; Protocol PRN Reason: Hypoglycemia Protocol Stop: 06/02/18 18:21 Glucose (Dex4 Glucose) 4 - 8 tabs PO UD PRN; Protocol PRN Reason: Hypoglycemia Protocol Stop: 06/02/18 18:21 Hydromorphone HCl (Dilaudid) 0.5 - 1 mg IV Q3H PRN PRN Reason: Pain Stop: 05/19/18 14:48 Last Admin: 05/16/18 15:45 Dose: 0.5 mg Amiodarone HCl/Dextrose (Nexterone / D5w) 360 mg in 200 mls @ 16.667 mls/hr IV .Q12H [facility] Stop: 06/14/18 21:59 Last Admin: 05/16/18 09:55 Dose: 0.5 mg/min, 16.7 mls/hr Heparin Sodium/Dextrose (Heparin Sodium/Dextrose) 25,000 units in 500 mls @ 29 mls/hr IV .[id number] [facility]; Protocol Stop: 06/15/18 11:53 Last Admin: 05/16/18 12:22 Dose: 1,450 units/hr, 29 mls/hr Sodium Chloride (Nss 1000ml) 1,000 mls @ 100 mls/hr IV .Q10H [facility] Stop: 06/15/18 19:29 Pantoprazole Sodium 40 mg/ (Syringe) 10 mls @ 5 mls/min IV DAILY@1100 [facility] Stop: 06/16/18 10:59 Insulin Aspart (Novolog Flexpen) 0 units SC ACHS [facility] Stop: 06/05/18 07:29 Last Admin: 05/16/18 16:54 Dose: Not Given Ioversol (Optiray 320 125ml) 116 ml IV ONCE PRN PRN Reason: Interaction Checking Stop: 05/20/18 17:32 Last Admin: 05/16/18 17:34 Dose: 116 ml Metoprolol Tartrate (Lopressor) 5 mg IV Q6 [facility] Stop: 06/16/18 00:00 Miscellaneous (Carbohydrates For Hypoglycemia) 15 - 30 gm PO UD PRN PRN Reason: Hypoglycemia Treatment Stop: 06/02/18 18:21 Miscellaneous (Pneumococcal Vacc, Do Not Administer) 1 ea N/A PRN PRN PRN Reason: Notification Stop: 06/04/18 14:48 Miscellaneous (Flu Vaccine, Do Not Administer) 1 ea N/A PRN PRN PRN Reason: Notification Stop: 06/04/18 14:48 Ondansetron HCl (Zofran) 4 mg IV Q6H PRN PRN Reason: Nausea &/or Vomiting Stop: 06/04/18 14:48 Last Admin: 05/16/18 15:45 Dose: 4 mg
[2018-05-16] MEDS ORDERED: OPTIRAY 320 125ml IV PRN (17:33)
--- NOTE | 2018-05-16 17:53 | CT Scan Report ---
ABDOMEN AND PELVIS CT WITH IV CONTRAST CT DOSE: 1092.08 mGy.cm HISTORY: Acute generalized abdominal pain with nausea +abd pain, persistent nausea TECHNIQUE: Multiaxial CT images of the abdomen and pelvis were performed following the use of intrave nous contrast. A dose lowering technique was utilized adhering to the principles of ALARA. COMPARISON STUDY: CT abdomen and pelvis 02/14/2009, 08/08/2017. FINDINGS: Small left and trace right pleural effusions. Dependent subsegmental bibasilar atelectasis. Calcified granuloma of the right lower lobe. No pneumatosis or pneumoperitoneum. Imaged inferior cardiac chamb ers are mildly enlarged. Coronary arterial calcifications. Moderate gallbladder distention. No cholelithiasis or CT evidence of acute cholecystitis. Liver is un remarkable. Patency of the portal vein. Diminutive spleen. Unchanged partially exophytic 9 mm hypoden se lesion of the uncinate process pancreas on image 142 series 3 suggestive of a sidebranch IPMN. Haney creas is otherwise unremarkable. Adrenal glands are within normal limits. Mild bilateral perinephric stranding. Bilateral renal cysts. 6 mm linear calcification of the medial aspect superior pole left kidney 7 mm nonobstructing calculus of the inferior pole left kidney. Nonob structing right nephrolithiasis are also noted. Cortical scarring with parenchymal thinning and large calcification of the inferior pole right kidney redemonstrated, 2.3 x 1.7 cm. No ureteral calculi or obstructive uropathy. Moderate distention of the urinary bladder lumen. Punctate focus of air seen w ithin the nondependent bladder. Punctate calcifications are seen about the bladder wall anteriorly. P rostamegaly. Extensive calcification of the abdominal aorta without aneurysm. Mixed plaque formation about the sup erior mesenteric artery image 120 series 3 results in approximately 70% stenosis. Mild wall thickenin g noted about the distal esophagus. Wall thickening of the stomach, likely secondary to partial diste ntion. No small bowel obstruction. Multiple fluid-filled loops of nondilated small bowel scattered ai r-fluid levels. Chronic diverticulosis without acute diverticulitis. Mild nonspecific rectal wall thi ckening with perirectal stranding. Terminal ileum and appendix appear unremarkable. Mild body wall ed sergio. Suggested sebaceous cyst measures 1.7 cm about the midline of the lower thorax posteriorly. Bone s appear to be intact. Degenerative changes of the spine. Postoperative changes from laminectomy with posterior interbody stephani and screw fusion at L3-S1. Discectomy changes at L5-S1. IMPRESSION: 1. No small bowel obstruction. Multiple fluid-filled loops of small bowel with associated air-fluid l evels may be physiologic or reflect a mild enteritis considering clinical presentation of acute nause a. 2. Mild nonspecific rectal wall thickening . 3. Colonic diverticulosis without acute diverticulitis. 4. Prostamegaly with urinary bladder distention. Focus of air within the nondependent urinary bladder lumen may reflect sequela of instrumentation or gas forming organism. Correlate with urinalysis. 5. Bilateral nephrolithiasis. 6. Small left and trace right pleural effusions. 7. Additional findings as above. Electronically signed by: Ray Richards M.D. 05/16/2018 5:52 PM
[2018-05-16 20:05] LABS: Partial Thromboplastin Ratio 1.2; Partial Thromboplastin Time 32.3 Seconds (21.0-31.0)
[2018-05-16] MEDS: SODIUM CHLORIDE 0.9% 1000ML 1,000 ML IV SCH (20:42)
[2018-05-16] MEDS: ACETAMINOPHEN 1,000 MG/100 ML VIAL IV SCH (20:43)
[2018-05-16 21:19] LABS: Appearance Urine Clear (Clear); Bilirubin Urine Negative (Negative); Color Urine Yellow; Glucose Urine UA Negative (Negative); Ketones Urine Negative (Negative); Leukocyte Esterase Urine Negative (Negative); Nitrite Urine Negative (Negative); Protein Urine Negative (Negative); Specific Gravity Urine 1.026 (1.000-1.030); Urobilinogen Urine Negative (Negative)
--- NOTE | 2018-05-16 21:26 | XRay Report ---
KUB CLINICAL HISTORY: Enteric tube placement. FINDINGS: 2 AP supine abdominal radiographs are compared to study dated 05/15/2018 and correlated with abdominal CT dated 05/16/2018. An Enteric tube has been placed. This projects below the diaphragm over the proximal stomach. There is no radiographic evidence of bowel obstruction. No evidence of intraper itoneal free air is seen on these supine images. Excreted IV contrast is present within the collectin g systems and bladder. Pelvic phleboliths are observed. Advanced atherosclerotic calcification is not ed in the abdominal aorta. The skeletal structures are osteopenic. There is lumbosacral spondylosis w ith evidence of previous lumbar spinal fusion surgery. Midline sternotomy wires are noted. The heart is enlarged. IMPRESSION: 1. An enteric tube projects below the diaphragm over the proximal stomach. 2. There is no radiographic evidence of bowel obstruction. Electronically signed by: Declan Manrique M.D. 05/16/2018 9:25 PM
[2018-05-16] MEDS ORDERED: HEPARIN IV BOLUS 6,000 UNITS in SYRINGE 0 ML IV ONE (21:30)
[2018-05-16] MEDS ORDERED: ACETAMINOPHEN 1000 MG/100 ML IV IV SCH (23:00)
[2018-05-17] MEDS: METOPROLOL TARTRATE 1 MG/ML VIAL IV SCH ×5 (00:05→23:29)
[2018-05-17] MEDS: HEPARIN STANDARD DEXTROSE 25,000 UNITS/500 ML IV SCH ×2 (03:12→18:00)
[2018-05-17 04:38] LABS: Hematocrit (blood only) 34.8 % (42-52); Hemoglobin 11.5 g/dL (14.0-18.0); Mean Corpuscular Volume 92.1 fL (80-100); Mean Platelet Volume 9.6 fL (7.4-10.4); Platelet Count 379 K/uL (130-400); RDW Coefficient of Variation 14.3 % (11.5-14.5); RDW Standard Deviation 46.3 fL (36.4-46.3); Red Blood Count 3.78 M/uL (4.7-6.1); White Blood Count 8.93 K/uL (4.8-10.8)
[2018-05-17 05:01] LABS: BUN Creatinine Ratio 18.2 (10-20); Calcium 7.9 mg/dl (8.5-10.1); Creatinine Clr Calc Pharmacy 118.1 ml/min; Est GFR (African American) 113.2; Est GFR (Non-African American) 97.7; Partial Thromboplastin Ratio 2.6; Potassium 3.2 mmol/L (3.5-5.1)
[2018-05-17 05:10] LABS: Partial Thromboplastin Time 67.8 Seconds (21.0-31.0)
[2018-05-17] MEDS: SODIUM CHLORIDE 0.9% 1000ML 1,000 ML IV SCH ×2 (05:18→15:52)
[2018-05-17] MEDS: ACETAMINOPHEN 1,000 MG/100 ML VIAL IV SCH ×3 (05:19→21:16)
[2018-05-17] MEDS: AMIODARONE / D5W 360 MG/200 ML BAG IV SCH (08:06)
[2018-05-17] MEDS ORDERED: AMIODARONE 200 MG TAB PO SCH (09:00)
--- NOTE | 2018-05-17 09:53 | Surgery Consultation ---
Date of Consultation May 17, 2018 Assessment & Plan (1) Postoperative ileus: rec d/c ng tube start clear liquids and advance diet as tolerated consider dietary consult and pt evaluation for caloric intake draw lft and check prealbumin have GI see and follow pt will sign off Present on Admission?: Yes History of Present Illness Attending Physician: Bruce Prasad DO asked by phone conversation last PM for input on ileus long history discussed with referring physician by phone rec ng tube and knox cath after talking with her rec gi to see pt for ileus since no general surgery issues present Allergies Allergy/AdvReac Type Severity Reaction Status Date / Time No Known Drug Allergies Allergy Unknown NONE Verified 05/03/18 14:13 lactose AdvReac Mild gi symptoms Verified 05/03/18 14:13 Home Medications Home Medications Medication Instructions Recorded Confirmed Type aspirin [Aspir-81] 81 mg PO BID 03/23/18 05/03/18 History losartan 50 mg PO DAILY 03/23/18 05/03/18 History magnesium oxide 400 mg PO QPM 03/23/18 05/03/18 History metformin 500 mg PO BIDM 03/23/18 05/03/18 History multivitamin 1 tab PO QAM 03/23/18 05/03/18 History omega 3,6,9 combination no.7 1,200 mg PO QAM 03/23/18 05/03/18 History omeprazole 20 mg PO QAM 03/23/18 05/03/18 History metoprolol tartrate [Lopressor] 25 mg PO BID 04/05/18 05/03/18 History albuterol sulfate [ProAir HFA] 2 puff INHALATION Q4 PRN 05/03/18 05/03/18 History Patient History Medical History Neurogenic claudication due to lumbar spinal stenosis (Chronic) CAD (coronary artery disease) (Chronic) Paroxysmal A-fib (Chronic) ON ASA/BETA ANUSHA Atrial septal hypertrophy ISOLATED BASAL SEPTAL HYPERTROPHY WITH MAXIMAL THICKNESS 1.7CM PER 2013 STRESS ECHO (REVIEWED BY CARDIO; FELT "STRESS TEST OKAY" AND FOR PATIENT TO CONTINUE CURRENT REGIMEN Bifascicular block CHRONIC DATING BACK TO AT LEAST 2014 EKG NOTED IN [facility] Diabetes mellitus, type 2 Diverticular disease GERD (gastroesophageal reflux disease) CONTROLLED Myocardial Infarction 1992= TREATED MEDICALLY Obesity Pulmonary hypertension "MILD" RVSP 40MMHG PER 2013 ECHO Skin cancer BCC Sleep apnea BIPAP Surgical History History of cardiac cath 1992= NO STENTS History of coronary artery bypass graft CABG X 7 (1994) History of craniotomy PITUITARY TUMOR EXCISION ([facility]) History of cystoscopy History of nephrolithotomy with removal of calculi OPEN Family History Other Diabetes Heart disease Social History marital status: Current Living Situation: Spouse Other Information That Helps Us Care for You: No Feels Safe at Home: Yes Safety Concerns: Feels Safe At This Time Smoking Status: Former smoker Second Hand Exposure: No Hx Alcohol Use: No Hx Substance Use: No Beliefs That Will Affect Care: None Communication Ability: Effective Physical Exam 2 Vital Signs (Past 24 Hours): Last Vital Signs Temp 37.2 C 05/17/18 07:26 Pulse 85 05/17/18 07:26 Resp 22 05/17/18 07:26 BP 130/72 05/17/18 07:26 Pulse Ox 93 05/17/18 07:26 Physical Exam: pt alert in no ditress no abd finding feels better since ng tube in and knox in
--- NOTE | 2018-05-17 11:23 | Hospitalist Progress Note ---
Date of Service May 17, 2018 Assessment & Plan (1) Postoperative ileus: Ileus persistent nausea, hiccups and intermittent abdominal pain and distention likely consistent with postoperative ileus. CT scan of the abdomen pelvis was performed this evening with evidence of this. NG tube and Hart for decompression of the stomach and bladder, respectively have improved his abdominal pain. Continue antiemetics as needed. Continue pain medication as needed. NPO. for bowel rest. (2) Paroxysmal A-fib: In setting of ileus, continue amnio IV. Lopressor 5 mg IV every 6. Continue heparin infusion. Cardiology is aware and is following patient. No elective cardioversion until patient is more stable. (3) H/O Spinal surgery: Recent lumbar spinal surgery last month with complication of durotomy postop course was complicated by CHF and A. fib with RVR. He returns with diplopia with lateral gaze and vertigo as above--these continue to slowly improve. With a history of macroadenoma of the pituitary, a repeat MRI of the sella would be ideal when he is able to lay for the MRI test. Stroke workup has been negative. Initial MRI of the lumbar spine revealed postop seroma 8cm x 9cm. This was drained on 05/05 and durotomy repaired with a patch. Continue activity progression per orthopedics. Cont scheduled Tylenol for back pain. (4) DM type 2 (diabetes mellitus, type 2): Well controlled, continue NovoLog per sliding scale with carb coverage. Holding metformin. (5) HTN (hypertension): Holding Cozaar as patient n.p.o. Monitor for need for IV antihypertensives. (6) CAD (coronary artery disease): History of CABG in the past. Currently asymptomatic. Continue medical management With IV Lopressor. Aspirin and Cozaar held while patient n.p.o. (7) DVT prophylaxis: Heparin drip Full code Disposition-continue restricted activity with slow progression over the next few days per Orthopedics. Bruce Prasad DO [facility] Internal Medicine Subjective 70-year-old male with complicated postop course. Suspect persistent, possibly progressive ileus. He is still nauseous and has been for several days. He has persistent hiccups and cannot get comfortable. He remains in atrial fib/ flutter and is on amiodarone drip with heparin. He has intermittently vomited. His appetite is significantly decreased now for several days. CT scan was performed of the abdomen revealing evidence of possible ileus. Case was discussed with general surgery by Dr Luna. NG tube and Hart placement was recommended and ordered. His abdomen is more comfortable today. ROS-No Headache, No Visual Changes, No Fever, No Chills, No Neck Pain or Stiffness, No Chest Pain, No Palpitations, No SOB, No ROGERS, No Cough, No Sputum, No Wheezing, less abdominal pain and distention, No Diarrhea, No Hematemesis, No Hemoptysis, No Unexpected Weight Loss, No Flank pain, No Melena, No Hematochezia, No Frequency, No Urgency, No Burning, No Hematuria, No Rashes, No Diaphoresis. Appetite is decreased, denies flatus or bowel movement Physical Exam Gen-AAO x 3, NAD, Afebrile, NG tube in place Head-NCAT, EOMI, PERRLA, Anicteric Sclera, No Posterior Pharyngeal Erythema Neck-Supple, No JVD, No Thyromegaly, No Masses, No LAD, No Bruits Lungs-Clear to Auscultation Bilaterally, No Rales, No Rhonchi, No Wheezing, No Crepitus Chest-No S4, +S1, +S2, No S3, No Murmurs, No Rubs, No Gallops, No Ectopy Abdomen-Soft, Bowel Sounds Present, Non Tender, Non Distended, No Hepatomegaly, No Splenomegaly, No Palpable Masses, No Rebound, No Rigidity, No Guarding Musculoskeletal-Full Range of Motion Bilaterally, No CVAT Extremities-No Cyanosis, No Clubbing, No Edema Nuero-Cranial Nerves II-XII grossly intact, Motor WNL, DTRs WNL, Strength WNL, No Focal Psych-Normal Mood Physical Exam 2 Vital Signs (Past 24 Hours): Last Vital Signs Temp 37.2 C 05/17/18 07:26 Pulse 85 05/17/18 07:26 Resp 22 05/17/18 07:26 BP 130/72 05/17/18 07:26 Pulse Ox 93 05/17/18 07:26 Results & Data Laboratory Results Current Diagnoses Type 2 diabetes mellitus without complications (05/03/18) Diplopia (05/03/18) Essential (primary) hypertension (05/03/18) Atherosclerotic heart disease of [place] coronary artery without angina pectoris (05/03/18) Paroxysmal atrial fibrillation (05/03/18) Unspecified atrial fibrillation (05/03/18) Ileus, unspecified (05/03/18) Other postprocedural complications and disorders of digestive system (05/03/18) Pain in unspecified hip (05/03/18) Spinal stenosis, lumbar region with neurogenic claudication (05/03/18) Nausea (05/03/18) Dizziness and giddiness (05/03/18) Encounter for other preprocedural examination (05/03/18) Other specified postprocedural states (05/03/18) Allergies No Known Drug Allergies Allergy (Unknown, Verified 05/03/18 14:13) NONE lactose Adverse Reaction (Mild, Verified 05/03/18 14:13) gi symptoms Height/Weight/Isolation Height 5 ft 10 in Weight 90 kg Chemistry 05/16/18 05/17/18 09:19 04:07 Sodium 128 L 132 L Potassium 3.2 L 3.2 L Chloride 92 L 97 L Carbon Dioxide 25 29 Anion Gap 11.0 6.0 BUN 15 10 D Creatinine 0.95 D 0.58 L D Glucose 221 H 117 H Urinalysis 05/16/18 21:00 Urine Color Yellow Urine Appearance Clear Urine pH 6.0 Ur Specific [place] 1.026 Urine Protein Negative Urine Glucose (UA) Negative Urine Ketones Negative Urine Blood Negative Urine Nitrite Negative Urine Bilirubin Negative Diagnostic Findings Skin reviewed
[2018-05-17] MEDS: PANTOprazole 40 MG in SYRINGE 0 ML IV SCH (11:47)
[2018-05-17] MEDS: POTASSIUM CHLORIDE / WTR 10 MEQ/100 ML PLCT IV SCH ×4 (11:51→15:55)
[2018-05-17] MEDS: INSULIN ASPART 100 UNITS/ML 3 ML PEN SC SCH ×4 (13:06→23:36)
--- NOTE | 2018-05-17 13:59 | Orthopedic Progress Note ---
Date of Service May 17, 2018 Assessment & Plan (1) Neurogenic claudication due to lumbar spinal stenosis: We will continue current activity level. He is tolerating sitting in a chair for a few hours a day. No recent headaches in over 48 hours. we will continue physical therapy in his room. He is currently on a heparin drip due to the cardioversion being placed on hold. Hopefully begin to advance his diet and discontinue NG tube per general surgery. Supervising Physician Co-Signing Physician Notes Dr. Ankur Douglas Subjective Patient is status post [address] Douglas. He has had multiple complications throughout his hospital stay which includes chronic hiccups, nausea, postoperative ileus, diplopia, A. fib a flutter. Cardiology and hospital team are following along. He was scheduled for cardioversion this morning but this is on hold due to a postoperative ileus that was found last evening on abdominal CT scan. Dr. Almonte was consulted for general surgery and NG tube as well as Hart tube were placed last evening. It appears there are plans to have these discontinued today and start advancing his diet. Abdirashid only reports back pain when he changes positions. He states he has been sitting in a recliner for several hours this morning and denies any headache. He states last headache was 48 hours ago. He has no radicular leg pain. Still has his hiccups. Physical Exam 2 Vital Signs (Past 24 Hours): Last Vital Signs Temp 37.2 C 05/17/18 07:26 Pulse 85 05/17/18 07:26 Resp 22 05/17/18 07:26 BP 130/72 05/17/18 07:26 Pulse Ox 93 05/17/18 07:26 Physical Exam: He is seen with his and friends in the room. He is has an NG tube in as well as Hart catheter in. He sitting in a recliner. Neurovascular intact bilateral lower extremities. Incisions healing nicely. No fluid collection or wave in the thoracolumbar spine.
--- NOTE | 2018-05-17 17:04 | Cardiology Progress Note ---
Date of Service May 17, 2018 Assessment & Plan (1) Atrial fibrillation with RVR: asymptomatic unfortunately, has not spontaneously converted amio changed back to IV after being made npo will now d/c amio gtt and start metoprolol IV once tolerating po will give po amio will cont to hold off on cardioversion until better stabilized patient and in agreement with plan Subjective Pt seen and examined, oob in chair, at bedside. NGT in place. Feeling better today. Abdominal discomfort improving. Continues to deny cardiac complaint. Tele reviewed: atrial fibrillation with variable rate control Review of Systems All systems reviewed & are unremarkable except as noted in HPI & below Physical Exam 2 Vital Signs (Past 24 Hours): Last Vital Signs Temp 37.2 C 05/17/18 07:26 Pulse 85 05/17/18 07:26 Resp 22 05/17/18 07:26 BP 130/72 05/17/18 07:26 Pulse Ox 93 05/17/18 07:26 Physical Exam: General: Awake, alert and oriented x 3. No acute distress. HEENT: Normocephalic, atraumatic. Pupils equal, round and reactive to light and accommodation. Extraocular muscles are intact. Anicteric sclera. Moist mucous membranes. Neck: No JVD. No bruit. Cardiovascular: regularly irregular, unable to appreciate murmur, rub or gallop. Pulmonary: Clear to auscultation bilaterally. No rales, rhonchi, or wheezing. Abdomen: Bowel sounds x 4, soft. No rebound, guarding or tenderness. No organomegaly. Extremities: No clubbing, cyanosis or edema. +2 pedal pulses bilaterally. Skin: Warm and dry.
[2018-05-17] MEDS ORDERED: METOPROLOL TARTRATE 1 MG/ML VIAL IV SCH (18:00)
[2018-05-18] MEDS: SODIUM CHLORIDE 0.9% 1000ML 1,000 ML IV SCH ×3 (01:26→21:46)
[2018-05-18] MEDS: ACETAMINOPHEN 1,000 MG/100 ML VIAL IV SCH ×3 (05:52→21:49)
[2018-05-18] MEDS: METOPROLOL TARTRATE 1 MG/ML VIAL IV SCH ×3 (05:56→20:06)
[2018-05-18] MEDS: INSULIN ASPART 100 UNITS/ML 3 ML PEN SC SCH ×4 (05:56→21:19)
[2018-05-18 07:27] LABS: Hematocrit (blood only) 28.8 % (42-52); Hemoglobin 9.6 g/dL (14.0-18.0); Mean Corpuscular Hgb Conc 33.3 g/dL (32-36); Mean Corpuscular Volume 92.6 fL (80-100); Mean Platelet Volume 9.1 fL (7.4-10.4); Platelet Count 338 K/uL (130-400); RDW Coefficient of Variation 14.6 % (11.5-14.5); RDW Standard Deviation 48.6 fL (36.4-46.3); Red Blood Count 3.11 M/uL (4.7-6.1); White Blood Count 6.96 K/uL (4.8-10.8)
[2018-05-18 07:53] LABS: INR 1.5 (0.9-1.1); Prothrombin Time 15.2 Seconds (9.0-12.0)
[2018-05-18 07:56] LABS: Partial Thromboplastin Time 77.3 Seconds (21.0-31.0)
[2018-05-18] MEDS: HEPARIN STANDARD DEXTROSE 25,000 UNITS/500 ML IV SCH ×2 (08:07→22:58)
[2018-05-18] MEDS: PANTOprazole 40 MG in SYRINGE 0 ML IV SCH (11:26)
--- NOTE | 2018-05-18 11:27 | Hospitalist Progress Note ---
Date of Service May 18, 2018 Assessment & Plan (1) Postoperative ileus: Ileus persistent nausea, hiccups and intermittent abdominal pain and distention likely consistent with postoperative ileus. CT scan of the abdomen pelvis was performed this evening with evidence of this. NG tube and Hart for decompression of the stomach and bladder, respectively have improved his abdominal pain. Continue antiemetics as needed. Continue pain medication as needed. Start clears and advance as tolerated, will try Thorazine for hiccups (2) Paroxysmal A-fib: In setting of ileus, continue amnio IV. Lopressor 5 mg IV every 6. Continue heparin infusion. Cardiology is aware and is following patient. No elective cardioversion until patient is more stable. (3) H/O Spinal surgery: Recent lumbar spinal surgery last month with complication of durotomy postop course was complicated by CHF and A. fib with RVR. He returns with diplopia with lateral gaze and vertigo as above--these continue to slowly improve. With a history of macroadenoma of the pituitary, a repeat MRI of the sella would be ideal when he is able to lay for the MRI test. Stroke workup has been negative. Initial MRI of the lumbar spine revealed postop seroma 8cm x 9cm. This was drained on 05/05 and durotomy repaired with a patch. Continue activity progression per orthopedics. Cont scheduled Tylenol for back pain. (4) DM type 2 (diabetes mellitus, type 2): Well controlled, continue NovoLog per sliding scale with carb coverage. Holding metformin. (5) HTN (hypertension): Holding Cozaar as patient n.p.o. Monitor for need for IV antihypertensives. (6) CAD (coronary artery disease): History of CABG in the past. Currently asymptomatic. Continue medical management With IV Lopressor. Aspirin and Cozaar held while patient n.p.o. (7) DVT prophylaxis: Heparin drip Full code Disposition-continue restricted activity with slow progression over the next few days per Orthopedics. Bruce Prasad DO [facility] Internal Medicine Subjective 70-year-old male with complicated postop course. Suspect persistent, possibly progressive ileus. He is still nauseous and has been for several days. He has persistent hiccups and cannot get comfortable. He remains in atrial fib/ flutter and is on amiodarone drip with heparin. He has intermittently vomited. His appetite is significantly decreased now for several days. CT scan was performed of the abdomen revealing evidence of possible ileus. Case was discussed with general surgery by Dr Luna. NG tube and Hart placement was recommended and ordered. His abdomen is more comfortable and his NG tube was DC 'd yesterday. ROS-No Headache, No Visual Changes, No Fever, No Chills, No Neck Pain or Stiffness, No Chest Pain, No Palpitations, No SOB, No ROGERS, No Cough, No Sputum, No Wheezing, less abdominal pain and distention, No Diarrhea, No Hematemesis, No Hemoptysis, No Unexpected Weight Loss, No Flank pain, No Melena, No Hematochezia, No Frequency, No Urgency, No Burning, No Hematuria, No Rashes, No Diaphoresis. Appetite is better, denies flatus or bowel movement Physical Exam Gen-AAO x 3, NAD, Afebrile, NG tube is out Head-NCAT, EOMI, PERRLA, Anicteric Sclera, No Posterior Pharyngeal Erythema Neck-Supple, No JVD, No Thyromegaly, No Masses, No LAD, No Bruits Lungs-Clear to Auscultation Bilaterally, No Rales, No Rhonchi, No Wheezing, No Crepitus Chest-No S4, +S1, +S2, No S3, No Murmurs, No Rubs, No Gallops, No Ectopy Abdomen-Soft, Bowel Sounds Present, Non Tender, Non Distended, No Hepatomegaly, No Splenomegaly, No Palpable Masses, No Rebound, No Rigidity, No Guarding Musculoskeletal-Full Range of Motion Bilaterally, No CVAT Extremities-No Cyanosis, No Clubbing, No Edema Nuero-Cranial Nerves II-XII grossly intact, Motor WNL, DTRs WNL, Strength WNL, No Focal Psych-Normal Mood Physical Exam 2 Vital Signs (Past 24 Hours): Last Vital Signs Temp 36.9 C 05/18/18 07:56 Pulse 75 05/18/18 10:18 Resp 16 05/18/18 07:56 BP 133/67 05/18/18 07:56 Pulse Ox 93 05/18/18 07:56 Results & Data Laboratory Results Current Diagnoses Type 2 diabetes mellitus without complications (05/03/18) Diplopia (05/03/18) Essential (primary) hypertension (05/03/18) Atherosclerotic heart disease of [place] coronary artery without angina pectoris (05/03/18) Paroxysmal atrial fibrillation (05/03/18) Unspecified atrial fibrillation (05/03/18) Ileus, unspecified (05/03/18) Other postprocedural complications and disorders of digestive system (05/03/18) Pain in unspecified hip (05/03/18) Spinal stenosis, lumbar region with neurogenic claudication (05/03/18) Nausea (05/03/18) Dizziness and giddiness (05/03/18) Encounter for other preprocedural examination (05/03/18) Other specified postprocedural states (05/03/18) Allergies No Known Drug Allergies Allergy (Unknown, Verified 05/03/18 14:13) NONE lactose Adverse Reaction (Mild, Verified 05/03/18 14:13) gi symptoms Height/Weight/Isolation Height 5 ft 10 in Weight 90.6 kg Chemistry 05/17/18 04:07 Sodium 132 L Potassium 3.2 L Chloride 97 L Carbon Dioxide 29 Anion Gap 6.0 BUN 10 D Creatinine 0.58 L D Glucose 117 H Urinalysis 05/16/18 21:00 Urine Color Yellow Urine Appearance Clear Urine pH 6.0 Ur Specific [place] 1.026 Urine Protein Negative Urine Glucose (UA) Negative Urine Ketones Negative Urine Blood Negative Urine Nitrite Negative Urine Bilirubin Negative
[2018-05-18] MEDS: CHLORPROMAZINE HCL 25 MG TABLET PO PRN ×2 (12:26→21:46)
[2018-05-18 14:41] LABS: Partial Thromboplastin Ratio 4.2
[2018-05-18 14:44] LABS: Partial Thromboplastin Time 108.4 Seconds (21.0-31.0)
[2018-05-18 16:02] LABS: Partial Thromboplastin Ratio 2.1
[2018-05-18 16:05] LABS: Partial Thromboplastin Time 54.3 Seconds (21.0-31.0)
[2018-05-18] MEDS ORDERED: Nursing to Pharmacy Communication ONE ×2 (16:07→20:05)
[2018-05-18] MEDS ORDERED: WARFARIN SOD 5 MG TAB PO ONE (16:45)
--- NOTE | 2018-05-18 16:47 | Cardiology Progress Note ---
Date of Service May 18, 2018 Assessment & Plan (1) Atrial fibrillation with RVR: asymptomatic rate controlled had extensive conversation with patient and in regards to rate vs. rhythm control strategy after discussing pros and cons of each, they would prefer rate control will start coumadin today, given ambulatory dysfunction do not believe him to be a suitable candidate for DOAC will start po metoprolol bid will likely be able to transfer off tele in AM from cardiac standpoint Subjective Pt seen and examined, oob in chair, at bedside. Hiccups improved today but lethargic. Tolerating po, moving bowels. Continues to deny cp, sob, palpitation , lightheadedness or dizziness. Tele reviewed: atrial flutter rate controlled Review of Systems All systems reviewed & are unremarkable except as noted in HPI & below Physical Exam 2 Vital Signs (Past 24 Hours): Last Vital Signs Temp 36.8 C 05/18/18 15:33 Pulse 90 05/18/18 15:33 Resp 22 05/18/18 15:33 BP 166/74 H 05/18/18 15:33 Pulse Ox 97 05/18/18 11:50 Physical Exam: General: Awake, alert and oriented x 3. No acute distress. HEENT: Normocephalic, atraumatic. Pupils equal, round and reactive to light and accommodation. Extraocular muscles are intact. Anicteric sclera. Moist mucous membranes. Neck: No JVD. No bruit. Cardiovascular: regularly irregular, unable to appreciate murmur, rub or gallop. Pulmonary: Clear to auscultation bilaterally. No rales, rhonchi, or wheezing. Abdomen: Bowel sounds x 4, soft. No rebound, guarding or tenderness. No organomegaly. Extremities: No clubbing, cyanosis or edema. +2 pedal pulses bilaterally. Skin: Warm and dry.
[2018-05-18] MEDS: METOPROLOL TARTRATE 25 MG TAB PO SCH (21:19)
[2018-05-18] MEDS: THIAMINE HCL 100 MG TAB PO SCH (21:20)
[2018-05-19] MEDS: ACETAMINOPHEN 1,000 MG/100 ML VIAL IV SCH ×3 (06:01→22:14)
[2018-05-19 07:58] LABS: Hematocrit (blood only) 33.7 % (42-52); Hemoglobin 10.9 g/dL (14.0-18.0); Mean Corpuscular Hgb Conc 32.3 g/dL (32-36); Mean Corpuscular Volume 93.6 fL (80-100); Mean Platelet Volume 9.1 fL (7.4-10.4); Platelet Count 388 K/uL (130-400); RDW Standard Deviation 50.7 fL (36.4-46.3); White Blood Count 7.74 K/uL (4.8-10.8)
--- NOTE | 2018-05-19 08:11 | Orthopedic Progress Note ---
Date of Service May 19, 2018 Assessment & Plan (1) Neurogenic claudication due to lumbar spinal stenosis: Overall he looks much better today. He states he feels better given that the hiccups have resolved. We will continue current restrictions of sitting up in chair for a few hours. He will continue with physical therapy in his room. We will continue to follow along with medicine as well as cardiology service. He was started on Coumadin yesterday due to his continued A. fib/A flutter. Supervising Physician Co-Signing Physician Notes Dr. Ankur Douglas Subjective Patient is status post durotomy repair by Dr. Douglas on May 05. This morning he looks much better. Hiccups resolved with Thorazine yesterday. Both NG tube and Hart have been removed. He appears to be tolerating his diet. He reports he is passing flatus. He has very modest nausea. He is tolerating sitting up in a chair. He does report a very slight headache when sitting in a chair but not severe. No diplopia. Physical Exam 2 Vital Signs (Past 24 Hours): Last Vital Signs Temp 37.1 C 05/19/18 07:01 Pulse 71 05/19/18 07:01 Resp 19 05/19/18 07:01 BP 137/65 05/19/18 07:01 Pulse Ox 95 05/19/18 07:01 Physical Exam: He is sitting in bed with head of bed elevated. He is in no obvious distress or discomfort. Strength is intact bilateral lower extremities. Calves are soft and nontender bilaterally. He is able to roll over in bed for me so I may examine his lumbar incision. It is healed. No drainage. There is no significant edema or fluid wave/shift.
[2018-05-19 08:12] LABS: INR 1.2 (0.9-1.1); Prothrombin Time 12.4 Seconds (9.0-12.0)
[2018-05-19 08:17] LABS: Partial Thromboplastin Ratio 2.1
[2018-05-19 08:19] LABS: Partial Thromboplastin Time 54.4 Seconds (21.0-31.0)
[2018-05-19] MEDS: METOPROLOL TARTRATE 25 MG TAB PO SCH ×2 (08:29→20:49)
[2018-05-19] MEDS: SODIUM CHLORIDE 0.9% 1000ML 1,000 ML IV SCH ×2 (08:29→18:22)
[2018-05-19] MEDS: INSULIN ASPART 100 UNITS/ML 3 ML PEN SC SCH ×4 (08:31→20:50)
[2018-05-19 09:28] LABS: BUN Creatinine Ratio 12.4 (10-20); Calcium 8.2 mg/dl (8.5-10.1); Creatinine Clr Calc Pharmacy 140.5 ml/min; Est GFR (African American) 121.3; Est GFR (Non-African American) 104.7; Magnesium 1.7 mg/dl (1.8-2.4); Phosphorus 3.4 mg/dl (2.5-4.9)
--- NOTE | 2018-05-19 11:18 | Hospitalist Progress Note ---
Date of Service May 19, 2018 Assessment & Plan (1) Postoperative ileus: Ileus persistent nausea, hiccups and intermittent abdominal pain and distention likely consistent with postoperative ileus. CT scan of the abdomen pelvis was performed this evening with evidence of this. NG tube and Hart for decompression of the stomach and bladder, respectively have improved his abdominal pain. Continue antiemetics as needed. Continue pain medication as needed. Increase diet as tolerated, Thorazine as needed for hiccups, hiccups are now gone (2) Paroxysmal A-fib: In setting of ileus, off amio IV. On metoprolol tartrate 25 mill grams p.o. BID. Continue IV heparin infusion until INR greater than or equal to 2. Cardiology is following patient. No elective cardioversion patient has elected for pharmacologic therapy/rate control. (3) H/O Spinal surgery: Recent lumbar spinal surgery last month with complication of durotomy postop course was complicated by CHF and A. fib with RVR. He returns with diplopia with lateral gaze and vertigo as above--these continue to slowly improve. With a history of macroadenoma of the pituitary, a repeat MRI of the sella would be ideal when he is able to lay for the MRI test. Stroke workup has been negative. Initial MRI of the lumbar spine revealed postop seroma 8cm x 9cm. This was drained on 05/05 and durotomy repaired with a patch. Continue activity progression per orthopedics. Cont scheduled Tylenol for back pain. (4) DM type 2 (diabetes mellitus, type 2): Well controlled, continue NovoLog per sliding scale with carb coverage. Holding metformin. (5) HTN (hypertension): Holding Cozaar as patient n.p.o. Monitor for need for IV antihypertensives. (6) CAD (coronary artery disease): History of CABG in the past. Currently asymptomatic. Continue medical management With IV Lopressor. Aspirin and Cozaar held while patient n.p.o. (7) DVT prophylaxis: Heparin drip Full code Disposition-continue restricted activity with slow progression over the next few days per Orthopedics. We will try to discharge to SNF tomorrow 05/20 Bruce Prasad DO [facility] Internal Medicine Subjective 70-year-old male with complicated postop course. Suspect persistent, possibly progressive ileus. He is still nauseous and has been for several days. He has persistent hiccups and cannot get comfortable. He remains in atrial fib/ flutter and is on amiodarone drip with heparin. He has intermittently vomited. His appetite is significantly decreased now for several days. CT scan was performed of the abdomen revealing evidence of possible ileus. Case was discussed with general surgery by Dr Luna. NG tube and Hart placement was recommended and ordered. His abdomen is more comfortable and his NG tube was DC 'd 05/17. Today on 05/19 we are pushing his diet and he is improving clinically. We are bridging him on IV heparin and warfarin, will try to place him in sniff this weekend ROS-No Headache, No Visual Changes, No Fever, No Chills, No Neck Pain or Stiffness, No Chest Pain, No Palpitations, No SOB, No ROGERS, No Cough, No Sputum, No Wheezing, less abdominal pain and distention, No Diarrhea, No Hematemesis, No Hemoptysis, No Unexpected Weight Loss, No Flank pain, No Melena, No Hematochezia, No Frequency, No Urgency, No Burning, No Hematuria, No Rashes, No Diaphoresis. Appetite is better, + flatus or bowel movement, still with back pain Physical Exam Gen-AAO x 3, NAD, Afebrile, NG tube is out Head-NCAT, EOMI, PERRLA, Anicteric Sclera, No Posterior Pharyngeal Erythema Neck-Supple, No JVD, No Thyromegaly, No Masses, No LAD, No Bruits Lungs-Clear to Auscultation Bilaterally, No Rales, No Rhonchi, No Wheezing, No Crepitus Chest-No S4, +S1, +S2, No S3, No Murmurs, No Rubs, No Gallops, No Ectopy Abdomen-Soft, Bowel Sounds Present, Non Tender, Non Distended, No Hepatomegaly, No Splenomegaly, No Palpable Masses, No Rebound, No Rigidity, No Guarding Musculoskeletal-Full Range of Motion Bilaterally, No CVAT Extremities-No Cyanosis, No Clubbing, No Edema Nuero-Cranial Nerves II-XII grossly intact, Motor WNL, DTRs WNL, Strength WNL, No Focal Psych-Normal Mood Physical Exam 2 Vital Signs (Past 24 Hours): Last Vital Signs Temp 37.1 C 05/19/18 07:01 Pulse 71 05/19/18 07:01 Resp 19 05/19/18 07:01 BP 137/65 05/19/18 07:01 Pulse Ox 95 05/19/18 07:01 Results & Data Laboratory Results Current Diagnoses Type 2 diabetes mellitus without complications (05/03/18) Diplopia (05/03/18) Essential (primary) hypertension (05/03/18) Atherosclerotic heart disease of [place] coronary artery without angina pectoris (05/03/18) Paroxysmal atrial fibrillation (05/03/18) Unspecified atrial fibrillation (05/03/18) Ileus, unspecified (05/03/18) Other postprocedural complications and disorders of digestive system (05/03/18) Pain in unspecified hip (05/03/18) Spinal stenosis, lumbar region with neurogenic claudication (05/03/18) Nausea (05/03/18) Dizziness and giddiness (05/03/18) Encounter for other preprocedural examination (05/03/18) Other specified postprocedural states (05/03/18) Allergies No Known Drug Allergies Allergy (Unknown, Verified 05/03/18 14:13) NONE lactose Adverse Reaction (Mild, Verified 05/03/18 14:13) gi symptoms Height/Weight/Isolation Height 5 ft 10 in Weight 90.4 kg Chemistry 05/19/18 05/19/18 07:38 07:38 Sodium 134 L Cancelled Potassium 3.0 L Cancelled Chloride 102 Cancelled Carbon Dioxide 26 Cancelled Anion Gap 6.0 Cancelled BUN 6 L Cancelled Creatinine 0.49 L Cancelled Glucose 123 H Cancelled
[2018-05-19] MEDS: POTASSIUM CHLORIDE 20 MEQ TABCR PO SCH (11:31)
[2018-05-19] MEDS: THIAMINE HCL 100 MG TAB PO SCH ×2 (11:31→20:49)
[2018-05-19] MEDS: PANTOprazole 40 MG in SYRINGE 0 ML IV SCH (11:35)
[2018-05-19] MEDS: HEPARIN STANDARD DEXTROSE 25,000 UNITS/500 ML IV SCH (13:23)
--- NOTE | 2018-05-19 14:32 | Cardiology Progress Note ---
Date of Service May 19, 2018 Assessment & Plan (1) Atrial fibrillation with RVR: asymptomatic rate controlled had extensive conversation with patient and in regards to rate vs. rhythm control strategy after discussing pros and cons of each, they would prefer rate control rates controlled on metoprolol, will cont cont warfarin, goal INR of 2-3 ok to d/c tele from cardiac standpoint (2) HTN (hypertension): labile at this point will add low dose amlodipine and may be uptitrated as necessary Subjective Pt seen and examined, not at bedside at this time. Doing ok currently, still with some waxing and waning nausea/abdominal pain. Denies cp, sob, palpitations, lightheadedness or dizziness. Tele reviewed: atrial flutter, rate controlled. Physical Exam 2 Vital Signs (Past 24 Hours): Last Vital Signs Temp 36.3 C L 05/19/18 12:00 Pulse 78 05/19/18 12:00 Resp 18 05/19/18 12:00 BP 158/73 H 05/19/18 12:00 Pulse Ox 95 05/19/18 12:00 Physical Exam: General: Awake, alert and oriented x 3. No acute distress. HEENT: Normocephalic, atraumatic. Pupils equal, round and reactive to light and accommodation. Extraocular muscles are intact. Anicteric sclera. Moist mucous membranes. Neck: No JVD. No bruit. Cardiovascular: regularly irregular, unable to appreciate murmur, rub or gallop. Pulmonary: Clear to auscultation bilaterally. No rales, rhonchi, or wheezing. Abdomen: Bowel sounds x 4, soft. No rebound, guarding or tenderness. No organomegaly. Extremities: No clubbing, cyanosis or edema. +2 pedal pulses bilaterally. Skin: Warm and dry.
[2018-05-19] MEDS: AMLODIPINE BESYLATE 5 MG TAB PO SCH (16:37)
[2018-05-19] MEDS: WARFARIN SOD 5 MG TAB PO SCH (16:58)
[2018-05-20] MEDS: HEPARIN STANDARD DEXTROSE 25,000 UNITS/500 ML IV SCH ×2 (04:35→20:04)
[2018-05-20] MEDS: SODIUM CHLORIDE 0.9% 1000ML 1,000 ML IV SCH ×3 (04:35→23:08)
[2018-05-20] MEDS: ACETAMINOPHEN 1,000 MG/100 ML VIAL IV SCH ×3 (05:35→22:34)
[2018-05-20 07:25] LABS: Basophils # (auto) 0.02 K/uL (0-0.2); Basophils % (auto) 0.2 %; Eosinophils # (auto) 0.17 K/uL (0-0.5); Eosinophils % (auto) 2.1 %; Hematocrit (blood only) 33.2 % (42-52); Hemoglobin 10.7 g/dL (14.0-18.0); Immature Granulocytes # (auto) 0.02 K/uL (0.00-0.02); Immature Granulocytes % (auto) 0.2 %; Lymphocytes % (auto) 12.2 %; Mean Corpuscular Hgb Conc 32.2 g/dL (32-36); Mean Corpuscular Volume 93.5 fL (80-100); Mean Platelet Volume 8.9 fL (7.4-10.4); Monocytes # (auto) 0.51 K/uL (0.11-0.59); Monocytes % (auto) 6.2 %; Neutrophils # (auto) 6.49 K/uL (1.4-6.5); Neutrophils % (auto) 79.1 %; Platelet Count 370 K/uL (130-400); RDW Coefficient of Variation 14.9 % (11.5-14.5); RDW Standard Deviation 50.9 fL (36.4-46.3); Red Blood Count 3.55 M/uL (4.7-6.1); White Blood Count 8.21 K/uL (4.8-10.8)
[2018-05-20] MEDS: INSULIN ASPART 100 UNITS/ML 3 ML PEN SC SCH ×4 (07:39→21:14)
[2018-05-20 07:41] LABS: INR 1.5 (0.9-1.1); Partial Thromboplastin Ratio 2.1; Prothrombin Time 14.7 Seconds (9.0-12.0)
[2018-05-20 07:45] LABS: Partial Thromboplastin Time 55.3 Seconds (21.0-31.0)
[2018-05-20 07:51] LABS: BUN Creatinine Ratio 9.1 (10-20); Creatinine Clr Calc Pharmacy 122.5 ml/min; Est GFR (Non-African American) 98.4; Potassium 3.2 mmol/L (3.5-5.1)
[2018-05-20] MEDS: POTASSIUM CHLORIDE 20 MEQ TABCR PO SCH ×2 (08:06→17:08)
[2018-05-20] MEDS: AMLODIPINE BESYLATE 5 MG TAB PO SCH (08:06)
[2018-05-20] MEDS: THIAMINE HCL 100 MG TAB PO SCH ×2 (08:06→21:15)
[2018-05-20] MEDS: METOPROLOL TARTRATE 25 MG TAB PO SCH ×2 (08:07→21:15)
--- NOTE | 2018-05-20 11:31 | Hospitalist Progress Note ---
Date of Service May 20, 2018 Assessment & Plan (1) Postoperative ileus: Ileus persistent nausea, hiccups and intermittent abdominal pain and distention likely consistent with postoperative ileus. CT scan of the abdomen pelvis was performed this evening with evidence of this. NG tube and Hart for decompression of the stomach and bladder, respectively have improved his abdominal pain. Continue antiemetics as needed. Continue pain medication as needed. Increase diet as tolerated, Thorazine as needed for hiccups, hiccups are now gone, will DC Hart today (2) Paroxysmal A-fib: In setting of ileus, off amio IV. On metoprolol tartrate 25 mill grams p.o. BID. Continue IV heparin infusion until INR greater than or equal to 2. Cardiology is following patient. No elective cardioversion patient has elected for pharmacologic therapy/rate control. (3) H/O Spinal surgery: Recent lumbar spinal surgery last month with complication of durotomy postop course was complicated by CHF and A. fib with RVR. He returns with diplopia with lateral gaze and vertigo as above--these continue to slowly improve. With a history of macroadenoma of the pituitary, a repeat MRI of the sella would be ideal when he is able to lay for the MRI test. Stroke workup has been negative. Initial MRI of the lumbar spine revealed postop seroma 8cm x 9cm. This was drained on 05/05 and durotomy repaired with a patch. Continue activity progression per orthopedics. Cont scheduled Tylenol for back pain. (4) DM type 2 (diabetes mellitus, type 2): Well controlled, continue NovoLog per sliding scale with carb coverage. Holding metformin. (5) HTN (hypertension): Patient tolerating p.o. meds (6) CAD (coronary artery disease): History of CABG in the past. Currently asymptomatic. Continue medical management With IV Lopressor. Resume aspirin and Cozaar if blood pressure permits, metoprolol for rate control. (7) DVT prophylaxis: Heparin drip Full code Disposition-continue restricted activity with slow progression over the next few days per Orthopedics. We will try to discharge to SNF tomorrow 05/22- Bruce Prasad DO [facility] Internal Medicine Subjective 70-year-old male with complicated postop course. Suspect persistent, possibly progressive ileus. He is still nauseous and has been for several days. He has persistent hiccups and cannot get comfortable. He remains in atrial fib/ flutter and is on amiodarone drip with heparin. He has intermittently vomited. His appetite is significantly decreased now for several days. CT scan was performed of the abdomen revealing evidence of possible ileus. Case was discussed with general surgery by Dr Luna. NG tube and Hart placement was recommended and ordered. His abdomen is more comfortable and his NG tube was DC 'd 05/17. Today on 05/19 we are pushing his diet and he is improving clinically. We are bridging him on IV heparin and warfarin, will try to place him in SNF Tuesday or Tuesday ROS-No Headache, No Visual Changes, No Fever, No Chills, No Neck Pain or Stiffness, No Chest Pain, No Palpitations, No SOB, No ROGERS, No Cough, No Sputum, No Wheezing, less abdominal pain and distention, No Diarrhea, No Hematemesis, No Hemoptysis, No Unexpected Weight Loss, No Flank pain, No Melena, No Hematochezia, No Frequency, No Urgency, No Burning, No Hematuria, No Rashes, No Diaphoresis. Appetite is better, + flatus or bowel movement, still with back pain Physical Exam Gen-AAO x 3, NAD, Afebrile, NG tube is out Head-NCAT, EOMI, PERRLA, Anicteric Sclera, No Posterior Pharyngeal Erythema Neck-Supple, No JVD, No Thyromegaly, No Masses, No LAD, No Bruits Lungs-Clear to Auscultation Bilaterally, No Rales, No Rhonchi, No Wheezing, No Crepitus Chest-No S4, +S1, +S2, No S3, No Murmurs, No Rubs, No Gallops, No Ectopy Abdomen-Soft, Bowel Sounds Present, Non Tender, Non Distended, No Hepatomegaly, No Splenomegaly, No Palpable Masses, No Rebound, No Rigidity, No Guarding Musculoskeletal-Full Range of Motion Bilaterally, No CVAT Extremities-No Cyanosis, No Clubbing, No Edema Nuero-Cranial Nerves II-XII grossly intact, Motor WNL, DTRs WNL, Strength WNL, No Focal Psych-Normal Mood Physical Exam 2 Vital Signs (Past 24 Hours): Last Vital Signs Temp 36.4 C L 05/20/18 11:07 Pulse 90 01/12/19 11:07 Resp 18 05/20/18 11:07 BP 145/69 H 05/20/18 11:07 Pulse Ox 98 05/20/18 11:07 Results & Data Laboratory Results Current Diagnoses Type 2 diabetes mellitus without complications (05/03/18) Diplopia (05/03/18) Essential (primary) hypertension (05/03/18) Atherosclerotic heart disease of [place] coronary artery without angina pectoris (05/03/18) Paroxysmal atrial fibrillation (05/03/18) Unspecified atrial fibrillation (05/03/18) Ileus, unspecified (05/03/18) Other postprocedural complications and disorders of digestive system (05/03/18) Pain in unspecified hip (05/03/18) Spinal stenosis, lumbar region with neurogenic claudication (05/03/18) Nausea (05/03/18) Dizziness and giddiness (05/03/18) Encounter for other preprocedural examination (05/03/18) Other specified postprocedural states (05/03/18) Allergies No Known Drug Allergies Allergy (Unknown, Verified 05/03/18 14:13) NONE lactose Adverse Reaction (Mild, Verified 05/03/18 14:13) gi symptoms Height/Weight/Isolation Height 5 ft 10 in Weight 93.2 kg Chemistry 05/19/18 05/19/18 05/20/18 07:38 07:38 07:00 Sodium 134 L Cancelled 135 L Potassium 3.0 L Cancelled 3.2 L Chloride 102 Cancelled 100 Carbon Dioxide 26 Cancelled 25 Anion Gap 6.0 Cancelled 9.0 BUN 6 L Cancelled 5 L Creatinine 0.49 L Cancelled 0.57 L Glucose 123 H Cancelled 120 H
[2018-05-20] MEDS: PANTOprazole 40 MG in SYRINGE 0 ML IV SCH (12:14)
[2018-05-20] MEDS ORDERED: TEMAZEPAM 15 MG CAPSULE PO PRN (14:22)
[2018-05-20] MEDS: WARFARIN SOD 5 MG TAB PO SCH (17:08)
[2018-05-21] MEDS: ACETAMINOPHEN 1,000 MG/100 ML VIAL IV SCH ×3 (05:35→22:01)
[2018-05-21] MEDS: INSULIN ASPART 100 UNITS/ML 3 ML PEN SC SCH ×4 (07:34→20:34)
[2018-05-21] MEDS: AMLODIPINE BESYLATE 5 MG TAB PO SCH (07:39)
[2018-05-21] MEDS: POTASSIUM CHLORIDE 20 MEQ TABCR PO SCH ×2 (07:40→17:43)
[2018-05-21] MEDS: METOPROLOL TARTRATE 25 MG TAB PO SCH ×2 (07:40→20:31)
[2018-05-21] MEDS ORDERED: Nursing to Pharmacy Communication ONE (08:04)
[2018-05-21 08:12] LABS: Partial Thromboplastin Ratio 2.2
[2018-05-21 08:25] LABS: Partial Thromboplastin Time 56.7 Seconds (21.0-31.0)
--- NOTE | 2018-05-21 08:43 | Orthopedic Progress Note ---
Date of Service May 21, 2018 Assessment & Plan (1) Neurogenic claudication due to lumbar spinal stenosis: We will continue same restrictions. He seems to be tolerating this well. We will continue physical therapy in his room. May transfer to SNF when medically stable as well as stable from a cardiology standpoint. Supervising Physician Co-Signing Physician Notes Dr. Ankur Douglas Subjective Patient is doing well this morning. He reports he has already had a large bowel movement this morning. Denies any significant nausea. Denies hiccups. He is currently sitting in a chair and denies any headaches. Denies radicular leg pain. He reports plan is to discharge hopefully on Tuesday to SNF. He is currently on a heparin drip until INR is therapeutic. He is also on Coumadin for his A. fib/A flutter. Physical Exam 2 Vital Signs (Past 24 Hours): Last Vital Signs Temp 36.4 C L 05/21/18 07:38 Pulse 78 05/21/18 07:38 Resp 20 05/21/18 07:38 BP 169/82 H 05/21/18 07:38 Pulse Ox 97 05/21/18 07:38 Physical Exam: He is sitting in a chair. He is in no obvious distress. Lower extremities are neurovascularly intact bilaterally. Strength is intact bilaterally. Calves are soft nontender bilaterally. His lumbar incision is for the most part healed. There is no erythema. There is no drainage. He has a very small edematous area over the superior right part of his incision. It is nontender. Also has a small area about an inch and a half above his incision that appears to be a possible small papule/pustule. No drainage from this region. It is nontender and mobile.
[2018-05-21 09:52] LABS: INR 1.8 (0.9-1.1); Prothrombin Time 17.4 Seconds (9.0-12.0)
--- NOTE | 2018-05-21 10:21 | Hospitalist Progress Note ---
Date of Service May 21, 2018 Assessment & Plan (1) Postoperative ileus: Ileus persistent nausea, hiccups and intermittent abdominal pain and distention likely consistent with postoperative ileus. CT scan of the abdomen pelvis was performed this evening with evidence of this. NG tube and Hart for decompression of the stomach and bladder, respectively have improved his abdominal pain. Continue antiemetics as needed. Continue pain medication as needed. Increase diet as tolerated, Thorazine as needed for hiccups, hiccups are now gone Hart out 05/20 (2) Paroxysmal A-fib: In setting of ileus, off amio IV. On metoprolol tartrate 25 mill grams p.o. BID. Continue IV heparin infusion until INR greater than or equal to 2. Cardiology is following patient. No elective cardioversion patient has elected for pharmacologic therapy/rate control. On heparin drip until INR is therapeutic. (3) H/O Spinal surgery: Recent lumbar spinal surgery last month with complication of durotomy postop course was complicated by CHF and A. fib with RVR. He returns with diplopia with lateral gaze and vertigo as above--these continue to slowly improve. With a history of macroadenoma of the pituitary, a repeat MRI of the sella would be ideal when he is able to lay for the MRI test. Stroke workup has been negative. Initial MRI of the lumbar spine revealed postop seroma 8cm x 9cm. This was drained on 05/05 and durotomy repaired with a patch. Continue activity progression per orthopedics. Cont scheduled Tylenol for back pain. (4) DM type 2 (diabetes mellitus, type 2): Well controlled, continue NovoLog per sliding scale with carb coverage. Holding metformin. (5) HTN (hypertension): Patient tolerating p.o. meds (6) CAD (coronary artery disease): History of CABG in the past. Currently asymptomatic. Continue medical management With IV Lopressor. Resume aspirin and Cozaar if blood pressure permits, metoprolol for rate control. (7) Hypokalemia: 40 mEq of potassium twice daily, monitor daily labs (8) DVT prophylaxis: Heparin drip Full code Disposition-continue restricted activity with slow progression over the next few days per Orthopedics. We will try to discharge to SNF 05/22 or 05/23 Bruce Prasad DO [facility] Subjective 70-year-old male with complicated postop course. Suspect persistent, possibly progressive ileus. He is still nauseous and has been for several days. He has persistent hiccups and cannot get comfortable. He remains in atrial fib/ flutter and is on amiodarone drip with heparin. He has intermittently vomited. His appetite is significantly decreased now for several days. CT scan was performed of the abdomen revealing evidence of possible ileus. Case was discussed with general surgery by Dr Luna. NG tube and Hart placement was recommended and ordered. His abdomen is more comfortable and his NG tube was DC 'd 05/17. Today on 05/19 we are pushing his diet and he is improving clinically. We are bridging him on IV heparin and warfarin, will try to place him in SNF Tuesday or Tuesday ROS-No Headache, No Visual Changes, No Fever, No Chills, No Neck Pain or Stiffness, No Chest Pain, No Palpitations, No SOB, No ROGERS, No Cough, No Sputum, No Wheezing, less abdominal pain and distention, No Diarrhea, No Hematemesis, No Hemoptysis, No Unexpected Weight Loss, No Flank pain, No Melena, No Hematochezia, No Frequency, No Urgency, No Burning, No Hematuria, No Rashes, No Diaphoresis. Appetite is better, + flatus and bowel movement, still with back pain Physical Exam Gen-AAO x 3, NAD, Afebrile, pleasant Head-NCAT, EOMI, PERRLA, Anicteric Sclera, No Posterior Pharyngeal Erythema Neck-Supple, No JVD, No Thyromegaly, No Masses, No LAD, No Bruits Lungs-Clear to Auscultation Bilaterally, No Rales, No Rhonchi, No Wheezing, No Crepitus Chest-No S4, +S1, +S2, No S3, No Murmurs, No Rubs, No Gallops, No Ectopy Abdomen-Soft, Bowel Sounds Present, Non Tender, Non Distended, No Hepatomegaly, No Splenomegaly, No Palpable Masses, No Rebound, No Rigidity, No Guarding Musculoskeletal-Full Range of Motion Bilaterally, No CVAT Extremities-No Cyanosis, No Clubbing, No Edema Nuero-Cranial Nerves II-XII grossly intact, Motor WNL, DTRs WNL, Strength WNL, No Focal Psych-Normal Mood Physical Exam 2 Vital Signs (Past 24 Hours): Last Vital Signs Temp 36.4 C L 05/21/18 07:38 Pulse 78 05/21/18 07:38 Resp 20 05/21/18 07:38 BP 169/82 H 05/21/18 07:38 Pulse Ox 97 05/21/18 07:38 Results & Data Laboratory Results Current Diagnoses Type 2 diabetes mellitus without complications (05/03/18) Diplopia (05/03/18) Essential (primary) hypertension (05/03/18) Atherosclerotic heart disease of [place] coronary artery without angina pectoris (05/03/18) Paroxysmal atrial fibrillation (05/03/18) Unspecified atrial fibrillation (05/03/18) Ileus, unspecified (05/03/18) Other postprocedural complications and disorders of digestive system (05/03/18) Pain in unspecified hip (05/03/18) Spinal stenosis, lumbar region with neurogenic claudication (05/03/18) Nausea (05/03/18) Dizziness and giddiness (05/03/18) Encounter for other preprocedural examination (05/03/18) Other specified postprocedural states (05/03/18) Allergies No Known Drug Allergies Allergy (Unknown, Verified 05/03/18 14:13) NONE lactose Adverse Reaction (Mild, Verified 05/03/18 14:13) gi symptoms Height/Weight/Isolation Height 5 ft 10 in Weight 94.2 kg CBC 05/03/18 05/03/18 05/03/18 13:21 13:21 13:21 WBC 6.08 RBC 4.15 L Hgb 13.0 L Hct 39.2 L MCV 94.5 MCH 31.3 MCHC 33.2 RDW Std Deviation 48.9 H RDW Coeff of Julieth 14.3 Plt Count 258 MPV 9.7 Immature Gran % (Auto) 0.2 Neut % (Auto) 62.7 Lymph % (Auto) 24.8 Miner % (Auto) 9.5 Eos % (Auto) 2.5 Baso % (Auto) 0.3 Immature Gran # (Auto) 0.01 Neut # (Auto) 3.81 Lymph # (Auto) 1.51 Miner # (Auto) 0.58 Eos # (Auto) 0.15 Baso # (Auto) 0.02 ESR PT 11.0 POC INR INR 1.1 APTT 24.4 PTT Ratio 0.9 Sodium 136 Potassium 4.3 Chloride 100 Carbon Dioxide 27 Anion Gap 9.0 BUN 15 Creatinine 0.66 Est Cr Clr Drug Dosing 103.1 Est GFR ( Amer) 107.3 Est GFR (Non-Af Amer) 92.6 BUN/Creatinine Ratio 22.7 H Glucose 109 H POC Glucose Osmolality Calcium 8.9 Phosphorus Magnesium 2.4 Total Bilirubin 0.3 Direct Bilirubin 0.1 AST 11 L ALT 25 Alkaline Phosphatase 72 Troponin I < 0.015 C-Reactive Protein Total Protein 6.8 Albumin 3.4 Triglycerides Cholesterol LDL Cholesterol, Calc VLDL Cholesterol, Calc HDL Cholesterol Cholesterol/HDL Ratio TSH Cortisol AM Sample Urine Color Urine Appearance Urine pH Ur Specific [place] Urine Protein Urine Glucose (UA) Urine Ketones Urine Blood Urine Nitrite Urine Bilirubin Urine Urobilinogen Ur Leukocyte Esterase Urine WBC (Auto) Urine RBC (Auto) U Hyaline Cast (Auto) U Epithel Cells (Auto) Urine Bacteria (Auto) Acetylchol Rcpt Bind Ab Blood Type Antibody Screen 05/03/18 05/03/18 05/03/18 13:21 13:26 13:26 WBC RBC Hgb Hct MCV MCH MCHC RDW Std Deviation RDW Coeff of Julieth Plt Count MPV Immature Gran % (Auto) Neut % (Auto) Lymph % (Auto) Miner % (Auto) Eos % (Auto) Baso % (Auto) Immature Gran # (Auto) Neut # (Auto) Lymph # (Auto) Miner # (Auto) Eos # (Auto) Baso # (Auto) ESR PT POC INR 1.0 INR APTT PTT Ratio Sodium Potassium Chloride Carbon Dioxide Anion Gap BUN Creatinine Est Cr Clr Drug Dosing Est GFR ( Amer) Est GFR (Non-Af Amer) BUN/Creatinine Ratio Glucose POC Glucose 128 H Osmolality Calcium Phosphorus Magnesium Total Bilirubin Direct Bilirubin AST ALT Alkaline Phosphatase Troponin I C-Reactive Protein Total Protein Albumin Triglycerides Cholesterol LDL Cholesterol, Calc VLDL Cholesterol, Calc HDL Cholesterol Cholesterol/HDL Ratio TSH Cortisol AM Sample Urine Color Urine Appearance Urine pH Ur Specific [place] Urine Protein Urine Glucose (UA) Urine Ketones Urine Blood Urine Nitrite Urine Bilirubin Urine Urobilinogen Ur Leukocyte Esterase Urine WBC (Auto) Urine RBC (Auto) U Hyaline Cast (Auto) U Epithel Cells (Auto) Urine Bacteria (Auto) Acetylchol Rcpt Bind Ab Blood Type A Positive Antibody Screen NEGATIVE 12/05/03/18 05/03/18 13:30 18:43 18:43 WBC 5.26 RBC 4.29 L Hgb 13.2 L Hct 40.4 L MCV 94.2 MCH 30.8 MCHC 32.7 RDW Std Deviation 49.3 H RDW Coeff of Julieth 14.4 Plt Count 261 MPV 9.9 Immature Gran % (Auto) 0.0 Neut % (Auto) 56.5 Lymph % (Auto) 28.3 Miner % (Auto) 11.4 Eos % (Auto) 3.2 Baso % (Auto) 0.6 Immature Gran # (Auto) 0.00 Neut # (Auto) 2.97 Lymph # (Auto) 1.49 Miner # (Auto) 0.60 H Eos # (Auto) 0.17 Baso # (Auto) 0.03 ESR PT POC INR INR APTT PTT Ratio Sodium 135 L Potassium 4.2 Chloride 99 Carbon Dioxide 26 Anion Gap 10.0 BUN 13 Creatinine 0.62 Est Cr Clr Drug Dosing 109.7 Est GFR ( Amer) 110.1 Est GFR (Non-Af Amer) 95.0 BUN/Creatinine Ratio 20.9 H Glucose 108 H POC Glucose Osmolality Calcium 9.2 Phosphorus Magnesium Total Bilirubin Direct Bilirubin AST ALT Alkaline Phosphatase Troponin I C-Reactive Protein Total Protein Albumin Triglycerides Cholesterol LDL Cholesterol, Calc VLDL Cholesterol, Calc HDL Cholesterol Cholesterol/HDL Ratio TSH Cortisol AM Sample Urine Color Yellow Urine Appearance Clear Urine pH 7.0 Ur Specific [place] 1.017 Urine Protein Negative Urine Glucose (UA) Negative Urine Ketones Negative Urine Blood Negative Urine Nitrite Negative Urine Bilirubin Negative Urine Urobilinogen Negative Ur Leukocyte Esterase 1+ H Urine WBC (Auto) 1-5 Urine RBC (Auto) 0-4 U Hyaline Cast (Auto) 0 U Epithel Cells (Auto) 10-20 H Urine Bacteria (Auto) Negative Acetylchol Rcpt Bind Ab Blood Type Antibody Screen 05/03/18 05/03/18 05/04/18 19:15 20:56 06:47 WBC 5.56 RBC 4.26 L Hgb 13.1 L Hct 40.2 L MCV 94.4 MCH 30.8 MCHC 32.6 RDW Std Deviation 48.8 H RDW Coeff of Julieth 14.3 Plt Count 232 MPV 9.8 Immature Gran % (Auto) 0.2 Neut % (Auto) 55.7 Lymph % (Auto) 29.0 Miner % (Auto) 10.8 Eos % (Auto) 3.6 Baso % (Auto) 0.7 Immature Gran # (Auto) 0.01 Neut # (Auto) 3.10 Lymph # (Auto) 1.61 Miner # (Auto) 0.60 H Eos # (Auto) 0.20 Baso # (Auto) 0.04 ESR PT POC INR INR APTT PTT Ratio Sodium Potassium Chloride Carbon Dioxide Anion Gap BUN Creatinine Est Cr Clr Drug Dosing Est GFR ( Amer) Est GFR (Non-Af Amer) BUN/Creatinine Ratio Glucose POC Glucose 99 93 Osmolality Calcium Phosphorus Magnesium Total Bilirubin Direct Bilirubin AST ALT Alkaline Phosphatase Troponin I C-Reactive Protein Total Protein Albumin Triglycerides Cholesterol LDL Cholesterol, Calc VLDL Cholesterol, Calc HDL Cholesterol Cholesterol/HDL Ratio TSH Cortisol AM Sample Urine Color Urine Appearance Urine pH Ur Specific [place] Urine Protein Urine Glucose (UA) Urine Ketones Urine Blood Urine Nitrite Urine Bilirubin Urine Urobilinogen Ur Leukocyte Esterase Urine WBC (Auto) Urine RBC (Auto) U Hyaline Cast (Auto) U Epithel Cells (Auto) Urine Bacteria (Auto) Acetylchol Rcpt Bind Ab Blood Type Antibody Screen 05/04/18 05/04/18 05/04/18 06:47 07:39 11:40 WBC RBC Hgb Hct MCV MCH MCHC RDW Std Deviation RDW Coeff of Julieth Plt Count MPV Immature Gran % (Auto) Neut % (Auto) Lymph % (Auto) Miner % (Auto) Eos % (Auto) Baso % (Auto) Immature Gran # (Auto) Neut # (Auto) Lymph # (Auto) Miner # (Auto) Eos # (Auto) Baso # (Auto) ESR PT POC INR INR APTT PTT Ratio Sodium 136 Potassium 3.8 Chloride 101 Carbon Dioxide 27 Anion Gap 8.0 BUN 14 Creatinine 0.57 L Est Cr Clr Drug Dosing 110.3 Est GFR ( Amer) 114.0 Est GFR (Non-Af Amer) 98.4 BUN/Creatinine Ratio 25.1 H Glucose 96 POC Glucose 93 106 H Osmolality Calcium 8.8 Phosphorus Magnesium Total Bilirubin Direct Bilirubin AST ALT Alkaline Phosphatase Troponin I C-Reactive Protein Total Protein Albumin Triglycerides 128 Cholesterol 130 LDL Cholesterol, Calc 71 VLDL Cholesterol, Calc 26 HDL Cholesterol 33 Cholesterol/HDL Ratio 4 TSH Cortisol AM Sample Urine Color Urine Appearance Urine pH Ur Specific [place] Urine Protein Urine Glucose (UA) Urine Ketones Urine Blood Urine Nitrite Urine Bilirubin Urine Urobilinogen Ur Leukocyte Esterase Urine WBC (Auto) Urine RBC (Auto) U Hyaline Cast (Auto) U Epithel Cells (Auto) Urine Bacteria (Auto) Acetylchol Rcpt Bind Ab Blood Type Antibody Screen 05/04/18 05/04/18 05/05/18 16:47 20:48 06:04 WBC RBC Hgb Hct MCV MCH MCHC RDW Std Deviation RDW Coeff of Julieth Plt Count MPV Immature Gran % (Auto) Neut % (Auto) Lymph % (Auto) Miner % (Auto) Eos % (Auto) Baso % (Auto) Immature Gran # (Auto) Neut # (Auto) Lymph # (Auto) Miner # (Auto) Eos # (Auto) Baso # (Auto) ESR PT POC INR INR APTT PTT Ratio Sodium Potassium Chloride Carbon Dioxide Anion Gap BUN Creatinine Est Cr Clr Drug Dosing Est GFR ( Amer) Est GFR (Non-Af Amer) BUN/Creatinine Ratio Glucose POC Glucose 109 H 117 H 103 H Osmolality Calcium Phosphorus Magnesium Total Bilirubin Direct Bilirubin AST ALT Alkaline Phosphatase Troponin I C-Reactive Protein Total Protein Albumin Triglycerides Cholesterol LDL Cholesterol, Calc VLDL Cholesterol, Calc HDL Cholesterol Cholesterol/HDL Ratio TSH Cortisol AM Sample Urine Color Urine Appearance Urine pH Ur Specific [place] Urine Protein Urine Glucose (UA) Urine Ketones Urine Blood Urine Nitrite Urine Bilirubin Urine Urobilinogen Ur Leukocyte Esterase Urine WBC (Auto) Urine RBC (Auto) U Hyaline Cast (Auto) U Epithel Cells (Auto) Urine Bacteria (Auto) Acetylchol Rcpt Bind Ab Blood Type Antibody Screen 05/05/18 05/05/18 05/05/18 06:21 06:21 10:24 WBC RBC Hgb Hct MCV MCH MCHC RDW Std Deviation RDW Coeff of Julieth Plt Count MPV Immature Gran % (Auto) Neut % (Auto) Lymph % (Auto) Miner % (Auto) Eos % (Auto) Baso % (Auto) Immature Gran # (Auto) Neut # (Auto) Lymph # (Auto) Miner # (Auto) Eos # (Auto) Baso # (Auto) ESR 3 PT POC INR INR APTT PTT Ratio Sodium Potassium Chloride Carbon Dioxide Anion Gap BUN Creatinine Est Cr Clr Drug Dosing Est GFR ( Amer) Est GFR (Non-Af Amer) BUN/Creatinine Ratio Glucose POC Glucose 117 H Osmolality Calcium Phosphorus Magnesium Total Bilirubin Direct Bilirubin AST ALT Alkaline Phosphatase Troponin I C-Reactive Protein < 0.29 Total Protein Albumin Triglycerides Cholesterol LDL Cholesterol, Calc VLDL Cholesterol, Calc HDL Cholesterol Cholesterol/HDL Ratio TSH Cortisol AM Sample Urine Color Urine Appearance Urine pH Ur Specific [place] Urine Protein Urine Glucose (UA) Urine Ketones Urine Blood Urine Nitrite Urine Bilirubin Urine Urobilinogen Ur Leukocyte Esterase Urine WBC (Auto) Urine RBC (Auto) U Hyaline Cast (Auto) U Epithel Cells (Auto) Urine Bacteria (Auto) Acetylchol Rcpt Bind Ab Blood Type Antibody Screen 05/05/18 05/05/18 05/05/18 14:09 18:08 18:27 WBC RBC Hgb Hct MCV MCH MCHC RDW Std Deviation RDW Coeff of Julieth Plt Count MPV Immature Gran % (Auto) Neut % (Auto) Lymph % (Auto) Miner % (Auto) Eos % (Auto) Baso % (Auto) Immature Gran # (Auto) Neut # (Auto) Lymph # (Auto) Miner # (Auto) Eos # (Auto) Baso # (Auto) ESR PT POC INR INR APTT PTT Ratio Sodium Potassium Chloride Carbon Dioxide Anion Gap BUN Creatinine Est Cr Clr Drug Dosing Est GFR ( Amer) Est GFR (Non-Af Amer) BUN/Creatinine Ratio Glucose POC Glucose 120 H 135 H Osmolality Calcium Phosphorus Magnesium Total Bilirubin Direct Bilirubin AST ALT Alkaline Phosphatase Troponin I C-Reactive Protein Total Protein Albumin Triglycerides Cholesterol LDL Cholesterol, Calc VLDL Cholesterol, Calc HDL Cholesterol Cholesterol/HDL Ratio TSH 0.620 Cortisol AM Sample Urine Color Urine Appearance Urine pH Ur Specific [place] Urine Protein Urine Glucose (UA) Urine Ketones Urine Blood Urine Nitrite Urine Bilirubin Urine Urobilinogen Ur Leukocyte Esterase Urine WBC (Auto) Urine RBC (Auto) U Hyaline Cast (Auto) U Epithel Cells (Auto) Urine Bacteria (Auto) Acetylchol Rcpt Bind Ab Blood Type Antibody Screen 05/05/18 05/05/18 05/06/18 18:27 20:39 07:25 WBC RBC Hgb Hct MCV MCH MCHC RDW Std Deviation RDW Coeff of Julieth Plt Count MPV Immature Gran % (Auto) Neut % (Auto) Lymph % (Auto) Miner % (Auto) Eos % (Auto) Baso % (Auto) Immature Gran # (Auto) Neut # (Auto) Lymph # (Auto) Miner # (Auto) Eos # (Auto) Baso # (Auto) ESR PT POC INR INR APTT PTT Ratio Sodium Potassium Chloride Carbon Dioxide Anion Gap BUN Creatinine Est Cr Clr Drug Dosing Est GFR ( Amer) Est GFR (Non-Af Amer) BUN/Creatinine Ratio Glucose POC Glucose 115 H Osmolality Calcium Phosphorus Magnesium Total Bilirubin Direct Bilirubin AST ALT Alkaline Phosphatase Troponin I C-Reactive Protein Total Protein Albumin Triglycerides Cholesterol LDL Cholesterol, Calc VLDL Cholesterol, Calc HDL Cholesterol Cholesterol/HDL Ratio TSH Cortisol AM Sample 19.18 Urine Color Urine Appearance Urine pH Ur Specific [place] Urine Protein Urine Glucose (UA) Urine Ketones Urine Blood Urine Nitrite Urine Bilirubin Urine Urobilinogen Ur Leukocyte Esterase Urine WBC (Auto) Urine RBC (Auto) U Hyaline Cast (Auto) U Epithel Cells (Auto) Urine Bacteria (Auto) Acetylchol Rcpt Bind Ab <0.30 Blood Type Antibody Screen 05/06/18 05/06/18 05/06/18 07:25 07:25 08:03 WBC 8.30 RBC 3.64 L Hgb 11.1 L Hct 34.3 L MCV 94.2 MCH 30.5 MCHC 32.4 RDW Std Deviation 47.9 H RDW Coeff of Julieth 13.9 Plt Count 196 MPV 9.5 Immature Gran % (Auto) 0.1 Neut % (Auto) 67.0 Lymph % (Auto) 21.0 Miner % (Auto) 9.9 Eos % (Auto) 1.8 Baso % (Auto) 0.2 Immature Gran # (Auto) 0.01 Neut # (Auto) 5.56 Lymph # (Auto) 1.74 Miner # (Auto) 0.82 H Eos # (Auto) 0.15 Baso # (Auto) 0.02 ESR PT POC INR INR APTT PTT Ratio Sodium 136 Potassium 3.9 Chloride 101 Carbon Dioxide 27 Anion Gap 8.0 BUN 13 Creatinine 0.64 Est Cr Clr Drug Dosing 98.2 Est GFR ( Amer) 108.7 Est GFR (Non-Af Amer) 93.8 BUN/Creatinine Ratio 19.9 Glucose 84 POC Glucose 80 Osmolality Calcium 8.5 Phosphorus Magnesium Total Bilirubin Direct Bilirubin AST ALT Alkaline Phosphatase Troponin I C-Reactive Protein Total Protein Albumin Triglycerides Cholesterol LDL Cholesterol, Calc VLDL Cholesterol, Calc HDL Cholesterol Cholesterol/HDL Ratio TSH Cortisol AM Sample Urine Color Urine Appearance Urine pH Ur Specific [place] Urine Protein Urine Glucose (UA) Urine Ketones Urine Blood Urine Nitrite Urine Bilirubin Urine Urobilinogen Ur Leukocyte Esterase Urine WBC (Auto) Urine RBC (Auto) U Hyaline Cast (Auto) U Epithel Cells (Auto) Urine Bacteria (Auto) Acetylchol Rcpt Bind Ab Blood Type Antibody Screen 05/06/18 05/06/18 05/06/18 11:53 17:01 20:49 WBC RBC Hgb Hct MCV MCH MCHC RDW Std Deviation RDW Coeff of Julieth Plt Count MPV Immature Gran % (Auto) Neut % (Auto) Lymph % (Auto) Miner % (Auto) Eos % (Auto) Baso % (Auto) Immature Gran # (Auto) Neut # (Auto) Lymph # (Auto) Miner # (Auto) Eos # (Auto) Baso # (Auto) ESR PT POC INR INR APTT PTT Ratio Sodium Potassium Chloride Carbon Dioxide Anion Gap BUN Creatinine Est Cr Clr Drug Dosing Est GFR ( Amer) Est GFR (Non-Af Amer) BUN/Creatinine Ratio Glucose POC Glucose 126 H 103 H 140 H Osmolality Calcium Phosphorus Magnesium Total Bilirubin Direct Bilirubin AST ALT Alkaline Phosphatase Troponin I C-Reactive Protein Total Protein Albumin Triglycerides Cholesterol LDL Cholesterol, Calc VLDL Cholesterol, Calc HDL Cholesterol Cholesterol/HDL Ratio TSH Cortisol AM Sample Urine Color Urine Appearance Urine pH Ur Specific [place] Urine Protein Urine Glucose (UA) Urine Ketones Urine Blood Urine Nitrite Urine Bilirubin Urine Urobilinogen Ur Leukocyte Esterase Urine WBC (Auto) Urine RBC (Auto) U Hyaline Cast (Auto) U Epithel Cells (Auto) Urine Bacteria (Auto) Acetylchol Rcpt Bind Ab Blood Type Antibody Screen 05/07/18 05/07/18 05/07/18 08:06 12:09 17:05 WBC RBC Hgb Hct MCV MCH MCHC RDW Std Deviation RDW Coeff of Julieth Plt Count MPV Immature Gran % (Auto) Neut % (Auto) Lymph % (Auto) Miner % (Auto) Eos % (Auto) Baso % (Auto) Immature Gran # (Auto) Neut # (Auto) Lymph # (Auto) Miner # (Auto) Eos # (Auto) Baso # (Auto) ESR PT POC INR INR APTT PTT Ratio Sodium Potassium Chloride Carbon Dioxide Anion Gap BUN Creatinine Est Cr Clr Drug Dosing Est GFR ( Amer) Est GFR (Non-Af Amer) BUN/Creatinine Ratio Glucose POC Glucose 100 H 138 H 110 H Osmolality Calcium Phosphorus Magnesium Total Bilirubin Direct Bilirubin AST ALT Alkaline Phosphatase Troponin I C-Reactive Protein Total Protein Albumin Triglycerides Cholesterol LDL Cholesterol, Calc VLDL Cholesterol, Calc HDL Cholesterol Cholesterol/HDL Ratio TSH Cortisol AM Sample Urine Color Urine Appearance Urine pH Ur Specific [place] Urine Protein Urine Glucose (UA) Urine Ketones Urine Blood Urine Nitrite Urine Bilirubin Urine Urobilinogen Ur Leukocyte Esterase Urine WBC (Auto) Urine RBC (Auto) U Hyaline Cast (Auto) U Epithel Cells (Auto) Urine Bacteria (Auto) Acetylchol Rcpt Bind Ab Blood Type Antibody Screen 05/07/18 05/08/18 05/08/18 20:36 08:02 12:04 WBC RBC Hgb Hct MCV MCH MCHC RDW Std Deviation RDW Coeff of Julieth Plt Count MPV Immature Gran % (Auto) Neut % (Auto) Lymph % (Auto) Min[place] % (Auto) Eos % (Auto) Baso % (Auto) Immature Gran # (Auto) Neut # (Auto) Lymph # (Auto) Miner # (Auto) Eos # (Auto) Baso # (Auto) ESR PT POC INR INR APTT PTT Ratio Sodium Potassium Chloride Carbon Dioxide Anion Gap BUN Creatinine Est Cr Clr Drug Dosing Est GFR ( Amer) Est GFR (Non-Af Amer) BUN/Creatinine Ratio Glucose POC Glucose 147 H 139 H 138 H Osmolality Calcium Phosphorus Magnesium Total Bilirubin Direct Bilirubin AST ALT Alkaline Phosphatase Troponin I C-Reactive Protein Total Protein Albumin Triglycerides Cholesterol LDL Cholesterol, Calc VLDL Cholesterol, Calc HDL Cholesterol Cholesterol/HDL Ratio TSH Cortisol AM Sample Urine Color Urine Appearance Urine pH Ur Specific [place] Urine Protein Urine Glucose (UA) Urine Ketones Urine Blood Urine Nitrite Urine Bilirubin Urine Urobilinogen Ur Leukocyte Esterase Urine WBC (Auto) Urine RBC (Auto) U Hyaline Cast (Auto) U Epithel Cells (Auto) Urine Bacteria (Auto) Acetylchol Rcpt Bind Ab Blood Type Antibody Screen 05/08/18 05/08/18 05/09/18 17:07 20:47 08:03 WBC RBC Hgb Hct MCV MCH MCHC RDW Std Deviation RDW Coeff of Julieth Plt Count MPV Immature Gran % (Auto) Neut % (Auto) Lymph % (Auto) Miner % (Auto) Eos % (Auto) Baso % (Auto) Immature Gran # (Auto) Neut # (Auto) Lymph # (Auto) Miner # (Auto) Eos # (Auto) Baso # (Auto) ESR PT POC INR INR APTT PTT Ratio Sodium Potassium Chloride Carbon Dioxide Anion Gap BUN Creatinine Est Cr Clr Drug Dosing Est GFR ( Amer) Est GFR (Non-Af Amer) BUN/Creatinine Ratio Glucose POC Glucose 122 H 156 H 137 H Osmolality Calcium Phosphorus Magnesium Total Bilirubin Direct Bilirubin AST ALT Alkaline Phosphatase Troponin I C-Reactive Protein Total Protein Albumin Triglycerides Cholesterol LDL Cholesterol, Calc VLDL Cholesterol, Calc HDL Cholesterol Cholesterol/HDL Ratio TSH Cortisol AM Sample Urine Color Urine Appearance Urine pH Ur Specific [place] Urine Protein Urine Glucose (UA) Urine Ketones Urine Blood Urine Nitrite Urine Bilirubin Urine Urobilinogen Ur Leukocyte Esterase Urine WBC (Auto) Urine RBC (Auto) U Hyaline Cast (Auto) U Epithel Cells (Auto) Urine Bacteria (Auto) Acetylchol Rcpt Bind Ab Blood Type Antibody Screen 05/09/18 05/09/18 05/09/18 12:15 17:24 20:25 WBC RBC Hgb Hct MCV MCH MCHC RDW Std Deviation RDW Coeff of Julieth Plt Count MPV Immature Gran % (Auto) Neut % (Auto) Lymph % (Auto) Miner % (Auto) Eos % (Auto) Baso % (Auto) Immature Gran # (Auto) Neut # (Auto) Lymph # (Auto) Miner # (Auto) Eos # (Auto) Baso # (Auto) ESR PT POC INR INR APTT PTT Ratio Sodium Potassium Chloride Carbon Dioxide Anion Gap BUN Creatinine Est Cr Clr Drug Dosing Est GFR ( Amer) Est GFR (Non-Af Amer) BUN/Creatinine Ratio Glucose POC Glucose 136 H 132 H 141 H Osmolality Calcium Phosphorus Magnesium Total Bilirubin Direct Bilirubin AST ALT Alkaline Phosphatase Troponin I C-Reactive Protein Total Protein Albumin Triglycerides Cholesterol LDL Cholesterol, Calc VLDL Cholesterol, Calc HDL Cholesterol Cholesterol/HDL Ratio TSH Cortisol AM Sample Urine Color Urine Appearance Urine pH Ur Specific [place] Urine Protein Urine Glucose (UA) Urine Ketones Urine Blood Urine Nitrite Urine Bilirubin Urine Urobilinogen Ur Leukocyte Esterase Urine WBC (Auto) Urine RBC (Auto) U Hyaline Cast (Auto) U Epithel Cells (Auto) Urine Bacteria (Auto) Acetylchol Rcpt Bind Ab Blood Type Antibody Screen 05/10/18 05/10/18 05/10/18 05:54 05:54 07:24 WBC 7.35 RBC 3.70 L Hgb 11.3 L Hct 34.8 L MCV 94.1 MCH 30.5 MCHC 32.5 RDW Std Deviation 47.5 H RDW Coeff of Julieth 13.7 Plt Count 192 MPV 9.8 Immature Gran % (Auto) Neut % (Auto) Lymph % (Auto) Miner % (Auto) Eos % (Auto) Baso % (Auto) Immature Gran # (Auto) Neut # (Auto) Lymph # (Auto) Miner # (Auto) Eos # (Auto) Baso # (Auto) ESR PT POC INR INR APTT PTT Ratio Sodium 131 L Potassium 4.1 Chloride 95 L Carbon Dioxide 31 Anion Gap 5.0 BUN 12 Creatinine 0.68 Est Cr Clr Drug Dosing 92.4 Est GFR ( Amer) 106.0 Est GFR (Non-Af Amer) 91.5 BUN/Creatinine Ratio 18.0 Glucose 137 H POC Glucose 159 H Osmolality Calcium 8.6 Phosphorus Magnesium Total Bilirubin Direct Bilirubin AST ALT Alkaline Phosphatase Troponin I C-Reactive Protein Total Protein Albumin Triglycerides Cholesterol LDL Cholesterol, Calc VLDL Cholesterol, Calc HDL Cholesterol Cholesterol/HDL Ratio TSH Cortisol AM Sample Urine Color Urine Appearance Urine pH Ur Specific [place] Urine Protein Urine Glucose (UA) Urine Ketones Urine Blood Urine Nitrite Urine Bilirubin Urine Urobilinogen Ur Leukocyte Esterase Urine WBC (Auto) Urine RBC (Auto) U Hyaline Cast (Auto) U Epithel Cells (Auto) Urine Bacteria (Auto) Acetylchol Rcpt Bind Ab Blood Type Antibody Screen 05/10/18 05/10/18 05/10/18 08:09 11:58 17:02 WBC RBC Hgb Hct MCV MCH MCHC RDW Std Deviation RDW Coeff of Julieth Plt Count MPV Immature Gran % (Auto) Neut % (Auto) Lymph % (Auto) Miner % (Auto) Eos % (Auto) Baso % (Auto) Immature Gran # (Auto) Neut # (Auto) Lymph # (Auto) Miner # (Auto) Eos # (Auto) Baso # (Auto) ESR PT POC INR INR APTT PTT Ratio Sodium Potassium Chloride Carbon Dioxide Anion Gap BUN Creatinine Est Cr Clr Drug Dosing Est GFR ( Amer) Est GFR (Non-Af Amer) BUN/Creatinine Ratio Glucose POC Glucose 139 H 139 H 143 H Osmolality Calcium Phosphorus Magnesium Total Bilirubin Direct Bilirubin AST ALT Alkaline Phosphatase Troponin I C-Reactive Protein Total Protein Albumin Triglycerides Cholesterol LDL Cholesterol, Calc VLDL Cholesterol, Calc HDL Cholesterol Cholesterol/HDL Ratio TSH Cortisol AM Sample Urine Color Urine Appearance Urine pH Ur Specific [place] Urine Protein Urine Glucose (UA) Urine Ketones Urine Blood Urine Nitrite Urine Bilirubin Urine Urobilinogen Ur Leukocyte Esterase Urine WBC (Auto) Urine RBC (Auto) U Hyaline Cast (Auto) U Epithel Cells (Auto) Urine Bacteria (Auto) Acetylchol Rcpt Bind Ab Blood Type Antibody Screen 05/10/18 05/11/18 05/11/18 20:37 08:14 11:59 WBC RBC Hgb Hct MCV MCH MCHC RDW Std Deviation RDW Coeff of Julieth Plt Count MPV Immature Gran % (Auto) Neut % (Auto) Lymph % (Auto) Miner % (Auto) Eos % (Auto) Baso % (Auto) Immature Gran # (Auto) Neut # (Auto) Lymph # (Auto) Miner # (Auto) Eos # (Auto) Baso # (Auto) ESR PT POC INR INR APTT PTT Ratio Sodium Potassium Chloride Carbon Dioxide Anion Gap BUN Creatinine Est Cr Clr Drug Dosing Est GFR ( Amer) Est GFR (Non-Af Amer) BUN/Creatinine Ratio Glucose POC Glucose 143 H 133 H 164 H Osmolality Calcium Phosphorus Magnesium Total Bilirubin Direct Bilirubin AST ALT Alkaline Phosphatase Troponin I C-Reactive Protein Total Protein Albumin Triglycerides Cholesterol LDL Cholesterol, Calc VLDL Cholesterol, Calc HDL Cholesterol Cholesterol/HDL Ratio TSH Cortisol AM Sample Urine Color Urine Appearance Urine pH Ur Specific [place] Urine Protein Urine Glucose (UA) Urine Ketones Urine Blood Urine Nitrite Urine Bilirubin Urine Urobilinogen Ur Leukocyte Esterase Urine WBC (Auto) Urine RBC (Auto) U Hyaline Cast (Auto) U Epithel Cells (Auto) Urine Bacteria (Auto) Acetylchol Rcpt Bind Ab Blood Type Antibody Screen 05/11/18 05/11/18 05/12/18 17:08 20:56 05:13 WBC RBC Hgb Hct MCV MCH MCHC RDW Std Deviation RDW Coeff of Julieth Plt Count MPV Immature Gran % (Auto) Neut % (Auto) Lymph % (Auto) Miner % (Auto) Eos % (Auto) Baso % (Auto) Immature Gran # (Auto) Neut # (Auto) Lymph # (Auto) Miner # (Auto) Eos # (Auto) Baso # (Auto) ESR PT POC INR INR APTT PTT Ratio Sodium Potassium Chloride Carbon Dioxide Anion Gap BUN Creatinine Est Cr Clr Drug Dosing Est GFR ( Amer) Est GFR (Non-Af Amer) BUN/Creatinine Ratio Glucose POC Glucose 118 H 114 H Osmolality Calcium Phosphorus 3.5 Magnesium Total Bilirubin 0.6 Direct Bilirubin 0.2 AST 17 ALT 24 Alkaline Phosphatase 67 Troponin I C-Reactive Protein Total Protein 5.7 L Albumin 2.5 L Triglycerides Cholesterol LDL Cholesterol, Calc VLDL Cholesterol, Calc HDL Cholesterol Cholesterol/HDL Ratio TSH Cortisol AM Sample Urine Color Urine Appearance Urine pH Ur Specific [place] Urine Protein Urine Glucose (UA) Urine Ketones Urine Blood Urine Nitrite Urine Bilirubin Urine Urobilinogen Ur Leukocyte Esterase Urine WBC (Auto) Urine RBC (Auto) U Hyaline Cast (Auto) U Epithel Cells (Auto) Urine Bacteria (Auto) Acetylchol Rcpt Bind Ab Blood Type Antibody Screen 05/12/18 05/12/18 05/12/18 07:39 11:19 16:17 WBC RBC Hgb Hct MCV MCH MCHC RDW Std Deviation RDW Coeff of Julieth Plt Count MPV Immature Gran % (Auto) Neut % (Auto) Lymph % (Auto) Miner % (Auto) Eos % (Auto) Baso % (Auto) Immature Gran # (Auto) Neut # (Auto) Lymph # (Auto) Miner # (Auto) Eos # (Auto) Baso # (Auto) ESR PT POC INR INR APTT PTT Ratio Sodium Potassium Chloride Carbon Dioxide Anion Gap BUN Creatinine Est Cr Clr Drug Dosing Est GFR ( Amer) Est GFR (Non-Af Amer) BUN/Creatinine Ratio Glucose POC Glucose 108 H 123 H 125 H Osmolality Calcium Phosphorus Magnesium Total Bilirubin Direct Bilirubin AST ALT Alkaline Phosphatase Troponin I C-Reactive Protein Total Protein Albumin Triglycerides Cholesterol LDL Cholesterol, Calc VLDL Cholesterol, Calc HDL Cholesterol Cholesterol/HDL Ratio TSH Cortisol AM Sample Urine Color Urine Appearance Urine pH Ur Specific [place] Urine Protein Urine Glucose (UA) Urine Ketones Urine Blood Urine Nitrite Urine Bilirubin Urine Urobilinogen Ur Leukocyte Esterase Urine WBC (Auto) Urine RBC (Auto) U Hyaline Cast (Auto) U Epithel Cells (Auto) Urine Bacteria (Auto) Acetylchol Rcpt Bind Ab Blood Type Antibody Screen 05/12/18 05/13/18 05/13/18 20:27 04:42 04:46 WBC 9.24 RBC 3.88 L Hgb 11.7 L Hct 35.8 L MCV 92.3 MCH 30.2 MCHC 32.7 RDW Std Deviation 45.6 RDW Coeff of Julieth 13.6 Plt Count 248 MPV 9.9 Immature Gran % (Auto) 0.3 Neut % (Auto) 66.9 Lymph % (Auto) 20.7 Miner % (Auto) 10.6 Eos % (Auto) 1.3 Baso % (Auto) 0.2 Immature Gran # (Auto) 0.03 H Neut # (Auto) 6.18 Lymph # (Auto) 1.91 Miner # (Auto) 0.98 H Eos # (Auto) 0.12 Baso # (Auto) 0.02 ESR PT POC INR INR APTT PTT Ratio Sodium Potassium Chloride Carbon Dioxide Anion Gap BUN Creatinine Est Cr Clr Drug Dosing Est GFR ( Amer) Est GFR (Non-Af Amer) BUN/Creatinine Ratio Glucose POC Glucose 112 H 103 H Osmolality Calcium Phosphorus Magnesium Total Bilirubin Direct Bilirubin AST ALT Alkaline Phosphatase Troponin I C-Reactive Protein Total Protein Albumin Triglycerides Cholesterol LDL Cholesterol, Calc VLDL Cholesterol, Calc HDL Cholesterol Cholesterol/HDL Ratio TSH Cortisol AM Sample Urine Color Urine Appearance Urine pH Ur Specific [place] Urine Protein Urine Glucose (UA) Urine Ketones Urine Blood Urine Nitrite Urine Bilirubin Urine Urobilinogen Ur Leukocyte Esterase Urine WBC (Auto) Urine RBC (Auto) U Hyaline Cast (Auto) U Epithel Cells (Auto) Urine Bacteria (Auto) Acetylchol Rcpt Bind Ab Blood Type Antibody Screen 05/13/18 05/13/18 05/13/18 04:46 07:38 11:33 WBC RBC Hgb Hct MCV MCH MCHC RDW Std Deviation RDW Coeff of Julieth Plt Count MPV Immature Gran % (Auto) Neut % (Auto) Lymph % (Auto) Miner % (Auto) Eos % (Auto) Baso % (Auto) Immature Gran # (Auto) Neut # (Auto) Lymph # (Auto) Miner # (Auto) Eos # (Auto) Baso # (Auto) ESR PT POC INR INR APTT PTT Ratio Sodium 129 L Potassium 4.2 Chloride 96 L Carbon Dioxide 27 Anion Gap 6.0 BUN 19 H Creatinine 0.58 L Est Cr Clr Drug Dosing 108.4 Est GFR ( Amer) 113.2 Est GFR (Non-Af Amer) 97.7 BUN/Creatinine Ratio 32.4 H Glucose 117 H POC Glucose 136 H 130 H Osmolality Calcium 8.6 Phosphorus Magnesium 2.0 Total Bilirubin Direct Bilirubin AST ALT Alkaline Phosphatase Troponin I C-Reactive Protein Total Protein Albumin Triglycerides Cholesterol LDL Cholesterol, Calc VLDL Cholesterol, Calc HDL Cholesterol Cholesterol/HDL Ratio TSH Cortisol AM Sample Urine Color Urine Appearance Urine pH Ur Specific [place] Urine Protein Urine Glucose (UA) Urine Ketones Urine Blood Urine Nitrite Urine Bilirubin Urine Urobilinogen Ur Leukocyte Esterase Urine WBC (Auto) Urine RBC (Auto) U Hyaline Cast (Auto) U Epithel Cells (Auto) Urine Bacteria (Auto) Acetylchol Rcpt Bind Ab Blood Type Antibody Screen 05/13/18 05/13/18 05/14/18 16:17 20:24 05:56 WBC RBC Hgb Hct MCV MCH MCHC RDW Std Deviation RDW Coeff of Julieth Plt Count MPV Immature Gran % (Auto) Neut % (Auto) Lymph % (Auto) Miner % (Auto) Eos % (Auto) Baso % (Auto) Immature Gran # (Auto) Neut # (Auto) Lymph # (Auto) Miner # (Auto) Eos # (Auto) Baso # (Auto) ESR PT POC INR INR APTT PTT Ratio Sodium Potassium Chloride Carbon Dioxide Anion Gap BUN Creatinine Est Cr Clr Drug Dosing Est GFR ( Amer) Est GFR (Non-Af Amer) BUN/Creatinine Ratio Glucose POC Glucose 114 H 105 H Osmolality 269 L Calcium Phosphorus Magnesium Total Bilirubin Direct Bilirubin AST ALT Alkaline Phosphatase Troponin I C-Reactive Protein Total Protein Albumin Triglycerides Cholesterol LDL Cholesterol, Calc VLDL Cholesterol, Calc HDL Cholesterol Cholesterol/HDL Ratio TSH Cortisol AM Sample Urine Color Urine Appearance Urine pH Ur Specific [place] Urine Protein Urine Glucose (UA) Urine Ketones Urine Blood Urine Nitrite Urine Bilirubin Urine Urobilinogen Ur Leukocyte Esterase Urine WBC (Auto) Urine RBC (Auto) U Hyaline Cast (Auto) U Epithel Cells (Auto) Urine Bacteria (Auto) Acetylchol Rcpt Bind Ab Blood Type Antibody Screen 05/14/18 05/14/18 05/14/18 05:56 07:41 11:11 WBC RBC Hgb Hct MCV MCH MCHC RDW Std Deviation RDW Coeff of Julieth Plt Count MPV Immature Gran % (Auto) Neut % (Auto) Lymph % (Auto) Miner % (Auto) Eos % (Auto) Baso % (Auto) Immature Gran # (Auto) Neut # (Auto) Lymph # (Auto) Miner # (Auto) Eos # (Auto) Baso # (Auto) ESR PT POC INR INR APTT PTT Ratio Sodium 130 L Potassium 3.7 Chloride 95 L Carbon Dioxide 26 Anion Gap 9.0 BUN 21 H Creatinine 0.58 L Est Cr Clr Drug Dosing 117.3 Est GFR ( Amer) 113.2 Est GFR (Non-Af Amer) 97.7 BUN/Creatinine Ratio 36.8 H Glucose 106 H POC Glucose 113 H 108 H Osmolality Calcium 8.1 L Phosphorus Magnesium Total Bilirubin Direct Bilirubin AST ALT Alkaline Phosphatase Troponin I C-Reactive Protein Total Protein Albumin Triglycerides Cholesterol LDL Cholesterol, Calc VLDL Cholesterol, Calc HDL Cholesterol Cholesterol/HDL Ratio TSH Cortisol AM Sample Urine Color Urine Appearance Urine pH Ur Specific [place] Urine Protein Urine Glucose (UA) Urine Ketones Urine Blood Urine Nitrite Urine Bilirubin Urine Urobilinogen Ur Leukocyte Esterase Urine WBC (Auto) Urine RBC (Auto) U Hyaline Cast (Auto) U Epithel Cells (Auto) Urine Bacteria (Auto) Acetylchol Rcpt Bind Ab Blood Type Antibody Screen 05/14/18 05/14/18 05/15/18 16:31 20:09 05:36 WBC 8.37 RBC 3.69 L Hgb 11.0 L Hct 34.2 L MCV 92.7 MCH 29.8 MCHC 32.2 RDW Std Deviation 46.4 H RDW Coeff of Julieth 13.9 Plt Count 286 MPV 9.7 Immature Gran % (Auto) Neut % (Auto) Lymph % (Auto) Miner % (Auto) Eos % (Auto) Baso % (Auto) Immature Gran # (Auto) Neut # (Auto) Lymph # (Auto) Miner # (Auto) Eos # (Auto) Baso # (Auto) ESR PT POC INR INR APTT PTT Ratio Sodium Potassium Chloride Carbon Dioxide Anion Gap BUN Creatinine Est Cr Clr Drug Dosing Est GFR ( Amer) Est GFR (Non-Af Amer) BUN/Creatinine Ratio Glucose POC Glucose 125 H 106 H Osmolality Calcium Phosphorus Magnesium Total Bilirubin Direct Bilirubin AST ALT Alkaline Phosphatase Troponin I C-Reactive Protein Total Protein Albumin Triglycerides Cholesterol LDL Cholesterol, Calc VLDL Cholesterol, Calc HDL Cholesterol Cholesterol/HDL Ratio TSH Cortisol AM Sample Urine Color Urine Appearance Urine pH Ur Specific [place] Urine Protein Urine Glucose (UA) Urine Ketones Urine Blood Urine Nitrite Urine Bilirubin Urine Urobilinogen Ur Leukocyte Esterase Urine WBC (Auto) Urine RBC (Auto) U Hyaline Cast (Auto) U Epithel Cells (Auto) Urine Bacteria (Auto) Acetylchol Rcpt Bind Ab Blood Type Antibody Screen 05/15/18 05/15/18 05/15/18 05:36 07:39 11:14 WBC RBC Hgb Hct MCV MCH MCHC RDW Std Deviation RDW Coeff of Julieth Plt Count MPV Immature Gran % (Auto) Neut % (Auto) Lymph % (Auto) Miner % (Auto) Eos % (Auto) Baso % (Auto) Immature Gran # (Auto) Neut # (Auto) Lymph # (Auto) Miner # (Auto) Eos # (Auto) Baso # (Auto) ESR PT POC INR INR APTT PTT Ratio Sodium 129 L Potassium 3.5 Chloride 94 L Carbon Dioxide 29 Anion Gap 6.0 BUN 15 Creatinine 0.59 L Est Cr Clr Drug Dosing 116.5 Est GFR ( Amer) 112.4 Est GFR (Non-Af Amer) 97.0 BUN/Creatinine Ratio 26.0 H Glucose 89 POC Glucose 121 H 104 H Osmolality Calcium 8.2 L Phosphorus 3.0 Magnesium 1.9 Total Bilirubin Direct Bilirubin AST ALT Alkaline Phosphatase Troponin I C-Reactive Protein Total Protein Albumin Triglycerides Cholesterol LDL Cholesterol, Calc VLDL Cholesterol, Calc HDL Cholesterol Cholesterol/HDL Ratio TSH Cortisol AM Sample Urine Color Urine Appearance Urine pH Ur Specific [place] Urine Protein Urine Glucose (UA) Urine Ketones Urine Blood Urine Nitrite Urine Bilirubin Urine Urobilinogen Ur Leukocyte Esterase Urine WBC (Auto) Urine RBC (Auto) U Hyaline Cast (Auto) U Epithel Cells (Auto) Urine Bacteria (Auto) Acetylchol Rcpt Bind Ab Blood Type Antibody Screen 05/15/18 05/15/18 05/16/18 16:08 20:27 07:10 WBC RBC Hgb Hct MCV MCH MCHC RDW Std Deviation RDW Coeff of Julieth Plt Count MPV Immature Gran % (Auto) Neut % (Auto) Lymph % (Auto) Miner % (Auto) Eos % (Auto) Baso % (Auto) Immature Gran # (Auto) Neut # (Auto) Lymph # (Auto) Miner # (Auto) Eos # (Auto) Baso # (Auto) ESR PT POC INR INR APTT PTT Ratio Sodium Potassium Chloride Carbon Dioxide Anion Gap BUN Creatinine Est Cr Clr Drug Dosing Est GFR ( Amer) Est GFR (Non-Af Amer) BUN/Creatinine Ratio Glucose POC Glucose 110 H 143 H 114 H Osmolality Calcium Phosphorus Magnesium Total Bilirubin Direct Bilirubin AST ALT Alkaline Phosphatase Troponin I C-Reactive Protein Total Protein Albumin Triglycerides Cholesterol LDL Cholesterol, Calc VLDL Cholesterol, Calc HDL Cholesterol Cholesterol/HDL Ratio TSH Cortisol AM Sample Urine Color Urine Appearance Urine pH Ur Specific [place] Urine Protein Urine Glucose (UA) Urine Ketones Urine Blood Urine Nitrite Urine Bilirubin Urine Urobilinogen Ur Leukocyte Esterase Urine WBC (Auto) Urine RBC (Auto) U Hyaline Cast (Auto) U Epithel Cells (Auto) Urine Bacteria (Auto) Acetylchol Rcpt Bind Ab Blood Type Antibody Screen 05/16/18 05/16/1819 09:19 09:19 09:19 WBC 9.61 RBC 4.08 L Hgb 12.4 L Hct 37.7 L MCV 92.4 MCH 30.4 MCHC 32.9 RDW Std Deviation 47.3 H RDW Coeff of Julieth 14.2 Plt Count 383 MPV 9.6 Immature Gran % (Auto) Neut % (Auto) Lymph % (Auto) Miner % (Auto) Eos % (Auto) Baso % (Auto) Immature Gran # (Auto) Neut # (Auto) Lymph # (Auto) Miner # (Auto) Eos # (Auto) Baso # (Auto) ESR PT POC INR INR APTT PTT Ratio Sodium 128 L Potassium 3.2 L Chloride 92 L Carbon Dioxide 25 Anion Gap 11.0 BUN 15 Creatinine 0.95 D Est Cr Clr Drug Dosing 72.1 Est GFR ( Amer) 88.5 Est GFR (Non-Af Amer) 76.4 BUN/Creatinine Ratio 15.9 Glucose 221 H POC Glucose Osmolality 274 L Calcium 8.0 L Phosphorus Magnesium Total Bilirubin Direct Bilirubin AST ALT Alkaline Phosphatase Troponin I C-Reactive Protein Total Protein Albumin Triglycerides Cholesterol LDL Cholesterol, Calc VLDL Cholesterol, Calc HDL Cholesterol Cholesterol/HDL Ratio TSH Cortisol AM Sample Urine Color Urine Appearance Urine pH Ur Specific [place] Urine Protein Urine Glucose (UA) Urine Ketones Urine Blood Urine Nitrite Urine Bilirubin Urine Urobilinogen Ur Leukocyte Esterase Urine WBC (Auto) Urine RBC (Auto) U Hyaline Cast (Auto) U Epithel Cells (Auto) Urine Bacteria (Auto) Acetylchol Rcpt Bind Ab Blood Type Antibody Screen 05/16/18 05/16/18 05/16/18 11:31 11:40 16:18 WBC RBC Hgb Hct MCV MCH MCHC RDW Std Deviation RDW Coeff of Julieth Plt Count MPV Immature Gran % (Auto) Neut % (Auto) Lymph % (Auto) Miner % (Auto) Eos % (Auto) Baso % (Auto) Immature Gran # (Auto) Neut # (Auto) Lymph # (Auto) Miner # (Auto) Eos # (Auto) Baso # (Auto) ESR PT 13.1 H POC INR INR 1.3 H APTT 25.8 PTT Ratio 1.0 Sodium Potassium Chloride Carbon Dioxide Anion Gap BUN Creatinine Est Cr Clr Drug Dosing Est GFR ( Amer) Est GFR (Non-Af Amer) BUN/Creatinine Ratio Glucose POC Glucose 155 H 131 H Osmolality Calcium Phosphorus Magnesium Total Bilirubin Direct Bilirubin AST ALT Alkaline Phosphatase Troponin I C-Reactive Protein Total Protein Albumin Triglycerides Cholesterol LDL Cholesterol, Calc VLDL Cholesterol, Calc HDL Cholesterol Cholesterol/HDL Ratio TSH Cortisol AM Sample Urine Color Urine Appearance Urine pH Ur Specific [place] Urine Protein Urine Glucose (UA) Urine Ketones Urine Blood Urine Nitrite Urine Bilirubin Urine Urobilinogen Ur Leukocyte Esterase Urine WBC (Auto) Urine RBC (Auto) U Hyaline Cast (Auto) U Epithel Cells (Auto) Urine Bacteria (Auto) Acetylchol Rcpt Bind Ab Blood Type Antibody Screen 05/16/18 05/16/18 05/16/18 19:45 20:22 21:00 WBC RBC Hgb Hct MCV MCH MCHC RDW Std Deviation RDW Coeff of Julieth Plt Count MPV Immature Gran % (Auto) Neut % (Auto) Lymph % (Auto) Miner % (Auto) Eos % (Auto) Baso % (Auto) Immature Gran # (Auto) Neut # (Auto) Lymph # (Auto) Miner # (Auto) Eos # (Auto) Baso # (Auto) ESR PT POC INR INR APTT 32.3 H PTT Ratio 1.2 Sodium Potassium Chloride Carbon Dioxide Anion Gap BUN Creatinine Est Cr Clr Drug Dosing Est GFR ( Amer) Est GFR (Non-Af Amer) BUN/Creatinine Ratio Glucose POC Glucose 142 H Osmolality Calcium Phosphorus Magnesium Total Bilirubin Direct Bilirubin AST ALT Alkaline Phosphatase Troponin I C-Reactive Protein Total Protein Albumin Triglycerides Cholesterol LDL Cholesterol, Calc VLDL Cholesterol, Calc HDL Cholesterol Cholesterol/HDL Ratio TSH Cortisol AM Sample Urine Color Yellow Urine Appearance Clear Urine pH 6.0 Ur Specific [place] 1.026 Urine Protein Negative Urine Glucose (UA) Negative Urine Ketones Negative Urine Blood Negative Urine Nitrite Negative Urine Bilirubin Negative Urine Urobilinogen Negative Ur Leukocyte Esterase Negative Urine WBC (Auto) Urine RBC (Auto) U Hyaline Cast (Auto) U Epithel Cells (Auto) Urine Bacteria (Auto) Acetylchol Rcpt Bind Ab Blood Type Antibody Screen 05/17/18 05/17/18 05/17/18 00:01 04:07 04:07 WBC 8.93 RBC 3.78 L Hgb 11.5 L Hct 34.8 L MCV 92.1 MCH 30.4 MCHC 33.0 RDW Std Deviation 46.3 RDW Coeff of Julieth 14.3 Plt Count 379 MPV 9.6 Immature Gran % (Auto) Neut % (Auto) Lymph % (Auto) Miner % (Auto) Eos % (Auto) Baso % (Auto) Immature Gran # (Auto) Neut # (Auto) Lymph # (Auto) Miner # (Auto) Eos # (Auto) Baso # (Auto) ESR PT POC INR INR APTT 67.8 H* PTT Ratio 2.6 Sodium Potassium Chloride Carbon Dioxide Anion Gap BUN Creatinine Est Cr Clr Drug Dosing Est GFR ( Amer) Est GFR (Non-Af Amer) BUN/Creatinine Ratio Glucose POC Glucose 118 H Osmolality Calcium Phosphorus Magnesium Total Bilirubin Direct Bilirubin AST ALT Alkaline Phosphatase Troponin I C-Reactive Protein Total Protein Albumin Triglycerides Cholesterol LDL Cholesterol, Calc VLDL Cholesterol, Calc HDL Cholesterol Cholesterol/HDL Ratio TSH Cortisol AM Sample Urine Color Urine Appearance Urine pH Ur Specific [place] Urine Protein Urine Glucose (UA) Urine Ketones Urine Blood Urine Nitrite Urine Bilirubin Urine Urobilinogen Ur Leukocyte Esterase Urine WBC (Auto) Urine RBC (Auto) U Hyaline Cast (Auto) U Epithel Cells (Auto) Urine Bacteria (Auto) Acetylchol Rcpt Bind Ab Blood Type Antibody Screen 05/17/18 05/17/18 05/17/18 04:07 06:06 18:14 WBC RBC Hgb Hct MCV MCH MCHC RDW Std Deviation RDW Coeff of Julieth Plt Count MPV Immature Gran % (Auto) Neut % (Auto) Lymph % (Auto) Miner % (Auto) Eos % (Auto) Baso % (Auto) Immature Gran # (Auto) Neut # (Auto) Lymph # (Auto) Miner # (Auto) Eos # (Auto) Baso # (Auto) ESR PT POC INR INR APTT PTT Ratio Sodium 132 L Potassium 3.2 L Chloride 97 L Carbon Dioxide 29 Anion Gap 6.0 BUN 10 D Creatinine 0.58 L D Est Cr Clr Drug Dosing 118.1 Est GFR ( Amer) 113.2 Est GFR (Non-Af Amer) 97.7 BUN/Creatinine Ratio 18.2 Glucose 117 H POC Glucose 122 H 121 H Osmolality Calcium 7.9 L Phosphorus Magnesium Total Bilirubin Direct Bilirubin AST ALT Alkaline Phosphatase Troponin I C-Reactive Protein Total Protein Albumin Triglycerides Cholesterol LDL Cholesterol, Calc VLDL Cholesterol, Calc HDL Cholesterol Cholesterol/HDL Ratio TSH Cortisol AM Sample Urine Color Urine Appearance Urine pH Ur Specific [place] Urine Protein Urine Glucose (UA) Urine Ketones Urine Blood Urine Nitrite Urine Bilirubin Urine Urobilinogen Ur Leukocyte Esterase Urine WBC (Auto) Urine RBC (Auto) U Hyaline Cast (Auto) U Epithel Cells (Auto) Urine Bacteria (Auto) Acetylchol Rcpt Bind Ab Blood Type Antibody Screen 05/17/18 05/18/18 05/18/18 23:35 05:56 06:45 WBC RBC Hgb Hct MCV MCH MCHC RDW Std Deviation RDW Coeff of Julieth Plt Count MPV Immature Gran % (Auto) Neut % (Auto) Lymph % (Auto) Miner % (Auto) Eos % (Auto) Baso % (Auto) Immature Gran # (Auto) Neut # (Auto) Lymph # (Auto) Miner # (Auto) Eos # (Auto) Baso # (Auto) ESR PT 15.2 H POC INR INR 1.5 H APTT 77.3 H* PTT Ratio 3.0 Sodium Potassium Chloride Carbon Dioxide Anion Gap BUN Creatinine Est Cr Clr Drug Dosing Est GFR ( Amer) Est GFR (Non-Af Amer) BUN/Creatinine Ratio Glucose POC Glucose 113 H 122 H Osmolality Calcium Phosphorus Magnesium Total Bilirubin Direct Bilirubin AST ALT Alkaline Phosphatase Troponin I C-Reactive Protein Total Protein Albumin Triglycerides Cholesterol LDL Cholesterol, Calc VLDL Cholesterol, Calc HDL Cholesterol Cholesterol/HDL Ratio TSH Cortisol AM Sample Urine Color Urine Appearance Urine pH Ur Specific [place] Urine Protein Urine Glucose (UA) Urine Ketones Urine Blood Urine Nitrite Urine Bilirubin Urine Urobilinogen Ur Leukocyte Esterase Urine WBC (Auto) Urine RBC (Auto) U Hyaline Cast (Auto) U Epithel Cells (Auto) Urine Bacteria (Auto) Acetylchol Rcpt Bind Ab Blood Type Antibody Screen 05/18/18 05/18/18 05/18/18 06:45 12:12 14:14 WBC 6.96 RBC 3.11 L Hgb 9.6 L Hct 28.8 L MCV 92.6 MCH 30.9 MCHC 33.3 RDW Std Deviation 48.6 H RDW Coeff of Julieth 14.6 H Plt Count 338 MPV 9.1 Immature Gran % (Auto) Neut % (Auto) Lymph % (Auto) Miner % (Auto) Eos % (Auto) Baso % (Auto) Immature Gran # (Auto) Neut # (Auto) Lymph # (Auto) Miner # (Auto) Eos # (Auto) Baso # (Auto) ESR PT POC INR INR APTT 108.4 H* PTT Ratio 4.2 Sodium Potassium Chloride Carbon Dioxide Anion Gap BUN Creatinine Est Cr Clr Drug Dosing Est GFR ( Amer) Est GFR (Non-Af Amer) BUN/Creatinine Ratio Glucose POC Glucose 118 H Osmolality Calcium Phosphorus Magnesium Total Bilirubin Direct Bilirubin AST ALT Alkaline Phosphatase Troponin I C-Reactive Protein Total Protein Albumin Triglycerides Cholesterol LDL Cholesterol, Calc VLDL Cholesterol, Calc HDL Cholesterol Cholesterol/HDL Ratio TSH Cortisol AM Sample Urine Color Urine Appearance Urine pH Ur Specific [place] Urine Protein Urine Glucose (UA) Urine Ketones Urine Blood Urine Nitrite Urine Bilirubin Urine Urobilinogen Ur Leukocyte Esterase Urine WBC (Auto) Urine RBC (Auto) U Hyaline Cast (Auto) U Epithel Cells (Auto) Urine Bacteria (Auto) Acetylchol Rcpt Bind Ab Blood Type Antibody Screen 05/18/18 05/18/18 05/18/18 14:14 15:36 16:19 WBC RBC Hgb 11.0 L Hct 33.0 L MCV MCH MCHC RDW Std Deviation RDW Coeff of Julieth Plt Count MPV Immature Gran % (Auto) Neut % (Auto) Lymph % (Auto) Miner % (Auto) Eos % (Auto) Baso % (Auto) Immature Gran # (Auto) Neut # (Auto) Lymph # (Auto) Miner # (Auto) Eos # (Auto) Baso # (Auto) ESR PT POC INR INR APTT 54.3 H* PTT Ratio 2.1 Sodium Potassium Chloride Carbon Dioxide Anion Gap BUN Creatinine Est Cr Clr Drug Dosing Est GFR ( Amer) Est GFR (Non-Af Amer) BUN/Creatinine Ratio Glucose POC Glucose 159 H Osmolality Calcium Phosphorus Magnesium Total Bilirubin Direct Bilirubin AST ALT Alkaline Phosphatase Troponin I C-Reactive Protein Total Protein Albumin Triglycerides Cholesterol LDL Cholesterol, Calc VLDL Cholesterol, Calc HDL Cholesterol Cholesterol/HDL Ratio TSH Cortisol AM Sample Urine Color Urine Appearance Urine pH Ur Specific [place] Urine Protein Urine Glucose (UA) Urine Ketones Urine Blood Urine Nitrite Urine Bilirubin Urine Urobilinogen Ur Leukocyte Esterase Urine WBC (Auto) Urine RBC (Auto) U Hyaline Cast (Auto) U Epithel Cells (Auto) Urine Bacteria (Auto) Acetylchol Rcpt Bind Ab Blood Type Antibody Screen 05/18/18 05/19/18 05/19/18 20:06 07:21 07:38 WBC 7.74 RBC 3.60 L Hgb 10.9 L Hct 33.7 L MCV 93.6 MCH 30.3 MCHC 32.3 RDW Std Deviation 50.7 H RDW Coeff of Julieth 15.0 H Plt Count 388 MPV 9.1 Immature Gran % (Auto) Neut % (Auto) Lymph % (Auto) [place] % (Auto) Eos % (Auto) Baso % (Auto) Immature Gran # (Auto) Neut # (Auto) Lymph # (Auto) Min[place] # (Auto) Eos # (Auto) Baso # (Auto) ESR PT POC INR INR APTT PTT Ratio Sodium Potassium Chloride Carbon Dioxide Anion Gap BUN Creatinine Est Cr Clr Drug Dosing Est GFR ( Amer) Est GFR (Non-Af Amer) BUN/Creatinine Ratio Glucose POC Glucose 136 H 110 H Osmolality Calcium Phosphorus Magnesium Total Bilirubin Direct Bilirubin AST ALT Alkaline Phosphatase Troponin I C-Reactive Protein Total Protein Albumin Triglycerides Cholesterol LDL Cholesterol, Calc VLDL Cholesterol, Calc HDL Cholesterol Cholesterol/HDL Ratio TSH Cortisol AM Sample Urine Color Urine Appearance Urine pH Ur Specific [place] Urine Protein Urine Glucose (UA) Urine Ketones Urine Blood Urine Nitrite Urine Bilirubin Urine Urobilinogen Ur Leukocyte Esterase Urine WBC (Auto) Urine RBC (Auto) U Hyaline Cast (Auto) U Epithel Cells (Auto) Urine Bacteria (Auto) Acetylchol Rcpt Bind Ab Blood Type Antibody Screen 05/19/18 05/19/18 05/19/18 07:38 07:38 07:38 WBC RBC Hgb Hct MCV MCH MCHC RDW Std Deviation RDW Coeff of Julieth Plt Count MPV Immature Gran % (Auto) Neut % (Auto) Lymph % (Auto) [place] % (Auto) Eos % (Auto) Baso % (Auto) Immature Gran # (Auto) Neut # (Auto) Lymph # (Auto) Miner # (Auto) Eos # (Auto) Baso # (Auto) ESR PT 12.4 H POC INR INR 1.2 H APTT 54.4 H* PTT Ratio 2.1 Sodium 134 L Potassium 3.0 L Chloride 102 Carbon Dioxide 26 Anion Gap 6.0 BUN 6 L Creatinine 0.49 L Est Cr Clr Drug Dosing 140.5 Est GFR ( Amer) 121.3 Est GFR (Non-Af Amer) 104.7 BUN/Creatinine Ratio 12.4 Glucose 123 H POC Glucose Osmolality Calcium 8.2 L Phosphorus 3.4 Magnesium 1.7 L Total Bilirubin Direct Bilirubin AST ALT Alkaline Phosphatase Troponin I C-Reactive Protein Total Protein Albumin Triglycerides Cholesterol LDL Cholesterol, Calc VLDL Cholesterol, Calc HDL Cholesterol Cholesterol/HDL Ratio TSH Cortisol AM Sample Urine Color Urine Appearance Urine pH Ur Specific [place] Urine Protein Urine Glucose (UA) Urine Ketones Urine Blood Urine Nitrite Urine Bilirubin Urine Urobilinogen Ur Leukocyte Esterase Urine WBC (Auto) Urine RBC (Auto) U Hyaline Cast (Auto) U Epithel Cells (Auto) Urine Bacteria (Auto) Acetylchol Rcpt Bind Ab Blood Type Antibody Screen 05/19/18 05/19/18 05/19/18 07:38 11:25 16:21 WBC RBC Hgb Hct MCV MCH MCHC RDW Std Deviation RDW Coeff of Julieth Plt Count MPV Immature Gran % (Auto) Neut % (Auto) Lymph % (Auto) Miner % (Auto) Eos % (Auto) Baso % (Auto) Immature Gran # (Auto) Neut # (Auto) Lymph # (Auto) Miner # (Auto) Eos # (Auto) Baso # (Auto) ESR PT POC INR INR APTT PTT Ratio Sodium Cancelled Potassium Cancelled Chloride Cancelled Carbon Dioxide Cancelled Anion Gap Cancelled BUN Cancelled Creatinine Cancelled Est Cr Clr Drug Dosing Cancelled Est GFR ( Amer) Cancelled Est GFR (Non-Af Amer) Cancelled BUN/Creatinine Ratio Cancelled Glucose Cancelled POC Glucose 101 H 96 Osmolality Calcium Cancelled Phosphorus Magnesium Total Bilirubin Direct Bilirubin AST ALT Alkaline Phosphatase Troponin I C-Reactive Protein Total Protein Albumin Triglycerides Cholesterol LDL Cholesterol, Calc VLDL Cholesterol, Calc HDL Cholesterol Cholesterol/HDL Ratio TSH Cortisol AM Sample Urine Color Urine Appearance Urine pH Ur Specific [place] Urine Protein Urine Glucose (UA) Urine Ketones Urine Blood Urine Nitrite Urine Bilirubin Urine Urobilinogen Ur Leukocyte Esterase Urine WBC (Auto) Urine RBC (Auto) U Hyaline Cast (Auto) U Epithel Cells (Auto) Urine Bacteria (Auto) Acetylchol Rcpt Bind Ab Blood Type Antibody Screen 05/19/18 05/20/18 05/20/18 20:07 07:00 07:00 WBC RBC Hgb Hct MCV MCH MCHC RDW Std Deviation RDW Coeff of Julieth Plt Count MPV Immature Gran % (Auto) Neut % (Auto) Lymph % (Auto) [place] % (Auto) Eos % (Auto) Baso % (Auto) Immature Gran # (Auto) Neut # (Auto) Lymph # (Auto) Miner # (Auto) Eos # (Auto) Baso # (Auto) ESR PT 14.7 H POC INR INR 1.5 H APTT 55.3 H* PTT Ratio 2.1 Sodium 135 L Potassium 3.2 L Chloride 100 Carbon Dioxide 25 Anion Gap 9.0 BUN 5 L Creatinine 0.57 L Est Cr Clr Drug Dosing 122.5 Est GFR ( Amer) 114.0 Est GFR (Non-Af Amer) 98.4 BUN/Creatinine Ratio 9.1 L Glucose 120 H POC Glucose 140 H Osmolality Calcium 8.0 L Phosphorus Magnesium Total Bilirubin Direct Bilirubin AST ALT Alkaline Phosphatase Troponin I C-Reactive Protein Total Protein Albumin Triglycerides Cholesterol LDL Cholesterol, Calc VLDL Cholesterol, Calc HDL Cholesterol Cholesterol/HDL Ratio TSH Cortisol AM Sample Urine Color Urine Appearance Urine pH Ur Specific [place] Urine Protein Urine Glucose (UA) Urine Ketones Urine Blood Urine Nitrite Urine Bilirubin Urine Urobilinogen Ur Leukocyte Esterase Urine WBC (Auto) Urine RBC (Auto) U Hyaline Cast (Auto) U Epithel Cells (Auto) Urine Bacteria (Auto) Acetylchol Rcpt Bind Ab Blood Type Antibody Screen 05/20/18 05/20/18 05/20/18 07:00 07:28 11:20 WBC 8.21 RBC 3.55 L Hgb 10.7 L Hct 33.2 L MCV 93.5 MCH 30.1 MCHC 32.2 RDW Std Deviation 50.9 H RDW Coeff of Julieth 14.9 H Plt Count 370 MPV 8.9 Immature Gran % (Auto) 0.2 Neut % (Auto) 79.1 Lymph % (Auto) 12.2 Miner % (Auto) 6.2 Eos % (Auto) 2.1 Baso % (Auto) 0.2 Immature Gran # (Auto) 0.02 Neut # (Auto) 6.49 Lymph # (Auto) 1.00 L Miner # (Auto) 0.51 Eos # (Auto) 0.17 Baso # (Auto) 0.02 ESR PT POC INR INR APTT PTT Ratio Sodium Potassium Chloride Carbon Dioxide Anion Gap BUN Creatinine Est Cr Clr Drug Dosing Est GFR ( Amer) Est GFR (Non-Af Amer) BUN/Creatinine Ratio Glucose POC Glucose 112 H 130 H Osmolality Calcium Phosphorus Magnesium Total Bilirubin Direct Bilirubin AST ALT Alkaline Phosphatase Troponin I C-Reactive Protein Total Protein Albumin Triglycerides Cholesterol LDL Cholesterol, Calc VLDL Cholesterol, Calc HDL Cholesterol Cholesterol/HDL Ratio TSH Cortisol AM Sample Urine Color Urine Appearance Urine pH Ur Specific [place] Urine Protein Urine Glucose (UA) Urine Ketones Urine Blood Urine Nitrite Urine Bilirubin Urine Urobilinogen Ur Leukocyte Esterase Urine WBC (Auto) Urine RBC (Auto) U Hyaline Cast (Auto) U Epithel Cells (Auto) Urine Bacteria (Auto) Acetylchol Rcpt Bind Ab Blood Type Antibody Screen 05/20/18 05/20/18 05/21/18 16:32 20:36 07:11 WBC RBC Hgb Hct MCV MCH MCHC RDW Std Deviation RDW Coeff of Julieth Plt Count MPV Immature Gran % (Auto) Neut % (Auto) Lymph % (Auto) Miner % (Auto) Eos % (Auto) Baso % (Auto) Immature Gran # (Auto) Neut # (Auto) Lymph # (Auto) Miner # (Auto) Eos # (Auto) Baso # (Auto) ESR PT POC INR INR APTT 56.7 H* PTT Ratio 2.2 Sodium Potassium Chloride Carbon Dioxide Anion Gap BUN Creatinine Est Cr Clr Drug Dosing Est GFR ( Amer) Est GFR (Non-Af Amer) BUN/Creatinine Ratio Glucose POC Glucose 124 H 146 H Osmolality Calcium Phosphorus Magnesium Total Bilirubin Direct Bilirubin AST ALT Alkaline Phosphatase Troponin I C-Reactive Protein Total Protein Albumin Triglycerides Cholesterol LDL Cholesterol, Calc VLDL Cholesterol, Calc HDL Cholesterol Cholesterol/HDL Ratio TSH Cortisol AM Sample Urine Color Urine Appearance Urine pH Ur Specific [place] Urine Protein Urine Glucose (UA) Urine Ketones Urine Blood Urine Nitrite Urine Bilirubin Urine Urobilinogen Ur Leukocyte Esterase Urine WBC (Auto) Urine RBC (Auto) U Hyaline Cast (Auto) U Epithel Cells (Auto) Urine Bacteria (Auto) Acetylchol Rcpt Bind Ab Blood Type Antibody Screen 05/21/18 05/21/18 07:30 09:17 WBC RBC Hgb Hct MCV MCH MCHC RDW Std Deviation RDW Coeff of Julieth Plt Count MPV Immature Gran % (Auto) Neut % (Auto) Lymph % (Auto) Miner % (Auto) Eos % (Auto) Baso % (Auto) Immature Gran # (Auto) Neut # (Auto) Lymph # (Auto) Miner # (Auto) Eos # (Auto) Baso # (Auto) ESR PT 17.4 H POC INR INR 1.8 H APTT PTT Ratio Sodium Potassium Chloride Carbon Dioxide Anion Gap BUN Creatinine Est Cr Clr Drug Dosing Est GFR ( Amer) Est GFR (Non-Af Amer) BUN/Creatinine Ratio Glucose POC Glucose 114 H Osmolality Calcium Phosphorus Magnesium Total Bilirubin Direct Bilirubin AST ALT Alkaline Phosphatase Troponin I C-Reactive Protein Total Protein Albumin Triglycerides Cholesterol LDL Cholesterol, Calc VLDL Cholesterol, Calc HDL Cholesterol Cholesterol/HDL Ratio TSH Cortisol AM Sample Urine Color Urine Appearance Urine pH Ur Specific [place] Urine Protein Urine Glucose (UA) Urine Ketones Urine Blood Urine Nitrite Urine Bilirubin Urine Urobilinogen Ur Leukocyte Esterase Urine WBC (Auto) Urine RBC (Auto) U Hyaline Cast (Auto) U Epithel Cells (Auto) Urine Bacteria (Auto) Acetylchol Rcpt Bind Ab Blood Type Antibody Screen Chemistry 05/20/18 07:00 Sodium 135 L Potassium 3.2 L Chloride 100 Carbon Dioxide 25 Anion Gap 9.0 BUN 5 L Creatinine 0.57 L Glucose 120 H
[2018-05-21] MEDS: PANTOprazole 40 MG in SYRINGE 0 ML IV SCH (12:01)
[2018-05-21] MEDS: HEPARIN STANDARD DEXTROSE 25,000 UNITS/500 ML IV SCH (12:40)
[2018-05-21] MEDS: WARFARIN SOD 5 MG TAB PO SCH (16:30)
[2018-05-22] MEDS: HEPARIN STANDARD DEXTROSE 25,000 UNITS/500 ML IV SCH ×2 (04:01→18:24)
[2018-05-22] MEDS: ACETAMINOPHEN 1,000 MG/100 ML VIAL IV SCH ×3 (06:33→20:54)
[2018-05-22 06:38] LABS: Hematocrit (blood only) 35.7 % (42-52); Hemoglobin 11.7 g/dL (14.0-18.0); Mean Corpuscular Hgb Conc 32.8 g/dL (32-36); Mean Corpuscular Volume 94.7 fL (80-100); Mean Platelet Volume 8.8 fL (7.4-10.4); Platelet Count 406 K/uL (130-400); RDW Coefficient of Variation 15.3 % (11.5-14.5); RDW Standard Deviation 52.3 fL (36.4-46.3); Red Blood Count 3.77 M/uL (4.7-6.1); White Blood Count 6.75 K/uL (4.8-10.8)
[2018-05-22 07:10] LABS: Albumin Level 2.7 gm/dl (3.4-5.0); BUN Creatinine Ratio 7.2 (10-20); Calcium 8.7 mg/dl (8.5-10.1); Creatinine Clr Calc Pharmacy 149.3 ml/min; Est GFR (African American) 123.4; Est GFR (Non-African American) 106.5; Potassium 3.2 mmol/L (3.5-5.1)
[2018-05-22 07:12] LABS: Albumin Globulin Ratio 0.8 (0.9-2); Bilirubin,Total 0.5 mg/dl (0.2-1); Globulin 3.3 gm/dl (2.5-4.0)
[2018-05-22 07:41] LABS: Partial Thromboplastin Ratio 2.3; Prothrombin Time 19.8 Seconds (9.0-12.0)
[2018-05-22 07:53] LABS: Partial Thromboplastin Time 59.6 Seconds (21.0-31.0)
[2018-05-22] MEDS ORDERED: HEPARIN SODIUM/DEXTROSE 25,000 UNITS/500 ML BAG IV SCH (08:15)
[2018-05-22] MEDS: POTASSIUM CHLORIDE 20 MEQ TABCR PO SCH ×2 (09:53→18:00)
[2018-05-22] MEDS: AMLODIPINE BESYLATE 5 MG TAB PO SCH (09:54)
[2018-05-22] MEDS: METOPROLOL TARTRATE 25 MG TAB PO SCH ×2 (09:55→20:54)
--- NOTE | 2018-05-22 10:01 | Hospitalist Progress Note ---
Date of Service May 22, 2018 Assessment & Plan (1) Postoperative ileus: Ileus persistent nausea, hiccups and intermittent abdominal pain and distention likely consistent with postoperative ileus. CT scan of the abdomen pelvis was performed this evening with evidence of this. NG tube and Hart for decompression of the stomach and bladder, respectively have improved his abdominal pain. Continue antiemetics as needed. Continue pain medication as needed. Increase diet as tolerated, Thorazine as needed for hiccups, hiccups are now gone Hart out 05/20 (2) Paroxysmal A-fib: In setting of ileus, off amio IV. On metoprolol tartrate 25 mill grams p.o. BID. Continue IV heparin infusion until INR greater than or equal to 2. Cardiology is following patient. No elective cardioversion patient has elected for pharmacologic therapy/rate control. On heparin drip until INR is therapeutic. (3) H/O Spinal surgery: Recent lumbar spinal surgery last month with complication of durotomy postop course was complicated by CHF and A. fib with RVR. He returns with diplopia with lateral gaze and vertigo as above--these continue to slowly improve. With a history of macroadenoma of the pituitary, a repeat MRI of the sella would be ideal when he is able to lay for the MRI test. Stroke workup has been negative. Initial MRI of the lumbar spine revealed postop seroma 8cm x 9cm. This was drained on 05/05 and durotomy repaired with a patch. Continue activity progression per orthopedics. Cont scheduled Tylenol for back pain. (4) DM type 2 (diabetes mellitus, type 2): Well controlled, continue NovoLog per sliding scale with carb coverage. Holding metformin. (5) HTN (hypertension): Patient tolerating p.o. meds (6) CAD (coronary artery disease): History of CABG in the past. Currently asymptomatic. Continue medical management With IV Lopressor. Resume aspirin and Cozaar if blood pressure permits, metoprolol for rate control. (7) Hypokalemia: 40 mEq of potassium twice daily, monitor daily labs (8) DVT prophylaxis: Heparin drip Full code Disposition-continue restricted activity with slow progression over the next few days per Orthopedics. We will try to discharge to SNF 05/22 or 05/23 Bruce Prasad DO [facility] Internal Medicine Subjective 70-year-old male with complicated postop course. Suspect persistent, possibly progressive ileus. He is still nauseous and has been for several days. He has persistent hiccups and cannot get comfortable. He remains in atrial fib/ flutter and is on amiodarone drip with heparin. He has intermittently vomited. His appetite is significantly decreased now for several days. CT scan was performed of the abdomen revealing evidence of possible ileus. Case was discussed with general surgery by Dr Luna. NG tube and Hart placement was recommended and ordered. His abdomen is more comfortable and his NG tube was DC 'd 05/17. Today on 05/19 we are pushing his diet and he is improving clinically. We are bridging him on IV heparin and warfarin, will try to place him in SNF Tuesday or Tuesday ROS-No Headache, No Visual Changes, No Fever, No Chills, No Neck Pain or Stiffness, No Chest Pain, No Palpitations, No SOB, No ROGERS, No Cough, No Sputum, No Wheezing, less abdominal pain and distention, No Diarrhea, No Hematemesis, No Hemoptysis, No Unexpected Weight Loss, No Flank pain, No Melena, No Hematochezia, No Frequency, No Urgency, No Burning, No Hematuria, No Rashes, No Diaphoresis. Appetite is better, + flatus and bowel movement, still with back pain Physical Exam Gen-AAO x 3, NAD, Afebrile, pleasant Head-NCAT, EOMI, PERRLA, Anicteric Sclera, No Posterior Pharyngeal Erythema Neck-Supple, No JVD, No Thyromegaly, No Masses, No LAD, No Bruits Lungs-Clear to Auscultation Bilaterally, No Rales, No Rhonchi, No Wheezing, No Crepitus Chest-No S4, +S1, +S2, No S3, No Murmurs, No Rubs, No Gallops, No Ectopy Abdomen-Soft, Bowel Sounds Present, Non Tender, Non Distended, No Hepatomegaly, No Splenomegaly, No Palpable Masses, No Rebound, No Rigidity, No Guarding Musculoskeletal-Full Range of Motion Bilaterally, No CVAT Extremities-No Cyanosis, No Clubbing, No Edema Nuero-Cranial Nerves II-XII grossly intact, Motor WNL, DTRs WNL, Strength WNL, No Focal Psych-Normal Mood Physical Exam 2 Vital Signs (Past 24 Hours): Last Vital Signs Temp 36.8 C 05/22/18 07:45 Pulse 77 05/22/18 07:45 Resp 21 05/22/18 07:45 BP 132/58 L 05/22/18 07:45 Pulse Ox 95 05/22/18 07:45 Results & Data Laboratory Results Current Diagnoses Type 2 diabetes mellitus without complications (05/03/18) Hypokalemia (05/03/18) Diplopia (05/03/18) Essential (primary) hypertension (05/03/18) Atherosclerotic heart disease of [place] coronary artery without angina pectoris (05/03/18) Paroxysmal atrial fibrillation (05/03/18) Unspecified atrial fibrillation (05/03/18) Ileus, unspecified (05/03/18) Other postprocedural complications and disorders of digestive system (05/03/18) Pain in unspecified hip (05/03/18) Spinal stenosis, lumbar region with neurogenic claudication (05/03/18) Nausea (05/03/18) Dizziness and giddiness (05/03/18) Encounter for other preprocedural examination (05/03/18) Other specified postprocedural states (05/03/18) Allergies No Known Drug Allergies Allergy (Unknown, Verified 05/03/18 14:13) NONE lactose Adverse Reaction (Mild, Verified 05/03/18 14:13) gi symptoms Height/Weight/Isolation Height 5 ft 10 in Weight 94.2 kg Chemistry 05/22/18 06:26 Sodium 135 L Potassium 3.2 L Chloride 100 Carbon Dioxide 27 Anion Gap 8.0 BUN 3 L Creatinine 0.47 L Glucose 119 H
[2018-05-22] MEDS: INSULIN ASPART 100 UNITS/ML 3 ML PEN SC SCH ×4 (10:06→20:54)
[2018-05-22] MEDS: PANTOprazole 40 MG in SYRINGE 0 ML IV SCH (11:40)
[2018-05-22] MEDS: WARFARIN SOD 5 MG TAB PO SCH (16:19)
[2018-05-23] MEDS: ACETAMINOPHEN 1,000 MG/100 ML VIAL IV SCH (05:31)
[2018-05-23 08:32] LABS: Partial Thromboplastin Ratio 2.7
[2018-05-23] MEDS: POTASSIUM CHLORIDE 20 MEQ TABCR PO SCH (08:32)
[2018-05-23] MEDS: AMLODIPINE BESYLATE 5 MG TAB PO SCH (08:33)
[2018-05-23] MEDS: METOPROLOL TARTRATE 25 MG TAB PO SCH (08:33)
[2018-05-23 08:34] LABS: Partial Thromboplastin Time 70.6 Seconds (21.0-31.0)
[2018-05-23] MEDS: INSULIN ASPART 100 UNITS/ML 3 ML PEN SC SCH ×2 (08:35→12:13)
--- NOTE | 2018-05-23 08:36 | Discharge Summary ---
Date of Service May 23, 2018 Admission HPI Per Admitting Provider This is a patient who has intermittent headaches since back surgery and woke up on 05/03/18 around 4 AM with dipoplia. Patient reports that the dipoplia if with gazing to the left with both eyes opened and sees double vision. When he is gazing to the left with either the right eye closed or with the left eye closed there is no double vision. The visual abnormality does not occur when gazing with both eyes opened in other directions. Patient at bedside denies current headaches. denies vomitting. denies fevers. denies neck pain. No other focal deficits however since back surgery he does have problems with his ambulation with walker compared to previous baseline denies dysphagia denies problems with urination or with bowel movements denies shortness of breath or chest pain or palpitations reports family history of "heart problems" like in his father Admission Exam Per Admitting Provider Constitutional: WD/WN, vitals as above Eyes: PERRL, conjunctivae normal, anicteric sclerae EOM intact bilaterally (dipoplia with lateral gaze to the left) ENMT: external ear and nose normal, oropharynx normal Neck: trachea midline, no thyromegaly Respiratory: normal respiratory effort, lungs clear to auscultation Cardiovascular: RRR, no murmur, no edema Gastrointestinal (Abdomen): normal bowel sounds, soft, nontender, no hepatosplenomegaly Musculoskeletal: Head/Neck/Chest: normocephalic and head atraumatic Neurologic: CN's II-XI intact bilaterally Psychiatric: A+Ox3, euthymic affect Principal Diagnosis Back Surgery For Neurogenic Claudication-Dr Douglas PAF Obese Post Op Ileus DM II HTN CAD VANNESA S/P Diplopia Discharge Exam ROS-No Headache, No Visual Changes, No Fever, No Chills, No Neck Pain or Stiffness, No Chest Pain, No Palpitations, No SOB, No ROGERS, No Cough, No Sputum, No Wheezing, less abdominal pain and distention, No Diarrhea, No Hematemesis, No Hemoptysis, No Unexpected Weight Loss, No Flank pain, No Melena, No Hematochezia, No Frequency, No Urgency, No Burning, No Hematuria, No Rashes, No Diaphoresis. Appetite is better, + flatus and bowel movement, still with back pain Physical Exam Gen-AAO x 3, NAD, Afebrile, pleasant Head-NCAT, EOMI, PERRLA, Anicteric Sclera, No Posterior Pharyngeal Erythema Neck-Supple, No JVD, No Thyromegaly, No Masses, No LAD, No Bruits Lungs-Clear to Auscultation Bilaterally, No Rales, No Rhonchi, No Wheezing, No Crepitus Chest-No S4, +S1, +S2, No S3, No Murmurs, No Rubs, No Gallops, No Ectopy Abdomen-Soft, Bowel Sounds Present, Non Tender, Non Distended, No Hepatomegaly, No Splenomegaly, No Palpable Masses, No Rebound, No Rigidity, No Guarding Musculoskeletal-Full Range of Motion Bilaterally, No CVAT Extremities-No Cyanosis, No Clubbing, No Edema Nuero-Cranial Nerves II-XII grossly intact, Motor WNL, DTRs WNL, Strength WNL, No Focal Psych-Normal Mood Discharge Data Allergies Allergy/AdvReac Type Severity Reaction Status Date / Time No Known Drug Allergies Allergy Unknown NONE Verified 05/03/18 14:13 lactose AdvReac Mild gi symptoms Verified 05/03/18 14:13 Consultations 05/13/18 16:19 Consult Cardiology Routine 05/16/18 19:28 Consult General Surgery Routine 05/03/18 15:35 ED Decision to Admit Stat 05/03/18 20:19 Consult Neurology Routine 05/04/18 08:00 Consult Case Management - Discharge Planning Routine 05/04/18 19:01 Consult Orthopedic Surgery Routine 05/05/18 14:49 Consult Case Management - Discharge Planning Routine Procedures Performed Operation Date: 05/05/18 10:55 Actual Procedures p Incision and Drainage Lumbar Spine Repair Durotomy - Ankur Douglas DO Current Diagnoses Type 2 diabetes mellitus without complications (05/03/18) Hypokalemia (05/03/18) Diplopia (05/03/18) Essential (primary) hypertension (05/03/18) Atherosclerotic heart disease of [place] coronary artery without angina pectoris (05/03/18) Paroxysmal atrial fibrillation (05/03/18) Unspecified atrial fibrillation (05/03/18) Ileus, unspecified (05/03/18) Other postprocedural complications and disorders of digestive system (05/03/18) Pain in unspecified hip (05/03/18) Spinal stenosis, lumbar region with neurogenic claudication (05/03/18) Nausea (05/03/18) Dizziness and giddiness (05/03/18) Encounter for other preprocedural examination (05/03/18) Other specified postprocedural states (05/03/18) Allergies No Known Drug Allergies Allergy (Unknown, Verified 05/03/18 14:13) NONE lactose Adverse Reaction (Mild, Verified 05/03/18 14:13) gi symptoms Height/Weight/Isolation Height 5 ft 10 in Weight 94.2 kg Chemistry 05/22/18 06:26 Sodium 135 L Potassium 3.2 L Chloride 100 Carbon Dioxide 27 Anion Gap 8.0 BUN 3 L Creatinine 0.47 L Glucose 119 H Ordered Studies 05/16/18 17:00 CT abd pelvis IV con only Urgent 05/03/18 13:05 CT head/brain wo con Stat 05/03/18 14:18 CT angio head w con Stat CT angio neck with con Stat 05/03/18 16:17 US venous doppler LE BI Stat 05/04/18 13:22 MR lumbar spine wo con Stat 05/04/18 13:31 MR brain wo con Urgent 05/05/18 13:38 FL fluoroscopy >1hr Routine FL lumbar spine 2-3V Routine Hospital Course (1) Postoperative ileus: Ileus persistent nausea, hiccups and intermittent abdominal pain and distention likely consistent with postoperative ileus. CT scan of the abdomen pelvis was performed. NG tube and Hart for decompression of the stomach and bladder, respectively have improved his abdominal pain and now DCd. (2) Paroxysmal A-fib: In setting of ileus, off amio IV. On metoprolol tartrate 25 mill grams p.o. BID. On warfarin, INR 2 today. No elective cardioversion, patient has elected for pharmacologic therapy/rate control. Off heparin drip 05/23, INR is therapeutic. (3) H/O Spinal surgery: Recent lumbar spinal surgery last month with complication of durotomy postop course was complicated by CHF and A. fib with RVR. He returns with diplopia with lateral gaze and vertigo, all resolved. With a history of macroadenoma of the pituitary, a repeat MRI of the sella would be ideal when he is able to lay for the MRI test. Stroke workup was negative. Initial MRI of the lumbar spine revealed postop seroma 8cm x 9cm. This was drained on 05/05 and durotomy repaired with a patch. Continue activity progression per orthopedics. Cont scheduled Tylenol for back pain. (4) DM type 2 (diabetes mellitus, type 2): Well controlled, continue NovoLog per sliding scale with carb coverage. Resume metformin on DC. (5) HTN (hypertension): Patient tolerating p.o. meds (6) CAD (coronary artery disease): History of CABG in the past. Resume aspirin and Norvasc, metoprolol for rate control. (7) Hypokalemia: 20 mEq of potassium twice daily (8) DVT prophylaxis: Therapeutic on Warfarin Full code Disposition-continue restricted activity with slow progression over the next few days per Orthopedics. [facility] Total Time Total Time Spent Total Time Spent (In Minutes): 50 minutes Total Time Includes: Examination of the Patient, Discharge Planning, Medication Reconciliation and Communication With Other Providers Discharge Plan Discharge Items Patient Disposition: Transfer Inpatient Rehab Fac Reason For Visit: DIPOPLIA Discharge Diagnosis: Back Surgery For Neurogenic Claudication-Dr Douglas PAF Obese Post Op Ileus DM II HTN CAD VANNESA S/P Diplopia Discharge Goals: Improve function Activity: Resume your previous activity Lifting: None Bathing: No limitations Sexual Activity: When tolerated Exercise/Sports: None Driving/Machine Use: No limitations Weightbearing: Left weightbearing and Right weightbearing Non-emergency contact: Primary Care Provider and Surgeon Call non-emergency contact if: your temperature is above 100.5 and your wound has increased drainage Diet: Carb Consistent or DM2 and Heart Healthy Addtl Provider Instructions: PT had Hiccups, Resolved c Thorazine Prescriptions: New amlodipine [Norvasc] 5 mg Tablet 2.5 mg PO QAM Qty: 30 RF: 0 potassium chloride [Klor-Con M20] 20 mEq Tablet,Er Particles/Crystals 20 meq PO BIDM Qty: 60 RF: 0 warfarin [Coumadin] 2 mg tablet 5 mg PO DAILY@1600 Qty: 90 RF: 0 bisacodyl [Bisac-Evac] 10 mg Suppository 10 mg [place] DAILY PRN (Reason: constipation) Qty: 30 RF: 0 Continue multivitamin Tablet 1 tab PO QAM RF: 0 metformin 500 mg Tablet 500 mg PO BIDM RF: 0 aspirin [Aspir-81] 81 mg Tablet,Delayed Release (Dr/Ec) 81 mg PO BID RF: 0 omeprazole 20 mg Capsule,Delayed Release(Dr/Ec) 20 mg PO QAM RF: 0 magnesium oxide 400 mg Capsule 400 mg PO QPM RF: 0 omega 3,6,9 combination no.7 92 mg (43 mg-22 [id number]) Tablet,Chewable 1,200 mg PO QAM RF: 0 metoprolol tartrate [Lopressor] 50 mg Tablet 25 mg PO BID RF: 0 albuterol sulfate [ProAir HFA] 90 mcg/actuation Hfa Aerosol Inhaler 2 puff INHALATION Q4 PRN (Reason: Wheezing) RF: 0 Discontinued losartan 50 mg Tablet 50 mg PO DAILY RF: 0 Stand-Alone Forms: [facility] Discharge Orders: Discharge Order (Routine); Ordered 05/23/18 Ordered By: Bruce Prasad Skilled Items Patient informed of condition?: Yes DNR: No Discharge Level of Care: Skilled Communicable Disease: No Discharge Prognosis: Improving Admission Data Admit Date/Time: 05/03/18 16:18 Attending Provider: Bruce Prasad Admit Provider: Bruce Holcomb Primary Care Provider: Shaka Lechuga Other Providers: Christin Luna ; Bruce Holcomb ; Leandro Dan ; Ankur Douglas ; Dc Delgado ; Thuan Almonte Service: Telemetry Other Pending Studies at Discharge: No
[2018-05-23] MEDS: PANTOprazole 40 MG in SYRINGE 0 ML IV SCH (10:48)
--- NOTE | 2018-06-26 13:45 | Coding Query ---
Your help is needed for correct coding of this account; please clarify if the patients Post-operative Ileus was: ( ) expected out of the surgery (X) unexpected complication from the surgery ( )other please specify Thank you Lana LIVINGSTON
== END 2018-05-23 14:06 | DRG 29 ==
LOC: ED 12:19 → SUATTDRO 16:18 → 2N 16:18 → 3N 05-05 14:46 → 2S 05-11 14:18 → 3N 05-21 13:59